=== PATIENT | female | born 2000 | race Caucasian/White ===

== ENCOUNTER 2022-12-24 09:25 | Outpatient (OUT) | payer OTHER, SELFPAY ==
[2022-12-24 09:56] LABS: Basophils Percent Auto 0.4 % (0.2-2.0); Eosinophils Absolute Auto 0.1 10^3/uL (0.0-0.7); Eosinophils Percent Auto 0.9 % (0.9-7.0); Hematocrit 36.8 % (36.0-48.0); Hemoglobin 12.6 g/dL (12.0-16.0); Immature Granulocytes Abs Auto 0.01 10^3/uL (0.00-0.03); Immature Granulocytes Pct Auto 0.1 % (0.0-0.5); Lymphocytes Absolute Auto 2.7 10^3/uL (1.2-3.8); Lymphocytes Percent Auto 33.1 % (20.5-60.0); Mean Corpuscular HGB Conc 34.2 g/dL (29.9-35.2); Mean Corpuscular Hemoglobin 30.4 pg (26.7-34.0); Mean Corpuscular Volume 88.9 fL (81.0-99.0); Mean Platelet Volume 9.6 fL (9.5-13.5); Monocytes Absolute Auto 0.6 10^3/uL (0.3-0.8); Monocytes Percent Auto 7.8 % (1.7-12.0); Neutrophils Absolute Auto 4.6 10^3/uL (1.4-6.5); Neutrophils Percent Auto 57.7 % (43.0-75.0); Platelet Count 240 10^3/uL (150-450); Red Blood Count 4.14 10^6/uL (4.20-5.40); Red Cell Distribution Width 11.8 % (11.0-15.0)
[2022-12-24 10:28] LABS: Estimated Average Glucose 91 mg/dL; Glycohemoglobin A1C 4.8 % (4.5-6.2)
[2022-12-24 11:34] LABS: Alanine Aminotransferase 19 U/L (14-59); Albumin Globulin Ratio 1.3; Albumin Level 4.3 g/dL (3.4-5.0); Alkaline Phosphatase 49 U/L (46-116); Anion Gap 11.8; Aspartate Amino Transferase 14 U/L (15-37); BUN Creatinine Ratio 10.4; Bilirubin Total 0.4 mg/dL (0.2-1.0); Calcium 8.9 mg/dL (8.5-10.1); Carbon Dioxide 26.7 mmol/L (21.0-32.0); Chloride 105 mmol/L (98-107); Chol HDL Ratio 2.3; Cholesterol 126 mg/dL (<=200); Estimated GFR (African America >60 (>=60); Estimated GFR (Non-African Ame >60 (>=60); Free T3 2.48 pg/mL (2.18-3.98); Globulin 3.4 g/dL; Glucose 92 mg/dL (74-106); HDL Cholesterol 55 mg/dL (40-60); Potassium 3.5 mmol/L (3.5-5.1); Sodium 140 mmol/L (136-145); Thyroid Stimulating Hormone 1.175 uIU/mL (0.358-3.740); Total Protein 7.7 g/dL (6.4-8.2); Triglycerides 70 mg/dL (<=150)
== END 2022-12-24 09:26 | disposition home or self-care (01) ==
LOC: LAB 09:29
PROVIDERS: PCP Family Medicine; Visit Provider Family Medicine
DX: Z00.00 Encounter for general adult medical examination without abnormal findings (principal)
CPT/HCPCS: 36415; 80053; 80061; 83036; 83540; 84436; 84443; 84481; 85025

== ENCOUNTER 2023-02-15 07:06 | Emergency (ER) | payer OTHER, SELFPAY ==
[2023-02-15 07:13] VITALS: BP 118/70; PULSE 87; RESP 20; TEMP 37.2; O2SAT 100; BMI 21.3
[2023-02-15 07:43] LABS: Bilirubin Urine SMALL (NEGATIVE); Blood Urine MODERATE (NEGATIVE); Clarity Urine CLEAR (CLEAR); Color Urine YELLOW (YELLOW); Glucose Urine UA NEGATIVE (NEGATIVE); Ketones Urine NEGATIVE (NEGATIVE); Leukocyte Esterase Urine SMALL (NEGATIVE); Nitrite Urine NEGATIVE (NEGATIVE); Protein Urine 30 mg/dL (NEG/TRACE); Specific Gravity Urine >=1.030 (1.005-1.025); pH Urine 5.5 (5.0-9.0)
[2023-02-15 07:56] LABS: Bacteria Urine MODERATE #/HPF (NONE SEEN)
[2023-02-15 07:57] LABS: Mucus Urine NONE SEEN (NONE SEEN); Squamous Epithelial Cell Urine MODERATE #/LPF (NONE/RARE)
--- NOTE | 2023-02-15 08:34 | ED.GENADUL1 ---
HPI - General Adult General Chief complaint: Urogenital-Female Stated complaint: PAIN W URINATION Time Seen by Provider: 02/15/23 08:22 Source: patient Mode of arrival: walk-in Limitations: no limitations History of Present Illness HPI narrative: Patient is a 22-year-old female who is presenting to the Emergency Room with painful urination and concern for STD. Patient says that she has bumps to the right side of her vagina patient is with one sexual partner, patient has had a STD in the past, she took antibiotics for it and it went away. Patient does not remember what antibiotic she had. Patient has painful with urination, positive frequency and urgency, positive dysuria, no diarrhea. No vaginal bleeding, no vaginal discharge. Patient is due for her menses this week. Patient has no fever, chills. No bowel pain, nausea, vomiting, no other acute complaints. . All systems are negative except as noted/marked. All systems reviewed and otherwise negative. . Nurses note and vital signs reviewed and patient is not hypoxic. General: The patient appears well and in no apparent distress. Patient is resting comfortably on cart. Patient is not toxic, lethargic, or listless Skin: Warm, dry, no pallor noted. There is no rash noted. No petechiae, purpura. Head: Normocephalic, atraumatic Eye: Normal conjunctiva, no drainage, EOMI. PERRL Ears, Nose, Mouth, and Throat: oral mucosa is moist. Cardiovascular: Regular Rate and Rhythm, no murmur, gallop, rub Respiratory: Patient is in no distress, no accessory muscle use, lungs are clear to auscultation, no wheezing, rales or rhonchi Back: non-tender, no CVA tenderness bilaterally to percussion. No CT LS midline pain GI: soft, no tenderness to palpation, no masses appreciated. No rebound, guarding, or rigidity noted. No flank pain bilateral, No distention. : Patient has 5-7 vesicles to the right of her right labia majora, one small vesicle to the left lower labia majora. There are moderate tenderness to palpation to the area. No secondary signs of abscess or infection or cellulitis. No vaginal discharge noted. No suprapubic tenderness to palpation. No internal exam required at this time. Patient has no odor, discharge, patient is only concerned about the bumps to the right side of her vagina Musculoskeletal: Patient has full range of motion of all of the extremities, no motor, sensory, or focal neurological deficits Neurological: A&O x3, normal speech Psychiatric: Cooperative Related Data Home Medications Medication Instructions Recorded Confirmed ferrous sulfate 325 mg (65 mg 325 mg PO QDAY 02/15/23 02/15/23 iron) tablet venlafaxine 75 mg tablet 75 mg PO QDAY 02/15/23 02/15/23 Previous Rx's Medication Instructions Recorded sulfamethoxazole 800 1 tab PO BID 7 days #14 tabs 02/15/23 mg-trimethoprim 160 mg tablet (Bactrim DS) valacyclovir 1 gram tablet 1,000 mg PO TID 7 days #21 tabs 02/15/23 (Valtrex) Allergies Allergy/AdvReac Type Severity Reaction Status Date / Time No Known Drug Allergies Allergy Verified 02/15/23 07:20 Exam Constitutional Vital Signs, click to edit/add: Last Vital Signs Temp 98.9 F 02/15/23 07:13 Pulse 87 02/15/23 07:13 Resp 20 02/15/23 07:13 BP 118/70 02/15/23 07:13 Pulse Ox 100 02/15/23 07:13 O2 Del Method Room Air 02/15/23 07:13 Course Vital Signs Vital signs: Vital Signs Temperature 98.9 F 02/15/23 07:13 Pulse Rate 87 02/15/23 07:13 Respiratory Rate 02/15/23 07:13 Blood Pressure 118/70 02/15/23 07:13 Pulse Oximetry 100 02/15/23 07:13 Oxygen Delivery Method Room Air 02/15/23 07:13 Temperature 98.9 F 02/15/23 07:13 Pulse Rate 87 02/15/23 07:13 Respiratory Rate 02/15/23 07:13 Blood Pressure 118/70 02/15/23 07:13 Pulse Oximetry 100 02/15/23 07:13 Oxygen Delivery Method Room Air 02/15/23 07:13 Medical Decision Making MDM Narrative Medical decision making narrative: Patient had 5-7 min education done at bedside Of genital herpes and oral herpes. Patient has a presentation of genital herpes to the right of the labia majora on the right. Patient has no abscess at this time. No redness or cellulitis or secondary signs of infection. No drainage. Patient understands no sexual intercourse until all lesions have improved, she is to inform her sexual partners. Patient was prescribed Valtrex and acyclovir 5 percent ointment. Patient will follow up and establish care with a PCP or PERFORMANCE TEST ARCHITECT. Education on transfer of general herpes was done at bedside with HSV 1, 2, and other general education done on sexual transmitted diseases. Patient had a test that came back negative as well. Patient understands the severity of the diagnosis, education discussed at bedside and on discharge paperwork. Lab Data Lab results reviewed: Yes I reviewed the patient's lab results Labs: Lab Results 02/15/23 02/15/23 Range/Units 07:15 07:24 Urine Color Yellow (YELLOW) Urine Clarity Clear (CLEAR) Urine pH 5.5 (5.0-9.0) Ur Specific Stewart >=1.030 A (1.005-1.025) Urine Protein 30 A (NEG/TRACE) mg/dL Urine Glucose (UA) Negative (NEGATIVE) mg/dL Urine Ketones Negative (NEGATIVE) mg/dL Urine Occult Blood Moderate A (NEGATIVE) Urine Nitrite Negative (NEGATIVE) Urine Bilirubin Small A (NEGATIVE) Urine Urobilinogen 1.0 (0.2-1.0) EU/dL Ur Leukocyte Esterase Small A (NEGATIVE) Urine RBC 10-20 A (0-2) #/HPF Urine WBC 10-20 A (NONE SEEN) #/HPF Ur Squamous Epith Cells Moderate A (NONE/RARE) #/LPF Urine Bacteria Moderate A (NONE SEEN) #/HPF Urine Mucus None seen (NONE SEEN) Urine HCG, Qual Negative (NEGATIVE) Urine cultures pending. Discharge Plan Discharge Chief Complaint: Urogenital-Female Clinical Impression: Urinary tract infection, Genital herpes Patient Disposition: Home, Self-Care Condition: Fair Prescriptions / Home Meds: New valacyclovir [Valtrex] 1 gram tablet 1,000 mg PO TID 7 Days Qty: 21 0RF sulfamethoxazole-trimethoprim [Bactrim DS] 800-160 mg tablet 1 tab PO BID 7 Days Qty: 14 0RF No Action ferrous sulfate 325 mg (65 mg iron) tablet 325 mg PO QDAY venlafaxine 75 mg tablet 75 mg PO QDAY Instructions: Genital Herpes Simplex (ED), Sexually Transmitted Diseases (ED), Urinary Tract Infection in Older Adults (ED) Additional Instructions: Make your sexual partners aware of the genital herpes most likely. Viral swab is pending. Urine being treated for genital herpes and urinary tract infection. Increase fluids. We are also being prescribed medication for genital herpes along with a acyclovir ointment as well to help improve her symptoms sooner. Need to establish PERFORMANCE TEST ARCHITECT for further follow-up. Stand Alone Forms: Portal Instructions Referrals: Danny Adair MD [Primary Care Provider] - 1 week Discharge Date/Time: 02/15/23 08:55
[2023-02-15 08:52] LABS: HCG Qualitative Urine* NEGATIVE (NEGATIVE)
[2023-02-15] MEDS: VALACYCLOVIR HCL 500 MG TABLET 1000 MG PO (08:54)
[2023-02-18 11:09] LABS: HSV-1 DNA Negative (Negative); HSV-2 DNA Positive (Negative)
== END 2023-02-15 08:55 | disposition home or self-care (01) ==
PROVIDERS: Emergency Provider Emergency Medicine; PCP Family Medicine
DX: A60.00 Herpesviral infection of urogenital system, unspecified (principal); N39.0 Urinary tract infection, site not specified; Z79.899 Other long term (current) drug therapy
CPT/HCPCS: 81001; 84703; 86695; 86696; 87086; 99283

== ENCOUNTER 2023-07-09 15:44 | Emergency (ER) | payer OTHER, SELFPAY ==
[2023-07-09 15:49] VITALS: BP 123/86; PULSE 88; RESP 18; TEMP 37.2; O2SAT 99; BMI 26.5
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
--- NOTE | 2023-07-09 16:08 | CT_ITS ---
The [address] [address] Patient Name: TAYLOR ANTUNEZ MRN: [id number] date: 2000 Sex: F Assigned Patient Location: ER Current Patient Location: ER Accession/Order Number: [id number] Exam Date: 07/09/2023 16:15 Report Date: 07/09/2023 16:50 At the request of: HAL ROTHMAN Procedure: CT head/brain wo con CLINICAL HISTORY: trauma. Hit head on the counter. Large laceration to the head. EXAMINATION: Unenhanced CT scan of the brain: 07/09/2023. COMPARISON: None. TECHNIQUE: 3 mm axial images from skull base through vertex without intravenous contrast were obtained. Sagittal and coronal reconstructions were also performed. FINDINGS: The visualized intraorbital contents appear normal. There is soft tissue swelling overlying the right frontal bone. There is normal differentiation of white and brian matter. There is no intra- or extra-axial hemorrhage. No acute infarct is identified. There is no mass, mass effect, or midline shift. The visualized paranasal sinuses, mastoid air cells appear normal. The calvarium appears intact. CT/CT head/brain wo con IMPRESSION: 1. No acute infarct, hemorrhage, or acute intracranial injury. 2. No skull fractures. 3. Soft tissue swelling, hematoma overlying the lateral aspect of the right frontal bone. Electronically authenticated by: PIEDAD VÁZQUEZ Date: 07/09/2023 16:50
[2023-07-09] MEDS: ACETAMINOPHEN 500 MG TABLET 1000 MG PO (16:57)
== END 2023-07-09 17:15 | disposition home or self-care (01) ==
PROVIDERS: Emergency Provider Emergency Medicine Emergency Medical Services; PCP Family Medicine
DX: S09.8XXA Other specified injuries of head, initial encounter (principal); S00.83XA Contusion of other part of head, initial encounter; S00.03XA Contusion of scalp, initial encounter; W22.09XA Striking against other stationary object, initial encounter; Z79.899 Other long term (current) drug therapy
CPT/HCPCS: 70450; 99284

== ENCOUNTER 2023-09-29 20:35 | Outpatient (REF) | payer BC, OTHER, SELFPAY ==
--- OUTSIDE RECORDS SUMMARY | 2023-09-29 20:46 | XMS_ITS | CCD ---
Author Organization [facility] Care Team Providers Care Major Case Detective Name Role Phone Lupe Adair MD Primary Care Provider [phone] LUPE ADAIR Primary Care Unavailable LUPE ADAIR Primary Care Unavailable CATIA, DR ANDRADE Admitting Unavailable CATIA, DR ANDRADE Attending Unavailable HOY, DR ANDRADE Primary Care Unavailable HOY, DR ANDRADE Consulting Unavailable ZIEBBITA, DR CARMITA Carney Consulting Unavailable CATIA, DR ANDRADE Primary Care Unavailable JUAN JOSE, DR GENTRY Keith Admitting Unavailabl e JUAN JOSE, DR GENTRY Keith Attending Unavailabl e REINECK, DR GENTRY Keith Consulting Unavailabl e HOY, DR ANDRADE Admitting Unavailable CATIA, DR ANDRADE Attending Unavailable CATIA, DR ANDRADE Primary Care Unavailable CATIA, DR ANDRADE Consulting Unavailable CATIA, DR ANDRADE Admitting Unavailable CATIA, DR ANDRADE Attending Unavailable CATIA, DR ANDRADE Primary Care Unavailable NORMAN SPARKS Consulting Unavailable CATIA, DR ANDRADE Admitting Unavailable CATIA, DR ANDRADE Attending Unavailable CATIA, DR ANDRADE Primary Care Unavailable CATIA, DR ANDRADE Consulting Unavailable Rach Posadas MD Attending Unavailab Zina Rocha DO Attending Unavailable JUANCARLOS VELASCO Attending Unavailable Allergies Allergy Classification Reported Allergen(s) Allergy Type Date of Onset Reaction(s) Facility (1 source) No Known Medication Allergies; Translations: [No Known Medication Allergies] Propensity to adverse reactions to drug (disorder) [facility] Repository Medications Current Medications Medication Drug Class(es) Dates Sig (Normalized) Sig (Original) mometasone furoate 1 mg/ml topical cream (1 source) Corticosteroid Start: 02-15-2022 mometasone (ELOCON) 0.1 % cream Apply topically 2 times daily as needed (rash finger) Apply topically daily. 15 g 0 02/15/2022 Active Problems Active Problems Problem Classification Problem Date Documented Da te Episodic/Chronic Allergic reactions (1 source) Allergic contact dermatitis, unspecified cause; Translations: [ALLERG CONTACT DERMATITS UNS CAUSE] Onset: 03-30-2022 Episodic Cardiac dysrhythmias (4 sources) Palpitations; Translations: [PALPITATIONS] Onset: 04-29-2022 Episodic Deficiency and other anemia (1 source) Anemia, unspecified; Translations: [ANEMIA UNSPECIFIED] Onset: 05-04-2022 Episodic Diabetes mellitus without complication (1 source) Other abnormal glucose; Translations: [OTHER ABNORMAL GLUCOSE] Onset: 05-04-2022 Episodic Menstrual disorders (1 source) Excessive and frequent menstruation with irregular cycle; Translations: [EXCESS AND FREQ MEN W/IRREG CYCLE] Onset: 05-04-2022 Chronic Other skin disorders (3 sources) Rash and other nonspecific skin eruption; Translations: [RASH OTH NONSPECIFIC SKIN ERUPTION] Onset: 03-29-2022 Episodic Skin and subcutaneous tissue infections (1 source) Cellulitis of finger; Translations: [Cellulitis of left finger] Episodic Past or Other Problems Problem Classification Problem Date Documented Date Episodic/Chronic Immunizations and screening for infectious disease (1 source) Encounter for screening for infections with a predominantly sexual mode of transmission; Translations: [ENC SCREEN INFECTIONS SEXL TRANSMS] Onset: 06-11-2021 Episodic Other connective tissue disease (4 sources) Pain in left hand; Translations: [PAIN IN LEFT HAND] Onset: 05-23-2021 Episodic Other screening for suspected conditions (not mental disorders or infectious disease) (4 sources) Encounter for screening for malignant neoplasm of cervix; Translations: [ENC SCREENING MALIG NEOPLASM CERV] Onset: 06-04-2021 Episodic Results Test Name Value Interpretation Reference Range Facility .UA Microscp 08-04-2022 UA Bacteria Present Abnormal Absent [facility] Comment on above: Performed By: #### L IVER #### [place] [address] UA Mucus Present Abnormal Absent [facility] Comment on above: Performed By: #### L IVER #### [place] [address] UA RBC Qual 1-4 Normal 0 - 5 [facility] Comment on above: Performed By: #### L IVER #### [address] [address] UA Squepi Cells Qual 15-29 Normal 0 - 29 [facility] Comment on above: Performed By: #### L IVER #### [address] [address] UA WBC Qual 5-9 Abnormal 0 - 5 [facility] Comment on above: Performed By: #### L IVER #### [place] [address] .eGFRon 08-04-2022 GFR/1.73 sq M.predicted MDRD (S/P/Bld) [Vol rate/Area] mL/min/{1.73_m2} Normal >=60 [facility] Comment on above: Order Comment: Order added by Discern rule Result Comment: [facility] have implemented the eGFR calculation approach that does not have a coefficient for race and that conforms to the NKF-ASN Task Force Recommendations. Stages of Chronic Kidney Disease GFR Stage 3a Mild to moderate loss of kidney function 59 to 45 Stage 3b Moderate to severe loss of kidney function 44 to 33 Stage 4 Severe loss of kidney function 29 to 15 Stage 5 Kidney failure Less than 15 GFR calculated using the CKD-Epi Creatinine Equation (2020): eGFR = 142 X min(SCr/?, 1)? X max(SCr /?, 1)-1.200 X 0.9938Age X 1.012 [if female] Abbreviations/Units: eGFR (estimated glomerular filtration rate) = mL/min/1.73 m2 SCr (standardized serum creatinine) = mg/dL ? = 0.7 (females) or 0.9 (males) ? = -0.241 (females) or -0.302 (males) min = indicates the minimum of SCr/? or 1 max = indicates the maximum of SCr/? or 1 Age = years Performed By: #### L IVER #### [address] [address] Basic Metabolic Profileon Anion gap [Moles/Vol] 10 mmol/L Normal 7-17 [facility] Comment on above: Performed By: #### C [id number] #### [address] [address] Calcium [Mass/Vol] 8.5 mg/dL Low 8.6-10.3 [facility] Comment on above: Performed By: #### C [id number] #### [address] [address] Chloride 105 IU/L Normal 98-107 [facility] Comment on above: Performed By: #### C [id number] #### [address] [address] CO2 [Moles/Vol] 26 mmol/L Normal 21-31 [facility] Comment on above: Performed By: #### C [id number] #### [address] [address] Creatinine [Mass/Vol] 0.6 mg/dL Normal 0.6-1.2 [facility] Comment on above: Performed By: #### C [id number] #### [address] [address] Glucose [Mass/Vol] 90 mg/dL Normal 70-99 [facility] Comment on above: Performed By: #### C [id number] #### [address] [address] Potassium [Moles/Vol] 3.5 mmol/L Normal 3.4-4.8 [facility] Comment on above: Performed By: #### C [id number] #### [address] [address] Sodium [Moles/Vol] 138 mmol/L Normal 136-145 [facility] Comment on above: Performed By: #### C [id number] #### [address] [address] Urea nitrogen [Mass/Vol] 14 mg/dL Normal 7-25 [facility] Comment on above: Performed By: #### C [id number] #### [address] [address] Urea nitrogen/Creatinine [Mass ratio] 23.3 mg/mg High 10.0-20.0 [facility] Comment on above: Performed By: #### C [id number] #### [place] [address] CBC w/ Diffon 08-04-2022 Erythrocyte distribution width (RBC) [Ratio] 12.5 % Normal 11.6-14.8 [facility] Comment on above: Performed By: #### C BC #### [place] [address] Hematocrit (Bld) [Volume fraction] 40.3 % Normal 36.0-46.0 [facility] Comment on above: Performed By: #### C BC #### [place] [address] Hemoglobin (Bld) [Mass/Vol] 13.6 g/dL Normal 12.0-16.0 [facility] Comment on above: Performed By: #### C BC #### [place] [address] MCH (RBC) [Entitic mass] 29.9 pg Normal 27.0-35.0 [facility] Comment on above: Performed By: #### C BC #### [place] [address] MCHC 33.8 % Normal 31.0-37.0 [facility] Comment on above: Performed By: #### C BC #### [place] [address] MCV (RBC) [Entitic vol] 88.4 fL Normal 80.0-100.0 [facility] Comment on above: Performed By: #### C BC #### [place] [address] Platelet 230 x10*3/mcL Normal 150-350 [facility] Comment on above: Performed By: #### C BC #### [place] [address] Platelet mean volume (Bld) [Entitic vol] 7.7 fL Normal 7.5-11.5 [facility] Comment on above: Performed By: #### C BC #### [address] [address] RBC 4.56 x10*6/mcL Normal 3.80-5.20 [facility] Comment on above: Performed By: #### C BC #### [address] [address] WBC 6.7 x10*3/mcL Normal 4.5-11.0 [facility] Comment on above: Performed By: #### C BC #### [place] [address] COV19 Rapidon 08-04-2022 LAB ONLY Result Called? No Normal [facility] Comment on above: Performed By: #### C [id number] #### [address] [address] Reason for Rapid Test COVID Exposure Normal [facility] Comment on above: Performed By: #### C [id number] #### [address] [address] SARS-CoV-2 (COVID-19) RNA ADELSO+probe Ql (Unsp spec) Negative Normal Negative [facility] Comment on above: Result Comment: This test is for the detection of SARS-CoV-2 RNA. Positive results are indicative of active infection with SARS-CoV-2. Positive results do not rule out bacterial infection or co-infection with other viruses. Negative results should be treated as presumptive and, if inconsistent with clinical signs and symptoms or necessary for patient management, should be tested with an alternative molecular assay.Negative results do not preclude SARS-CoV-2 infection and should not be used as the sole basis for treatment or other patient management decisions. Clinical correlation with patient history and other diagnostic information is necessary to determine patient infection status. ADDITIONAL INFORMATION: Testing was performed using the ID NOW COVID-19 test by [employer], which has received Emergency Use Authorization (EUA) by the U.S. Food and Drug Administration. The [employer] ID NOW COVID-19 test performs best when patients are tested within the first 7 days of symptom onset. Results should be interpreted with caution for asymptomatic patients or those tested outside the 7 day target. Refer to CDC guidelines for further testing algorithms. Fact sheets for this Emergency Use Authorization (EUA) assay can be found at the following links: Fact Sheet for HealthCare Providers: https://www.fda.gov/media/341113/download Fact Sheet for Patients: https://www.fda.gov/media/053626/download Performed By: #### C [id number] #### [address] [address] Diff Autoon 08-04-2022 Baso Absolute 0.0 x10*3/mcL Normal 0.0-0.2 [facility] Comment on above: Performed By: #### . Automated Diff #### [address] [address] Basophils/100 WBC (Bld) 0.2 % Normal 0.0-1.5 [facility] Comment on above: Performed By: #### . Automated Diff #### [place] [address] Eos Absolute 0.1 x10*3/mcL Normal 0.0-0.4 [facility] Comment on above: Performed By: #### . Automated Diff #### [address] [address] Eosinophils/100 WBC (Bld) 1.2 % Normal 0.0-5.4 [facility] Comment on above: Performed By: #### . Automated Diff #### [address] [address] Lymph Absolute 1.6 x10*3/mcL Normal 1.0-4.8 [facility] Comment on above: Performed By: #### . Automated Diff #### [address] [address] Lymphocytes/100 WBC (Bld) 23.7 % Low 27.2-40.8 [facility] Comment on above: Performed By: #### . Automated Diff #### [address] [address] Oliver Absolute 0.6 x10*3/mcL Normal 0.1-1.1 [facility] Comment on above: Performed By: #### . Automated Diff #### [place] [address] Monocytes/100 WBC (Bld) 9.3 % Normal 3.7-11.9 [facility] Comment on above: Performed By: #### . Automated Diff #### [place] [address] Neutro Absolute 4.4 x10*3/mcL Normal 1.8-7.7 [facility] Comment on above: Performed By: #### . Automated Diff #### [place] [address] Neutro Auto 65.6 % Normal 47.2-70.8 [facility] Comment on above: Performed By: #### . Automated Diff #### [place] [address] ED Clinical Summaryon 2022 ED Clinical Summary (Inserted Image. Debra ble to display) [place] [address] ED Clinical Summary Person Information Name: Jeannine Antunez [facility] Age: 21 Years : 2000 Sex: Female PCP: Marital Status: Single Phone: Race: White Ethnicity: Not or Language: Citizen Of [place] Visit Reason: Abdominal pain; Vomiting; Nausea; Abdominal pain Acuity: 3 Enc Type: Emergency Med Service: Emergency Medicine Arrival: 08/04/2022 18:42:47 Discharge: 08/04/2022 20:40:00 LOS: 000 01:58 Checkin: 08/04/2022 18:42:47 Checkout: 08/04/2022 20:40:00 Dispo Type: Home or Self Care Address: [address] [place] [address] Provider Notes: History of Present Illness 21-year-old female who presents to the emergency department today complaining of abdominal pain nausea and vomiting.? She woke up at 330 this morning and vomited twice.? She then vomited again at 630 this morning.? She has not had any further vomiting since then.? She has been able to keep down Sprite.? She does states she feels nauseated at this time though.? She complains of cramping abdominal pain which is diffuse.? She has had no fever or chills.? No chest pain or shortness of breath.? She has had some cough and congestion for the last 2 days.? No urinary symptoms.? Her last menstrual period was 7 days ago and was normal.? She denies any vaginal discharge.? She denies any other modifying factors or symptoms. Review of Systems CONSTITUTIONAL: [Negative for fever, weakness, malaise.] EYES: [Negative for injury, pain, redness, discharge.] ENT: Positive for congestion no sore throat. NECK: [Negative for injury, pain, swelling, and stiffness.] CARDIOVASCULAR: [Negative for chest pain, palpitations.] RESPIRATORY: No for cough no shortness of breath ABDOMEN/GI: For abdominal pain nausea and vomiting.? No diarrhea BACK: [Negative for injury or bruising.] : [Negative for injury, bleeding, discharge, frequency, hematuria, urgency.] MUSCULOSKELETAL: [Negative for arthralgias, injury and deformity.] SKIN: [Negative for injury, rash, discoloration.] NEURO: [Negative for focal weakness, numbness, tingling, and seizure.] Physical Exam CONSTITUTIONAL:? [Well appearing and in no apparent distress.] SKIN: [Warm, dry, no jaundice, hives or petechiae.] EYES: [Pupils are equally round, extraocular movements intact without nystagmus, clear conjunctiva, non-icteric sclera.] HENT: [Normocephalic, atraumatic, moist mucus membranes, oropharynx clear without exudates.] NECK: [Nontender and supple with no nuchal rigidity. No lymphadenopathy. Has full range of motion.] PULMONARY: [Clear to auscultation without wheezes, rhonchi, or rales. Has normal excursion. No accessory muscle use or stridor.] CARDIOVASCULAR: [Regular rate, rhythm, normal S1 and S2.? No appreciated murmurs.? Strong radial pulses with intact distal perfusion.] GASTROINTESTINAL: Tenderness to palpation diffusely.? No rebound rigidity or guarding.? Positive bowel sounds. GENITOURINARY: [No costovertebral angle tenderness to palpation.] LYMPHATICS: [No edema in lower extremities, no lymphadenopathy.] MUSCULOSKELETAL: [Extremities are nontender to palpation and have no gross deformity, edema, redness, or swelling.] NEUROLOGIC: [Alert and oriented x 3, GCS 15, normal mentation and speech.? Moves all extremities x 4 without motor or sensory deficit, gait is stable without ataxia.] PSYCHIATRIC: [Normal mood and affect, thought process is clear and linear.] Diagnosis: 1:Abdominal pain; 2:Vomiting Problems No Problems Documented Smoking Status: Functional Status: Sensory Deficits: History of Falls: Mobility Assistance Prior to Admission: ADLs: Current Level of Assistance for Self-Care/Mobility: Cognitive Status: Allergies No Known Medication Allergies No Known Allergies Laboratory or Other Results This Visit (last charted value for your 08/04/2022 visit) Hematology 08/04/2022 7:26 PM WBC: 6.7 x10 RBC: 4.56 x10 Neutro Auto: 65.6 % -- Normal range between ( 47.2 and 70.8 ) Lymph Auto: 23.7 % -- Normal range between ( 27.2 and 40.8 ) Oliver Auto: 9.3 % -- Normal range between ( 3.7 and 11.9 ) Eos Auto: 1.2 % -- Normal range between ( 0.0 and 5.4 ) Basophil Auto: 0.2 % -- Normal range between ( 0.0 and 1.5 ) Baso Absolute: 0.0 x10 MCV: 88.4 fL -- Normal range between ( 80.0 and 100.0 ) MCHC: 33.8 % -- Normal range between ( 31.0 and 37.0 ) Lymph Absolute: 1.6 x10 Hct: 40.3 % -- Normal range between ( 36.0 and 46.0 ) Oliver Absolute: 0.6 x10 MCH: 29.9 pg -- Normal range between ( 27.0 and 35.0 ) Neutro Absolute: 4.4 x10 Hgb: 13.6 g/dL -- Normal range between ( 12.0 and 16.0 ) Mean Platelet Volume: 7.7 fL -- Normal range between ( 7.5 and 11.5 ) Platelet: 230 x10 Eos Absolute: 0.1 x10 RDW: 12.5 % -- Normal range between ( 11.6 and 14.8 ) Urinalysis 08/04/2022 7:26 PM UA Color: (more content not included)... Normal [facility] ED Note-Physicianon 08-04-19 23 ED Note-Physician Chief Complaint Patient complain of abdominal pain, nausea, vomiting starting this morning History of Present Illness 21-year-old female who presents to the emergency department today complaining of abdominal pain nausea and vomiting. She woke up at 330 this morning and vomited twice. She then vomited again at 630 this morning. She has not had any further vomiting since then. She has been able to keep down Sprite. She does states she feels nauseated at this time though. She complains of cramping abdominal pain which is diffuse. She has had no fever or chills. No chest pain or shortness of breath. She has had some cough and congestion for the last 2 days. No urinary symptoms. Her last menstrual period was 7 days ago and was normal. She denies any vaginal discharge. She denies any other modifying factors or symptoms. Review of Systems CONSTITUTIONAL: [Negative for fever, weakness, malaise.] EYES: [Negative for injury, pain, redness, discharge.] ENT: Positive for congestion no sore throat. NECK: [Negative for injury, pain, swelling, and stiffness.] CARDIOVASCULAR: [Negative for chest pain, palpitations.] RESPIRATORY: No for cough no shortness of breath ABDOMEN/GI: For abdominal pain nausea and vomiting. No diarrhea BACK: [Negative for injury or bruising.] : [Negative for injury, bleeding, discharge, frequency, hematuria, urgency.] MUSCULOSKELETAL: [Negative for arthralgias, injury and deformity.] SKIN: [Negative for injury, rash, discoloration.] NEURO: [Negative for focal weakness, numbness, tingling, and seizure.] Physical Exam CONSTITUTIONAL: [Well appearing and in no apparent distress.] SKIN: [Warm, dry, no jaundice, hives or petechiae.] EYES: [Pupils are equally round, extraocular movements intact without nystagmus, clear conjunctiva, non-icteric sclera.] HENT: [Normocephalic, atraumatic, moist mucus membranes, oropharynx clear without exudates.] NECK: [Nontender and supple with no nuchal rigidity. No lymphadenopathy. Has full range of motion.] PULMONARY: [Clear to auscultation without wheezes, rhonchi, or rales. Has normal excursion. No accessory muscle use or stridor.] CARDIOVASCULAR: [Regular rate, rhythm, normal S1 and S2. No appreciated murmurs. Strong radial pulses with intact distal perfusion.] GASTROINTESTINAL: Tenderness to palpation diffusely. No rebound rigidity or guarding. Positive bowel sounds. GENITOURINARY: [No costovertebral angle tenderness to palpation.] LYMPHATICS: [No edema in lower extremities, no lymphadenopathy.] MUSCULOSKELETAL: [Extremities are nontender to palpation and have no gross deformity, edema, redness, or swelling.] NEUROLOGIC: [Alert and oriented x 3, GCS 15, normal mentation and speech. Moves all extremities x 4 without motor or sensory deficit, gait is stable without ataxia.] PSYCHIATRIC: [Normal mood and affect, thought process is clear and linear.] Vitals & Measurements T: 36.9 ?C (Oral) HR: 78 (Peripheral) HR: 78 (Monitored) RR: 18 BP: 122/86 SpO2: 100% HT: 155 cm WT: 56.0 kg WT: 56.0 kg (Dosing) Additional Vitals No qualifying data available. Procedure No qualifying data available. ASA Documentation Medical Decision Making Patient seen and examined by myself at the bedside. Exam findings, results, and differential diagnoses are discussed and all questions are answered. Patient is resting comfortably in the room. She has had no further vomiting while in the ED. Her abdominal pain is improved and repeat exam and all exam is benign. Her studies were reviewed with her as well as UA results. I did reaffirm that she has no urinary symptoms. She does have some bacteria and white blood cells but she also has mucus and a large amount of epithelial cells. We will send this for culture before treating as she has no symptoms. She is feeling much improved after IV fluids and Zofran. X-ray results were reviewed with her as well. She is to continue to drink fluids at home. She is given a diet for nausea and vomiting. She is also made aware of symptoms to be watching for to evaluate for appendicitis. She has no right lower quadrant abdominal pain at this time. She is to follow-up with her primary care physician in the next 1 to 2 days for recheck or return to the emergency room with any change or worsening symptoms in the interim. Assessment/Plan 1. Abdominal pain 2. Vomiting Orders: Discharge Patient Refresh vitals and sections below: Problem List/Past Medical History Ongoing Abdominal pain Vomiting Historical No qualifying data Medications Inpatient No active inpatient medications Home ferrous sulfate, 325 mg, Oral, Daily Allergies No Known Allergies No Known Medication Allergies Social History Alcohol Current, Liquor, 1-2 times per year Substance Abuse Denies All Tobacco Never (less than 100 in lifetime) Use:. Lab Results Automated Hematology LATEST RESULTS WBC 08/04/22 19:26 6.7 RBC 08/04/22 19:26 4.56 Hgb 08/04/22 19:26 (more content not included)... Normal [facility] Flu A&B Ag Rapidon 3 Influenza A Ag Negative Normal Negative [facility] Comment on above: Performed By: #### C [id number] #### [place] [address] Influenza B Ag Negative Normal Negative [facility] Comment on above: Result Comment: The [employer] Influenza A+B Card 2 detects both viable and non-viable influenza A and B. Test performance depends on the amount of virus (antigen) in the specimen and may or may not compare with cell culture results performed on the same specimen. A negative test result does not exclude the infection with influenza A and/or B. Therefore, the results obtained with the [employer] Influenza A+B Test should be used in conjunction with clinical findings to make an accurate diagnosis. Additional testing is required to differentiate any specific influenza A+B subtypes or strains, in consultation with state or local public health departments. Performed By: #### C [id number] #### [place] [id number] Hep Func Panelon 08-04-2022 Albumin [Mass/Vol] 4.4 g/dL Normal 3.7-5.3 [facility] Comment on above: Performed By: #### L IVER #### [place] [address] Alk Phos 53 IU/L Normal 34-104 [facility] Comment on above: Performed By: #### L IVER #### [place] [address] ALT [Catalytic activity/Vol] 15 U/L Normal 7-52 [facility] Comment on above: Performed By: #### L IVER #### [place] [address] AST [Catalytic activity/Vol] 16 U/L Normal 13-39 [facility] Comment on above: Performed By: #### L IVER #### [place] [address] Bili Direct 0.15 mg/dL Normal 0.03-0.18 [facility] Comment on above: Performed By: #### L IVER #### [place] [address] Bili Indirect 0.4 mg/dL Normal 0.0-1.0 [facility] Comment on above: Performed By: #### L IVER #### [place] [address] Bili Total 0.6 mg/dL Normal 0.3-1.0 [facility] Comment on above: Performed By: #### L IVER #### [place] [address] Protein [Mass/Vol] 7.5 g/dL Normal 6.0-8.3 [facility] Comment on above: Performed By: #### L IVER #### [place] [address] Lipaseon 08-04-2022 Lipase Lvl 18 IU/L Normal 11-82 [facility] Comment on above: Performed By: #### L IP #### [place] [address] UA w Culture if Ind Tri Color (U) Yellow Normal [facility] Comment on above: Performed By: #### U CIM #### [place] [address] Glucose (U) [Mass/Vol] Negative Normal Negative [facility] Comment on above: Performed By: #### U CIM #### [place] [address] Ketones Ql (U) Negative Normal Negative [facility] Comment on above: Performed By: #### U CIM #### [place] [address] UA Blood Negative Normal Negative [facility] Comment on above: Performed By: #### U CIM #### [place] [address] UA Clarity Hazy Normal [facility] Comment on above: Performed By: #### U CIM #### [place] [address] UA Leukocyte Esterase Trace Abnormal Negative [facility] Comment on above: Performed By: #### U CIM #### [place] [address] UA Nitrite Negative Normal Negative [facility] Comment on above: Performed By: #### U CIM #### [place] [address] UA pH 7.0 Normal 4.5 - 7.8 [facility] Comment on above: Performed By: #### U CIM #### [place] [address] UA Protein Negative Normal Negative [facility] Comment on above: Performed By: #### U CIM #### [place] [address] UA Source Clean Catch Normal [facility] Comment on above: Performed By: #### U CIM #### [place] [address] UA Spec Grav 1.025 Normal 1.003-1.035 [facility] Comment on above: Performed By: #### U CIM #### [place] [address] UA Urobilinogen 2.0 mg/dL Abnormal 0.2 - 1.0 [facility] Comment on above: Result Comment: conf brian with chemstrip 10 08/04/2022 19:44:02 EST Performed By: #### U CIM #### [place] [address] Urobilinogen (U) [Mass/Vol] Negative Normal Negative [facility] Comment on above: Performed By: #### U CIM #### [facility] [address] [place] [address] XR Abdomen 2 Views w/ Chest 1 Viewon 08-04-2022 XR Abdomen 2 Views w/ Chest 1 View EXAM: XR Abdomen 2 Views w/ Chest 1 View HISTORY: Abdominal pain, generalized, COMPARISON: None. TECHNIQUE: 3 views FINDINGS: The cardiac silhouette is normal in size. The lungs are symmetrically aerated and clear. There is no solid organomegaly. There are no abnormal calcifications. No foreign body is seen. There is a moderate amount colonic stool present. Air-filled loops of small bowel and colon are seen throughout the abdomen and pelvis. There are a few nonspecific colonic air-fluid levels on the upright image. Air is visible to the distal colon and rectum. There is no acute bony pathology. IMPRESSION: 1. No active lung disease. 2. Suspected mild diffuse ileus. No findings of bowel obstruction on today's exam. Final Dictated by: Susannah Benjamin MD Dictated DT/TM: 08/04/2022 8:17 pm Signed by: Susannah Benjamin MD Signed (Electronic Signature): 08/04/2022 8:21 pm (If Report Is Signed, Electronically Signed in Other Vendor System) Normal [facility] INSULINon 05-01-2022 Insulin 14.9 uIU/mL Normal 2.6-24.9 [facility] Comment on above: Performed By: #### I NSULIN #### [facility] [address] [place] [address] Dr. Yesenia Hung CBC AUTO DIFFon 04-29-2022 BASO # 0.0 103/ul Normal 0.0-0.1 [facility] Comment on above: Performed By: #### R PRQ #### [facility] [address] [place] [address] Dr. Yesenia Hung Basophils/100 WBC (Bld) 0.6 % Normal 0.2-2.0 [facility] Comment on above: Performed By: #### R PRQ #### [facility] [address] [place] [address] Dr. Yesenia Hung EO # 0.1 103/ul Normal 0.0-0.7 [facility] Comment on above: Performed By: #### R PRQ #### [facility] [address] [place] [address] Dr. Yesenia Hung Eosinophils/100 WBC (Bld) 0.7 % Critically low 0.9-7.0 [facility] Comment on above: Performed By: #### R PRQ #### [facility] [address] [place] [address] Dr. Yesenia Hung Erythrocyte distribution width (RBC) [Ratio] 12.6 % Normal 11.0-15.0 [facility] Comment on above: Performed By: #### R PRQ #### [facility] [address] [place] [address] Dr. Yesenia Hung Hematocrit (Bld) [Volume fraction] 38.9 % Normal 36.0-48.0 [facility] Comment on above: Performed By: #### R PRQ #### [facility] [address] [place] [address] Dr. Yesenia Hung Hemoglobin (Bld) [Mass/Vol] 13.2 g/dL Normal 12.0-16.0 [facility] Comment on above: Performed By: #### R PRQ #### [facility] [address] [place] [address] Dr. Yesenia Hung IG # 0.02 10e3/ul Normal 0.00-0.03 [facility] Comment on above: Performed By: #### R PRQ #### [facility] [address] [place] [address] Dr. Yesenia Hung IG % 0.3 % Normal 0.0-0.5 [facility] Comment on above: Performed By: #### R PRQ #### [facility] [address] [place] [address] Dr. Yesenia Hung LYMPH # 2.1 103/ul Normal 1.2-3.8 [facility] Comment on above: Performed By: #### R PRQ #### [facility] [address] [place] [address] Dr. Yesenia Hung Lymphocytes/100 WBC (Bld) 29.4 % Normal 20.5-60.0 [facility] Comment on above: Performed By: #### R PRQ #### [facility] [address] [place] [address] Dr. Yesenia Hung MANUAL DIFF REQ NO Normal [facility] Comment on above: Performed By: #### R PRQ #### [facility] [address] [place] [address] Dr. Yesenia Hung MCH (RBC) [Entitic mass] 29.8 pg Normal 26.7-34.0 [facility] Comment on above: Performed By: #### R PRQ #### [facility] [address] [place] [address] Dr. Yesenia Hung MCHC (RBC) [Mass/Vol] 33.9 g/dL Normal 29.9-35.2 [facility] Comment on above: Performed By: #### R PRQ #### [facility] [address] [place] [address] Dr. Yesenia Hung MCV (RBC) [Entitic vol] 87.8 fL Normal 81.0-99.0 [facility] Comment on above: Performed By: #### R PRQ #### [facility] [address] [place] [address] Dr. Yesenia Hung MONO # 0.5 103/ul Normal 0.3-0.8 [facility] Comment on above: Performed By: #### R PRQ #### [facility] [address] [place] [address] Dr. Yesenia Hung Monocytes/100 WBC (Bld) 6.6 % Normal 1.7-12.0 [facility] Comment on above: Performed By: #### R PRQ #### [facility] [address] [place] [address] Dr. Yesenia Hung NEUT # 4.5 103/ul Normal 1.4-6.5 [facility] Comment on above: Performed By: #### R PRQ #### [facility] [address] [place] [address] Dr. Yesenia Hung Neutrophils/100 WBC (Bld) 62.4 % Normal 43.0-75.0 [facility] Comment on above: Performed By: #### R PRQ #### [facility] [address] [place] [address] Dr. Yesenia Hung Platelet mean volume (Bld) [Entitic vol] 9.5 fL Normal 9.5-13.5 [facility] Comment on above: Performed By: #### R PRQ #### [facility] [address] [place] [address] Dr. Yesenia Hung PLT 294 103/ul Normal 150-450 [facility] Comment on above: Performed By: #### R PRQ #### [facility] [address] [place] [address] Dr. Yesenia Hung RBC 4.43 106/ul Normal 4.20-5.40 [facility] Comment on above: Performed By: #### R PRQ #### [facility] [address] [place] [address] Dr. Yesenia Hung WBC 7.1 103/ul Normal 4.0-11.0 [facility] Comment on above: Performed By: #### R PRQ #### [facility] [address] [place] [address] Dr. Yesenia Hung FREE THYROXINE INDEX T7on FTI 2.51 Normal 1.30-4.50 [facility] Comment on above: Performed By: #### C MP, TSH, T7, PREGQNT #### [facility] [address] [place] [address] Dr. Yesenia Hung T3U 33.0 % Normal 30.0-39.0 [facility] Comment on above: Performed By: #### C MP, TSH, T7, PREGQNT #### [facility] [address] [place] [address] Dr. Yesenia Hung T4 [Mass/Vol] 7.60 ug/dL Normal 4.80-13.90 [facility] Comment on above: Performed By: #### C MP, TSH, T7, PREGQNT #### [facility] [address] [address] [address] Yesenia Hung GLYCOHEMOGLOBIN A1Con 2021 ADA RECOMMENDATION SEE BELOW Normal [facility] Comment on above: Result Comment: ADA RECOMMENDED LIMIT 4.0 - 6.0 ADA THERAPEUTIC TARGET < 7.0 ACTION SUGGESTED > 7.0 Performed By: #### A 1C #### [facility] [address] [place] [address] Dr. Yesenia Hung Glucose [Mass/Vol] 103 mg/dL Normal [facility] Comment on above: Performed By: #### A 1C #### [facility] [address] [place] [address] Dr. Yesenia Hung HbA1c (Bld) [Mass fraction] 5.2 % Normal 4.5-6.2 [facility] Comment on above: Performed By: #### A 1C #### [facility] [address] [place] [address] Dr. Yesenia Hugn IRONon 04-29-2022 Iron [Mass/Vol] 40.0 ug/dL Critically low 50.0-170.[address] [facility] Comment on above: Performed By: #### A 1C #### [facility] [address] [place] [address] Dr. Yesenia Hung PREG QUANT HCGon 04-29-2022 HCG QUANT <1 Normal [facility] Comment on above: Performed By: #### R PRQ #### [facility] [address] [place] [address] Dr. Yesenia Hung HCG RANGE SEE BELOW Normal [facility] Comment on above: Result Comment: 5-50 0.2-1 WEEK 50-500 1-2 WEEKS 100-5,000 2-3 WEEKS 500-10,000 3-4 WEEKS 1,000-50,000 4-5 WEEKS 10,000-100,000 5-6 WEEKS 15,000-200,000 6-8 WEEKS 10,000-100,000 2-3 MONTHS Performed By: #### R PRQ #### [facility] [address] [place] [address] Dr. Yesenia Hung PROF 14(COMP METB)on 11-23-2 022 Albumin [Mass/Vol] 4.2 g/dL Normal 3.4-5.0 [facility] Comment on above: Performed By: #### R PRQ #### [facility] [address] [place] [address] Dr. Yesenia Hung Albumin/Globulin [Mass ratio] 1.0 {ratio} Normal [facility] Comment on above: Performed By: #### R PRQ #### [facility] [address] [address] [address] Yesenia Hung ALP [Catalytic activity/Vol] 67 U/L Normal 46-116 [facility] Comment on above: Performed By: #### R PRQ #### [facility] [address] [place] [address] Dr. Yesenia Hung ALT [Catalytic activity/Vol] 11 U/L Critically low 14-59 [facility] Comment on above: Performed By: #### R PRQ #### [facility] [address] [place] [address] Dr. Yesenia Hung Anion gap [Moles/Vol] 12.1 mmol/L Normal [facility] Comment on above: Performed By: #### R PRQ #### [facility] [address] [place] [address] Dr. Yesenia Hung AST [Catalytic activity/Vol] 10 U/L Critically low 15-37 [facility] Comment on above: Performed By: #### R PRQ #### [facility] [address] [place] [address] Dr. Yesenia Hung Bilirubin [Mass/Vol] 0.2 mg/dL Normal 0.2-1.0 [facility] Comment on above: Performed By: #### R PRQ #### [facility] [address] [place] [address] Dr. Yesenia Hung Calcium [Mass/Vol] 9.4 mg/dL Normal 8.5-10.1 [facility] Comment on above: Performed By: #### R PRQ #### [facility] [address] [place] [address] Dr. Yesenia Hung Chloride [Moles/Vol] 103 mmol/L Normal 98-107 [facility] Comment on above: Performed By: #### R PRQ #### [facility] [address] [address] [address] Yesenia Hung CO2 [Moles/Vol] 28.2 mmol/L Normal 21.0-32.0 [facility] Comment on above: Performed By: #### R PRQ #### [facility] [address] [address] [address] Yesenia Hung Creatinine [Mass/Vol] 0.58 mg/dL Normal 0.55-1.02 [facility] Comment on above: Performed By: #### R PRQ #### [facility] [address] [place] [address] Dr. Yesenia Hung EGFR-AF NEPALESE >60 Normal >=60 [facility] Comment on above: Performed By: #### R PRQ #### [facility] [address] [place] [address] Dr. Yesenia Hung EGFR-NON AF NEPALESE >60 Normal >=60 [facility] Comment on above: Performed By: #### R PRQ #### [facility] [address] [address] [address] Yesenia Hung Globulin (S) [Mass/Vol] 4.0 g/dL Normal [facility] Comment on above: Performed By: #### R PRQ #### [facility] [address] [address] [address] Yesenia Hung Glucose [Mass/Vol] 89 mg/dL Normal 74-106 [facility] Comment on above: Performed By: #### R PRQ #### [facility] [address] [address] [address] Yesenia Hung Potassium [Moles/Vol] 4.3 mmol/L Normal 3.5-5.1 [facility] Comment on above: Performed By: #### R PRQ #### [facility] [address] [place] [address] Dr. Yesenia Hung Protein [Mass/Vol] 8.2 g/dL Normal 6.4-8.2 [facility] Comment on above: Performed By: #### R PRQ #### [facility] [address] [address] [address] Yesenia Hung Sodium [Moles/Vol] 139 mmol/L Normal 136-145 [facility] Comment on above: Performed By: #### R PRQ #### [facility] [address] [address] [address] Yesenia Hung Urea nitrogen [Mass/Vol] 11.0 mg/dL Normal 7.0-18.0 [facility] Comment on above: Performed By: #### R PRQ #### [facility] [address] [address] [address] Yesenia Hung Urea nitrogen/Creatinine [Mass ratio] 19.0 mg/mg Normal [facility] Comment on above: Performed By: #### R PRQ #### [facility] [address] [address] [address] Yesenia Hung TSHon 04-29-2022 TSH 1.621 uIU/mL Normal 0.358-3.740 [facility] Comment on above: Performed By: #### R PRQ #### [facility] [address] [address] [address] Yesenia Hung ED Clinical Summaryon 2021 ED Clinical Summary (Inserted Image. Debra ble to display) [address] [address] ED Clinical Summary Person Information Name: Jeannine Antunez [facility] Age: 21 Years : 2000 Sex: Female PCP: Marital Status: Single Phone: Race: White Ethnicity: Not or Language: Citizen Of [place] Visit Reason: Skin rash; Rash Acuity: 4 Enc Type: Emergency Med Service: Emergency Medicine Arrival: 03/29/2022 23:48:59 Discharge: 03/30/2022 00:18:00 LOS: 000 00:30 Checkin: 03/29/2022 23:48:59 Checkout: 03/30/2022 00:18:00 Dispo Type: Home or Self Care Address: [address] [place] [address] Provider Notes: History of Present Illness Patient presents for evaluation of rash. ?She believes that she is having a reaction to?red dye as she presented to?another emergency department?in [facility] earlier today.? Patient?was prescribed prednisone 60 mg x 2 days, 40 mg x 3 days, and?20 mg x 2 days. ?She started the medication while in the department with improvement in her symptoms.? Patient still?desired?to have second opinion. Review of Systems Constitutional: [No fevers, chills, sweats] Eye: [No recent visual problems] ENMT: [No ear pain, nasal congestion, sore throat, tongue or lip swelling] Respiratory: [No shortness of breath, cough] Cardiovascular: [No Chest pain, palpitations, syncope] Gastrointestinal: [No nausea, vomiting, diarrhea] Genitourinary: [No hematuria] Skin: (+) rash No wound Physical Exam General: [Alert and oriented, well nourished, no acute distress]. Eye: [PERRL, EOMI, normal conjunctiva]. HENT: [Normocephalic, clear tympanic membranes, normal hearing, moist oral mucosa, no scleral icterus, no sinus tenderness. No lip or tongue swelling]. Neck: [Supple, non-tender, no carotid bruits, no JVD, no lymphadenopathy]. Lungs: [Clear to auscultation and percussion, non-labored respiration]. Heart: [Normal rate, regular rhythm, no murmur, gallop or edema]. Abdomen: [Soft, non-tender, non-distended, normal bowel sounds, no masses]. Musculoskeletal: [Normal range of motion and strength, no tenderness or swelling]. Skin: [Skin is warm, dry. ?Has multiple scattered?erythematous?pap ules?noted to the bilateral upper extremities including the palm of the right hand,?abdomen, back, and?bilateral lower extremities including the buttocks.??]. Neurologic: [Awake, alert, and oriented X3, CN II-XII intact]. Psychiatric: [Cooperative, appropriate mood and affect]. Diagnosis: Acute dermatitis Problems No Problems Documented Smoking Status: Functional Status: Sensory Deficits: History of Falls: Mobility Assistance Prior to Admission: ADLs: Current Level of Assistance for Self-Care/Mobility: Cognitive Status: Allergies No Allergies Documented Laboratory or Other Results This Visit (last charted value for your 03/29/2022 visit) No Laboratory or Other Results This Visit Measurements: Height: Weight: 53.7 kg Blood Pressure: /79 mmHg BMI: Procedures No Procedures Documented Immunizations No Immunizations Documented This Visit Final Med List: No Medications Documented Care Team Members: Attending Physician: Cuauhtemoc HOLGUIN, Rach Santos Consulting Physician: Referring Physician: Follow up: With: Address: When: Your doctor if rash does not improve in 2-3 days. Patient Education Information: Contact Dermatitis [facility] Poison Help line: . [facility] Hotline: [place] Tobacco Quit Line: [place], [place]) [address]: [phone] [facility] ([place], [place]) [address]: [phone] [facility] [address] [place], [place]: [phone] Normal [facility] ED Note-Physicianon 03-30-20 ED Note-Physician Chief Complaint Presents to ED with c/o scattered small reddened areas to upper and lower extremities. History of Present Illness Patient presents for evaluation of rash. She believes that she is having a reaction to red dye as she presented to another emergency department in [facility] earlier today. Patient was prescribed prednisone 60 mg x 2 days, 40 mg x 3 days, and 20 mg x 2 days. She started the medication while in the department with improvement in her symptoms. Patient still desired to have second opinion. Review of Systems Constitutional: [No fevers, chills, sweats] Eye: [No recent visual problems] ENMT: [No ear pain, nasal congestion, sore throat, tongue or lip swelling] Respiratory: [No shortness of breath, cough] Cardiovascular: [No Chest pain, palpitations, syncope] Gastrointestinal: [No nausea, vomiting, diarrhea] Genitourinary: [No hematuria] Skin: (+) rash No wound Physical Exam General: [Alert and oriented, well nourished, no acute distress]. Eye: [PERRL, EOMI, normal conjunctiva]. HENT: [Normocephalic, clear tympanic membranes, normal hearing, moist oral mucosa, no scleral icterus, no sinus tenderness. No lip or tongue swelling]. Neck: [Supple, non-tender, no carotid bruits, no JVD, no lymphadenopathy]. Lungs: [Clear to auscultation and percussion, non-labored respiration]. Heart: [Normal rate, regular rhythm, no murmur, gallop or edema]. Abdomen: [Soft, non-tender, non-distended, normal bowel sounds, no masses]. Musculoskeletal: [Normal range of motion and strength, no tenderness or swelling]. Skin: [Skin is warm, dry. Has multiple scattered erythematous papules noted to the bilateral upper extremities including the palm of the right hand, abdomen, back, and bilateral lower extremities including the buttocks. ]. Neurologic: [Awake, alert, and oriented X3, CN II-XII intact]. Psychiatric: [Cooperative, appropriate mood and affect]. Vitals & Measurements T: 36.9 ?C (Oral) HR: 78 (Peripheral) HR: 78 (Monitored) RR: 16 BP: 122/79 SpO2: 100% HT: 161.2 cm WT: 53.7 kg WT: 53.7 kg (Dosing) Additional Vitals No qualifying data available. Procedure No qualifying data available. ASA Documentation Medical Decision Making Patient presents for evaluation of rash. We discussed differential diagnoses including viral rash such as geal-nvhb-qhz-mouth disease and contact dermatitis. Patient has had to take Benadryl today but will when she gets home. She is recommended to continue the course of therapy prescribed to her in the emergency department earlier today. She is also recommended follow-up with her PCP in 2 to 3 days for reevaluation. Assessment/Plan Acute dermatitis Skin rash (Complaint of) Orders: Discharge Patient Return to Work/School Refresh vitals and sections below: Problem List/Past Medical History Ongoing No qualifying data Historical No qualifying data Medications Inpatient No active inpatient medications Home No active home medications Allergies No active allergies Social History Alcohol Never Substance Abuse Denies All Tobacco Never (less than 100 in lifetime) Use:. Diagnostic Results Electronically signed by Cuauhtemoc HOLGUIN, Rach Chavarriaine 03/30/22 00:21 EDT Normal [facility] PAP ACOG PANEL 3: 21 to 29on 06-09-2021 . . Normal [facility] Comment on above: Result Comment: Perf ormed at: WB Performed By: #### [id number] #### [facility] [address] [place] [address] Dr. Yesenia Hung Age Gdln ACOG Testing Comment Normal [facility] Comment on above: Result Comment: <21 or >65 or no age provided Performed By: #### [id number] #### [facility] [address] [place] [address] Dr. Yesenia Hung Chlamydia, Nuc. Acid Amp Positive Abnormal Negative [facility] Comment on above: Result Comment: . Performed at: =G Performed By: #### [id number] #### [facility] [address] [place] [address] Dr. Yesenia Hung DIAGNOSIS: Comment Abnormal [facility] Comment on above: Result Comment: EPIT HELIAL CELL ABNORMALITY. ATYPICAL SQUAMOUS CELLS OF UNDETERMINED SIGNIFICANCE (ASC-US). Performed at: WB Performed By: #### [id number] #### [facility] [address] [place] [address] Dr. Yesenia Hung Electronically signed by: Comment Normal [facility] Comment on above: Result Comment: Mi Ocampo MD, Pathologist Performed at: WB Performed By: #### [id number] #### [facility] [address] [place] [address] Dr. Yesenia Hung Gonococcus, Nuc. Acid Amp Negative Normal Negative [facility] Comment on above: Result Comment: Perf ormed at: =G Performed By: #### [id number] #### [facility] [address] [place] [address] Dr. Yesenia Hung Methodology: Comment Normal [facility] Comment on above: Result Comment: This liquid based ThinPrep(R) pap test was screened with the use of an image guided system. Performed at: WB Performed By: #### [id number] #### [facility] [address] [place] [address] Dr. Yesenia Hugn Note: Comment Normal [facility] Comment on above: Result Comment: The Pap smear is a screening test designed to aid in the detection of premalignant and malignant conditions of the uterine cervix. It is not a diagnostic procedure and should not be used as the sole means of detecting cervical cancer. Both false-positive and false-negative reports do occur. . Performed at: WB Performed By: #### [id number] #### [facility] [address] [place] [address] Dr. Yesenia Hung Pathologist Provided ICD10 Comment Normal [facility] Comment on above: Result Comment: [id number] Performed at: WB Performed By: #### [id number] #### [facility] [address] [place] [address] Dr. Yesenia Hung Performed by: Comment Normal [facility] Comment on above: Result Comment: Amelia Thompson, Fluoroscope Operator (ASCP) Performed at: WB Performed By: #### [id number] #### [facility] [address] [place] [address] Dr. Yesenia Hung Specimen adequacy: Comment Normal [facility] Comment on above: Result Comment: Sati sfactory for evaluation. Endocervical and/or squamous metaplastic cells (endocervical component) are present. Performed at: WB Performed By: #### [id number] #### [facility] [address] [place] [address] Dr. Yesenia Hung HEPATITIS PANEL, [facility] HBsAg Screen Negative Normal Negative [facility] Comment on above: Performed By: #### A 1C #### [facility] [address] [place] [address] Dr. Yesenia Hung Hep A Ab, IgM Negative Normal Negative [facility] Comment on above: Performed By: #### A 1C #### [facility] [address] [place] [address] Dr. Yesenia Hung Hep B Core Ab, IgM Negative Normal Negative [facility] Comment on above: Performed By: #### A 1C #### [facility] [address] [place] [address] Dr. Yesenia Hung Hep C Virus Ab <0.1 Normal 0.0-0.9 [facility] Comment on above: Result Comment: Nega tive: < 0.8 Indeterminate: 0.8 - 0.9 Positive: > 0.9 . The CDC recommends that a positive HCV antibody result be followed up with a HCV Nucleic Acid Amplification test (870844). Effective August 18, 2021 Hepatitis Panel (4) will be made non-orderable. [facility] offers order code [id number] Acute Hepatitis. Performed By: #### A 1C #### [facility] [address] [place] [address] Dr. Yesenia Hung HERPES SIMPLEX 1/2 IGGon HSV 1 IgG, Type Spec <0.91 Normal 0.00-0.90 [facility] Comment on above: Result Comment: Nega tive <0.91 Equivocal 0.91 - 1.09 Positive >1.09 Note: Negative indicates no antibodies detected to HSV-1. Equivocal may suggest early infection. If clinically appropriate, retest at later date. Positive indicates antibodies detected to HSV-1. Performed By: #### H SV IGG #### [facility] [address] [place] [address] Dr. Yesenia Hung HSV 2 IgG Type Spec <0.91 Normal 0.00-0.[address] [facility] Comment on above: Result Comment: Nega tive <0.91 Equivocal 0.91 - 1.09 Positive >1.09 Note: Negative indicates no antibodies detected to HSV-2. Equivocal may suggest early infection. If clinically appropriate, retest at later date. Positive indicates antibodies detected to HSV-2. Performed By: #### H SV IGG #### [facility] [address] [place] [address] Dr. Yesenia Hung HERPES SIMPLEX 1/2 IGMon HSV, IgM I/II Combination <0.91 Normal 0.00-0.90 [facility] Comment on above: Result Comment: Nega tive <0.91 Equivocal 0.91 - 1.09 Positive >1.09 Performed By: #### A 1C #### [facility] [address] [place] [address] Dr. Yesenia Hung HIV 1 AND 2 WITH REFLEXon HIV Screen 4th Generation wRfx Non-Reactive Normal Non Reactive [facility] Comment on above: Performed By: #### A 1C #### [facility] [address] [place] [address] Dr. Yesenia Hung RPR QUANTon 06-05-2021 Rapid Plasma Reagin, Quant Non-Reactive Normal NonRea<1:1 [facility] Comment on above: Performed By: #### R PRQ #### [facility] [address] [place] [address] Dr. Yesenia Hung HERPES SIMPLEX 1/2 IGGon HSV 1 IgG, Type Spec <0.91 Normal 0.00-0.90 [facility] Comment on above: Result Comment: Nega tive <0.91 Equivocal 0.91 - 1.09 Positive >1.09 Note: Negative indicates no antibodies detected to HSV-1. Equivocal may suggest early infection. If clinically appropriate, retest at later date. Positive indicates antibodies detected to HSV-1. Performed By: #### A 1C #### [facility] [address] [place] [address] Dr. Yesenia Hung HSV 2 IgG Type Spec <0.91 Normal 0.00-0.[address] [facility] Comment on above: Result Comment: Nega tive <0.91 Equivocal 0.91 - 1.09 Positive >1.09 Note: Negative indicates no antibodies detected to HSV-2. Equivocal may suggest early infection. If clinically appropriate, retest at later date. Positive indicates antibodies detected to HSV-2. Performed By: #### A 1C #### [facility] [address] [place] [address] Dr. Yesenia Hung HEPATITIS PANEL, ACUTEon HBsAg Screen Negative Normal Negative [facility] Comment on above: Performed By: #### H EPACUT #### [facility] [address] [place] [address] Dr. Yesenia Hung Hep A Ab, IgM Negative Normal Negative [facility] Comment on above: Performed By: #### H EPACUT #### [facility] [address] [place] [address] Dr. Yesenia Hung Hep B Core Ab, IgM Negative Normal Negative [facility] Comment on above: Performed By: #### H EPACUT #### [facility] [address] [place] [address] Dr. Yesenia Hung Hep C Virus Ab <0.1 Normal 0.0-0.9 [facility] Comment on above: Result Comment: Nega tive: < 0.8 Indeterminate: 0.8 - 0.9 Positive: > 0.9 . The CDC recommends that a positive HCV antibody result be followed up with a HCV Nucleic Acid Amplification test (543601). Effective August 18, 2021 Hepatitis Panel (4) will be made non-orderable. [facility] offers order code [id number] Acute Hepatitis. Performed By: #### H EPACUT #### [facility] [address] [place] [address] Dr. Yesenia Hung HIV 1 AND 2 WITH REFLEXon HIV Screen 4th Generation wRfx Non-Reactive Normal Non Reactive [facility] Comment on above: Performed By: #### H IV12 #### [facility] [address] [place] [address] Dr. Yesenia Hung RPR QUANTon 05-25-2021 Rapid Plasma Reagin, Quant Non-Reactive Normal NonRea<1:1 [facility] Comment on above: Performed By: #### R PRQ #### [facility] [address] [place] [address] Dr. Yesenia Hung CBC AUTO DIFFon 05-24-2021 BASO # 0.0 103/ul Normal 0.0-0.1 [facility] Comment on above: Performed By: #### R PRQ #### [facility] [address] [place] [address] Dr. Yesenia Hung Basophils/100 WBC (Bld) 0.3 % Normal 0.2-2.0 [facility] Comment on above: Performed By: #### R PRQ #### [facility] [address] [place] [address] Dr. Yesenia Hung EO # 0.1 103/ul Normal 0.0-0.7 [facility] Comment on above: Performed By: #### R PRQ #### [facility] [address] [place] [address] Dr. Yesenia Hung Eosinophils/100 WBC (Bld) 1.0 % Normal 0.9-7.0 [facility] Comment on above: Performed By: #### R PRQ #### [facility] [address] [place] [address] Dr. Yesenia Hung Erythrocyte distribution width (RBC) [Ratio] 12.3 % Normal 11.0-15.0 [facility] Comment on above: Performed By: #### R PRQ #### [facility] [address] [place] [address] Dr. Yesenia Hung Hematocrit (Bld) [Volume fraction] 38.3 % Normal 36.0-48.0 [facility] Comment on above: Performed By: #### R PRQ #### [facility] [address] [place] [address] Dr. Yesenia Hung Hemoglobin (Bld) [Mass/Vol] 12.4 g/dL Normal 12.0-16.0 [facility] Comment on above: Performed By: #### R PRQ #### [facility] [address] [place] [address] Dr. Yesenia Hung IG # 0.02 10e3/ul Normal 0.00-0.03 [facility] Comment on above: Performed By: #### R PRQ #### [facility] [address] [place] [address] Dr. Yesenia Hung IG % 0.3 % Normal 0.0-0.5 [facility] Comment on above: Performed By: #### R PRQ #### [facility] [address] [place] [address] Dr. Yesenia Hung LYMPH # 1.6 103/ul Normal 1.2-3.8 [facility] Comment on above: Performed By: #### R PRQ #### [facility] [address] [place] [address] Dr. Yesenia Hung Lymphocytes/100 WBC (Bld) 22.8 % Normal 20.5-60.0 [facility] Comment on above: Performed By: #### R PRQ #### [facility] [address] [place] [address] Dr. Yesenia Hung MANUAL DIFF REQ NO Normal [facility] Comment on above: Performed By: #### R PRQ #### [facility] [address] [place] [address] Dr. Yesenia Hung MCH (RBC) [Entitic mass] 28.5 pg Normal 26.7-34.0 [facility] Comment on above: Performed By: #### R PRQ #### [facility] [address] [place] [address] Dr. Yesenia Hung MCHC (RBC) [Mass/Vol] 32.4 g/dL Normal 29.9-35.2 [facility] Comment on above: Performed By: #### R PRQ #### [facility] [address] [place] [address] Dr. Yesenia Hung MCV (RBC) [Entitic vol] 88.0 fL Normal 81.0-99.0 [facility] Comment on above: Performed By: #### R PRQ #### [facility] [address] [place] [address] Dr. Yesenia Hung MONO # 0.5 103/ul Normal 0.3-0.8 [facility] Comment on above: Performed By: #### R PRQ #### [facility] [address] [place] [address] Dr. Yesenia Hung Monocytes/100 WBC (Bld) 7.1 % Normal 1.7-12.0 [facility] Comment on above: Performed By: #### R PRQ #### [facility] [address] [place] [address] Dr. Yesenia Hung NEUT # 4.9 103/ul Normal 1.4-6.5 [facility] Comment on above: Performed By: #### R PRQ #### [facility] [address] [place] [address] Dr. Yesenia Hung Neutrophils/100 WBC (Bld) 68.5 % Normal 43.0-75.0 [facility] Comment on above: Performed By: #### R PRQ #### [facility] [address] [place] [address] Dr. Yesenia Hung Platelet mean volume (Bld) [Entitic vol] 9.6 fL Normal 9.5-13.5 [facility] Comment on above: Performed By: #### R PRQ #### [facility] [address] [place] [address] Dr. Yesenia Hung PLT 224 103/ul Normal 150-450 [facility] Comment on above: Performed By: #### R PRQ #### [facility] [address] [place] [address] Dr. Yesenia Hung RBC 4.35 106/ul Normal 4.20-5.40 [facility] Comment on above: Performed By: #### R PRQ #### [facility] [address] [place] [address] Dr. Yesenia Hung WBC 7.1 103/ul Normal 4.0-11.0 [facility] Comment on above: Performed By: #### R PRQ #### [facility] [address] [place] [address] Dr. Yesenia Hung FREE THYROXINE INDEX T7on FTI 2.24 Normal [facility] Comment on above: Performed By: #### R PRQ #### [facility] [address] [place] [address] Dr. Yesenia Hung T3U 32.0 % Normal 23.5-40.5 [facility] Comment on above: Performed By: #### R PRQ #### [facility] [address] [place] [address] Dr. Yesenia Hung T4 [Mass/Vol] 7.00 ug/dL Normal 5.53-11.00 [facility] Comment on above: Performed By: #### R PRQ #### [facility] [address] [place] [address] Dr. Yesenia Hung GLYCOHEMOGLOBIN A1Con 2020 ADA RECOMMENDATION ADA THERAPEUTIC TARG ET 6.0 - 7.0 ACTION SUGGESTED > 7.0 Normal [facility] Comment on above: Performed By: #### A 1C #### [facility] [address] [place] [address] Dr. Yesenia Hung Glucose [Mass/Vol] 94 mg/dL Normal [facility] Comment on above: Performed By: #### A 1C #### [facility] [address] [address] [address] Yesenia Hung HbA1c (Bld) [Mass fraction] 4.9 % Normal <=6.0 [facility] Comment on above: Performed By: #### A 1C #### [facility] [address] [place] [address] Dr. Yesenia Hung IRONon 05-24-2021 Iron [Mass/Vol] 53.0 ug/dL Normal 37.0-170.0 [facility] Comment on above: Performed By: #### A 1C #### [facility] [address] [place] [address] Dr. Yesenia Hung LIPID PROFILEon 05-24-2021 CHOL-HDL RATIO NORM SEE BELOW Normal [facility] Comment on above: Result Comment: 3.3 - 4.4 LOW RISK 4.4 - 7.1 AVERAGE RISK 7.1 - 11.0 MODERATE RISK >11.0 HIGH RISK Performed By: #### R PRQ #### [facility] [address] [place] [address] Dr. Yesenia Hung Cholesterol [Mass/Vol] 139 mg/dL Normal <=200 [facility] Comment on above: Performed By: #### R PRQ #### [facility] [address] [place] [address] Dr. Yesenia Hung Cholesterol in HDL [Mass/Vol] 46 mg/dL Normal [facility] Comment on above: Performed By: #### R PRQ #### [facility] [address] [place] [address] Dr. Yesenia Hung Cholesterol in LDL [Mass/Vol] 78.2 mg/dL Normal [facility] Comment on above: Performed By: #### R PRQ #### [facility] [address] [address] [address] Yesenia Hung Cholesterol.total/C holesterol in HDL [Mass ratio] 3.0 {ratio} Normal [facility] Comment on above: Performed By: #### R PRQ #### [facility] [address] [address] [address] Yesenia Hung HDL NORMAL > or = 60 mg/dl - LO W CARDIOVASCULAR RISK <40 mg/dl - HIGH CARDIOVASCULAR RISK Normal [facility] Comment on above: Performed By: #### R PRQ #### [facility] [address] [address] [address] Yesenia Hung LDL CALC NORMAL SEE BELOW Normal [facility] Comment on above: Result Comment: <100 mg/dl OPTIMAL 100 - 129 mg/dl NEAR OR ABOVE OPTIMAL 130 - 159 mg/dl BORDERLINE HIGH 160 - 189 mg/dl HIGH >190 mg/dl VERY HIGH Performed By: #### R PRQ #### [facility] [address] [address] [address] Yesenia Hung Triglyceride [Mass/Vol] 74 mg/dL Normal <=150 [facility] Comment on above: Performed By: #### R PRQ #### [facility] [address] [place] [address] Dr. Yesenia Hung VLDL CALC 14.8 mg/dL Normal [facility] Comment on above: Performed By: #### R PRQ #### [facility] [address] [address] [address] Yesenia Hung PROF 14(COMP METB)on 021 Albumin [Mass/Vol] 3.9 g/dL Normal 3.5-5.0 [facility] Comment on above: Performed By: #### R PRQ #### [facility] [address] [place] [address] Dr. Yesenia Hung Albumin/Globulin [Mass ratio] 1.0 {ratio} Normal [facility] Comment on above: Performed By: #### R PRQ #### [facility] [address] [place] [address] Dr. Yesenia Hung ALP [Catalytic activity/Vol] 71 U/L Normal 38-126 [facility] Comment on above: Performed By: #### R PRQ #### [facility] [address] [place] [address] Dr. Yesenia Hung ALT [Catalytic activity/Vol] 15 U/L Normal 9-52 [facility] Comment on above: Performed By: #### R PRQ #### [facility] [address] [address] [address] Yesenia Hung Anion gap [Moles/Vol] 11.3 mmol/L Normal [facility] Comment on above: Performed By: #### R PRQ #### [facility] [address] [place] [address] Dr. Yesenia Hung AST [Catalytic activity/Vol] 13 U/L Critically low 14-36 [facility] Comment on above: Performed By: #### R PRQ #### [facility] [address] [place] [address] Dr. Yesenia Hung Bilirubin [Mass/Vol] 0.6 mg/dL Normal 0.2-1.3 [facility] Comment on above: Performed By: #### R PRQ #### [facility] [address] [place] [address] Dr. Yesenia Hung Calcium [Mass/Vol] 9.2 mg/dL Normal 8.4-10.2 [facility] Comment on above: Performed By: #### R PRQ #### [facility] [address] [address] [address] Yesenia Hung Chloride [Moles/Vol] 103 mmol/L Normal 98-107 [facility] Comment on above: Performed By: #### R PRQ #### [facility] [address] [address] [address] Yesenia Hung CO2 [Moles/Vol] 28.8 mmol/L Normal 22.0-30.0 [facility] Comment on above: Performed By: #### R PRQ #### [facility] [address] [place] [address] Dr. Yesenia Hung Creatinine [Mass/Vol] 0.64 mg/dL Normal 0.52-1.04 [facility] Comment on above: Performed By: #### R PRQ #### [facility] [address] [address] [address] Yseenia Hung EGFR-AF NEPALESE >60 Normal >=60 [facility] Comment on above: Performed By: #### R PRQ #### [facility] [address] [address] [address] Yesenia Hung EGFR-NON AF NEPALESE >60 Normal >=60 [facility] Comment on above: Performed By: #### R PRQ #### [facility] [address] [address] [address] Yesenia Hung Globulin (S) [Mass/Vol] 4.1 g/dL Normal [facility] Comment on above: Performed By: #### R PRQ #### [facility] [address] [place] [address] Dr. Yesenia Hung Glucose [Mass/Vol] 86 mg/dL Normal 74-106 [facility] Comment on above: Performed By: #### R PRQ #### [facility] [address] [address] [address] Yesenia Hung Potassium [Moles/Vol] 4.1 mmol/L Normal 3.4-5.0 [facility] Comment on above: Performed By: #### R PRQ #### [facility] [address] [place] [address] Dr. Yesenia Hung Protein [Mass/Vol] 8.0 g/dL Normal 6.1-8.2 [facility] Comment on above: Performed By: #### R PRQ #### [facility] [address] [place] [address] Dr. Yesenia Hung Sodium [Moles/Vol] 139 mmol/L Normal 137-145 [facility] Comment on above: Performed By: #### R PRQ #### [facility] [address] [address] [address] Yesenia Hung Urea nitrogen [Mass/Vol] 10.0 mg/dL Normal 7.0-17.0 [facility] Comment on above: Performed By: #### R PRQ #### [facility] [address] [address] [address] Yesenia Hung Urea nitrogen/Creatinine [Mass ratio] 15.6 mg/mg Normal [facility] Comment on above: Performed By: #### R PRQ #### [facility] [address] [address] [address] Yesenia Hung TSHon 05-24-2021 TSH 2.270 uIU/mL Normal 0.470-4.680 [facility] Comment on above: Performed By: #### R PRQ #### [facility] [address] [place] [address] Dr. Yesenia Hung TSH RANGE SEE BELOW Normal [facility] Comment on above: Result Comment: <0.3 4 UIU/ml HYPERTHYROID 0.34-5.60 UIU/ml EUTHYROID >5.60 UIU/ml HYPOTHYROID Performed By: #### R PRQ #### [facility] [address] [place] [address] Dr. Yesenia Hung DOG HAND[employer]ER OR TRAINER - Office Visiton 05-08 DOG [employer]ER [employer] TRAINER - Office Visit Diagnoses/Problems Assessed Encounter for surveillance of implantable subdermal contraceptive (V25.43) (Z30.46) Provider Impressions 1. Nexplanon follow-up visit Patient to follow-up in 2 years for her annual exam. Chief Complaint Patient is here for 1 week follow up from Nexplanon insertion. Patient has no concerns at this time. History of Present IllnessPresents for follow-up inspection following insertion of the Nexplanon implant in the left inner arm. She voices no complaints and is doing well. Review of Systems Review of Systems: Constitutional: No fever or chills Respiratory: No shortness of breath, or cough Cardiovascular: No chest pain or syncope Breasts: No breast pain, no masses, no nipple discharge Gastrointestinal: No nausea, vomiting, or diarrhea, no abdominal pain Genitourinary: No dysuria or frequency Gynecology: Negative except as noted in history of present illness All other: All other systems reviewed and negative for complaint Active Problems Problems Contraception management (V25.9) (Z30.9) Encounter for initial prescription of implantable subdermal contraceptive (V25.02) (Z30.017) Negative test (V72.41) (Z32.02) Past Medical History Problems History of Menstruation Onset age 14 years Surgical History Problems History of Nexplanon insertion 05/21/2020: Left upper arm Family History Mother No pertinent family history Father Family history of diabetes mellitus (V18.0) (Z83.3) Family history of hypertension (V17.49) (Z82.49) Allergies Medication No Known Drug Allergies Recorded By: Joceline Hartley; 11/14/2019 1:01:42 PM Current Meds Medication NameInstruction Nexplanon 68 MG Subcutaneous Implant Vitals Vital Signs Recorded: [id number] 01:18PM Kgestkaqmbu71.5 F Xhkxrxjo176 Avfvopyci39 Height5 ft 3 in 2-20 Stature Pubzvziifs07 % Oluidb69.6 kg 2-20 Weight Njewsgbxvc00 % BMI Cmzuylhjvm84.32 BMI Qztthideik19 % BSA Calculated1.56 Physical Exam PHYSICAL EXAMINATION: Well-developed, well nourished, in no acute distress, alert and oriented x three, is pleasant and cooperative. HEENT: Clear. Pupils equal, round and reactive to light and accommodation. Extraocular muscles are intact. Oral mucosa pink without exudate. NECK: No lymphadenopathy, no thyromegaly. LUNGS: Clear bilaterally. HEART: Regular rate and rhythm without murmurs. ABDOMEN: Normoactive bowel sounds, soft and nontender, no guarding or rebound tenderness, no CVA tenderness. EXTREMITIES: No clubbing, cyanosis or edema. Inspection of the left inner arm at the site of the Nexplanon placement reveals that the insertion site is healing well. The Nexplanon implant can be palpated just under the skin. No evidence of infection or drainage. NEUROLOGIC: Cranial nerves II-XII grossly intact. Signatures Electronically signed by : Kameron Mcfadden MD; May 29 2020 1:40PM EST (Author) Normal [facility] [employer]G [employer]ER [employer] TRAINER - Procedure Visiton 1 07-22-2019 DOG HANDLER OR TRAINER - Procedure Visit Chief Complaint PATIENT IS HERE FOR NEXPLANON INSERTION. Patient supply. [facility]:[id number], Lot# [id number], Exp:04/16/2022. LMP: 05-14-2020. NO CONCERNS AT THIS TIME. History of Present IllnessPresents for Nexplanon placement. Review of Systems Review of Systems: Constitutional: No fever or chills Respiratory: No shortness of breath, or cough Cardiovascular: No chest pain or syncope Breasts: No breast pain, no masses, no nipple discharge Gastrointestinal: No nausea, vomiting, or diarrhea, no abdominal pain Genitourinary: No dysuria or frequency Gynecology: Negative except as noted in history of present illness All other: All other systems reviewed and negative for complaint Active Problems Encounter for initial prescription of implantable subdermal contraceptive (V25.02) (Z30.017) Negative test (V72.41) (Z32.02) Past Medical History History of Menstruation Onset age 14 years Surgical History No history of surgery Family History No pertinent family history Family history of diabetes mellitus (V18.0) (Z83.3) Family history of hypertension (V17.49) (Z82.49) Allergies No Known Drug Allergies Recorded By: Joceline Hartley; 11/14/2019 1:01:42 PM Current Meds No Reported Medications Recorded For: PMH: Menstruation; LUISA = N; Record; Last Updated By: Joceline Hartley; 05/21/2020 2:11:36 PM Vitals Vital Signs Recorded: [id number] 01:40PM Mdgwcwkqxux81.7 F, Temporal Euvilxlq049, LUE, Sitting Yiqmtvdsr02, LUE, Sitting Height5 ft 3 in 2-20 Stature Zaihcoamam85 % Lzvsok60.2 kg 2-20 Weight Nvacfcijog97 % BMI Hwtxnjlnbh20.56 BMI Wypdtrnmpn05 % BSA Calculated1.57 [id number] Results/Data IO HCG, Urine [id number] 01:36PMOctaviogokul Kameron medline [id number] exp 06-06-21 Test NameResultFlagReference IO Urine hCGNegative Procedure Nexplanon Insertion and Removal Procedure: Nexplanon Insertion. Risks, benefits and alternatives were discussed with the patient. We discussed possible complications and risks, including infection, bleeding, pain, tingling, failure, migration of implant, increased risk of ectopic should occur and inability to remove implant. Written consent was obtained prior to the procedure and is detailed in the patient's record. the patient's LMP was 05-14-2020. a test was performed . the test was confirmed negative. Procedure Note: 3 ml of 1% lidocaine was injected just under the skin. The skin was prepped with betadine.using standard technique, the implant was inserted in the inner side of the patient's non-dominant (left) upper arm. insertion was confirmed by visual inspection of the tip of the needle and palpation of the patient's arm. Patient Status: the patient tolerated the procedure well. Complications: there were no complications . Patient instructed to keep the insertion site clean and dry. May remove the gauze wrap in 4 days and the Steri-strips in 5 days. Follow up in one week to inspect the insertion site. Diagnoses/Problems Negative test (V72.41) (Z32.02) Contraception management (V25.9) (Z30.9) Encounter for initial prescription of implantable subdermal contraceptive (V25.02) (Z30.017) Orders Contraception management Administered: Nexplanon 68 MG Subcutaneous Implant For: Contraception management; Dose of 68 MG; Subcutaneous; LUISA = N; Administered by: Kameron Mcfadden MD: 05/21/2020 12:00:00 AM; Last Updated By: Joceline Hartley; 05/21/2020 2:11:36 PM Negative test IO HCG, Urine Test; Status:Complete; Done: [id number] 01:36PM Performed:In Office; Due:[id number];Ordered; For:Negative test; Ordered By:Kameron Mcfadden; Provider Impressions 1. Norplant insertion Follow-up in 1 week for inspection of the insertion site Signatures Electronically signed by : Kameron Mcfadden MD; May 21 2020 2:15PM EST (Author) [facility] [employer] TRAINER - Office Visiton DOG HAND[employer]ER OR TRAINER - Office Visit Chief Complaint An interactive audio and video telecommunication system which permits real time communications between the patient (at the originating site) and provider (at the distant site) was utilized to provide this telehealth service. Verbal consent was requested and obtained from JEANNINE ANTUNEZ on this date, 11/14/2019 01:15 PM , for a telehealth visit. Desires to discuss options for contraception History of Present IllnessPresents wishing to discuss forms of contraception. She is interested in the Nexplanon. She denies any bowel or bladder problems. Denies any breast problems. Review of Systems Review of Systems: Constitutional: No fever or chills Respiratory: No shortness of breath, or cough Cardiovascular: No chest pain or syncope Breasts: No breast pain, no masses, no nipple discharge Gastrointestinal: No nausea, vomiting, or diarrhea, no abdominal pain Genitourinary: No dysuria or frequency Gynecology: Negative except as noted in history of present illness All other: All other systems reviewed and negative for complaint Past Medical History History of Menstruation Onset age 14 years Surgical History No history of surgery Family History No pertinent family history Family history of diabetes mellitus (V18.0) (Z83.3) Family history of hypertension (V17.49) (Z82.49) Allergies No Known Drug Allergies Recorded By: Joceline Hartley; 11/14/2019 1:01:42 PM Current Meds No Reported Medications Recorded For: PMH: Menstruation; LUISA = N; Record; Last Updated By: Joceline Hartley; 11/14/2019 1:01:42 PM Physical Exam General: No acute distress Eye: Intraocular movements are intact HEENT: Normocephalic Respiratory: Respirations are nonlabored Gastrointestinal: Nondistended Musculoskeletal: Normal range of motion Neurologic: Alert and oriented x3 Psychiatric: Cooperative, appropriate mood and affect. Diagnoses/Problems Encounter for initial prescription of implantable subdermal contraceptive (V25.02) (Z30.017) Provider Impressions 1. Contraceptive counseling Discussed options for contraception and she wishes to be started with the Nexplanon. Patient to be scheduled for placement of the Nexplanon in the near future. Spent 7 minutes with patient on the video telemedicine visit discussing her health concerns. Signatures Electronically signed by : Kameron Mcfadden MD; Nov 14 2019 1:15PM EST (Author) [facility] Vital Signs Date Time Vital Sign Value Performing Clinician Faci krista 02-15-2022 17:15-0400 Body temperature 97 [degF] Lupe Adair MD Work Phone: [facility] [employer] 02-15-2022 17:15-0400 Diastolic blood pressure 52 mm[Hg] [facility] Ad[facility] MD [facility] [employer] 02-15-2022 17:15-0400 Heart rate 75 /min Lupe Adair MD [facility] 02-15-2022 17:15-0400 Respiratory rate 20 /min Lupe Adair MD Work Phone: [facility] 02-15-2022 17:15-0400 SaO2% (BldA) [Mass fraction] 100 % Lupe Adair MD Work Phone: [facility] 02-15-2022 17:15-0400 Systolic blood pressure 116 mm[Hg] Lupe Adair MD Work Phone: [facility] Encounters Encounter Date Encounter Type Care Provider Facility Start: 06-16-2023 End: 06-16-2023 ambulatory JUANCARLOS VELASCO Not Available Start: 08-04-2022 End: 08-04-2022 Emergency department patient visit Zina Miranda DO Facility:[facility] Start: 04-29-2022 End: 04-30-[address] LUPE ADAIR Facility:[facility] Start: 03-30-2022 End: 03-30-2022 Emergency department patient visit Rach Posadas MD Facility:[facility] Start: 03-29-2022 End: 03-29-[address] LUPE ADAIR Facility:[facility] Start: 02-15-2022 End: 02-15-2022 Emergency department patient visit LUPEDEJAN ADARI [facility] Start: 02-15-2022 End: 02-15-2022 Subsequent hospital visit by physician Lupe Adair MD Work Phone: [facility] Comment on above: Cellulitis of left r ing finger (Primary Dx) Start: 02-05-2022 End: 02-05-[address] [facility] Start: 06-04-2021 End: 06-05-[address] LUPE ADAIR Facility:[facility] Start: 05-29-2021 Encounter for genera l adult medical examination without abnormal findings DR LUPE ADAIR [facility] Start: 05-24-2021 End: 05-25-[address] LUPE ADAIR Facility:[facility] Start: 05-24-2021 End: 05-25-2021 Encounter for general adult medical examination without abnormal findings DR LUPE ADAIR Facility:[facility] Start: 05-23-2021 End: 05-24-[address] LUPE ADAIR Facility:[facility] Plan of Treatment Date Care Activity Detail Author Start: 01-26-2024 DTaP/Tdap/Td vaccine (7 - Td or Tdap) DTaP/Tdap/Td vaccine (7 - Td or Tdap) [facility] Start: 02-05-2023 Depression Screen Depression Screen [facility] Start: 02-05-2022 Influenza vaccination Flu vaccine (# 1) [facility] Start: 2021 Screening for malign ant neoplasm of cervix Pap smear [facility] Start: 06-18-2021 COVID-19 Vaccine (3 - Booster for Pfizer series) COVID-19 Vaccine (3 - Booster for Pfizer series) [facility] Start: 2018 Hepatitis C screening Hepatitis C sc reen [facility] Start: 2016 Screening for Chlamy elijah trachomatis Chlamydia screen [facility] Start: 11-04-2015 HIV screening HIV screen [facility] Start: 11-04-2011 HPV vaccine (1 - 2-d ose series) HPV vaccine (1 - 2-dose series) [facility] Immunizations Immunization Date Immunization Notes Care Provider Fa cility 01-16-2021 COVID-19, PFIZER PUR PLE top, DILUTE for use, (age 12 y+), 30mcg/0.3mL Lupe Adair MD Work Phone: [facility] Work Phone: 12-26-2020 COVID-19, PFIZER PUR PLE top, DILUTE for use, (age 12 y+), 30mcg/0.3mL Lupe Adair MD Work Phone: [facility] Work Phone: 01-25-2014 meningococcal polysaccharide (groups A, C, Y and W-135) diphtheria toxoid conjugate vaccine (MCV4P) Lupe Adair MD Work Phone: [facility] Work Phone: 01-25-2014 tetanus toxoid, redu arnav diphtheria toxoid, and acellular pertussis vaccine, adsorbed Lupe Adair MD Work Phone: [employer] Work Phone: 01-25-2014 varicella virus vaccine Isma Adair MD Work Phone: [facility] Work Phone: 08-13-2006 diphtheria, tetanus toxoids and acellular pertussis vaccine, unspecified formulation Lupe Adair MD Work Phone: [employer] Work Phone: 08-13-2006 measles, mumps and rubella virus vaccine Lupe Adair MD Work Phone: [employer] Work Phone: 08-13-2006 poliovirus vaccine, inactivated Lupe Adair MD Work Phone: [employer] [facility] Work Phone: 05-12-2002 diphtheria, tetanus toxoids and acellular pertussis vaccine, unspecified formulation Lupe Adair MD Work Phone: [employer] Work Phone: 05-12-2002 haemophilus influenz ae type b vaccine, conjugate unspecified formulation Lupe Adair MD Work Phone: [employer] Work Phone: 05-12-2002 varicella virus vaccine Isma Adair MD Work Phone: [employer] Work Phone: 11-04-2001 measles, mumps and rubella virus vaccine Lupe Adair MD Work Phone: [employer] Work Phone: 05-18-2001 diphtheria, tetanus toxoids and acellular pertussis vaccine, unspecified formulation Lupe Adair MD Work Phone: [employer] Work Phone: 05-18-2001 haemophilus influenz ae type b conjugate and Hepatitis B vaccine Lupe Adair MD Work Phone: [employer] Work Phone: 05-18-2001 pneumococcal conjuga te vaccine, 7 valent Lupe Adair MD Work Phone: [employer] Work Phone: 05-18-2001 poliovirus vaccine, inactivated Lupe Adair MD Work Phone: [employer] Work Phone: 03-07-2001 diphtheria, tetanus toxoids and acellular pertussis vaccine, unspecified formulation Lupe Adair MD Work Phone: [employer] Work Phone: 03-07-2001 haemophilus influenz ae type b conjugate and Hepatitis B vaccine Lupe Adair MD Work Phone: [employer] Work Phone: 03-07-2001 pneumococcal conjuga te vaccine, 7 valent Lupe Adair MD Work Phone: [employer] Work Phone: 03-07-2001 poliovirus vaccine, inactivated Lupe Adair MD Work Phone: [employer] [facility] Work Phone: 01-03-2001 diphtheria, tetanus toxoids and acellular pertussis vaccine, unspecified formulation Lupe Adair MD Work Phone: [employer] Work Phone: 01-03-2001 haemophilus influenz ae type b conjugate and Hepatitis B vaccine Lupe Adair MD Work Phone: [employer] Work Phone: 01-03-2001 pneumococcal conjuga te vaccine, 7 valent Lupe Adair MD Work Phone: [employer] Work Phone: 01-03-2001 poliovirus vaccine, inactivated Lupe Adair MD Work Phone: [employer] Work Phone: Payers Date Payer Category Payer Unknown 2000 Unknown [id number] 2.16. [id number] 2000 Unknown [id number] 2.16. [id number] 2000 Unknown [id number] 2.16.84 [id number] 2000 Unknown [id number] 2.16.84 [id number] 2000 Unknown [id number] 2.16.84 [id number] 2000 Unknown [id number] 2.16.84 [id number] 2000 Unknown [id number] 2.16.84 [id number] 2000 Unknown [id number] 2.16. [id number] 2000 Unknown [id number] 2.16. [id number] 2000 Unknown [id number] 2.16.84 [id number] 1959 Unknown [id number] 1. [id number] 1959 Unknown [id number] 1. [id number] Social History Date Type Detail Facility Start: 02-05-2022 Tobacco smoking stat [facility] Never smoked tobacco [facility] Phone: Start: 02-05-2022 Tobacco use and exposure Smokeless tobacco non-user [facility] Phone: Start: 02-15-2022 Alcohol intake Lifetime non-d leon (finding) [facility] [employer] Phone: Start: 2000 Sex Assigned At Not on file B ON [employer] Phone: Clinical Note 05-23-2021 Note Date & Type Note Facility 05-23-2021 Note PROCEDURE: XR HAND L T MIN 3V HISTORY: Pain of left hand ; pain over second metacarpophalangeal joint for one week COMPARISON: None. FINDINGS: BONES:No fracture, acute abnormality, or significant arthropathy. SOFT TISSUES:No visible soft tissue swelling. EFFUSION:None visible. OTHER: Negative. IMPRESSION: 1. No acute or suspicious bone abnormality. 2. No radiopaque foreign body. Electronically authenticated by: CARMITA BRAY Date: 2021-05-23 12:44 [facility] Evaluation note Note Date & Type Note Facility Evaluation note Diagnosis Cellulitis of left ring finger- Primary documented in this encounter [facility] Phone: Hospital Discharge instructions Attachments Note Date & Type Note Facility Hospital Discharge instructions The following attachments cannot be sent through Care Everywhere.Cellulitis (Citizen Of [place])documented in this encounter [facility] Phone: Summary Purpose Family History No Family History Records FoundNo Family History Records FoundNo Family History Records FoundNo Family History Records FoundNo Family History Records Found Advance Directives No Advanced Directives Records FoundNo Advanced Directives Records FoundNo Advanced Directives Records FoundNo Advanced Directives Records FoundNo Advanced Directives Records Found Additional Source Comments INFORMATION SOURCE (unrecogn ized section and content) DATE CREATED AUTHOR 05/30/2020 [facility] DATE CREATED AUTHOR AUTHOR'S ORGANIZ ATION 02/15/2022 [facility] DATE CREATED AUTHOR AUTHOR'S ORGANIZ ATION 05/04/2022 [facility] DATE CREATED AUTHOR AUTHOR'S ORGANIZ ATION 08/27/2022 [facility] DATE CREATED AUTHOR AUTHOR'S ORGANIZ ATION 06/18/2023 [facility] EPIC Reason for Visit (unrecogniz ed section and content) Reason Comments Other Left ring finger swe lling Ordered Prescriptions (unrec ognized section and content) Prescription Sig Dispensed Refills Start Date End Da te mometasone (ELOCON) 0.1 % cream Apply topically 2 times daily as needed (rash finger) Apply topically daily. 15 g 0 02/15/2022 Care Teams (unrecognized sec tion and content) Major Case Detective Relationship Specialty Start Date End Date Lupe Adair MD [address] [place] [id number] PCP - General Family Medicine 02/05/22 FOR RECORDS PERTAINING TO PATIENTS WHO ARE OR HAVE BEEN ENROLLED IN A CHEMICAL DEPENDENCY/SUBSTANCEABUSE PROGRAM, SOME INFORMATION MAY BE OMITTED. This clinical summary was aggregated from multiple sources. Caution should be exercised in using it in the provision of clinical care. This summary normalizes information from multiple sources, and as a consequence, information in this document may materially change the coding, format and clinical context of patient data. In addition, data may be omitted in some cases. CLINICAL DECISIONS SHOULD BE BASED ON THE PRIMARY CLINICAL RECORDS. [employer] provides no warranty or guarantee of the accuracy or completeness of information in this document.
[2023-10-06 10:13] LABS: Age Gdln ACOG Testing Note (.); IGP, rfx Aptima HPV ASCU Note (.)
== END 2023-09-29 20:36 | disposition home or self-care (01) ==
LOC: LAB 20:35
PROVIDERS: PCP Family Medicine; Visit Provider Physician Assistant
DX: Z01.419 Encounter for gynecological examination (general) (routine) without abnormal findings (principal)
CPT/HCPCS: G0145

== ENCOUNTER 2023-09-30 12:23 | Outpatient (OUT) | payer BC, OTHER, SELFPAY ==
--- OUTSIDE RECORDS SUMMARY | 2023-09-30 12:46 | XMS_ITS | CCD ---
Author Organization [facility] Care Team Providers Care Assistant [employer] Manager Name Role Phone Lupe Adair MD Primary Care Provider [phone] LUPE ADAIR Primary Care Unavailable LUPE ADAIR [...] Propensity to adverse reactions to drug (disorder) [facility] Repository Medications Current Medications Medication [...] Microscp 08-04-2022 UA Bacteria Present Abnormal Absent [facility] Comment on above: Performed By: #### L IVER #### [place] [address] UA Mucus Present Abnormal Absent [facility] Comment on above: Performed By: #### L IVER #### [place] [address] UA RBC Qual 1-4 Normal 0 - 5 [facility] Comment on above: Performed By: #### L IVER #### [address] [address] UA Squepi Cells Qual 15-29 Normal 0 - 29 [facility] Comment on above: Performed By: #### L IVER #### [address] [address] UA WBC Qual 5-9 Abnormal 0 - 5 [facility] Comment on above: Performed By: #### L IVER #### [place] [address] .eGFRon 08-04-2022 GFR/1.73 sq M.predicted MDRD (S/P/Bld) [Vol rate/Area] mL/min/{1.73_m2} Normal >=60 [facility] Comment on above: Order Comment: Order added by Discern rule Result Comment: [facility] Laboratories have implemented the eGFR calculation approach [...] years Performed By: #### L IVER #### [address] [address] Basic Metabolic Profileon Anion gap [Moles/Vol] 10 mmol/L Normal 7-17 [facility] Comment on above: Performed By: #### C [id number] #### [address] [address] Calcium [Mass/Vol] 8.5 mg/dL Low 8.6-10.3 [facility] Comment on above: Performed By: #### C [id number] #### [address] [address] Chloride 105 IU/L Normal 98-107 [facility] Comment on above: Performed By: #### C [id number] #### [address] [address] CO2 [Moles/Vol] 26 mmol/L Normal 21-31 [facility] Comment on above: Performed By: #### C D:[id number] #### [address] [address] Creatinine [Mass/Vol] 0.6 mg/dL Normal 0.6-1.2 [facility] Comment on above: Performed By: #### C [id number] #### [address] [address] Glucose [Mass/Vol] 90 mg/dL Normal 70-99 [facility] Comment on above: Performed By: #### C D:[id number] #### [address] [address] Potassium [Moles/Vol] 3.5 mmol/L Normal 3.4-4.8 [facility] Comment on above: Performed By: #### C D:[id number] #### [address] [address] Sodium [Moles/Vol] 138 mmol/L Normal 136-145 [facility] Comment on above: Performed By: #### C [id number] #### [address] [address] Urea nitrogen [Mass/Vol] 14 mg/dL Normal 7-25 [facility] Comment on above: Performed By: #### C D:[id number] #### [address] [address] Urea nitrogen/Creatinine [Mass ratio] 23.3 mg/mg High 10.0-20.0 [facility] Comment on above: Performed By: #### C D:[id number] #### [place] [address] CBC w/ Diffon 08-04-2022 Erythrocyte distribution width (RBC) [Ratio] 12.5 % Normal 11.6-14.8 [facility] Comment on above: Performed By: #### C BC #### [place] [address] Hematocrit (Bld) [Volume fraction] 40.3 % Normal 36.0-46.0 [facility] Comment on above: Performed By: #### C BC #### [place] [address] Hemoglobin (Bld) [Mass/Vol] 13.6 g/dL Normal 12.0-16.0 [facility] Comment on above: Performed By: #### C BC #### [place] [address] MCH (RBC) [Entitic mass] 29.9 pg Normal 27.0-35.0 [facility] Comment on above: Performed By: #### C BC #### [place] [address] MCHC 33.8 % Normal 31.0-37.0 [facility] Comment on above: Performed By: #### C BC #### [place] [address] MCV (RBC) [Entitic vol] 88.4 fL Normal 80.0-100.0 [facility] Comment on above: Performed By: #### C BC #### [place] [address] Platelet 230 x10*3/mcL Normal 150-350 [facility] Comment on above: Performed By: #### C BC #### [place] [address] Platelet mean volume (Bld) [Entitic vol] 7.7 fL Normal 7.5-11.5 [facility] Comment on above: Performed By: #### C BC #### [address] [address] RBC 4.56 x10*6/mcL Normal 3.80-5.20 [facility] Comment on above: Performed By: #### C BC #### [address] [address] WBC 6.7 x10*3/mcL Normal 4.5-11.0 [facility] Comment on above: Performed By: #### C BC #### [place] [address] COV19 Rapidon 08-04-2022 LAB ONLY Result Called? No Normal [facility] Comment on above: Performed By: #### C [id number] #### [address] [address] Reason for Rapid Test COVID Exposure Normal [facility] Comment on above: Performed By: #### C [id number] #### [address] [address] SARS-CoV-2 (COVID-19) RNA ADELSO+probe Ql (Unsp spec) Negative Normal Negative [facility] Comment on above: Result Comment: [...] using the ID NOW COVID-19 test by [employer], which has received Emergency Use Authorization (EUA) [...] following links: Fact Sheet for HealthCare Providers: https://www.fda.gov/media/417165/download Fact Sheet for Patients: https://www.fda.gov/media/070761/download Performed By: #### C D:[id number] #### [address] [address] Diff Autoon 08-04-2022 Baso Absolute 0.0 x10*3/mcL Normal 0.0-0.2 [facility] Comment on above: Performed By: #### . Automated Diff #### [address] [address] Basophils/100 WBC (Bld) 0.2 % Normal 0.0-1.5 [facility] Comment on above: Performed By: #### . Automated Diff #### [place] [address] Eos Absolute 0.1 x10*3/mcL Normal 0.0-0.4 [facility] Comment on above: Performed By: #### . Automated Diff #### [address] [address] Eosinophils/100 WBC (Bld) 1.2 % Normal 0.0-5.4 [facility] Comment on above: Performed By: #### . Automated Diff #### [address] [address] Lymph Absolute 1.6 x10*3/mcL Normal 1.0-4.8 [facility] Comment on above: Performed By: #### . Automated Diff #### [address] [address] Lymphocytes/100 WBC (Bld) 23.7 % Low 27.2-40.8 [facility] Comment on above: Performed By: #### . Automated Diff #### [address] [address] [place] Absolute 0.6 x10*3/mcL Normal 0.1-1.1 [facility] Comment on above: Performed By: #### . Automated Diff #### [place] [address] Monocytes/100 WBC (Bld) 9.3 % Normal 3.7-11.9 [facility] Comment on above: Performed By: #### . Automated Diff #### [place] [address] Neutro Absolute 4.4 x10*3/mcL Normal 1.8-7.7 [facility] Comment on above: Performed By: #### . Automated Diff #### [place] [address] Neutro Auto 65.6 % Normal 47.2-70.8 [facility] Comment on above: Performed By: #### . Automated Diff #### [place] [address] ED Clinical Summaryon 2022 ED Clinical Summary (Inserted Image. Debra ble to display) [place] [address] ED Clinical Summary Person Information Name: Jeannine Antunez [facility]a/[facility] Age: 21 Years : 2000 Sex: Female PCP: Marital Status: Single Phone: Race: White Ethnicity: Not or Language: Macedonian Visit Reason: Abdominal pain; Vomiting; Nausea; Abdominal pain Acuity: 3 Enc Type: Emergency Med Service: Emergency Medicine Arrival: 08/04/2022 18:42:47 Discharge: 08/04/2022 20:40:00 LOS: 000 01:58 Checkin: 08/04/2022 18:42:47 Checkout: 08/04/2022 20:40:00 Dispo Type: Home or Self Care Address: [address] [place] [address] Provider Notes: History of Present Illness 21-year-old [...] range between ( 27.2 and 40.8 ) [place] Auto: 9.3 % -- Normal range between [...] range between ( 36.0 and 46.0 ) [place] Absolute: 0.6 x10 MCH: 29.9 pg -- [...] 08/04/22 19:26 (more content not included)... Normal [facility] Flu A&B Ag Rapidon 3 Influenza A Ag Negative Normal Negative [facility] Comment on above: Performed By: #### C [id number] #### [place] [address] Influenza B Ag Negative Normal Negative [facility] Comment on above: Result Comment: The [employer] Influenza A+B Card 2 detects both viable [...] public health departments. Performed By: #### C D:[id number] #### [place] [id number] Hep Func Panelon 08-04-2022 Albumin [Mass/Vol] 4.4 g/dL Normal 3.7-5.3 [facility] Comment on above: Performed By: #### L IVER #### [place] [address] Alk Phos 53 IU/L Normal 34-104 [facility] Comment on above: Performed By: #### L IVER #### [place] [address] ALT [Catalytic activity/Vol] 15 U/L Normal 7-52 [facility] Comment on above: Performed By: #### L IVER #### [place] [address] AST [Catalytic activity/Vol] 16 U/L Normal 13-39 [facility] Comment on above: Performed By: #### L IVER #### [place] [address] Bili Direct 0.15 mg/dL Normal 0.03-0.18 [facility] Comment on above: Performed By: #### L IVER #### [place] [address] Bili Indirect 0.4 mg/dL Normal 0.0-1.0 [facility] Comment on above: Performed By: #### L IVER #### [place] [address] Bili Total 0.6 mg/dL Normal 0.3-1.0 [facility] Comment on above: Performed By: #### L IVER #### [place] [address] Protein [Mass/Vol] 7.5 g/dL Normal 6.0-8.3 [facility] Comment on above: Performed By: #### L IVER #### [place] [address] Lipaseon 08-04-2022 Lipase Lvl 18 IU/L Normal 11-82 [facility] Comment on above: Performed By: #### L IP #### [place] [address] UA w Culture if Ind Tri Color (U) Yellow Normal [facility] Comment on above: Performed By: #### U CIM #### [place] [address] Glucose (U) [Mass/Vol] Negative Normal Negative [facility] Comment on above: Performed By: #### U CIM #### [place] [address] Ketones Ql (U) Negative Normal Negative [facility] Comment on above: Performed By: #### U CIM #### [place] [address] UA Blood Negative Normal Negative [facility] Comment on above: Performed By: #### U CIM #### [place] [address] UA Clarity Hazy Normal [facility] Comment on above: Performed By: #### U CIM #### [place] [address] UA Leukocyte Esterase Trace Abnormal Negative [facility] Comment on above: Performed By: #### U CIM #### [place] [address] UA Nitrite Negative Normal Negative [facility] Comment on above: Performed By: #### U CIM #### [place] [address] UA pH 7.0 Normal 4.5 - 7.8 [facility] Comment on above: Performed By: #### U CIM #### [place] [address] UA Protein Negative Normal Negative [facility] Comment on above: Performed By: #### U CIM #### [place] [address] UA Source Clean Catch Normal [facility] Comment on above: Performed By: #### U CIM #### [place] [address] UA Spec Grav 1.025 Normal 1.003-1.035 [facility] Comment on above: Performed By: #### U CIM #### [place] [address] UA Urobilinogen 2.0 mg/dL Abnormal 0.2 - 1.0 [facility] Comment on above: Result Comment: conf brian with chemstrip 10 08/04/2022 19:44:02 EST Performed By: #### U CIM #### [place] [address] Urobilinogen (U) [Mass/Vol] Negative Normal Negative [facility] Comment on above: Performed By: #### U CIM #### [facility] [address] [place] [address] XR Abdomen 2 Views w/ Chest 1 [...] Electronically Signed in Other Vendor System) Normal [facility] INSULINon 05-01-2022 Insulin 14.9 uIU/mL Normal 2.6-24.9 [facility] Comment on above: Performed By: #### I NSULIN #### [facility] [address] [place] [address] Dr. Yesenia Hung CBC AUTO DIFFon 04-29-2022 BASO # 0.0 103/ul Normal 0.0-0.1 [facility] Comment on above: Performed By: #### R PRQ #### [facility] [address] [place] [address] Dr. Yesenia Hung Basophils/100 WBC (Bld) 0.6 % Normal 0.2-2.0 [facility] Comment on above: Performed By: #### R PRQ #### [facility] [address] [place] [address] Dr. Yesenia Hung EO # 0.1 103/ul Normal 0.0-0.7 [facility] Comment on above: Performed By: #### R PRQ #### [facility] [address] [place] [address] Dr. Yesenia Hung Eosinophils/100 WBC (Bld) 0.7 % Critically low 0.9-7.0 [facility] Comment on above: Performed By: #### R PRQ #### [facility] [address] [place] [address] Dr. Yesenia Hung Erythrocyte distribution width (RBC) [Ratio] 12.6 % Normal 11.0-15.0 [facility] Comment on above: Performed By: #### R PRQ #### [facility] [address] [place] [address] Dr. Yesenia Hung Hematocrit (Bld) [Volume fraction] 38.9 % Normal 36.0-48.0 [facility] Comment on above: Performed By: #### R PRQ #### [facility] [address] [place] [address] Dr. Yesenia Hung Hemoglobin (Bld) [Mass/Vol] 13.2 g/dL Normal 12.0-16.0 [facility] Comment on above: Performed By: #### R PRQ #### [facility] [address] [place] [address] Dr. Yesenia Hung IG # 0.02 10e3/ul Normal 0.00-0.03 [facility] Comment on above: Performed By: #### R PRQ #### [facility] [address] [place] [address] Dr. Yesenia uHng IG % 0.3 % Normal 0.0-0.5 [facility] Comment on above: Performed By: #### R PRQ #### [facility] [address] [place] [address] Dr. Yesenia Hung LYMPH # 2.1 103/ul Normal 1.2-3.8 [facility] Comment on above: Performed By: #### R PRQ #### [facility] [address] [place] [address] Dr. Yesenia Hung Lymphocytes/100 WBC (Bld) 29.4 % Normal 20.5-60.0 [facility] Comment on above: Performed By: #### R PRQ #### [facility] [address] [place] [address] Dr. Yesenia Hung MANUAL DIFF REQ NO Normal [facility] Comment on above: Performed By: #### R PRQ #### [facility] [address] [place] [address] Dr. Yesenia Hung MCH (RBC) [Entitic mass] 29.8 pg Normal 26.7-34.0 [facility] Comment on above: Performed By: #### R PRQ #### [facility] [address] [place] [address] Dr. Yesenia Hung MCHC (RBC) [Mass/Vol] 33.9 g/dL Normal 29.9-35.2 [facility] Comment on above: Performed By: #### R PRQ #### [facility] [address] [place] [address] Dr. Yesenia Hung MCV (RBC) [Entitic vol] 87.8 fL Normal 81.0-99.0 [facility] Comment on above: Performed By: #### R PRQ #### [facility] [address] [place] [address] Dr. Yesenia Hung MONO # 0.5 103/ul Normal 0.3-0.8 [facility] Comment on above: Performed By: #### R PRQ #### [facility] [address] [place] [address] Dr. Yesenia Hung Monocytes/100 WBC (Bld) 6.6 % Normal 1.7-12.0 [facility] Comment on above: Performed By: #### R PRQ #### [facility] [address] [place] [address] Dr. Yesenia Hung NEUT # 4.5 103/ul Normal 1.4-6.5 [facility] Comment on above: Performed By: #### R PRQ #### [facility] [address] [place] [address] Dr. Yesenia Hung Neutrophils/100 WBC (Bld) 62.4 % Normal 43.0-75.0 [facility] Comment on above: Performed By: #### R PRQ #### [facility] [address] [place] [address] Dr. Yesenia Hung Platelet mean volume (Bld) [Entitic vol] 9.5 fL Normal 9.5-13.5 [facility] Comment on above: Performed By: #### R PRQ #### [facility] [address] [place] [address] Dr. Yesenia Hung PLT 294 103/ul Normal 150-450 [facility] Comment on above: Performed By: #### R PRQ #### [facility] [address] [place] [address] Dr. Yesenia Hung RBC 4.43 106/ul Normal 4.20-5.40 [facility] Comment on above: Performed By: #### R PRQ #### [facility] [address] [place] [address] Dr. Yesenia Hung WBC 7.1 103/ul Normal 4.0-11.0 [facility] Comment on above: Performed By: #### R PRQ #### [facility] [address] [place] [address] Dr. Yesenia Hung FREE THYROXINE INDEX T7on FTI 2.51 Normal 1.30-4.50 [facility] Comment on above: Performed By: #### C MP, TSH, T7, PREGQNT #### [facility] [address] [place] [address] Dr. Yesenia Hung T3U 33.0 % Normal 30.0-39.0 [facility] Comment on above: Performed By: #### C MP, TSH, T7, PREGQNT #### [facility] [address] [place] [address] Dr. Yesenia Hung T4 [Mass/Vol] 7.60 ug/dL Normal 4.80-13.90 [facility] Comment on above: Performed By: #### C MP, TSH, T7, PREGQNT #### [facility] [address] [place] [address] [address] Yesenia Hung GLYCOHEMOGLOBIN A1Con 2021 ADA RECOMMENDATION SEE BELOW Normal [facility] Comment on above: Result Comment: ADA RECOMMENDED LIMIT 4.0 - 6.0 ADA THERAPEUTIC TARGET < 7.0 ACTION SUGGESTED > 7.0 Performed By: #### A 1C #### [facility] [address] [place] [address] Dr. Yesenia Hung Glucose [Mass/Vol] 103 mg/dL Normal [facility] Comment on above: Performed By: #### A 1C #### [facility] [address] [place] [address] Dr. Yesenia Hung HbA1c (Bld) [Mass fraction] 5.2 % Normal 4.5-6.2 [facility] Comment on above: Performed By: #### A 1C #### [facility] [address] [place] [address] Dr. Yesenia Hung IRONon 04-29-2022 Iron [Mass/Vol] 40.0 ug/dL Critically low 50.0-170.0 [facility] Comment on above: Performed By: #### A 1C #### [facility] [address] [place] [address] Dr. Yesenia Hung PREG QUANT HCGon 04-29-2022 HCG QUANT <1 Normal [facility] Comment on above: Performed By: #### R PRQ #### [facility] [address] [place] [address] Dr. Yesenia Hung HCG RANGE SEE BELOW Normal [facility] Comment on above: Result Comment: 5-50 0.2-1 WEEK 50-500 1-2 WEEKS 100-5,000 2-3 WEEKS 500-10,000 3-4 WEEKS 1,000-50,000 4-5 WEEKS 10,000-100,000 5-6 WEEKS 15,000-200,000 6-8 WEEKS 10,000-100,000 2-3 MONTHS Performed By: #### R PRQ #### [facility] [address] [place] [address] Dr. Yesenia Hung PROF 14(COMP METB)on 11-23-2 022 Albumin [Mass/Vol] 4.2 g/dL Normal 3.4-5.0 [facility] Comment on above: Performed By: #### R PRQ #### [facility] [address] [place] [address] Dr. Yesenia Hung Albumin/Globulin [Mass ratio] 1.0 {ratio} Normal [facility] Comment on above: Performed By: #### R PRQ #### [facility] [address] [place] [address] [address] Yesenia Hung ALP [Catalytic activity/Vol] 67 U/L Normal 46-116 [facility] Comment on above: Performed By: #### R PRQ #### [facility] [address] [place] [address] Dr. Yesenia Hung ALT [Catalytic activity/Vol] 11 U/L Critically low 14-59 [facility] Comment on above: Performed By: #### R PRQ #### [facility] [address] [place] [address] Dr. Yesenia Hung Anion gap [Moles/Vol] 12.1 mmol/L Normal [facility] Comment on above: Performed By: #### R PRQ #### [facility] [address] [place] [address] Dr. Yesenia Hung AST [Catalytic activity/Vol] 10 U/L Critically low 15-37 [facility] Comment on above: Performed By: #### R PRQ #### [facility] [address] [place] [address] Dr. Yesenia Hung Bilirubin [Mass/Vol] 0.2 mg/dL Normal 0.2-1.0 [facility] Comment on above: Performed By: #### R PRQ #### [facility] [address] [place] [address] Dr. Yesenia Hung Calcium [Mass/Vol] 9.4 mg/dL Normal 8.5-10.1 [facility] Comment on above: Performed By: #### R PRQ #### [facility] [address] [place] [address] Dr. Yesenia Hung Chloride [Moles/Vol] 103 mmol/L Normal 98-107 [facility] Comment on above: Performed By: #### R PRQ #### [facility] [address] [place] [address] [address] Yesenia Hung CO2 [Moles/Vol] 28.2 mmol/L Normal 21.0-32.0 [facility] Comment on above: Performed By: #### R PRQ #### [facility] [address] [place] [address] [address] Yesenia Hung Creatinine [Mass/Vol] 0.58 mg/dL Normal 0.55-1.02 [facility] Comment on above: Performed By: #### R PRQ #### [facility] [address] [place] [address] Dr. Yesenia Hung EGFR-AF EMIRATI >60 Normal >=60 [facility] Comment on above: Performed By: #### R PRQ #### [facility] [address] [place] [address] Dr. Yesenia Hung EGFR-NON AF EMIRATI >60 Normal >=60 [facility] Comment on above: Performed By: #### R PRQ #### [facility] [address] [place] [address] [address] Yesenia Hung Globulin (S) [Mass/Vol] 4.0 g/dL Normal [facility] Comment on above: Performed By: #### R PRQ #### [facility] [address] [place] [address] [address] Yesenia Hung Glucose [Mass/Vol] 89 mg/dL Normal 74-106 [facility] Comment on above: Performed By: #### R PRQ #### [facility] [address] [place] [address] [address] Yesenia Hung Potassium [Moles/Vol] 4.3 mmol/L Normal 3.5-5.1 [facility] Comment on above: Performed By: #### R PRQ #### [facility] [address] [place] [address] Dr. Yesenia Hung Protein [Mass/Vol] 8.2 g/dL Normal 6.4-8.2 [facility] Comment on above: Performed By: #### R PRQ #### [facility] [address] [place] [address] [address] Yesenia Hung Sodium [Moles/Vol] 139 mmol/L Normal 136-145 [facility] Comment on above: Performed By: #### R PRQ #### [facility] [address] [place] [address] [address] Yesenia Hung Urea nitrogen [Mass/Vol] 11.0 mg/dL Normal 7.0-18.0 [facility] Comment on above: Performed By: #### R PRQ #### [facility] [address] [place] [address] [address] Yesenia Hung Urea nitrogen/Creatinine [Mass ratio] 19.0 mg/mg Normal [facility] Comment on above: Performed By: #### R PRQ #### [facility] [address] [place] [address] [address] Yesenia Hung TSHon 04-29-2022 TSH 1.621 uIU/mL Normal 0.358-3.740 [facility] Comment on above: Performed By: #### R PRQ #### [facility] [address] [place] [address] [address] Yesenia Hung ED Clinical Summaryon 2021 ED Clinical Summary (Inserted Image. Debra ble to display) [address] [address] ED Clinical Summary Person Information Name: Jeannine Antunez [facility] Age: 21 Years : 2000 Sex: Female PCP: Marital Status: Single Phone: Race: White Ethnicity: Not or Language: Macedonian Visit Reason: Skin rash; Rash Acuity: 4 Enc Type: Emergency Med Service: Emergency Medicine Arrival: 03/29/2022 23:48:59 Discharge: 03/30/2022 00:18:00 LOS: 000 00:30 Checkin: 03/29/2022 23:48:59 Checkout: 03/30/2022 00:18:00 Dispo Type: Home or Self Care Address: [address] [place] [address] Provider Notes: History of Present Illness Patient presents for evaluation of rash. ?She believes that she is having a reaction to?red dye as she presented to?another emergency department?in [facility] earlier today.? Patient?was prescribed prednisone 60 [...] 2-3 days. Patient Education Information: Contact Dermatitis [facility] Poison Help line: . [facility] Hotline: [place] Tobacco Quit Line: [place], [place]) [address]: [phone] [facility] ([place], [place]) [address]: [phone] [facility] [address] [place] [place], [place]: [phone] Normal [facility] ED Note-Physicianon 03-30-20 ED Note-Physician Chief Complaint Presents to ED with c/o scattered small reddened areas to upper and lower extremities. History of Present Illness Patient presents for evaluation of rash. She believes that she is having a reaction to red dye as she presented to another emergency department in [facility] earlier today. Patient was prescribed prednisone [...] differential diagnoses including viral rash such as psux-zrws-zut-mouth disease and contact dermatitis. Patient has had [...] HOLGUIN, Rach Chavarriaine 03/30/22 00:21 EDT Normal [facility] PAP ACOG PANEL 3: 21 to 29on 06-09-2021 . . Normal [facility] Comment on above: Result Comment: Perf ormed at: WB Performed By: #### [id number] #### [facility] [address] [place] [address] Dr. Yesenia Hung Age Gdln ACOG Testing Comment Normal [facility] Comment on above: Result Comment: <21 or >65 or no age provided Performed By: #### [id number] #### [facility] [address] [place] [address] Dr. Yesenia Hung Chlamydia, Nuc. Acid Amp Positive Abnormal Negative [facility] Comment on above: Result Comment: . Performed at: =G Performed By: #### [id number] #### [facility] [address] [place] [address] Dr. Yesenia Hung DIAGNOSIS: Comment Abnormal [facility] Comment on above: Result Comment: EPIT HELIAL CELL ABNORMALITY. ATYPICAL SQUAMOUS CELLS OF UNDETERMINED SIGNIFICANCE (ASC-US). Performed at: WB Performed By: #### [id number] #### [facility] [address] [place] [address] Dr. Yesenia Hung Electronically signed by: Comment Normal [facility] Comment on above: Result Comment: Mi Ocampo MD, Pathologist Performed at: WB Performed By: #### [id number] #### [facility] [address] [place] [address] Dr. Yesenia Hung Gonococcus, Nuc. Acid Amp Negative Normal Negative [facility] Comment on above: Result Comment: Perf ormed at: =G Performed By: #### [id number] #### [facility] [address] [place] [address] Dr. Yesenia Hung Methodology: Comment Normal [facility] Comment on above: Result Comment: This liquid based ThinPrep(R) pap test was screened with the use of an image guided system. Performed at: WB Performed By: #### [id number] #### [facility] [address] [place] [address] Dr. Yesenia Hung Note: Comment Normal [facility] Comment on above: Result Comment: The Pap smear is a screening test designed to aid in the detection of premalignant and malignant conditions of the uterine cervix. It is not a diagnostic procedure and should not be used as the sole means of detecting cervical cancer. Both false-positive and false-negative reports do occur. . Performed at: WB Performed By: #### [id number] #### [facility] [address] [place] [address] Dr. Yesenia Hung Pathologist Provided ICD10 Comment Normal [facility] Comment on above: Result Comment: [id number] Performed at: WB Performed By: #### [id number] #### [facility] [address] [place] [address] Dr. Yesenia Hung Performed by: Comment Normal [facility] Comment on above: Result Comment: Amelia Thompson, Senior Investment Manager (ASCP) Performed at: WB Performed By: #### [id number] #### [facility] [address] [place] [address] Dr. Yesenia Hung Specimen adequacy: Comment Normal [facility] Comment on above: Result Comment: Sati sfactory for evaluation. Endocervical and/or squamous metaplastic cells (endocervical component) are present. Performed at: WB Performed By: #### [id number] #### [facility] [address] [place] [address] Dr. Yesenia Hung HEPATITIS PANEL, [facility] HBsAg Screen Negative Normal Negative [facility] Comment on above: Performed By: #### A 1C #### [facility] [address] [place] [address] Dr. Yesenia Hung Hep A Ab, IgM Negative Normal Negative [facility] Comment on above: Performed By: #### A 1C #### [facility] [address] [place] [address] Dr. Yesenia Hung Hep B Core Ab, IgM Negative Normal Negative [facility] Comment on above: Performed By: #### A 1C #### [facility] [address] [place] [address] Dr. Yesenia Hung Hep C Virus Ab <0.1 Normal 0.0-0.9 [facility] Comment on above: Result Comment: Nega tive: < 0.8 Indeterminate: 0.8 - 0.9 Positive: > 0.9 . The CDC recommends that a positive HCV antibody result be followed up with a HCV Nucleic Acid Amplification test (542685). Effective August 18, 2021 Hepatitis Panel (4) will be made non-orderable. [facility] offers order code [id number] Acute Hepatitis. Performed By: #### A 1C #### [facility] [address] [place] [address] Dr. Yesenia Hung HERPES SIMPLEX 1/2 IGGon HSV 1 IgG, Type Spec <0.91 Normal 0.00-0.90 [facility] Comment on above: Result Comment: Nega tive <0.91 Equivocal 0.91 - 1.09 Positive >1.09 Note: Negative indicates no antibodies detected to HSV-1. Equivocal may suggest early infection. If clinically appropriate, retest at later date. Positive indicates antibodies detected to HSV-1. Performed By: #### H SV IGG #### [facility] [address] [place] [address] Dr. Yeseina Hung HSV 2 IgG Type Spec <0.91 Normal 0.00-0.90 [facility] Comment on above: Result Comment: Nega tive <0.91 Equivocal 0.91 - 1.09 Positive >1.09 Note: Negative indicates no antibodies detected to HSV-2. Equivocal may suggest early infection. If clinically appropriate, retest at later date. Positive indicates antibodies detected to HSV-2. Performed By: #### H SV IGG #### [facility] [address] [place] [address] Dr. Yesenia Hung HERPES SIMPLEX 1/2 IGMon HSV, IgM I/II Combination <0.91 Normal 0.00-0.90 [facility] Comment on above: Result Comment: Nega tive <0.91 Equivocal 0.91 - 1.09 Positive >1.09 Performed By: #### A 1C #### [facility] [address] [place] [address] Dr. Yesenia Hung HIV 1 AND 2 WITH REFLEXon HIV Screen 4th Generation wRfx Non-Reactive Normal Non Reactive [facility] Comment on above: Performed By: #### A 1C #### [facility] [address] [place] [address] Dr. Yesenia Hung RPR QUANTon 06-05-2021 Rapid Plasma Reagin, Quant Non-Reactive Normal NonRea<1:1 [facility] Comment on above: Performed By: #### R PRQ #### [facility] [address] [place] [address] Dr. Yesenia Hung HERPES SIMPLEX 1/2 IGGon HSV 1 IgG, Type Spec <0.91 Normal 0.00-0.90 [facility] Comment on above: Result Comment: Nega tive <0.91 Equivocal 0.91 - 1.09 Positive >1.09 Note: Negative indicates no antibodies detected to HSV-1. Equivocal may suggest early infection. If clinically appropriate, retest at later date. Positive indicates antibodies detected to HSV-1. Performed By: #### A 1C #### [facility] [address] [place] [address] Dr. Yesenia Hung HSV 2 IgG Type Spec <0.91 Normal 0.00-0.90 [facility] Comment on above: Result Comment: Nega tive <0.91 Equivocal 0.91 - 1.09 Positive >1.09 Note: Negative indicates no antibodies detected to HSV-2. Equivocal may suggest early infection. If clinically appropriate, retest at later date. Positive indicates antibodies detected to HSV-2. Performed By: #### A 1C #### [facility] [address] [place] [address] Dr. Yesenia Hung HEPATITIS PANEL, ACUTEon HBsAg Screen Negative Normal Negative [facility] Comment on above: Performed By: #### H EPACUT #### [facility] [address] [place] [address] Dr. Yesenia Hung Hep A Ab, IgM Negative Normal Negative [facility] Comment on above: Performed By: #### H EPACUT #### [facility] [address] [place] [address] Dr. Yesenia Hung Hep B Core Ab, IgM Negative Normal Negative [facility] Comment on above: Performed By: #### H EPACUT #### [facility] [address] [place] [address] Dr. Yesenia Hung Hep C Virus Ab <0.1 Normal 0.0-0.9 [facility] Comment on above: Result Comment: Nega tive: < 0.8 Indeterminate: 0.8 - 0.9 Positive: > 0.9 . The CDC recommends that a positive HCV antibody result be followed up with a HCV Nucleic Acid Amplification test (197833). Effective August 18, 2021 Hepatitis Panel (4) will be made non-orderable. [facility] offers order code [id number] Acute Hepatitis. Performed By: #### H EPACUT #### [facility] [address] [place] [address] Dr. Yesenia Hung HIV 1 AND 2 WITH REFLEXon HIV Screen 4th Generation wRfx Non-Reactive Normal Non Reactive [facility] Comment on above: Performed By: #### H IV12 #### [facility] [address] [place] [address] Dr. Yesenia Hung RPR QUANTon 05-25-2021 Rapid Plasma Reagin, Quant Non-Reactive Normal NonRea<1:1 [facility] Comment on above: Performed By: #### R PRQ #### [facility] [address] [place] [address] Dr. Yesenia Hung CBC AUTO DIFFon 05-24-2021 BASO # 0.0 103/ul Normal 0.0-0.1 [facility] Comment on above: Performed By: #### R PRQ #### [facility] [address] [place] [address] Dr. Yesenia Hung Basophils/100 WBC (Bld) 0.3 % Normal 0.2-2.0 [facility] Comment on above: Performed By: #### R PRQ #### [facility] [address] [place] [address] Dr. Yesenia Hung EO # 0.1 103/ul Normal 0.0-0.7 [facility] Comment on above: Performed By: #### R PRQ #### [facility] [address] [place] [address] Dr. Yesenia Hung Eosinophils/100 WBC (Bld) 1.0 % Normal 0.9-7.0 [facility] Comment on above: Performed By: #### R PRQ #### [facility] [address] [place] [address] Dr. Yesenia Hung Erythrocyte distribution width (RBC) [Ratio] 12.3 % Normal 11.0-15.0 [facility] Comment on above: Performed By: #### R PRQ #### [facility] [address] [place] [address] Dr. Yesenia Hung Hematocrit (Bld) [Volume fraction] 38.3 % Normal 36.0-48.0 [facility] Comment on above: Performed By: #### R PRQ #### [facility] [address] [place] [address] Dr. Yesenia Hung Hemoglobin (Bld) [Mass/Vol] 12.4 g/dL Normal 12.0-16.0 [facility] Comment on above: Performed By: #### R PRQ #### [facility] [address] [place] [address] Dr. Yesenia Hung IG # 0.02 10e3/ul Normal 0.00-0.03 [facility] Comment on above: Performed By: #### R PRQ #### [facility] [address] [place] [address] Dr. Yesenia Hung IG % 0.3 % Normal 0.0-0.5 [facility] Comment on above: Performed By: #### R PRQ #### [facility] [address] [place] [address] Dr. Yesenia Hung LYMPH # 1.6 103/ul Normal 1.2-3.8 [facility] Comment on above: Performed By: #### R PRQ #### [facility] [address] [place] [address] Dr. Yesenia Hung Lymphocytes/100 WBC (Bld) 22.8 % Normal 20.5-60.0 [facility] Comment on above: Performed By: #### R PRQ #### [facility] [address] [place] [address] Dr. Yesenia Hung MANUAL DIFF REQ NO Normal [facility] Comment on above: Performed By: #### R PRQ #### [facility] [address] [place] [address] Dr. Yesenia Hung MCH (RBC) [Entitic mass] 28.5 pg Normal 26.7-34.0 [facility] Comment on above: Performed By: #### R PRQ #### [facility] [address] [place] [address] Dr. Yesenia Hung MCHC (RBC) [Mass/Vol] 32.4 g/dL Normal 29.9-35.2 [facility] Comment on above: Performed By: #### R PRQ #### [facility] [address] [place] [address] Dr. Yesenia Hung MCV (RBC) [Entitic vol] 88.0 fL Normal 81.0-99.0 [facility] Comment on above: Performed By: #### R PRQ #### [facility] [address] [place] [address] Dr. Yesenia Hung MONO # 0.5 103/ul Normal 0.3-0.8 [facility] Comment on above: Performed By: #### R PRQ #### [facility] [address] [place] [address] Dr. Yesenia Hung Monocytes/100 WBC (Bld) 7.1 % Normal 1.7-12.0 [facility] Comment on above: Performed By: #### R PRQ #### [facility] [address] [place] [address] Dr. Yesenia Hung NEUT # 4.9 103/ul Normal 1.4-6.5 [facility] Comment on above: Performed By: #### R PRQ #### [facility] [address] [place] [address] Dr. Yesenia Hung Neutrophils/100 WBC (Bld) 68.5 % Normal 43.0-75.0 [facility] Comment on above: Performed By: #### R PRQ #### [facility] [address] [place] [address] Dr. Yesenia Hung Platelet mean volume (Bld) [Entitic vol] 9.6 fL Normal 9.5-13.5 [facility] Comment on above: Performed By: #### R PRQ #### [facility] [address] [place] [address] Dr. Yesenia Hung PLT 224 103/ul Normal 150-450 [facility] Comment on above: Performed By: #### R PRQ #### [facility] [address] [place] [address] Dr. Yesenia Hung RBC 4.35 106/ul Normal 4.20-5.40 [facility] Comment on above: Performed By: #### R PRQ #### [facility] [address] [place] [address] Dr. Yesenia Hung WBC 7.1 103/ul Normal 4.0-11.0 [facility] Comment on above: Performed By: #### R PRQ #### [facility] [address] [place] [address] Dr. Yesenia Hung FREE THYROXINE INDEX T7on FTI 2.24 Normal [facility] Comment on above: Performed By: #### R PRQ #### [facility] [address] [place] [address] Dr. Yesenia Hung T3U 32.0 % Normal 23.5-40.5 [facility] Comment on above: Performed By: #### R PRQ #### [facility] [address] [place] [address] Dr. Yesenia Hung T4 [Mass/Vol] 7.00 ug/dL Normal 5.53-11.00 [facility] Comment on above: Performed By: #### R PRQ #### [facility] [address] [place] [address] Dr. Yesenia Hung GLYCOHEMOGLOBIN A1Con 2020 ADA RECOMMENDATION ADA THERAPEUTIC TARG ET 6.0 - 7.0 ACTION SUGGESTED > 7.0 Normal [facility] Comment on above: Performed By: #### A 1C #### [facility] [address] [place] [address] Dr. Yesenia Hung Glucose [Mass/Vol] 94 mg/dL Normal [facility] Comment on above: Performed By: #### A 1C #### [facility] [address] [address] [address] Yesenia Hung HbA1c (Bld) [Mass fraction] 4.9 % Normal <=6.0 [facility] Comment on above: Performed By: #### A 1C #### [facility] [address] [place] [address] Dr. Yesenia Hung IRONon 05-24-2021 Iron [Mass/Vol] 53.0 ug/dL Normal 37.0-170.0 [facility] Comment on above: Performed By: #### A 1C #### [facility] [address] [place] [address] Dr. Yesenia Hung LIPID PROFILEon 05-24-2021 CHOL-HDL RATIO NORM SEE BELOW Normal [facility] Comment on above: Result Comment: 3.3 - 4.4 LOW RISK 4.4 - 7.1 AVERAGE RISK 7.1 - 11.0 MODERATE RISK >11.0 HIGH RISK Performed By: #### R PRQ #### [facility] [address] [place] [address] Dr. Yesenia Hung Cholesterol [Mass/Vol] 139 mg/dL Normal <=200 [facility] Comment on above: Performed By: #### R PRQ #### [facility] [address] [place] [address] Dr. Yesenia Hung Cholesterol in HDL [Mass/Vol] 46 mg/dL Normal [facility] Comment on above: Performed By: #### R PRQ #### [facility] [address] [place] [address] Dr. Yesenia Hung Cholesterol in LDL [Mass/Vol] 78.2 mg/dL Normal [facility] Comment on above: Performed By: #### R PRQ #### [facility] [address] [address] [address] Yesenia Hung Cholesterol.total/C holesterol in HDL [Mass ratio] 3.0 {ratio} Normal [facility] Comment on above: Performed By: #### R PRQ #### [facility] [address] [address] [address] Yesenia Hung HDL NORMAL > or = 60 mg/dl - LO W CARDIOVASCULAR RISK <40 mg/dl - HIGH CARDIOVASCULAR RISK Normal [facility] Comment on above: Performed By: #### R PRQ #### [facility] [address] [address] [address] Yesenia Hung LDL CALC NORMAL SEE BELOW Normal [facility] Comment on above: Result Comment: <100 mg/dl OPTIMAL 100 - 129 mg/dl NEAR OR ABOVE OPTIMAL 130 - 159 mg/dl BORDERLINE HIGH 160 - 189 mg/dl HIGH >190 mg/dl VERY HIGH Performed By: #### R PRQ #### [facility] [address] [address] [address] Yesenia Hung Triglyceride [Mass/Vol] 74 mg/dL Normal <=150 [facility] Comment on above: Performed By: #### R PRQ #### [facility] [address] [place] [address] Dr. Yesenia Hung VLDL CALC 14.8 mg/dL Normal [facility] Comment on above: Performed By: #### R PRQ #### [facility] [address] [address] [address] Yesenia Hung PROF 14(COMP METB)on 021 Albumin [Mass/Vol] 3.9 g/dL Normal 3.5-5.0 [facility] Comment on above: Performed By: #### R PRQ #### [facility] [address] [place] [address] Dr. Yesenia Hung Albumin/Globulin [Mass ratio] 1.0 {ratio} Normal [facility] Comment on above: Performed By: #### R PRQ #### [facility] [address] [place] [address] Dr. Yesenia Hung ALP [Catalytic activity/Vol] 71 U/L Normal 38-126 [facility] Comment on above: Performed By: #### R PRQ #### [facility] [address] [place] [address] Dr. Yesenia Hung ALT [Catalytic activity/Vol] 15 U/L Normal 9-52 [facility] Comment on above: Performed By: #### R PRQ #### [facility] [address] [address] [address] Yesenia Hung Anion gap [Moles/Vol] 11.3 mmol/L Normal [facility] Comment on above: Performed By: #### R PRQ #### [facility] [address] [place] [address] Dr. Yesenia Hung AST [Catalytic activity/Vol] 13 U/L Critically low 14-36 [facility] Comment on above: Performed By: #### R PRQ #### [facility] [address] [place] [address] Dr. Yesenia Hung Bilirubin [Mass/Vol] 0.6 mg/dL Normal 0.2-1.3 [facility] Comment on above: Performed By: #### R PRQ #### [facility] [address] [place] [address] Dr. Yesenia Hung Calcium [Mass/Vol] 9.2 mg/dL Normal 8.4-10.2 [facility] Comment on above: Performed By: #### R PRQ #### [facility] [address] [address] [address] Yesenia Hung Chloride [Moles/Vol] 103 mmol/L Normal 98-107 [facility] Comment on above: Performed By: #### R PRQ #### [facility] [address] [address] [address] Yesenia Hung CO2 [Moles/Vol] 28.8 mmol/L Normal 22.0-30.0 [facility] Comment on above: Performed By: #### R PRQ #### [facility] [address] [place] [address] Dr. Yesenia Hung Creatinine [Mass/Vol] 0.64 mg/dL Normal 0.52-1.04 [facility] Comment on above: Performed By: #### R PRQ #### [facility] [address] [address] [address] Yesenia Hung EGFR-AF EMIRATI >60 Normal >=60 [facility] Comment on above: Performed By: #### R PRQ #### [facility] [address] [address] [address] Yesenia Hung EGFR-NON AF EMIRATI >60 Normal >=60 [facility] Comment on above: Performed By: #### R PRQ #### [facility] [address] [address] [address] Yesenia Hung Globulin (S) [Mass/Vol] 4.1 g/dL Normal [facility] Comment on above: Performed By: #### R PRQ #### [facility] [address] [place] [address] Dr. Yesenia Hung Glucose [Mass/Vol] 86 mg/dL Normal 74-106 [facility] Comment on above: Performed By: #### R PRQ #### [facility] [address] [address] [address] Yesenia Hung Potassium [Moles/Vol] 4.1 mmol/L Normal 3.4-5.0 [facility] Comment on above: Performed By: #### R PRQ #### [facility] [address] [place] [address] Dr. Yesenia Hung Protein [Mass/Vol] 8.0 g/dL Normal 6.1-8.2 [facility] Comment on above: Performed By: #### R PRQ #### [facility] [address] [place] [address] Dr. Yesenia Hung Sodium [Moles/Vol] 139 mmol/L Normal 137-145 [facility] Comment on above: Performed By: #### R PRQ #### [facility] [address] [address] [address] Yesenia Hung Urea nitrogen [Mass/Vol] 10.0 mg/dL Normal 7.0-17.0 [facility] Comment on above: Performed By: #### R PRQ #### [facility] [address] [address] [address] Yesenia Hung Urea nitrogen/Creatinine [Mass ratio] 15.6 mg/mg Normal [facility] Comment on above: Performed By: #### R PRQ #### [facility] [address] [address] [address] Yesenia Hung TSHon 05-24-2021 TSH 2.270 uIU/mL Normal 0.470-4.680 [facility] Comment on above: Performed By: #### R PRQ #### [facility] [address] [place] [address] Dr. Yesenia Hung TSH RANGE SEE BELOW Normal [facility] Comment on above: Result Comment: <0.3 4 UIU/ml HYPERTHYROID 0.34-5.60 UIU/ml EUTHYROID >5.60 UIU/ml HYPOTHYROID Performed By: #### R PRQ #### [facility] [address] [place] [address] Dr. Yesenia Hung LUMBER STICKER - Office Visiton 05-08 LUMBER STICKER - Office Visit Diagnoses/Problems Assessed Encounter for [...] MG Subcutaneous Implant Vitals Vital Signs Recorded: [id number] 01:18PM [id number] F Unysgbed540 Yaunehnev07 Height5 ft 3 in 2-20 Stature Pmajjhylyv33 % Hnvhgv12.6 kg 2-20 Weight Vvijdrqfvb94 % BMI Ljxozlogfb52.32 BMI Qkqzyrggyl33 % BSA Calculated1.56 Physical Exam PHYSICAL EXAMINATION: [...] May 29 2020 1:40PM EST (Author) Normal mention LUMBER STICKER - Procedure Visiton 1 07-22-2019 LUMBER STICKER - Procedure Visit Chief Complaint PATIENT IS HERE FOR NEXPLANON INSERTION. Patient supply. [facility]:[id number], Lot# [id number], Exp:04/16/2022. LMP: 05-14-2020. NO CONCERNS AT THIS [...] 05/21/2020 2:11:36 PM Vitals Vital Signs Recorded: 78Pwh7111 01:40PM Fciubmbpvkf12.7 F, Temporal Ulymdjlg328, LUE, Sitting Fhrvrgath32, LUE, Sitting Height5 ft 3 in 2-20 Stature Unqxbnfjjq47 % Uvnbku38.2 kg 2-20 Weight Eaekhzwduf44 % BMI Hzfzrmpyds58.56 BMI Qihtjypnmf67 % BSA Calculated1.57 [id number] Results/Data IO HCG, Urine [id number] 01:36PMOctaviogokul Kameron medline [id number] exp 06-06-21 Test NameResultFlagReference IO Urine hCGNegative [...] test IO HCG, Urine Test; Status:Complete; Done: 57Tgf3882 01:36PM Performed:In Office; Due:10Jxn4920;Ordered; For:Negative test; Ordered By:Kameron Mcfadden; Provider Impressions 1. Norplant insertion Follow-up in 1 week for inspection of the insertion site Signatures Electronically signed by : Kameron Mcfadden MD; May 21 2020 2:15PM EST (Author) Normal mention LUMBER STICKER - Office Visiton LUMBER STICKER - Office Visit Chief Complaint An interactive [...] 97 [degF] Lupe Adair MD Work Phone: [facility] 02-15-2022 17:15-0400 Diastolic blood pressure 52 mm[Hg] [email or web address] 02-15-2022 17:15-0400 Heart rate 75 /min Lu[facility] Adair MD [email or web address] 02-15-2022 17:15-0400 Respiratory rate 20 /min Lupe Adair MD Work Phone: [facility] 02-15-2022 17:15-0400 SaO2% (BldA) [Mass fraction] 100 % Lupe Adair MD Work Phone: [facility] 02-15-2022 17:15-0400 Systolic blood pressure 116 mm[Hg] Lupe Adair MD Work Phone: [facility] Encounters Encounter Date Encounter Type Care Provider Facility Start: 06-16-2023 End: 06-16-2023 ambulatory JUANCARLOS VELASCO Not Available Start: 08-04-2022 End: 08-04-2022 Emergency department patient visit Zina Miranda DO Facility:[facility] Start: 04-29-2022 End: 04-30-[address] LUPE ADAIR Facility:[facility] Start: 03-30-2022 End: 03-30-2022 Emergency department patient visit Rach Posadas MD Facility:[facility] Start: 03-29-2022 End: 03-29-[address] LUPE ADAIR Facility:[facility] Start: 02-15-2022 End: 02-15-2022 Emergency department patient visit LUPEDEJAN ADAIR [facility] Start: 02-15-2022 End: 02-15-2022 Subsequent hospital visit by physician Lupe Adair MD Work Phone: [facility] Comment on above: Cellulitis of left r ing finger (Primary Dx) Start: 02-05-2022 End: 02-05-2022 ambulatory LUPE ADAIR [facility] Start: 06-04-2021 End: 06-05-[address] LUPE ADAIR Facility:[facility] Start: 05-29-2021 Encounter for genera l adult medical examination without abnormal findings DR LUPE ADAIR [facility] Start: 05-24-2021 End: 05-25-[address] LUPE ADAIR Facility:[facility] Start: 05-24-2021 End: 05-25-2021 Encounter for general adult medical examination without abnormal findings DR LUPE ADAIR Facility:[facility] Start: 05-23-2021 End: 05-24-[address] LUPE ADAIR Facility:[facility] Plan of Treatment Date Care Activity Detail Author Start: 01-26-2024 DTaP/Tdap/Td vaccine (7 - Td or Tdap) DTaP/Tdap/Td vaccine (7 - Td or Tdap) [facility] Start: 02-05-2023 Depression Screen Depression Screen [facility] Start: 02-05-2022 Influenza vaccination Flu vaccine (# 1) [facility] Start: 2021 Screening for malign ant neoplasm of cervix Pap smear [facility] Start: 06-18-2021 COVID-19 Vaccine (3 - Booster for Pfizer series) COVID-19 Vaccine (3 - Booster for Pfizer series) [facility] Start: 2018 Hepatitis C screening Hepatitis C sc reen [facility] Start: 2016 Screening for Chlamy elijah trachomatis Chlamydia screen [facility] Start: 11-04-2015 HIV screening HIV screen [facility] Start: 11-04-2011 HPV vaccine (1 - 2-d ose series) HPV vaccine (1 - 2-dose series) [facility] Immunizations Immunization Date Immunization Notes Care Provider Fa cility 01-16-2021 COVID-19, PFIZER PUR PLE top, DILUTE for use, (age 12 y+), 30mcg/0.3mL Lupe Adair MD Work Phone: [facility] Work Phone: 12-26-2020 COVID-19, PFIZER PUR PLE top, DILUTE for use, (age 12 y+), 30mcg/0.3mL Lupe Adair MD Work Phone: [facility] Work Phone: 01-25-2014 meningococcal polysaccharide (groups A, C, Y and W-135) diphtheria toxoid conjugate vaccine (MCV4P) Lupe Adair MD Work Phone: [facility] Work Phone: 01-25-2014 tetanus toxoid, redu arnav diphtheria toxoid, and acellular pertussis vaccine, adsorbed Lupe Adair MD Work Phone: [facility] Work Phone: 01-25-2014 varicella virus vaccine Isma Adair MD Work Phone: [facility] Work Phone: 08-13-2006 diphtheria, tetanus toxoids and acellular pertussis vaccine, unspecified formulation Lupe Adair MD Work Phone: [facility] Work Phone: 08-13-2006 measles, mumps and rubella virus vaccine Lupe Adair MD Work Phone: [facility] Work Phone: 08-13-2006 poliovirus vaccine, inactivated Lupe Adair MD Work Phone: [facility] Work Phone: 05-12-2002 diphtheria, tetanus toxoids and acellular pertussis vaccine, unspecified formulation Lupe Adair MD Work Phone: [facility] Work Phone: 05-12-2002 haemophilus influenz ae type b vaccine, conjugate unspecified formulation Lupe Adair MD Work Phone: [facility] Work Phone: 05-12-2002 varicella virus vaccine Isma Adair MD Work Phone: [facility] Work Phone: 11-04-2001 measles, mumps and rubella virus vaccine Lupe Adair MD Work Phone: [facility] Work Phone: 05-18-2001 diphtheria, tetanus toxoids and acellular pertussis vaccine, unspecified formulation Lupe Adair MD Work Phone: [facility] Work Phone: 05-18-2001 haemophilus influenz ae type b conjugate and Hepatitis B vaccine Lupe Adair MD Work Phone: [facility] Work Phone: 05-18-2001 pneumococcal conjuga te vaccine, 7 valent Lupe Adair MD Work Phone: [facility] Work Phone: 05-18-2001 poliovirus vaccine, inactivated Lupe Adair MD Work Phone: [facility] Work Phone: 03-07-2001 diphtheria, tetanus toxoids and acellular pertussis vaccine, unspecified formulation Lupe Adair MD Work Phone: [facility] Work Phone: 03-07-2001 haemophilus influenz ae type b conjugate and Hepatitis B vaccine Lupe Adair MD Work Phone: [facility] Work Phone: 03-07-2001 pneumococcal conjuga te vaccine, 7 valent Lupe Adair MD Work Phone: [facility] Work Phone: 03-07-2001 poliovirus vaccine, inactivated Lupe Adair MD Work Phone: [facility] Work Phone: 01-03-2001 diphtheria, tetanus toxoids and acellular pertussis vaccine, unspecified formulation Lupe Adair MD Work Phone: [facility] Work Phone: 01-03-2001 haemophilus influenz ae type b conjugate and Hepatitis B vaccine Lupe Adair MD Work Phone: [facility] Work Phone: 01-03-2001 pneumococcal conjuga te vaccine, 7 valent Lupe Adair MD Work Phone: [facility] Work Phone: 01-03-2001 poliovirus vaccine, inactivated Lupe Adair MD Work Phone: [facility] Work Phone: Payers Date Payer Category Payer Unknown 2000 Unknown [id number] 2.16. [id number] 2000 Unknown [id number] 2.16. [id number] 2000 Unknown [id number] 2.16.84 [id number] 2000 Unknown [id number] 2.16.84 [id number] 2000 Unknown [id number] 2.16.84 [id number] 2000 Unknown [id number] 2.16.84 [id number] 2000 Unknown [id number] 2.16.84 [id number] 2000 Unknown [id number] 2.16. [id number] 2000 Unknown [id number] 2.16. [id number] 2000 Unknown [id number] 2.16.84 [id number] 1959 Unknown [id number] 1. [id number] 1959 Unknown [id number] 1. [id number] Social History Date Type Detail Facility Start: 02-05-2022 Tobacco smoking stat [facility] Never smoked tobacco [facility] Phone: Start: 02-05-2022 Tobacco use and exposure Smokeless tobacco non-user [facility] Phone: Start: 02-15-2022 Alcohol intake Lifetime non-d leon (finding) [facility] Phone: Start: 2000 Sex Assigned At Not on file B ON [facility] Phone: Clinical Note 05-23-2021 Note Date & [...] by: CARMITA BRAY Date: 2021-05-23 12:44 [facility] Evaluation note Note Date & Type Note Facility Evaluation note Diagnosis Cellulitis of left ring finger- Primary documented in this encounter [facility] Phone: Hospital Discharge instructions Attachments Note Date & Type Note Facility Hospital Discharge instructions The following attachments cannot be sent through Care Everywhere.Cellulitis (Macedonian)documented in this encounter [facility] Phone: Summary Purpose Family History No Family History Records FoundNo Family History Records FoundNo Family History Records FoundNo Family History Records FoundNo Family History Records Found Advance Directives No Advanced Directives Records FoundNo Advanced Directives Records FoundNo Advanced Directives Records FoundNo Advanced Directives Records FoundNo Advanced Directives Records Found Additional Source Comments INFORMATION SOURCE (unrecogn ized section and content) DATE CREATED AUTHOR 05/30/2020 mention DATE CREATED AUTHOR AUTHOR'S ORGANIZ ATION 02/15/2022 [facility] DATE CREATED AUTHOR AUTHOR'S ORGANIZ ATION 05/04/2022 [facility] DATE CREATED AUTHOR AUTHOR'S ORGANIZ ATION 08/27/2022 [facility] DATE CREATED AUTHOR AUTHOR'S ORGANIZ ATION 06/18/2023 [facility] EPIC Reason for Visit (unrecogniz ed section and content) Reason Comments Other Left ring finger swe lling Ordered Prescriptions (unrec ognized section and content) Prescription Sig Dispensed Refills Start Date End Da te mometasone (ELOCON) 0.1 % cream Apply topically 2 times daily as needed (rash finger) Apply topically daily. 15 g 0 02/15/2022 Care Teams (unrecognized sec tion and content) Assistant [employer] Manager Relationship Specialty Start Date End Date Lupe Adair MD [address] [place] [id number] PCP - General Family Medicine 02/05/22 FOR [...] BE BASED ON THE PRIMARY CLINICAL RECORDS. [employer] provides no warranty or guarantee of the accuracy or completeness of information in this document.
[2023-09-30 13:57] LABS: HCG Quantitative 41524 mIU/mL
== END 2023-09-30 12:24 | disposition home or self-care (01) ==
LOC: LAB 12:25
PROVIDERS: PCP Family Medicine; Visit Provider Physician Assistant
DX: N92.6 Irregular menstruation, unspecified (principal)
CPT/HCPCS: 36415; 84702

== ENCOUNTER 2023-10-21 12:15 | Outpatient (OUT) | payer BC, OTHER, SELFPAY ==
--- NOTE | 2023-10-21 12:18 | US_ITS ---
[place] [id number] Patient Name: TAYLOR ANTUNEZ MRN: [id number] date: 2000 Sex: F Assigned Patient Location: [facility] Current Patient Location: [facility] Accession/Order Number: [id number] Exam Date: 10/21/2023 12:18 Report Date: 10/21/2023 13:38 At the request of: JUANCARLOS VELASCO Procedure: US OB transvaginal EXAMINATION: US OB transvaginal HISTORY: MISSED MENSES COMPARISON: No relevant comparison available. FINDINGS: GESTATIONAL SAC: Present and normal appearing. YOLK SAC: Present and normal appearing. POLE: Present and normal appearing. CARDIAC: Present. UTERUS: Normal size and appearance. OVARIES: Right: Normal. Left: Normal. CERVIX: 4.5 cm in length and closed. CUL-DE-SAC: Normal. OTHER: None. AGE BY LMP: 9 weeks 1 day PING BY LMP: 05/24/2024 AGE BY US CRL: 9 weeks 6 days PING BY US CRL: 05/19/2024 US/US OB transvaginal IMPRESSION: 1. Single live intrauterine . Electronically authenticated by: CARMITA BRAY Date: 10/21/2023 13:38
== END 2023-10-21 12:16 | disposition home or self-care (01) ==
LOC: NOMS 12:15
PROVIDERS: PCP Family Medicine; Visit Provider Obstetrics & Gynecology
DX: Z34.91 Encounter for supervision of normal pregnancy, unspecified, first trimester (principal); Z3A.09 9 weeks gestation of pregnancy; N92.6 Irregular menstruation, unspecified
CPT/HCPCS: 76817

== ENCOUNTER 2023-10-29 15:24 | Outpatient (OUT) | payer BC, OTHER, SELFPAY ==
[2023-10-29 16:21] LABS: Basophils Percent Auto 0.3 % (0.2-2.0); Eosinophils Absolute Auto 0.1 10^3/uL (0.0-0.7); Eosinophils Percent Auto 0.4 % (0.9-7.0); Hematocrit 38.3 % (36.0-48.0); Hemoglobin 13.1 g/dL (12.0-16.0); Immature Granulocytes Abs Auto 0.03 10^3/uL (0.00-0.03); Immature Granulocytes Pct Auto 0.3 % (0.0-0.5); Lymphocytes Absolute Auto 2.1 10^3/uL (1.2-3.8); Lymphocytes Percent Auto 17.6 % (20.5-60.0); Mean Corpuscular HGB Conc 34.2 g/dL (29.9-35.2); Mean Corpuscular Hemoglobin 30.7 pg (26.7-34.0); Mean Corpuscular Volume 89.7 fL (81.0-99.0); Monocytes Absolute Auto 0.7 10^3/uL (0.3-0.8); Monocytes Percent Auto 5.6 % (1.7-12.0); Neutrophils Absolute Auto 8.9 10^3/uL (1.4-6.5); Neutrophils Percent Auto 75.8 % (43.0-75.0); Platelet Count 258 10^3/uL (150-450); Red Blood Count 4.27 10^6/uL (4.20-5.40); Red Cell Distribution Width 11.9 % (11.0-15.0); White Blood Count 11.7 10^3/uL (4.0-11.0)
[2023-10-29 16:53] LABS: Estimated Average Glucose 94 mg/dL; Glycohemoglobin A1C 4.9 % (4.5-6.2)
[2023-10-31 09:07] LABS: Rubella Antibodies, IgG 6.61 index (Immune >0.99)
[2023-10-31 11:07] LABS: HBsAg Screen Negative (Negative); HCV Ab Non Reactive (Non Reactive); HIV Ab/p24 Ag Screen Non Reactive (Non Reactive); Rapid Plasma Reagin, Quant Non Reactive titer (NonRea<1:1)
== END 2023-10-29 15:25 | disposition home or self-care (01) ==
PROVIDERS: PCP Family Medicine; Visit Provider Obstetrics & Gynecology
DX: N92.6 Irregular menstruation, unspecified (principal)
CPT/HCPCS: 36415; 83036; 85025; 86592; 86762; 86803; 86850; 86900; 86901; 87086; 87150; 87186; 87340; 87389

== ENCOUNTER 2023-12-21 11:13 | Outpatient (OUT) | payer OTHER, MEDICAID, SELFPAY ==
[2023-12-23 01:07] LABS: AFP Value 68.4 ng/mL (.); Gest. Age on Collection Date 17.9 weeks (.); Gestat. Age Based On Ultrasound (.); Insulin Dep Diabetes No (.); Maternal Age At EDD 23.5 yr (.); OSBR Risk 1 IN 4273 (.); Results Report (.)
== END 2023-12-21 11:14 | disposition home or self-care (01) ==
LOC: LAB 11:15
PROVIDERS: PCP Family Medicine; Visit Provider Obstetrics & Gynecology
DX: Z34.92 Encounter for supervision of normal pregnancy, unspecified, second trimester (principal); Z36.1 Encounter for antenatal screening for raised alphafetoprotein level
CPT/HCPCS: 36415; 82105

== ENCOUNTER 2024-01-06 08:42 | Outpatient (OUT) | payer BC, OTHER, SELFPAY ==
--- NOTE | 2024-01-06 08:44 | US_ITS ---
[address] [address] Patient Name: TAYLOR ANTUNEZ MRN: [id number] date: 2000 Sex: F Assigned Patient Location: [facility] Current Patient Location: [facility] Accession/Order Number: [id number] Exam Date: 01/06/2024 08:45 Report Date: 01/06/2024 10:42 At the request of: JUANCARLOS VELASCO Procedure: US OB anatomy EXAMINATION: US OB anatomy, US OB cervical length HISTORY: ANATOMY COMPARISON: No relevant comparison available. TECHNIQUE: Transabdominal sonographic examination was performed for obstetrical and evaluation. FINDINGS: Number: 1 Heart Rate: 149 bpm H.B. /min Amniotic Fluid Volume: Subjectively normal Placental Location: ANTERIOR with lower margin 2.9 cm from os. Cervix Length: 3.64 cm ; closed. ANATOMY: Normal Structures -cerebellum, choroid plexus, cisterna magna, lateral cerebral ventricles, orbits, midline falx, hard palate, four-chamber heart, RVOT, LVOT, stomach, kidneys, bladder, umbilical cord insertion into abdomen, three-vessel cord, cervical spine, thoracic spine, lumbar spine, sacral spine, right upper extremity, left upper extremity, right lower extremity, left lower extremity. SUBOPTIMALLY SEEN: None ABNORMALITIES: None BIOMETRY: BPD: 4.65 cm; 20 weeks 0 days; 46 % HC: 17.40 cm; 20 weeks 0 days; 32.20 % AC: 15.76 cm; 20 weeks 6 days; 69.40 % FL: 3.37 cm; 20 weeks 4 days; 57.70 % EFW:357.89 g; 73.80 % FL/AC: 21.38 FL/BPD: 72.47 HC/AC: 1.10 GESTATIONAL AGE: Age by EDC: 20 weeks 1 day Age by current US: 20 weeks 3 days PING by current US: 2024-05-22 PING by EDC: 2024-05-24 US/US OB anatomy IMPRESSION: 1. Single live intrauterine with growth detailed above. Electronically authenticated by: CARMITA BRAY Date: 01/06/2024 10:42
--- NOTE | 2024-01-06 08:44 | US_ITS ---
[address] [address] Patient Name: TAYLOR ANTUNEZ MRN: [id number] date: 2000 Sex: F Assigned Patient Location: [facility] Current Patient Location: [facility] Accession/Order Number: [id number] Exam Date: 01/06/2024 08:45 Report Date: 01/06/2024 10:42 At the request of: JUANCARLOS VELACSO Procedure: US OB cervical length EXAMINATION: US OB anatomy, US OB cervical length HISTORY: ANATOMY COMPARISON: No relevant comparison available. TECHNIQUE: Transabdominal sonographic examination was performed for obstetrical and evaluation. FINDINGS: Number: 1 Heart Rate: 149 bpm H.B. /min Amniotic Fluid Volume: Subjectively normal Placental Location: ANTERIOR with lower margin 2.9 cm from os. Cervix Length: 3.64 cm ; closed. ANATOMY: Normal Structures -cerebellum, choroid plexus, cisterna magna, lateral cerebral ventricles, orbits, midline falx, hard palate, four-chamber heart, RVOT, LVOT, stomach, kidneys, bladder, umbilical cord insertion into abdomen, three-vessel cord, cervical spine, thoracic spine, lumbar spine, sacral spine, right upper extremity, left upper extremity, right lower extremity, left lower extremity. SUBOPTIMALLY SEEN: None ABNORMALITIES: None BIOMETRY: BPD: 4.65 cm; 20 weeks 0 days; 46 % HC: 17.40 cm; 20 weeks 0 days; 32.20 % AC: 15.76 cm; 20 weeks 6 days; 69.40 % FL: 3.37 cm; 20 weeks 4 days; 57.70 % EFW:357.89 g; 73.80 % FL/AC: 21.38 FL/BPD: 72.47 HC/AC: 1.10 GESTATIONAL AGE: Age by EDC: 20 weeks 1 day Age by current US: 20 weeks 3 days PING by current US: 2024-05-22 PING by EDC: 2024-05-24 US/US OB cervical length IMPRESSION: 1. Single live intrauterine with growth detailed above. Electronically authenticated by: CARMITA BRAY Date: 01/06/2024 10:42
--- OUTSIDE RECORDS SUMMARY | 2024-01-06 08:49 | XMS_ITS | CCD ---
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 [address] Provider Notes: History of Present Illness Patient presents for evaluation of rash. ?She believes that she is having a reaction to?red dye as she presented to?another emergency department?in [facility] earlier today.? Patient?was prescribed prednisone 60 mg [...] days. Patient Education Information: Contact Dermatitis [facility] Poison Help line: . [facility] Hotline: [place] Tobacco Quit Line: [place], [place]) [address]: [phone] [place]) [address]: [phone] [facility] [address] [facility]. [place], [place]: [phone] [facility] ED Note-Physicianon 03-30-20 ED Note-Physician Chief Complaint Presents to ED with c/o scattered small reddened areas to upper and lower extremities. History of Present Illness Patient presents for evaluation of rash. She believes that she is having a reaction to red dye as she presented to another emergency department in [facility] earlier today. Patient was prescribed prednisone 60 [...] differential diagnoses including viral rash such as ebcu-hwyd-sbi-mouth disease and contact dermatitis. Patient has had [...] lifetime) Use:. Diagnostic Results Electronically signed by Rach Posadas MD 03/30/22 00:21 EDT Normal [facility] PAP ACOG PANEL 3: 21 to 29on 06-09-2021 . . Normal [facility] Comment on above: Result Comment: Perf ormed at: WB Performed By: #### [id number] #### [facility] [address] [place] [address] Dr. Yesenia Hung Age Gdln ACOG Testing Comment Normal [facility] Comment on above: Result Comment: <21 or >65 or no age provided Performed By: #### [id number] #### [facility] [address] [address] [address] Yesenia Hung Chlamydia, Nuc. Acid Amp Positive Abnormal Negative [facility] Comment on above: Result Comment: . Performed at: =G Performed By: #### [id number] #### [facility] [address] [address] [address] Yesenia Hung DIAGNOSIS: Comment Abnormal [facility] Comment on above: Result Comment: EPIT HELIAL CELL ABNORMALITY. ATYPICAL SQUAMOUS CELLS OF UNDETERMINED SIGNIFICANCE (ASC-US). Performed at: WB Performed By: #### [id number] #### [facility] [address] [place] [address] Dr. Yesenia Hung Electronically signed by: Comment Normal [facility] Comment on above: Result Comment: Mi Ocampo MD, Pathologist Performed at: WB Performed By: #### [id number] #### [facility] [address] [place] [address] Dr. Yesenia Hung Gonococcus, Nuc. Acid Amp Negative Normal Negative [facility] Comment on above: Result Comment: Perf ormed at: =G Performed By: #### [id number] #### [facility] [address] [place] [address] Dr. Yesenia Hung Methodology: Comment Normal [facility] Comment on above: Result Comment: This liquid based ThinPrep(R) pap test was screened with the use of an image guided system. Performed at: WB Performed By: #### [id number] #### [facility] [address] [place] [address] Dr. Yesenia Hung Note: Comment Normal [facility] Comment on above: Result Comment: The Pap smear is a screening test designed to aid in the detection of premalignant and malignant conditions of the uterine cervix. It is not a diagnostic procedure and should not be used as the sole means of detecting cervical cancer. Both false-positive and false-negative reports do occur. . Performed at: WB Performed By: #### [id number] #### [facility] [address] [place] [address] Dr. Yesenia Hung Pathologist Provided ICD10 Comment Normal [facility] Comment on above: Result Comment: [id number] Performed at: WB Performed By: #### [id number] #### [facility] [address] [place] [address] Dr. Yesenia Hung Performed by: Comment Normal [facility] Comment on above: Result Comment: Amelia Thompson Airframe Design Engineer (ASCP) Performed at: WB Performed By: #### [id number] #### [facility] [address] [place] [address] Dr. Yesenia Hung Specimen adequacy: Comment Normal [facility] Comment on above: Result Comment: Sati sfactory for evaluation. Endocervical and/or squamous metaplastic cells (endocervical component) are present. Performed at: WB Performed By: #### [id number] #### [facility] [address] [place] [address] Dr. Yesenia Hung HEPATITIS PANEL, ACUTEon HBsAg Screen Negative Normal Negative [facility] Comment on above: Performed By: #### A 1C #### [facility] [address] [place] [address] Dr. Yesenia Hung Hep A Ab, IgM Negative Normal Negative [facility] Comment on above: Performed By: #### A 1C #### [facility] [address] [place] [address] Dr. Yesenia Hung Hep B Core Ab, IgM Negative Normal Negative [facility] Comment on above: Performed By: #### A 1C #### [facility] [address] [place] [address] Dr. Yesenia Hung Hep C Virus Ab <0.1 Normal 0.0-0.9 [facility] Comment on above: Result Comment: Nega tive: < 0.8 Indeterminate: 0.8 - 0.9 Positive: > 0.9 . The CDC recommends that a positive HCV antibody result be followed up with a HCV Nucleic Acid Amplification test (721135). Effective August 18, 2021 Hepatitis Panel (4) will be made non-orderable. [facility] offers order code [id number] Acute Hepatitis. Performed By: #### A 1C #### [facility] [address] [place] [address] Dr. Yesenia Hung HERPES SIMPLEX 1/2 IGGon HSV 1 IgG, Type Spec <0.91 Normal 0.00-0.90 [facility] Comment on above: Result Comment: Nega tive <0.91 Equivocal 0.91 - 1.09 Positive >1.09 Note: Negative indicates no antibodies detected to HSV-1. Equivocal may suggest early infection. If clinically appropriate, retest at later date. Positive indicates antibodies detected to HSV-1. Performed By: #### H SV IGG #### [facility] [address] [place] [address] Dr. Yesenia Hung HSV 2 IgG Type Spec <0.91 Normal 0.00-0.90 [facility] Comment on above: Result Comment: Nega tive <0.91 Equivocal 0.91 - 1.09 Positive >1.09 Note: Negative indicates no antibodies detected to HSV-2. Equivocal may suggest early infection. If clinically appropriate, retest at later date. Positive indicates antibodies detected to HSV-2. Performed By: #### H SV IGG #### [facility] [address] [place] [address] Dr. Yesenia Hung HERPES SIMPLEX 1/2 IGMon HSV, IgM I/II Combination <0.91 Normal 0.00-0.90 [facility] Comment on above: Result Comment: Nega tive <0.91 Equivocal 0.91 - 1.09 Positive >1.09 Performed By: #### A 1C #### [facility] [address] [place] [address] Dr. Yesenia Hung HIV 1 AND 2 WITH REFLEXon HIV Screen 4th Generation wRfx Non-Reactive Normal Non Reactive [facility] Comment on above: Performed By: #### A 1C #### [facility] [address] [place] [address] Dr. Yesenia Hung RPR QUANTon 06-05-2021 Rapid Plasma Reagin, Quant Non-Reactive Normal NonRea<1:1 [facility] Comment on above: Performed By: #### R PRQ #### [facility] [address] [place] [address] Dr. Yesenia Hung HERPES SIMPLEX 1/2 IGGon HSV 1 IgG, Type Spec <0.91 Normal 0.00-0.90 [facility] Comment on above: Result Comment: Nega tive <0.91 Equivocal 0.91 - 1.09 Positive >1.09 Note: Negative indicates no antibodies detected to HSV-1. Equivocal may suggest early infection. If clinically appropriate, retest at later date. Positive indicates antibodies detected to HSV-1. Performed By: #### A 1C #### [facility] [address] [place] [address] Dr. Yesenia Hung HSV 2 IgG Type Spec <0.91 Normal 0.00-0.90 [facility] Comment on above: Result Comment: Nega tive <0.91 Equivocal 0.91 - 1.09 Positive >1.09 Note: Negative indicates no antibodies detected to HSV-2. Equivocal may suggest early infection. If clinically appropriate, retest at later date. Positive indicates antibodies detected to HSV-2. Performed By: #### A 1C #### [facility] [address] [address] [address] Yesenia Hung HEPATITIS PANEL, ACUTEon HBsAg Screen Negative Normal Negative [facility] Comment on above: Performed By: #### H EPACUT #### [facility] [address] [address] [address] Yesenia Hung Hep A Ab, IgM Negative Normal Negative [facility] Comment on above: Performed By: #### H EPACUT #### [facility] [address] [place] [address] Dr. Yesenia Hung Hep B Core Ab, IgM Negative Normal Negative [facility] Comment on above: Performed By: #### H EPACUT #### [facility] [address] [address] [address] Yesenia Hung Hep C Virus Ab <0.1 Normal 0.0-0.9 [facility] Comment on above: Result Comment: Nega tive: < 0.8 Indeterminate: 0.8 - 0.9 Positive: > 0.9 . The CDC recommends that a positive HCV antibody result be followed up with a HCV Nucleic Acid Amplification test (153487). Effective August 18, 2021 Hepatitis Panel (4) will be made non-orderable. [facility] offers order code [id number] Acute Hepatitis. Performed By: #### H EPACUT #### [facility] [address] [place] [address] Dr. Yesenia Hung HIV 1 AND 2 WITH REFLEXon HIV Screen 4th Generation wRfx Non-Reactive Normal Non Reactive [facility] Comment on above: Performed By: #### H IV12 #### [facility] [address] [place] [address] Dr. Yesenia Hung RPR QUANTon 05-25-2021 Rapid Plasma Reagin, Quant Non-Reactive Normal NonRea<1:1 [facility] Comment on above: Performed By: #### R PRQ #### [facility] [address] [place] [address] Dr. Yesenia Hung CBC AUTO DIFFon 05-24-2021 BASO # 0.0 103/ul Normal 0.0-0.1 [facility] Comment on above: Performed By: #### R PRQ #### [facility] [address] [place] [address] Dr. Yesenia Hung Basophils/100 WBC (Bld) 0.3 % Normal 0.2-2.0 [facility] Comment on above: Performed By: #### R PRQ #### [facility] [address] [place] [address] Dr. Yesenia Hung EO # 0.1 103/ul Normal 0.0-0.7 [facility] Comment on above: Performed By: #### R PRQ #### [facility] [address] [place] [address] Dr. Yesenia Hung Eosinophils/100 WBC (Bld) 1.0 % Normal 0.9-7.0 [facility] Comment on above: Performed By: #### R PRQ #### [facility] [address] [place] [address] Dr. Yesenia Hung Erythrocyte distribution width (RBC) [Ratio] 12.3 % Normal 11.0-15.0 [facility] Comment on above: Performed By: #### R PRQ #### [facility] [address] [place] [address] Dr. Yesenia Hung Hematocrit (Bld) [Volume fraction] 38.3 % Normal 36.0-48.0 [facility] Comment on above: Performed By: #### R PRQ #### [facility] [address] [place] [address] Dr. Yesenia Hung Hemoglobin (Bld) [Mass/Vol] 12.4 g/dL Normal 12.0-16.0 [facility] Comment on above: Performed By: #### R PRQ #### [facility] [address] [address] [address] Yesenia Hung IG # 0.02 10e3/ul Normal 0.00-0.03 [facility] Comment on above: Performed By: #### R PRQ #### [facility] [address] [address] [address] Yesenia Hung IG % 0.3 % Normal 0.0-0.5 [facility] Comment on above: Performed By: #### R PRQ #### [facility] [address] [place] [address] Dr. Yesenia Hung LYMPH # 1.6 103/ul Normal 1.2-3.8 [facility] Comment on above: Performed By: #### R PRQ #### [facility] [address] [place] [address] Dr. Yesenia Hung Lymphocytes/100 WBC (Bld) 22.8 % Normal 20.5-60.0 [facility] Comment on above: Performed By: #### R PRQ #### [facility] [address] [place] [address] Dr. Yesenia Hung MANUAL DIFF REQ NO Normal [facility] Comment on above: Performed By: #### R PRQ #### [facility] [address] [place] [address] Dr. Yesenia Hung MCH (RBC) [Entitic mass] 28.5 pg Normal 26.7-34.0 [facility] Comment on above: Performed By: #### R PRQ #### [facility] [address] [address] [address] Yesenia Hung MCHC (RBC) [Mass/Vol] 32.4 g/dL Normal 29.9-35.2 [facility] Comment on above: Performed By: #### R PRQ #### [facility] [address] [place] [address] Dr. Yesenia Hung MCV (RBC) [Entitic vol] 88.0 fL Normal 81.0-99.0 [facility] Comment on above: Performed By: #### R PRQ #### [facility] [address] [place] [address] Dr. Yesenia Hung MONO # 0.5 103/ul Normal 0.3-0.8 [facility] Comment on above: Performed By: #### R PRQ #### [facility] [address] [place] [address] Dr. Yesenia uHng Monocytes/100 WBC (Bld) 7.1 % Normal 1.7-12.0 [facility] Comment on above: Performed By: #### R PRQ #### [facility] [address] [place] [address] Dr. Yesenia Hung NEUT # 4.9 103/ul Normal 1.4-6.5 [facility] Comment on above: Performed By: #### R PRQ #### [facility] [address] [place] [address] Dr. Yesenia Hung Neutrophils/100 WBC (Bld) 68.5 % Normal 43.0-75.0 [facility] Comment on above: Performed By: #### R PRQ #### [facility] [address] [place] [address] Dr. Yesenia Hung Platelet mean volume (Bld) [Entitic vol] 9.6 fL Normal 9.5-13.5 [facility] Comment on above: Performed By: #### R PRQ #### [facility] [address] [place] [address] Dr. Yesenia Hung PLT 224 103/ul Normal 150-450 [facility] Comment on above: Performed By: #### R PRQ #### [facility] [address] [place] [address] Dr. Yesenia Hung RBC 4.35 106/ul Normal 4.20-5.40 [facility] Comment on above: Performed By: #### R PRQ #### [facility] [address] [place] [address] Dr. Yesenia Hung WBC 7.1 103/ul Normal 4.0-11.0 [facility] Comment on above: Performed By: #### R PRQ #### [facility] [address] [place] [address] Dr. Yesenia Hung FREE THYROXINE INDEX T7on FTI 2.24 Normal [facility] Comment on above: Performed By: #### R PRQ #### [facility] [address] [address] [address] Yesenia Hnug T3U 32.0 % Normal 23.5-40.5 [facility] Comment on above: Performed By: #### R PRQ #### [facility] [address] [address] [address] Yesenia Hung T4 [Mass/Vol] 7.00 ug/dL Normal 5.53-11.00 [facility] Comment on above: Performed By: #### R PRQ #### [facility] [address] [address] [address] Yesenia Hung GLYCOHEMOGLOBIN A1Con 2020 ADA RECOMMENDATION ADA THERAPEUTIC TARG ET 6.0 - 7.0 ACTION SUGGESTED > 7.0 Normal [facility] Comment on above: Performed By: #### A 1C #### [facility] [address] [address] [address] Yesenia Hung Glucose [Mass/Vol] 94 mg/dL Normal [facility] Comment on above: Performed By: #### A 1C #### [facility] [facility] [address] [address] [address] Yesenia Hung HbA1c (Bld) [Mass fraction] 4.9 % Normal <=6.0 [facility] Comment on above: Performed By: #### A 1C #### [facility] [address] [address] [address] Yesenia Hung IRONon 05-24-2021 Iron [Mass/Vol] 53.0 ug/dL Normal 37.0-170.0 [facility] Comment on above: Performed By: #### A 1C #### [facility] [address] [address] [address] Yesenia Hung LIPID PROFILEon 05-24-2021 CHOL-HDL RATIO NORM SEE BELOW Normal [facility] Comment on above: Result Comment: 3.3 - 4.4 LOW RISK 4.4 - 7.1 AVERAGE RISK 7.1 - 11.0 MODERATE RISK >11.0 HIGH RISK Performed By: #### R PRQ #### [facility] [address] [address] [address] Yesenia Hung Cholesterol [Mass/Vol] 139 mg/dL Normal <=200 [facility] Comment on above: Performed By: #### R PRQ #### [facility] [address] [address] [address] Yesenia Hung Cholesterol in HDL [Mass/Vol] 46 mg/dL Normal [facility] Comment on above: Performed By: #### R PRQ #### [facility] [address] [address] [address] Yesenia Hung Cholesterol in LDL [Mass/Vol] 78.2 mg/dL Normal [facility] Comment on above: Performed By: #### R PRQ #### [facility] [address] [place] [address] Dr. eYsenia Hung Cholesterol.total/C holesterol in HDL [Mass ratio] 3.0 {ratio} Normal [facility] Comment on above: Performed By: #### R PRQ #### [facility] [address] [address] [address] Yesenia Hung HDL NORMAL > or = 60 mg/dl - LO W CARDIOVASCULAR RISK <40 mg/dl - HIGH CARDIOVASCULAR RISK Normal [facility] Comment on above: Performed By: #### R PRQ #### [facility] [address] [address] [address] Yesenia Hung LDL CALC NORMAL SEE BELOW Normal [facility] Comment on above: Result Comment: <100 mg/dl OPTIMAL 100 - 129 mg/dl NEAR OR ABOVE OPTIMAL 130 - 159 mg/dl BORDERLINE HIGH 160 - 189 mg/dl HIGH >190 mg/dl VERY HIGH Performed By: #### R PRQ #### [facility] [address] [address] [address] Yesenia Hung Triglyceride [Mass/Vol] 74 mg/dL Normal <=150 [facility] Comment on above: Performed By: #### R PRQ #### [facility] [address] [address] [address] Yesenia Hung VLDL CALC 14.8 mg/dL Normal [facility] Comment on above: Performed By: #### R PRQ #### [facility] [address] [place] [address] Dr. Yesenia Hung PROF 14(COMP METB)on 021 Albumin [Mass/Vol] 3.9 g/dL Normal 3.5-5.0 [facility] Comment on above: Performed By: #### R PRQ #### [facility] [address] [place] [address] Dr. Yesenia Hung Albumin/Globulin [Mass ratio] 1.0 {ratio} Normal [facility] Comment on above: Performed By: #### R PRQ #### [facility] [address] [place] [address] Dr. Yesenia Hung ALP [Catalytic activity/Vol] 71 U/L Normal 38-126 [facility] Comment on above: Performed By: #### R PRQ #### [facility] [address] [place] [address] Dr. Yesenia Hung ALT [Catalytic activity/Vol] 15 U/L Normal 9-52 [facility] Comment on above: Performed By: #### R PRQ #### [facility] [address] [place] [address] Dr. Yesenia Hung Anion gap [Moles/Vol] 11.3 mmol/L Normal [facility] Comment on above: Performed By: #### R PRQ #### [facility] [address] [place] [address] Dr. Yesenia Hung AST [Catalytic activity/Vol] 13 U/L Critically low 14-36 [facility] Comment on above: Performed By: #### R PRQ #### [facility] [address] [place] [address] Dr. Yesenia Hung Bilirubin [Mass/Vol] 0.6 mg/dL Normal 0.2-1.3 [facility] Comment on above: Performed By: #### R PRQ #### [facility] [address] [place] [address] Dr. Yesenia Hung Calcium [Mass/Vol] 9.2 mg/dL Normal 8.4-10.[address] [facility] Comment on above: Performed By: #### R PRQ #### [facility] [address] [place] [address] Dr. Yesenia Hung Chloride [Moles/Vol] 103 mmol/L Normal 98-107 [facility] Comment on above: Performed By: #### R PRQ #### [facility] [address] [place] [address] Dr. Yesenia Hung CO2 [Moles/Vol] 28.8 mmol/L Normal 22.0-30.0 [facility] Comment on above: Performed By: #### R PRQ #### [facility] [address] [place] [address] Dr. Yesenia Hung Creatinine [Mass/Vol] 0.64 mg/dL Normal 0.52-1.04 [facility] Comment on above: Performed By: #### R PRQ #### [facility] [address] [place] [address] Dr. Yesenia Hung EGFR-AF [place]LANDER >60 Normal >=60 [facility] Comment on above: Performed By: #### R PRQ #### [facility] [address] [place] [address] Dr. Yesenia Hung EGFR-NON AF [place] >60 Normal >=60 [facility] Comment on above: Performed By: #### R PRQ #### [facility] [address] [place] [address] Dr. Yesenia Hung Globulin (S) [Mass/Vol] 4.1 g/dL Normal [facility] Comment on above: Performed By: #### R PRQ #### [facility] [address] [place] [address] Dr. Yesenia Hung Glucose [Mass/Vol] 86 mg/dL Normal 74-[address] [facility] Comment on above: Performed By: #### R PRQ #### [facility] [address] [place] [address] Dr. Yesenia Hung Potassium [Moles/Vol] 4.1 mmol/L Normal 3.4-5.0 [facility] Comment on above: Performed By: #### R PRQ #### [facility] [address] [address] [address] Yesenia Hung Protein [Mass/Vol] 8.0 g/dL Normal 6.1-8.2 [facility] Comment on above: Performed By: #### R PRQ #### [facility] [address] [address] [address] Yesenia Hung Sodium [Moles/Vol] 139 mmol/L Normal 137-145 [facility] Comment on above: Performed By: #### R PRQ #### [facility] [address] [address] [address] Yesenia Hung Urea nitrogen [Mass/Vol] 10.0 mg/dL Normal 7.0-17.0 [facility] Comment on above: Performed By: #### R PRQ #### [facility] [address] [place] [address] Dr. Yesenia Hung Urea nitrogen/Creatinine [Mass ratio] 15.6 mg/mg Normal [facility] Comment on above: Performed By: #### R PRQ #### [facility] [address] [address] [address] Yesenia Hung TSHon 05-24-2021 TSH 2.270 uIU/mL Normal 0.470-4.680 [facility] Comment on above: Performed By: #### R PRQ #### [facility] [address] [place] [address] Dr. Yesenia Hung TSH RANGE SEE BELOW Normal [facility] Comment on above: Result Comment: <0.3 4 UIU/ml HYPERTHYROID 0.34-5.60 UIU/ml EUTHYROID >5.60 UIU/ml HYPOTHYROID Performed By: #### R PRQ #### [facility] [address] [place] [address] Dr. Yesenia Hung EXTRUSION BENDER - Office Visiton 05-08 EXTRUSION BENDER - Office Visit Diagnoses/Problems Assessed Encounter for [...] MG Subcutaneous Implant Vitals Vital Signs Recorded: [id number] 01:18PM Xschjrenwqt92.5 F Nsissbzv030 Qoaqcweck60 Height5 ft 3 in 2-20 Stature Yhvfdowlam88 % Zdfhcc05.6 kg 2-20 Weight Cdjszhyich48 % BMI Koduqnfour50.32 BMI Dknczycbls32 % BSA Calculated1.56 Physical Exam PHYSICAL EXAMINATION: [...] May 29 2020 1:40PM EST (Author) Normal [facility] EXTRUSION BENDER - Procedure Visiton 1 07-22-2019 EXTRUSION BENDER - Procedure Visit Chief Complaint PATIENT IS HERE FOR NEXPLANON INSERTION. Patient supply. [facility]:[id number], Lot# [id number], Exp:04/16/2022. LMP: 05-14-2020. NO CONCERNS AT THIS [...] 05/21/2020 2:11:36 PM Vitals Vital Signs Recorded: [id number] 01:40PM Sfejcrrhqfs81.7 F, Temporal Linpwzzn489, LUE, Sitting Jzkfgqivz05, LUE, Sitting Height5 ft 3 in 2-20 Stature Hscxixebir07 % Auagow57.2 kg 2-20 Weight Lyiqrsanzi86 % BMI Lcjhqtruin92.56 BMI Rvysjmqdql38 % BSA Calculated1.57 [id number] Results/Data IO HCG, Urine [id number] 01:36PMBogdan Kameron [facility] [id number] exp 06-06-21 Test NameResultFlagReference IO Urine hCGNegative [...] test IO HCG, Urine Test; Status:Complete; Done: [id number] 01:36PM Performed:In Office; Due:19Aug2020;Ordered; For:Negative test; Ordered By:Kameron Mcfadden; Provider Impressions 1. Norplant insertion Follow-up in 1 week for inspection of the insertion site Signatures Electronically signed by : Kameron Mcfadden MD; May 21 2020 2:15PM EST (Author) Normal [facility] EXTRUSION BENDER - Office Visiton 06 EXTRUSION BENDER - Office Visit Chief Complaint An interactive [...] Nov 14 2019 1:15PM EST (Author) Normal [facility] Vital Signs Date Time Vital Sign Value Performing Clinician Zack velasco 02-15-2022 17:15-0400 Body temperature 97 [degF] [facility] 02-15-2022 17:15-0400 Diastolic blood pressure 52 mm[Hg] [facility] Ad[facility] MD [facility] 02-15-2022 17:15-0400 Heart rate 75 /min Lupe Adair MD Work Phone: [facility] [employer] 02-15-2022 17:15-0400 Respiratory rate 20 /min Lupe Adair MD Work Phone: [facility] [employer] 02-15-2022 17:15-0400 SaO2% (BldA) [Mass fraction] 100 % [facility] 02-15-2022 17:15-0400 Systolic blood pressure 116 mm[Hg] Lupe Adair MD Work Phone: [facility] Encounters Encounter Date Encounter Type Care Provider Facility Start: 01-03-2024 End: 01-03-2024 Emergency department patient visit LUPE Grant Hansa [facility] Start: 01-03-2024 End: 01-03-2024 ambulatory REBECCA L PAVEL [facility] Start: 01-03-2024 End: 01-03-2024 Emergency department patient visit LUPE Grant Hansa [facility] Start: 12-21-2023 End: 12-21-2023 ambulatory JUANCARLOS ROD Not Available Start: 11-23-2023 End: 11-23-2023 ambulatory JUANCARLOS ROD Not Available Start: 10-21-2023 End: 10-21-2023 ambulatory JUANCARLOS ROD Not Available Start: 09-29-2023 End: 09-29-2023 ambulatory HAL ROTHMAN Not Available Start: 06-16-2023 End: 06-16-2023 ambulatory JUANCARLOS VELASCO Not Available Start: 08-04-2022 End: 08-04-2022 Emergency department patient visit Zinahansa Miranda Facility:[facility] Start: 04-29-2022 End: 04-30-[address] LUPE ADAIR Facility:[facility] Start: 03-30-2022 End: 03-30-2022 Emergency department patient visit Rach Posadas MD Facility:[facility] Start: 03-29-2022 End: 03-29-[address] LUPE ADAIR Facility:[facility] Start: 02-15-2022 End: 02-15-2022 Emergency department patient visit LUPE ADAIR [facility] Start: 02-15-2022 End: 02-15-2022 Subsequent hospital visit by physician Lupe Adair MD Work Phone: [facility] Comment on above: Cellulitis of left r ing finger (Primary Dx) Start: 02-05-2022 End: 02-05-2022 ambulatory LUPE ADAIR [facility] Start: 06-04-2021 End: 06-05-[address] LUPE ADAIR Facility:[facility] Start: 05-29-2021 Encounter for genera l adult medical examination without abnormal findings DR LUPE ADAIR [facility] Start: 05-24-2021 End: 05-25-[address] LUPE ADAIR Facility:[facility] Start: 05-24-2021 End: 05-25-2021 Encounter for general adult medical examination without abnormal findings DR LPUE ADAIR Facility:[facility] Start: 05-23-2021 End: 05-24-[address] LUPE ADAIR Facility:[facility] Plan of Treatment Date Care Activity Detail Author Start: 01-26-2024 DTaP/Tdap/Td vaccine (7 - Td or Tdap) DTaP/Tdap/Td vaccine (7 - Td or Tdap) [facility] Start: 02-05-2023 Depression Screen Depression Screen [facility] Start: 02-05-2022 Influenza vaccination Flu vaccine (# 1) [facility] Start: 2021 Screening for malign ant neoplasm of cervix Pap smear [facility] Start: 06-18-2021 COVID-19 Vaccine (3 - Booster for Pfizer series) COVID-19 Vaccine (3 - Booster for Pfizer series) [facility] Start: 2018 Hepatitis C screening Hepatitis C sc reen [facility] Start: 2016 Screening for Chlamy elijah trachomatis Chlamydia screen [facility] Start: 11-04-2015 HIV screening HIV screen [facility] Start: 11-04-2011 HPV vaccine (1 - 2-d ose series) HPV vaccine (1 - 2-dose series) [facility] Immunizations Immunization Date Immunization Notes Care Provider Fa cility 01-16-2021 COVID-19, PFIZER PUR PLE top, DILUTE for use, (age 12 y+), 30mcg/0.3mL Lupe Adair MD Work Phone: [facility] Work Phone: 12-26-2020 COVID-19, PFIZER PUR PLE top, DILUTE for use, (age 12 y+), 30mcg/0.3mL Lupe Adair MD Work Phone: [facility] Work Phone: 01-25-2014 meningococcal polysaccharide (groups A, C, Y and W-135) diphtheria toxoid conjugate vaccine (MCV4P) Lupe Adair MD Work Phone: [facility] Work Phone: 01-25-2014 tetanus toxoid, redu arnav diphtheria toxoid, and acellular pertussis vaccine, adsorbed Lupe Adair MD Work Phone: [facility] Work Phone: 01-25-2014 varicella virus vaccine Isma Adair MD Work Phone: [facility] Work Phone: 08-13-2006 diphtheria, tetanus toxoids and acellular pertussis vaccine, unspecified formulation Lupe Adair MD Work Phone: [facility] Work Phone: 08-13-2006 measles, mumps and rubella virus vaccine Lupe Adair MD Work Phone: [employer] Work Phone: 08-13-2006 poliovirus vaccine, inactivated Lupe Adair MD Work Phone: [facility] [employer] Work Phone: 05-12-2002 diphtheria, tetanus toxoids and acellular pertussis vaccine, unspecified formulation Lupe Adair MD Work Phone: [facility] [employer] Work Phone: 05-12-2002 haemophilus influenz ae type b vaccine, conjugate unspecified formulation Lupe Adair MD Work Phone: [facility] [employer] Work Phone: 05-12-2002 varicella virus vaccine Isma Adair MD Work Phone: [facility] [employer] Work Phone: 11-04-2001 measles, mumps and rubella virus vaccine Lupe Adair MD Work Phone: [facility] [employer] Work Phone: 05-18-2001 diphtheria, tetanus toxoids and acellular pertussis vaccine, unspecified formulation Lupe Adair MD Work Phone: [facility] [employer] Work Phone: 05-18-2001 haemophilus influenz ae type b conjugate and Hepatitis B vaccine Lupe Adair MD Work Phone: [facility] [employer] Work Phone: 05-18-2001 pneumococcal conjuga te vaccine, 7 valent Lupe Adair MD Work Phone: [facility] [employer] Work Phone: 05-18-2001 poliovirus vaccine, inactivated Lupe Adair MD Work Phone: [facility] [employer] Work Phone: 03-07-2001 diphtheria, tetanus toxoids and acellular pertussis vaccine, unspecified formulation Lupe Adair MD Work Phone: [employer] Work Phone: 03-07-2001 haemophilus influenz ae type b conjugate and Hepatitis B vaccine Lupe Adair MD Work Phone: [employer] Work Phone: 03-07-2001 pneumococcal conjuga te vaccine, 7 valent Lupe Adair MD Work Phone: [employer] Work Phone: 03-07-2001 poliovirus vaccine, inactivated Lupe Adair MD Work Phone: [employer] Work Phone: 01-03-2001 diphtheria, tetanus toxoids and acellular pertussis vaccine, unspecified formulation Lupe Adair MD Work Phone: [employer] Work Phone: 01-03-2001 haemophilus influenz ae type b conjugate and Hepatitis B vaccine Lupe Adair MD Work Phone: [employer] Work Phone: 01-03-2001 pneumococcal conjuga te vaccine, 7 valent Lupe Adair MD Work Phone: [facility] [employer] Work Phone: 01-03-2001 poliovirus vaccine, inactivated Lupe Adair MD Work Phone: [employer] Work Phone: Payers Date Payer Category Payer Unknown [id number] 2023 Unknown [id number] 2023 Unknown [id number] 2022 Unknown 2000 Unknown [id number] 2.16. [id number] 2000 Unknown [id number] 2.16. 840.1.494111.3.579.2.93 2000 Unknown [id number] 2.16.84 0.1.368832.3.579.2.593 2000 Unknown [id number] 2.16.84 0.1.518468.3.579.2.593 2000 Unknown [id number] 2.16.84 0.1.432751.3.579.2.593 2000 Unknown [id number] 2.16.84 0.1.092750.3.579.2.593 2000 Unknown [id number] 2.16.84 0.1.280216.3.579.2.593 2000 Unknown [id number] 2.16. 840.1.674767.3.579.2.196 2000 Unknown [id number] 2.16. 840.1.496078.3.579.2.196 2000 Unknown [id number] 2.16.84 0.1.212677.3.579.2.1259 2000 Unknown [id number] 2.16.84 0.1.970492.3.579.2.1259 2000 Unknown [id number] 2.16.84 0.1.059851.3.579.2.1259 2000 Unknown [id number] 2.16.84 0.1.535501.3.579.2.1259 2000 Unknown [id number] 2.16.84 0.1.819882.3.579.2.1259 2000 Unknown [id number] 2.16.8 40.1.134628.3.579.2.1286 2000 Unknown [id number] 2.16.8 40.1.109358.3.579.2.128 2000 Unknown [id number] 2.16.8 40.1.031350.3.579.2.128 2000 Unknown [id number] 2.16.8 40.1.637593.3.579.2.1286 1959 Unknown [id number] 1. 2.840.5047[id number] 1959 Unknown [id number] 1. [id number] Social History Date Type Detail Facility Start: 02-05-2022 Tobacco smoking stat [facility] Never smoked tobacco [facility] [employer] Phone: Start: 02-05-2022 Tobacco use and exposure Smokeless tobacco non-user [employer] Phone: Start: 02-15-2022 Alcohol intake Lifetime non-d leon (finding) [employer] Phone: Start: 2000 Sex Assigned At Not on file B ON [employer] Phone: Clinical Note 05-23-2021 Note Date & [...] by: CARMITA BRAY Date: 2021-05-23 12:44 [facility] Evaluation note Note Date & Type Note Facility Evaluation note Diagnosis Cellulitis of left ring finger- Primary documented in this encounter [facility] Phone: Hospital Discharge instructions Attachments Note Date & Type Note Facility Hospital Discharge instructions The following attachments cannot be sent through Care Everywhere.Cellulitis (Bulgarian)documented in this encounter [employer] Phone: Summary Purpose Family History No Family [...] section and content) DATE CREATED AUTHOR 05/30/2020 [facility] DATE CREATED AUTHOR AUTHOR'S ORGANIZ ATION 02/15/2022 [facility] DATE CREATED AUTHOR AUTHOR'S ORGANIZ ATION 05/04/2022 [facility] DATE CREATED AUTHOR AUTHOR'S ORGANIZ ATION 08/27/2022 [facility] DATE CREATED AUTHOR AUTHOR'S ORGANIZ ATION 12/25/2023 [facility] EPIC DATE CREATED AUTHOR AUTHOR'S ORGANIZ ATION 01/03/2024 [facility] Reason for Visit (unrecogniz ed section and content) Reason Comments Other Left ring finger swe lling Ordered Prescriptions (unrec ognized section and content) Prescription Sig Dispensed Refills Start Date End Da te mometasone (ELOCON) 0.1 % cream Apply topically 2 times daily as needed (rash finger) Apply topically daily. 15 g 0 02/15/2022 Care Teams (unrecognized sec tion and content) Production Worker Relationship Specialty Start Date End Date Lupe Adair MD [address] [place] [address] PCP - General Family Medicine 02/05/22 FOR [...] BE BASED ON THE PRIMARY CLINICAL RECORDS. [employer] provides no warranty or guarantee of the accuracy or completeness of information in this document.
== END 2024-01-06 08:43 | disposition home or self-care (01) ==
LOC: NOMS 08:42
PROVIDERS: PCP Family Medicine; Visit Provider Obstetrics & Gynecology
DX: Z36.89 Encounter for other specified antenatal screening (principal); Z3A.20 20 weeks gestation of pregnancy
CPT/HCPCS: 76805; 76817

== ENCOUNTER 2024-02-02 10:59 | Outpatient (OUT) | payer BC, SELFPAY ==
[2024-02-02 12:19] LABS: Basophils Percent Auto 0.1 % (0.2-2.0); Eosinophils Absolute Auto 0.1 10^3/uL (0.0-0.7); Eosinophils Percent Auto 0.6 % (0.9-7.0); Hemoglobin 11.3 g/dL (12.0-16.0); Immature Granulocytes Abs Auto 0.05 10^3/uL (0.00-0.03); Immature Granulocytes Pct Auto 0.6 % (0.0-0.5); Lymphocytes Absolute Auto 1.6 10^3/uL (1.2-3.8); Lymphocytes Percent Auto 18.9 % (20.5-60.0); Mean Corpuscular HGB Conc 35.3 g/dL (29.9-35.2); Mean Corpuscular Hemoglobin 33.8 pg (26.7-34.0); Mean Corpuscular Volume 95.8 fL (81.0-99.0); Mean Platelet Volume 10.4 fL (9.5-13.5); Monocytes Absolute Auto 0.5 10^3/uL (0.3-0.8); Monocytes Percent Auto 5.8 % (1.7-12.0); Neutrophils Absolute Auto 6.2 10^3/uL (1.4-6.5); Platelet Count 177 10^3/uL (150-450); Red Blood Count 3.34 10^6/uL (4.20-5.40); Red Cell Distribution Width 12.9 % (11.0-15.0); White Blood Count 8.3 10^3/uL (4.0-11.0)
[2024-02-02 13:06] LABS: Glucose 1 Hour 91 mg/dL (<130)
== END 2024-02-02 11:00 | disposition home or self-care (01) ==
LOC: LAB 11:01
PROVIDERS: PCP Family Medicine; Visit Provider Physician Assistant
DX: Z13.1 Encounter for screening for diabetes mellitus (principal)
CPT/HCPCS: 36415; 82950; 85025

== ENCOUNTER 2024-03-07 14:13 | Outpatient (OUT) | payer MEDICAID, SELFPAY ==
--- NOTE | 2024-03-07 14:15 | US_ITS ---
[address] [address] Patient Name: TAYLOR ANTUNEZ MRN: [id number] date: 2000 Sex: F Assigned Patient Location: [facility] Current Patient Location: [facility] Accession/Order Number: [id number] Exam Date: 03/07/2024 14:15 Report Date: 03/07/2024 14:58 At the request of: JUANCARLOS VELASCO Procedure: US OB growth EXAMINATION: US OB growth HISTORY: SMALL FOR GESTATIONAL AGE COMPARISON: 01/06/2024 FINDINGS: Heart Rate: 159 bpm Amniotic Fluid Volume: 13.0 cm. Largest fluid pocket 5.6 cm Number: 1 Position: CEPHALIC BIOMETRY: BPD: 7.16 cm; 28 weeks 5 days; 33.80 % HC: 26.53 cm; 28 weeks 6 days; 18.80 % AC: 24.84 cm; 29 weeks 0 days; 49.70 % FL: 5.38 cm; 28 weeks 4 days; 25.20 % EFW: 1292.40 g; 36 %, 2 lbs. 14 oz. FL/AC: 21.66 FL/BPD: 75.14 HC/AC: 1.07 GESTATIONAL AGE: Age by EDC: 28 weeks 6 days PING by EDC: 2024-05-24 Age by US: 28 weeks 6 days PING by US: 2024-05-24 US/US OB growth IMPRESSION: Normal interval growth Electronically authenticated by: JAQUELINE BAUTISTA Date: 03/07/2024 14:58
--- OUTSIDE RECORDS SUMMARY | 2024-03-07 14:23 | XMS_ITS | CCD ---
Author Organization [facility] Care Team Providers Care Corporate Giving Manager Name Role Phone Lupe Adair MD Primary Care Provider [phone] LUPE ADAIR Primary Care Unavailable LUPE ADAIR [...] Unavailabl e HOY, DR ANDRADE Admitting Unavailable HOY, DR ANDRADE Attending Unavailable CATIA, DR ANDRADE Primary Care Unavailable HOCale, DR ANDRADE Consulting Unavailable CATIA, DR ANDRADE Admitting Unavailable HOY, DR ANDRADE Attending Unavailable HOY, DR ANDRADE Primary Care Unavailable NORMAN SPARKS Consulting Unavailable CATIA, DR ANDRADE Admitting Unavailable CATIA, DR ANDRADE Attending Unavailable CATIA, DR ANDRADE Primary Care Unavailable CATIA, DR ANDRADE Consulting Unavailable Rach Posadas MD Attending Unavailab Zina Rocha DO Attending Unavailable LUPE ADAIR Primary Care Unavailable REBECCA ZHAO Admitting Unavailable REBECCA ZHAO Attending Unavailable LUPE ADAIR Primary Care Unavailable LUPE ADAIR Primary Care Unavailable LUPE ADAIR Primary Care Unavailable HUE HOYT Attending Unavailable JUANCARLOS VELASCO Attending Unavailable HAL ROTHMAN Attending Unavailable JUANCARLOS VELASCO Attending Unavailable JUANCARLOS VELASCO Attending Unavailable HAL ROTHMAN Attending Unavailable JUANCARLOS VELASCO Attending Unavailable Allergies Allergy Classification Reported Allergen(s) Allergy Type Date of Onset Reaction(s) Facility (1 source) No Known Medication Allergies; Translations: [No Known Medication Allergies] Propensity to adverse reactions to drug (disorder) [facility] Repository Medications Current Medications Medication Drug [...] Value Interpretation Reference Range Facility .UA Microscp [facility] 08-04-2022 UA Bacteria Present Abnormal Absent [facility] Comment on above: Performed By: #### L IVER #### [place] [address] UA Mucus Present Abnormal Absent [facility] Comment on above: Performed By: #### L IVER #### [place] [address] UA RBC Qual 1-4 Normal 0 - 5 [facility] Comment on above: Performed By: #### L IVER #### [place] [address] UA Squepi Cells Qual 15-29 Normal 0 - 29 [facility] Comment on above: Performed By: #### L IVER #### [place] [address] UA WBC Qual 5-9 Abnormal 0 - 5 [facility] Comment on above: Performed By: #### L IVER #### [place] [address] .eGFRon 08-04-2022 GFR/1.73 sq M.predicted MDRD (S/P/Bld) [Vol rate/Area] mL/min/{1.73_m2} Normal >=60 [facility] Comment on above: Order Comment: Order added by Discern rule Result Comment: [facility] Laboratories have implemented the eGFR calculation [...] years Performed By: #### L MUNIRA #### [address] [address] Basic Metabolic Profileon Anion gap [Moles/Vol] 10 mmol/L Normal 7-17 [facility] Comment on above: Performed By: #### C [id number] #### [address] [address] Calcium [Mass/Vol] 8.5 mg/dL Low 8.6-10.3 [facility] Comment on above: Performed By: #### C [id number] #### [address] [address] Chloride 105 IU/L Normal 98-107 [facility] Comment on above: Performed By: #### C [id number] #### [address] [address] CO2 [Moles/Vol] 26 mmol/L Normal 21-31 [facility] Comment on above: Performed By: #### C [id number] #### [address] [address] Creatinine [Mass/Vol] 0.6 mg/dL Normal 0.6-1.2 [facility] Comment on above: Performed By: #### C [id number] #### [address] [address] Glucose [Mass/Vol] 90 mg/dL Normal 70-99 [facility] Comment on above: Performed By: #### C [id number] #### [address] [address] Potassium [Moles/Vol] 3.5 mmol/L Normal 3.4-4.8 [facility] Comment on above: Performed By: #### C [id number] #### [address] [address] Sodium [Moles/Vol] 138 mmol/L Normal 136-145 [facility] Comment on above: Performed By: #### C [id number] #### [address] [address] Urea nitrogen [Mass/Vol] 14 mg/dL Normal 7-25 [facility] Comment on above: Performed By: #### C [id number] #### [address] [address] Urea nitrogen/Creatinine [Mass ratio] 23.3 mg/mg High 10.0-20.0 [facility] Comment on above: Performed By: #### C [id number] #### [address] [address] CBC w/ Diffon 08-04-2022 Erythrocyte distribution width (RBC) [Ratio] 12.5 % Normal 11.6-14.8 [facility] Comment on above: Performed By: #### C BC #### [address] [address] Hematocrit (Bld) [Volume fraction] 40.3 % Normal 36.0-46.0 [facility] Comment on above: Performed By: #### C BC #### [address] [address] Hemoglobin (Bld) [Mass/Vol] 13.6 g/dL Normal 12.0-16.0 [facility] Comment on above: Performed By: #### C BC #### [address] [address] MCH (RBC) [Entitic mass] 29.9 pg Normal 27.0-35.0 [facility] Comment on above: Performed By: #### C BC #### [place] [address] MCHC 33.8 % Normal 31.0-37.0 [facility] Comment on above: Performed By: #### C BC #### [place] [address] MCV (RBC) [Entitic vol] 88.4 fL Normal 80.0-100.0 [facility] Comment on above: Performed By: #### C BC #### [place] [address] Platelet 230 x10*3/mcL Normal 150-350 [facility] Comment on above: Performed By: #### C BC #### [place] [address] Platelet mean volume (Bld) [Entitic vol] 7.7 fL Normal 7.5-11.5 [facility] Comment on above: Performed By: #### C BC #### [place] [address] RBC 4.56 x10*6/mcL Normal 3.80-5.20 [facility] Comment on above: Performed By: #### C BC #### [place] [address] WBC 6.7 x10*3/mcL Normal 4.5-11.0 [facility] Comment on above: Performed By: #### C BC #### [place] [address] COV19 Rapidon 08-04-2022 LAB ONLY Result Called? No Normal [facility] Comment on above: Performed By: #### C [id number] #### [place] [address] Reason for Rapid Test COVID Exposure Normal [facility] Comment on above: Performed By: #### C [id number] #### [place] [address] SARS-CoV-2 (COVID-19) RNA ADELSO+probe Ql (Unsp spec) Negative Normal Negative [facility] Comment on above: Result Comment: This [...] using the ID NOW COVID-19 test by [employer], which has received Emergency Use Authorization (EUA) [...] following links: Fact Sheet for HealthCare Providers: https://www.fda.gov/media/149823/download Fact Sheet for Patients: https://www.fda.gov/media/597911/download Performed By: #### C D:[id number] #### [address] [address] Diff Autoon 08-04-2022 Baso Absolute 0.0 x10*3/mcL Normal 0.0-0.2 [facility] Comment on above: Performed By: #### . Automated Diff #### [address] [address] Basophils/100 WBC (Bld) 0.2 % Normal 0.0-1.5 [facility] Comment on above: Performed By: #### . Automated Diff #### [address] [address] Eos Absolute 0.1 x10*3/mcL Normal 0.0-0.4 [facility] Comment on above: Performed By: #### . Automated Diff #### [address] [address] Eosinophils/100 WBC (Bld) 1.2 % Normal 0.0-5.4 [facility] Comment on above: Performed By: #### . Automated Diff #### [place] [address] Lymph Absolute 1.6 x10*3/mcL Normal 1.0-4.8 [facility] Comment on above: Performed By: #### . Automated Diff #### [place] [address] Lymphocytes/100 WBC (Bld) 23.7 % Low 27.2-40.8 [facility] Comment on above: Performed By: #### . Automated Diff #### [place] [address] Cavalier Absolute 0.6 x10*3/mcL Normal 0.1-1.1 [facility] Comment on above: Performed By: #### . Automated Diff #### [place] [address] Monocytes/100 WBC (Bld) 9.3 % Normal 3.7-11.9 [facility] Comment on above: Performed By: #### . Automated Diff #### [place] [address] Neutro Absolute 4.4 x10*3/mcL Normal 1.8-7.7 [facility] Comment on above: Performed By: #### . Automated Diff #### [place] [address] Neutro Auto 65.6 % Normal 47.2-70.8 [facility] Comment on above: Performed By: #### . Automated Diff #### [place] [address] ED Clinical Summaryon 2022 ED Clinical Summary (Inserted Image. Debra ble to display) [place] [address] ED Clinical Summary Person Information Name: Nikolas Antunezlinda Tavares/[facility] Age: 21 Years : 2000 Sex: Female PCP: Marital Status: Single Phone: Race: White Ethnicity: Not or Language: Qatari Visit Reason: Abdominal pain; Vomiting; Nausea; Abdominal pain Acuity: 3 Enc Type: Emergency Med Service: Emergency Medicine Arrival: 08/04/2022 18:42:47 Discharge: 08/04/2022 20:40:00 LOS: 000 01:58 Checkin: 08/04/2022 18:42:47 Checkout: 08/04/2022 20:40:00 Dispo Type: Home or Self Care Address: [address] [place], [place] [address] Provider Notes: History of Present Illness 21-year-old [...] range between ( 27.2 and 40.8 ) Cavalier Auto: 9.3 % -- Normal range between [...] range between ( 36.0 and 46.0 ) Cavalier Absolute: 0.6 x10 MCH: 29.9 pg -- [...] UA Color: (more content not included)... Normal [facility] ED Note-Physicianon 08-04-19 ED Note-Physician Chief Complaint [...] 08/04/22 19:26 (more content not included)... Normal [facility] Flu A&B Ag Rapidon 3 Influenza A Ag Negative Normal Negative [facility] Comment on above: Performed By: #### C [id number] #### [place] [address] Influenza B Ag Negative Normal Negative [facility] Comment on above: Result Comment: The [employer] Influenza A+B Card 2 detects both viable and non-viable influenza A and B. Test performance depends on the amount of virus (antigen) in the specimen and may or may not compare with cell culture results performed on the same specimen. A negative test result does not exclude the infection with influenza A and/or B. Therefore, the results obtained with the [employer] Influenza A+B Test should be used in conjunction with clinical findings to make an accurate diagnosis. Additional testing is required to differentiate any specific influenza A+B subtypes or strains, in consultation with state or local public health departments. Performed By: #### C [id number] #### [address] [address] Hep Func Panelon 08-04-2022 Albumin [Mass/Vol] 4.4 g/dL Normal 3.7-5.3 [facility] Comment on above: Performed By: #### L IVER #### [place] [address] Alk Phos 53 IU/L Normal 34-104 [facility] Comment on above: Performed By: #### L IVER #### [place] [address] ALT [Catalytic activity/Vol] 15 U/L Normal 7-52 [facility] Comment on above: Performed By: #### L IVER #### [place] [address] AST [Catalytic activity/Vol] 16 U/L Normal 13-39 [facility] Comment on above: Performed By: #### L IVER #### [place] [address] Bili Direct 0.15 mg/dL Normal 0.03-0.18 [facility] Comment on above: Performed By: #### L IVER #### [place] [address] Bili Indirect 0.4 mg/dL Normal 0.0-1.0 [facility] Comment on above: Performed By: #### L IVER #### [place] [address] Bili Total 0.6 mg/dL Normal 0.3-1.0 [facility] Comment on above: Performed By: #### L IVER #### [place] [address] Protein [Mass/Vol] 7.5 g/dL Normal 6.0-8.3 [facility] Comment on above: Performed By: #### L IVER #### [place] [address] Lipaseon 08-04-2022 Lipase Lvl 18 IU/L Normal [facility] Comment on above: Performed By: #### L IP #### [place] [address] UA w Culture if Ind Tri Color (U) Yellow Normal [facility] Comment on above: Performed By: #### U CIM #### [place] [address] Glucose (U) [Mass/Vol] Negative Normal Negative [facility] Comment on above: Performed By: #### U CIM #### [place] [address] Ketones Ql (U) Negative Normal Negative [facility] Comment on above: Performed By: #### U CIM #### [place] [address] UA Blood Negative Normal Negative [facility] Comment on above: Performed By: #### U CIM #### [place] [address] UA Clarity Hazy Normal [facility] Comment on above: Performed By: #### U CIM #### [place] [address] UA Leukocyte Esterase Trace Abnormal Negative [facility] Comment on above: Performed By: #### U CIM #### [place] [address] UA Nitrite Negative Normal Negative [facility] Comment on above: Performed By: #### U CIM #### [place] [address] UA pH 7.0 Normal 4.5 - 7.8 [facility] Comment on above: Performed By: #### U CIM #### [place] [address] UA Protein Negative Normal Negative [facility] Comment on above: Performed By: #### U CIM #### [address] [address] UA Source Clean Catch Normal [facility] Comment on above: Performed By: #### U CIM #### [address] [address] UA Spec Grav 1.025 Normal 1.003-1.035 [facility] Comment on above: Performed By: #### U CIM #### [place] [id number] UA Urobilinogen 2.0 mg/dL Abnormal 0.2 - 1.0 [facility] Comment on above: Result Comment: conf irmed with chemstrip 10 08/04/2022 19:44:02 EST Performed By: #### U CIM #### [place] [address] Urobilinogen (U) [Mass/Vol] Negative Normal Negative [facility] Comment on above: Performed By: #### U CIM #### [address] [address] XR Abdomen 2 Views w/ Chest 1 [...] Electronically Signed in Other Vendor System) Normal [facility] INSULINon 05-01-2022 Insulin 14.9 uIU/mL Normal 2.6-24.9 [facility] Comment on above: Performed By: #### I NSULIN #### [facility] [address] [place] [address] Dr. Yesenia Hung CBC AUTO DIFFon 04-29-2022 BASO # 0.0 103/ul Normal 0.0-0.1 [facility] Comment on above: Performed By: #### R PRQ #### [facility] [address] [place] [address] Dr. Yesenia Hung Basophils/100 WBC (Bld) 0.6 % Normal 0.2-2.0 [facility] Comment on above: Performed By: #### R PRQ #### [facility] [address] [place] [address] Dr. Yesenia Hung EO # 0.1 103/ul Normal 0.0-0.7 [facility] Comment on above: Performed By: #### R PRQ #### [facility] [address] [place] [address] Dr. Yesenia Hung Eosinophils/100 WBC (Bld) 0.7 % Critically low 0.9-7.0 [facility] Comment on above: Performed By: #### R PRQ #### [facility] [address] [place] [address] Dr. Yesenia Hung Erythrocyte distribution width (RBC) [Ratio] 12.6 % Normal 11.0-15.0 [facility] Comment on above: Performed By: #### R PRQ #### [facility] [address] [place] [address] Dr. Yesenia Hung Hematocrit (Bld) [Volume fraction] 38.9 % Normal 36.0-48.0 [facility] Comment on above: Performed By: #### R PRQ #### [facility] [address] [place] [address] Dr. Yesenia Hung Hemoglobin (Bld) [Mass/Vol] 13.2 g/dL Normal 12.0-16.0 [facility] Comment on above: Performed By: #### R PRQ #### [facility] [address] [place] [address] Dr. Yesenia Hung IG # 0.02 10e3/ul Normal 0.00-0.03 [facility] Comment on above: Performed By: #### R PRQ #### [facility] [address] [place] [address] Dr. Yesenia Hung IG % 0.3 % Normal 0.0-0.5 [facility] Comment on above: Performed By: #### R PRQ #### [facility] [address] [place] [address] Dr. Yesenia Hung LYMPH # 2.1 103/ul Normal 1.2-3.8 [facility] Comment on above: Performed By: #### R PRQ #### [facility] [address] [place] [address] Dr. Yesenia Hung Lymphocytes/100 WBC (Bld) 29.4 % Normal 20.5-60.0 [facility] Comment on above: Performed By: #### R PRQ #### [facility] [address] [place] [address] Dr. Yesenia Hung MANUAL DIFF REQ NO Normal [facility] Comment on above: Performed By: #### R PRQ #### [facility] [address] [place] [address] Dr. Yesenia Hung MCH (RBC) [Entitic mass] 29.8 pg Normal 26.7-34.0 [facility] Comment on above: Performed By: #### R PRQ #### [facility] [address] [place] [address] Dr. Yesenia Hung MCHC (RBC) [Mass/Vol] 33.9 g/dL Normal 29.9-35.2 [facility] Comment on above: Performed By: #### R PRQ #### [facility] [address] [place] [address] Dr. Yesenia Hung MCV (RBC) [Entitic vol] 87.8 fL Normal 81.0-99.0 [facility] Comment on above: Performed By: #### R PRQ #### [facility] [address] [place] [address] Dr. Yesenia Hung MONO # 0.5 103/ul Normal 0.3-0.8 [facility] Comment on above: Performed By: #### R PRQ #### [facility] [address] [place] [address] Dr. Yesenia Hung Monocytes/100 WBC (Bld) 6.6 % Normal 1.7-12.0 [facility] Comment on above: Performed By: #### R PRQ #### [facility] [address] [place] [address] Dr. Yesenia Hung NEUT # 4.5 103/ul Normal 1.4-6.5 [facility] Comment on above: Performed By: #### R PRQ #### [facility] [address] [place] [address] Dr. Yesenia Hung Neutrophils/100 WBC (Bld) 62.4 % Normal 43.0-75.0 [facility] Comment on above: Performed By: #### R PRQ #### [facility] [address] [place] [address] Dr. Yesenia Hung Platelet mean volume (Bld) [Entitic vol] 9.5 fL Normal 9.5-13.5 [facility] Comment on above: Performed By: #### R PRQ #### [facility] [address] [place] [address] Dr. Yesenia Hung PLT 294 103/ul Normal 150-450 [facility] Comment on above: Performed By: #### R PRQ #### [facility] [address] [place] [address] Dr. Yesenia Hung RBC 4.43 106/ul Normal 4.20-5.40 [facility] Comment on above: Performed By: #### R PRQ #### [facility] [address] [place] [address] Dr. Yesenia Hung WBC 7.1 103/ul Normal 4.0-11.0 [facility] Comment on above: Performed By: #### R PRQ #### [facility] [address] [place] [address] Dr. Yesenia Hung FREE THYROXINE INDEX T7on FTI 2.51 Normal 1.30-4.50 [facility] Comment on above: Performed By: #### C MP, TSH, T7, PREGQNT #### [facility] [address] [place] [address] [address] Yesenia Hung T3U 33.0 % Normal 30.0-39.0 [facility] Comment on above: Performed By: #### C MP, TSH, T7, PREGQNT #### [facility] [address] [place] [address] Dr. Yesenia Hung T4 [Mass/Vol] 7.60 ug/dL Normal 4.80-13.[address] [facility] Comment on above: Performed By: #### C MP, TSH, T7, PREGQNT #### [facility] [address] [place] [address] Dr. Yesenia Hung GLYCOHEMOGLOBIN A1Con 2021 ADA RECOMMENDATION SEE BELOW Normal [facility] Comment on above: Result Comment: ADA RECOMMENDED LIMIT 4.0 - 6.0 ADA THERAPEUTIC TARGET < 7.0 ACTION SUGGESTED > 7.0 Performed By: #### A 1C #### [facility] [address] [place] [address] Dr. Yesenia Hung Glucose [Mass/Vol] 103 mg/dL Normal [facility] Comment on above: Performed By: #### A 1C #### [facility] [address] [place] [address] Dr. Yesenia Hung HbA1c (Bld) [Mass fraction] 5.2 % Normal 4.5-6.2 [facility] Comment on above: Performed By: #### A 1C #### [facility] [address] [place] [address] Dr. Yesenia Hung IRONon 04-29-2022 Iron [Mass/Vol] 40.0 ug/dL Critically low 50.0-170.0 [facility] Comment on above: Performed By: #### A 1C #### [facility] [address] [place] [address] Dr. Yesenia Hung PREG QUANT HCGon 04-29-2022 HCG QUANT <1 Normal [facility] Comment on above: Performed By: #### R PRQ #### [facility] [address] [place] [address] Dr. Yesenia Hung HCG RANGE SEE BELOW Normal [facility] Comment on above: Result Comment: 5-50 0.2-1 WEEK 50-500 1-2 WEEKS 100-5,000 2-3 WEEKS 500-10,000 3-4 WEEKS 1,000-50,000 4-5 WEEKS 10,000-100,000 5-6 WEEKS 15,000-200,000 6-8 WEEKS 10,000-100,000 2-3 MONTHS Performed By: #### R PRQ #### [facility] [address] [place] [address] Dr. Yesenia Hung PROF 14(COMP METB)on 022 Albumin [Mass/Vol] 4.2 g/dL Normal 3.4-5.0 [facility] Comment on above: Performed By: #### R PRQ #### [facility] [address] [place] [address] Dr. Yesenia Hung Albumin/Globulin [Mass ratio] 1.0 {ratio} Normal [facility] Comment on above: Performed By: #### R PRQ #### [facility] [address] [place] [address] Dr. Yesenia Hung ALP [Catalytic activity/Vol] 67 U/L Normal 46-116 [facility] Comment on above: Performed By: #### R PRQ #### [facility] [address] [place] [address] Dr. Yesenia Hung ALT [Catalytic activity/Vol] 11 U/L Critically low 14-59 [facility] Comment on above: Performed By: #### R PRQ #### [facility] [address] [place] [address] Dr. Yesenia Hung Anion gap [Moles/Vol] 12.1 mmol/L Normal [facility] Comment on above: Performed By: #### R PRQ #### [facility] [address] [place] [address] [address] Yesenia Hung AST [Catalytic activity/Vol] 10 U/L Critically low 15-37 [facility] Comment on above: Performed By: #### R PRQ #### [facility] [address] [place] [address] Dr. Yesenia Hung Bilirubin [Mass/Vol] 0.2 mg/dL Normal 0.2-1.0 [facility] Comment on above: Performed By: #### R PRQ #### [facility] [address] [place] [address] Dr. Yesenia Hung Calcium [Mass/Vol] 9.4 mg/dL Normal 8.5-10.1 [facility] Comment on above: Performed By: #### R PRQ #### [facility] [address] [place] [address] Dr. Yesenia Hung Chloride [Moles/Vol] 103 mmol/L Normal 98-107 [facility] Comment on above: Performed By: #### R PRQ #### [facility] [address] [place] [address] Dr. Yesenia Hung CO2 [Moles/Vol] 28.2 mmol/L Normal 21.0-32.0 [facility] Comment on above: Performed By: #### R PRQ #### [facility] [address] [place] [address] Dr. Yesenia Hung Creatinine [Mass/Vol] 0.58 mg/dL Normal 0.55-1.02 [facility] Comment on above: Performed By: #### R PRQ #### [facility] [address] [place] [address] Dr. Yesenia Hung EGFR-AF WALLISIAN >60 Normal >=60 [facility] Comment on above: Performed By: #### R PRQ #### [facility] [address] [place] [address] Dr. Yesenia Hung EGFR-NON AF WALLISIAN >60 Normal >=60 [facility] Comment on above: Performed By: #### R PRQ #### [facility] [address] [place] [address] Dr. Yesenia Hung Globulin (S) [Mass/Vol] 4.0 g/dL Normal [facility] Comment on above: Performed By: #### R PRQ #### [facility] [address] [address] [address] Yesenia Hung Glucose [Mass/Vol] 89 mg/dL Normal 74-106 [facility] Comment on above: Performed By: #### R PRQ #### [facility] [address] [address] [address] Yesenia Hung Potassium [Moles/Vol] 4.3 mmol/L Normal 3.5-5.1 [facility] Comment on above: Performed By: #### R PRQ #### [facility] [address] [place] [address] Dr. Yesenia Hung Protein [Mass/Vol] 8.2 g/dL Normal 6.4-8.2 [facility] Comment on above: Performed By: #### R PRQ #### [facility] [address] [place] [address] Dr. Yesenia Hung Sodium [Moles/Vol] 139 mmol/L Normal 136-145 [facility] Comment on above: Performed By: #### R PRQ #### [facility] [address] [place] [address] Dr. Yesenia Hung Urea nitrogen [Mass/Vol] 11.0 mg/dL Normal 7.0-18.0 [facility] Comment on above: Performed By: #### R PRQ #### [facility] [address] [place] [address] Dr. Yesenia Hung Urea nitrogen/Creatinine [Mass ratio] 19.0 mg/mg Normal [facility] Comment on above: Performed By: #### R PRQ #### [facility] [address] [place] [address] Dr. Yesenia Hung TSHon 04-29-2022 TSH 1.621 uIU/mL Normal 0.358-3.[address] [facility] Comment on above: Performed By: #### R PRQ #### [facility] [address] [place] [address] Dr. Yesenia Hung ED Clinical Summaryon 2021 ED Clinical Summary (Inserted Image. Debra ble to display) [address] [address] ED Clinical Summary Person Information Name: Jeannine Antunez/NewValentina Age: 21 Years : 2000 Sex: Female PCP: Marital Status: Single Phone: Race: White Ethnicity: Not or Language: Qatari Visit Reason: Skin rash; Rash Acuity: 4 Enc Type: Emergency Med Service: Emergency Medicine Arrival: 03/29/2022 23:48:59 Discharge: 03/30/2022 00:18:00 LOS: 000 00:30 Checkin: 03/29/2022 23:48:59 Checkout: 03/30/2022 00:18:00 Dispo Type: Home or Self Care Address: [address] [place] [address] Provider Notes: History of Present Illness Patient presents for evaluation of rash. ?She believes that she is having a reaction to?red dye as she presented to?another emergency department?in [facility] earlier today.? Patient?was prescribed prednisone 60 [...] Medications Documented Care Team Members: Attending Physician: Rach Posadas MD Consulting Physician: Referring Physician: Follow up: With: Address: When: Your doctor if rash does not improve in 2-3 days. Patient Education Information: Contact Dermatitis [facility] Poison Help line: . [facility] Hotline: [place] Tobacco Quit Line: [place], [place]) [address]: [phone] [place], [place]) [address]: [phone] [facility] [address]. [place], [place]: [phone] Normal [facility] ED Note-Physicianon 03-30-20 ED Note-Physician Chief Complaint Presents to ED with c/o scattered small reddened areas to upper and lower extremities. History of Present Illness Patient presents for evaluation of rash. She believes that she is having a reaction to red dye as she presented to another emergency department in [facility] earlier today. Patient was prescribed prednisone [...] differential diagnoses including viral rash such as ovla-pbvs-bts-mouth disease and contact dermatitis. Patient has had [...] Rach Posadas MD 03/30/22 00:21 EDT Normal [facility] PAP ACOG PANEL 3: 21 to 29on 06-09-2021 . . Normal [facility] Comment on above: Result Comment: Perf ormed at: WB Performed By: #### [id number] #### [facility] [address] [place] [address] Dr. Yesenia Hung Age Gdln ACOG Testing Comment Normal [facility] Comment on above: Result Comment: <21 or >65 or no age provided Performed By: #### [id number] #### [facility] [address] [place] [address] Dr. Yesenia Hung Chlamydia, Nuc. Acid Amp Positive Abnormal Negative [facility] Comment on above: Result Comment: . Performed at: =G Performed By: #### [id number] #### [facility] [address] [place] [address] Dr. Yesenia Hung DIAGNOSIS: Comment Abnormal [facility] Comment on above: Result Comment: EPIT HELIAL CELL ABNORMALITY. ATYPICAL SQUAMOUS CELLS OF UNDETERMINED SIGNIFICANCE (ASC-US). Performed at: WB Performed By: #### [id number] #### [facility] [address] [place] [address] Dr. Yesenia Hung Electronically signed by: Comment Normal [facility] Comment on above: Result Comment: Mi Ocampo MD, Pathologist Performed at: WB Performed By: #### [id number] #### [facility] [address] [place] [address] Dr. Yesenia Hung Gonococcus, Nuc. Acid Amp Negative Normal Negative [facility] Comment on above: Result Comment: Perf ormed at: =G Performed By: #### [id number] #### [facility] [address] [place] [address] Dr. Yesenia Hung Methodology: Comment Normal [facility] Comment on above: Result Comment: This liquid based ThinPrep(R) pap test was screened with the use of an image guided system. Performed at: WB Performed By: #### [id number] #### [facility] [address] [place] [address] Dr. Yesenia Hung Note: Comment Normal [facility] Comment on above: Result Comment: The Pap smear is a screening test designed to aid in the detection of premalignant and malignant conditions of the uterine cervix. It is not a diagnostic procedure and should not be used as the sole means of detecting cervical cancer. Both false-positive and false-negative reports do occur. . Performed at: WB Performed By: #### [id number] #### [facility] [address] [place] [address] Dr. Yesenia Hung Pathologist Provided ICD10 Comment Normal [facility] Comment on above: Result Comment: [id number] Performed at: WB Performed By: #### [id number] #### [facility] [address] [place] [address] Dr. Yesenia Hung Performed by: Comment Normal [facility] Comment on above: Result Comment: Amelia Thompson Assembly Supervisor (ASCP) Performed at: WB Performed By: #### [id number] #### [facility] [address] [place] [address] Dr. Yesenia Hung Specimen adequacy: Comment Normal [facility] Comment on above: Result Comment: Sati sfactory for evaluation. Endocervical and/or squamous metaplastic cells (endocervical component) are present. Performed at: WB Performed By: #### [id number] #### [facility] [address] [place] [address] Dr. Yesenia Hung HEPATITIS PANEL, ACUTEon HBsAg Screen Negative Normal Negative [facility] Comment on above: Performed By: #### A 1C #### [facility] [address] [place] [address] Dr. Yesenia Hung Hep A Ab, IgM Negative Normal Negative [facility] Comment on above: Performed By: #### A 1C #### [facility] [address] [place] [address] Dr. Yesenia Hung Hep B Core Ab, IgM Negative Normal Negative [facility] Comment on above: Performed By: #### A 1C #### [facility] [address] [place] [address] Dr. Yesenia Hung Hep C Virus Ab <0.1 Normal 0.0-0.9 [facility] Comment on above: Result Comment: Nega tive: < 0.8 Indeterminate: 0.8 - 0.9 Positive: > 0.9 . The CDC recommends that a positive HCV antibody result be followed up with a HCV Nucleic Acid Amplification test (330689). Effective August 18, 2021 Hepatitis Panel (4) will be made non-orderable. [facility] offers order code [id number] Acute Hepatitis. Performed By: #### A 1C #### [facility] [address] [place] [address] Dr. Yesenia Hung HERPES SIMPLEX 1/2 IGGon HSV 1 IgG, Type Spec <0.91 Normal 0.00-0.90 [facility] Comment on above: Result Comment: Nega tive <0.91 Equivocal 0.91 - 1.09 Positive >1.09 Note: Negative indicates no antibodies detected to HSV-1. Equivocal may suggest early infection. If clinically appropriate, retest at later date. Positive indicates antibodies detected to HSV-1. Performed By: #### H SV IGG #### [facility] [address] [place] [address] Dr. Yesenia Hung HSV 2 IgG Type Spec <0.91 Normal 0.00-0.90 [facility] Comment on above: Result Comment: Nega tive <0.91 Equivocal 0.91 - 1.09 Positive >1.09 Note: Negative indicates no antibodies detected to HSV-2. Equivocal may suggest early infection. If clinically appropriate, retest at later date. Positive indicates antibodies detected to HSV-2. Performed By: #### H SV IGG #### [facility] [address] [place] [address] Dr. Yesenia Hung HERPES SIMPLEX 1/2 IGMon HSV, IgM I/II Combination <0.91 Normal 0.00-0.90 [facility] Comment on above: Result Comment: Nega tive <0.91 Equivocal 0.91 - 1.09 Positive >1.09 Performed By: #### A 1C #### [facility] [address] [place] [address] Dr. Yesenia Hung HIV 1 AND 2 WITH REFLEXon HIV Screen 4th Generation wRfx Non-Reactive Normal Non Reactive [facility] Comment on above: Performed By: #### A 1C #### [facility] [address] [place] [address] Dr. Yesenia Hung RPR QUANTon 06-05-2021 Rapid Plasma Reagin, Quant Non-Reactive Normal NonRea<1:1 [facility] Comment on above: Performed By: #### R PRQ #### [facility] [address] [place] [address] Dr. Yesenia Hung HERPES SIMPLEX 1/2 IGGon HSV 1 IgG, Type Spec <0.91 Normal 0.00-0.90 [facility] Comment on above: Result Comment: Nega tive <0.91 Equivocal 0.91 - 1.09 Positive >1.09 Note: Negative indicates no antibodies detected to HSV-1. Equivocal may suggest early infection. If clinically appropriate, retest at later date. Positive indicates antibodies detected to HSV-1. Performed By: #### A 1C #### [facility] [address] [place] [address] Dr. Yesenia Hung HSV 2 IgG Type Spec <0.91 Normal 0.00-0.90 [facility] Comment on above: Result Comment: Nega tive <0.91 Equivocal 0.91 - 1.09 Positive >1.09 Note: Negative indicates no antibodies detected to HSV-2. Equivocal may suggest early infection. If clinically appropriate, retest at later date. Positive indicates antibodies detected to HSV-2. Performed By: #### A 1C #### [facility] [address] [address] [address] Yesenia Hung HEPATITIS PANEL, ACUTEon HBsAg Screen Negative Normal Negative [facility] Comment on above: Performed By: #### H EPACUT #### [facility] [address] [place] [address] Dr. Yesenia Hung Hep A Ab, IgM Negative Normal Negative [facility] Comment on above: Performed By: #### H EPACUT #### [facility] [address] [address] [address] Yesenia Hung Hep B Core Ab, IgM Negative Normal Negative [facility] Comment on above: Performed By: #### H EPACUT #### [facility] [address] [address] [address] Yesenia Hung Hep C Virus Ab <0.1 Normal 0.0-0.9 [facility] Comment on above: Result Comment: Nega tive: < 0.8 Indeterminate: 0.8 - 0.9 Positive: > 0.9 . The CDC recommends that a positive HCV antibody result be followed up with a HCV Nucleic Acid Amplification test (193367). Effective August 18, 2021 Hepatitis Panel (4) will be made non-orderable. [facility] offers order code [id number] Acute Hepatitis. Performed By: #### H EPACUT #### [facility] [address] [place] [address] Dr. Yesenia Hung HIV 1 AND 2 WITH REFLEXon HIV Screen 4th Generation wRfx Non-Reactive Normal Non Reactive [facility] Comment on above: Performed By: #### H IV12 #### [facility] [address] [address] [address] Yesenia Hung RPR QUANTon 05-25-2021 Rapid Plasma Reagin, Quant Non-Reactive Normal NonRea<1:1 [facility] Comment on above: Performed By: #### R PRQ #### [facility] [address] [place] [address] Dr. Yesenia Hung CBC AUTO DIFFon 05-24-2021 BASO # 0.0 103/ul Normal 0.0-0.1 [facility] Comment on above: Performed By: #### R PRQ #### [facility] [address] [address] [address] Yesenia Hung Basophils/100 WBC (Bld) 0.3 % Normal 0.2-2.0 [facility] Comment on above: Performed By: #### R PRQ #### [facility] [address] [place] [address] Dr. Yesenia Hung EO # 0.1 103/ul Normal 0.0-0.7 [facility] Comment on above: Performed By: #### R PRQ #### [facility] [address] [address] [address] Yesenia Hung Eosinophils/100 WBC (Bld) 1.0 % Normal 0.9-7.0 [facility] Comment on above: Performed By: #### R PRQ #### [facility] [address] [place] [address] Dr. Yesenia Hung Erythrocyte distribution width (RBC) [Ratio] 12.3 % Normal 11.0-15.0 [facility] Comment on above: Performed By: #### R PRQ #### [facility] [address] [place] [address] Dr. Yesenia Hung Hematocrit (Bld) [Volume fraction] 38.3 % Normal 36.0-48.0 [facility] Comment on above: Performed By: #### R PRQ #### [facility] [address] [place] [address] Dr. Yesenia Hung Hemoglobin (Bld) [Mass/Vol] 12.4 g/dL Normal 12.0-16.0 [facility] Comment on above: Performed By: #### R PRQ #### [facility] [address] [place] [address] Dr. Yesenia Hung IG # 0.02 10e3/ul Normal 0.00-0.03 [facility] Comment on above: Performed By: #### R PRQ #### [facility] [address] [place] [address] Dr. Yesenia Hung IG % 0.3 % Normal 0.0-0.5 [facility] Comment on above: Performed By: #### R PRQ #### [facility] [address] [place] [address] Dr. Yesenia Hung LYMPH # 1.6 103/ul Normal 1.2-3.8 [facility] Comment on above: Performed By: #### R PRQ #### [facility] [address] [place] [address] Dr. Yesenia Hung Lymphocytes/100 WBC (Bld) 22.8 % Normal 20.5-60.0 [facility] Comment on above: Performed By: #### R PRQ #### [facility] [address] [place] [address] Dr. Yesenia Hung MANUAL DIFF REQ NO Normal [facility] Comment on above: Performed By: #### R PRQ #### [facility] [address] [place] [address] Dr. Yesenia Hung MCH (RBC) [Entitic mass] 28.5 pg Normal 26.7-34.0 [facility] Comment on above: Performed By: #### R PRQ #### [facility] [address] [place] [address] Dr. Yesenia Hung MCHC (RBC) [Mass/Vol] 32.4 g/dL Normal 29.9-35.2 [facility] Comment on above: Performed By: #### R PRQ #### [facility] [address] [place] [address] Dr. Yesenia Hung MCV (RBC) [Entitic vol] 88.0 fL Normal 81.0-99.0 [facility] Comment on above: Performed By: #### R PRQ #### [facility] [address] [place] [address] Dr. Yesenia Hung MONO # 0.5 103/ul Normal 0.3-0.8 [facility] Comment on above: Performed By: #### R PRQ #### [facility] [address] [place] [address] Dr. Yesenia Hung Monocytes/100 WBC (Bld) 7.1 % Normal 1.7-12.0 [facility] Comment on above: Performed By: #### R PRQ #### [facility] [address] [place] [address] Dr. Yesenia Hung NEUT # 4.9 103/ul Normal 1.4-6.5 [facility] Comment on above: Performed By: #### R PRQ #### [facility] [address] [place] [address] Dr. Yesenia Hung Neutrophils/100 WBC (Bld) 68.5 % Normal 43.0-75.0 [facility] Comment on above: Performed By: #### R PRQ #### [facility] [address] [place] [address] Dr. Yesenia Hung Platelet mean volume (Bld) [Entitic vol] 9.6 fL Normal 9.5-13.5 [facility] Comment on above: Performed By: #### R PRQ #### [facility] [address] [place] [address] Dr. Yesenia Hung PLT 224 103/ul Normal 150-450 [facility] Comment on above: Performed By: #### R PRQ #### [facility] [address] [place] [address] Dr. Yesenia Hung RBC 4.35 106/ul Normal 4.20-5.40 [facility] Comment on above: Performed By: #### R PRQ #### [facility] [address] [place] [address] Dr. Yesenia Hung WBC 7.1 103/ul Normal 4.0-11.0 [facility] Comment on above: Performed By: #### R PRQ #### [facility] [address] [address] [address] Yesenia Hung FREE THYROXINE INDEX T7on FTI 2.24 Normal [facility] Comment on above: Performed By: #### R PRQ #### [facility] [address] [address] [address] Yesenia Hung T3U 32.0 % Normal 23.5-40.5 [facility] Comment on above: Performed By: #### R PRQ #### [facility] [address] [address] [address] Yesenia Hung T4 [Mass/Vol] 7.00 ug/dL Normal 5.53-11.[address] [facility] Comment on above: Performed By: #### R PRQ #### [facility] [address] [address] [address] Yesenia Hung GLYCOHEMOGLOBIN A1Con 2020 ADA RECOMMENDATION ADA THERAPEUTIC TARG ET 6.0 - 7.0 ACTION SUGGESTED > 7.0 Normal [facility] Comment on above: Performed By: #### A 1C #### [facility] [address] [address] [address] Yesenia Hung Glucose [Mass/Vol] 94 mg/dL Normal [facility] Comment on above: Performed By: #### A 1C #### [facility] [address] [address] [address] Yesenia Hung HbA1c (Bld) [Mass fraction] 4.9 % Normal <=6.0 [facility] Comment on above: Performed By: #### A 1C #### [facility] [address] [address] [address] Yesenia Hung IRONon 05-24-2021 Iron [Mass/Vol] 53.0 ug/dL Normal 37.0-170.0 [facility] Comment on above: Performed By: #### A 1C #### [facility] [address] [address] [address] Yesenia Hung LIPID PROFILEon 05-24-2021 CHOL-HDL RATIO NORM SEE BELOW Normal [facility] Comment on above: Result Comment: 3.3 - 4.4 LOW RISK 4.4 - 7.1 AVERAGE RISK 7.1 - 11.0 MODERATE RISK >11.0 HIGH RISK Performed By: #### R PRQ #### [facility] [address] [place] [address] Dr. Yesenia Hung Cholesterol [Mass/Vol] 139 mg/dL Normal <=200 [facility] Comment on above: Performed By: #### R PRQ #### [facility] [address] [address] [address] Yesenia Hung Cholesterol in HDL [Mass/Vol] 46 mg/dL Normal [facility] Comment on above: Performed By: #### R PRQ #### [facility] [address] [place] [address] Dr. Yesenia Hung Cholesterol in LDL [Mass/Vol] 78.2 mg/dL Normal [facility] Comment on above: Performed By: #### R PRQ #### [facility] [address] [place] [address] Dr. Yesenia Hung Cholesterol.total/C holesterol in HDL [Mass ratio] 3.0 {ratio} Normal [facility] Comment on above: Performed By: #### R PRQ #### [facility] [address] [place] [address] Dr. Yesenia Hung HDL NORMAL > or = 60 mg/dl - LO W CARDIOVASCULAR RISK <40 mg/dl - HIGH CARDIOVASCULAR RISK Normal [facility] Comment on above: Performed By: #### R PRQ #### [facility] [address] [place] [address] Dr. Yesenia Hung LDL CALC NORMAL SEE BELOW Normal [facility] Comment on above: Result Comment: <100 mg/dl OPTIMAL 100 - 129 mg/dl NEAR OR ABOVE OPTIMAL 130 - 159 mg/dl BORDERLINE HIGH 160 - 189 mg/dl HIGH >190 mg/dl VERY HIGH Performed By: #### R PRQ #### [facility] [address] [place] [address] Dr. Yesenia Hung Triglyceride [Mass/Vol] 74 mg/dL Normal <=150 [facility] Comment on above: Performed By: #### R PRQ #### [facility] [address] [address] [address] Yesenia Hung VLDL CALC 14.8 mg/dL Normal [facility] Comment on above: Performed By: #### R PRQ #### [facility] [address] [address] [address] Yesenia Hung PROF 14(COMP METB)on 05-24- 021 Albumin [Mass/Vol] 3.9 g/dL Normal 3.5-5.0 [facility] Comment on above: Performed By: #### R PRQ #### [facility] [address] [address] [address] Yesenia Hung Albumin/Globulin [Mass ratio] 1.0 {ratio} Normal [facility] Comment on above: Performed By: #### R PRQ #### [facility] [address] [place] [address] Dr. Yesenia Hung ALP [Catalytic activity/Vol] 71 U/L Normal 38-126 [facility] Comment on above: Performed By: #### R PRQ #### [facility] [address] [place] [address] Dr. Yesenia Hung ALT [Catalytic activity/Vol] 15 U/L Normal 9-52 [facility] Comment on above: Performed By: #### R PRQ #### [facility] [address] [place] [address] Dr. Yesenia Hung Anion gap [Moles/Vol] 11.3 mmol/L Normal [facility] Comment on above: Performed By: #### R PRQ #### [facility] [address] [place] [address] Dr. Yesenia Hung AST [Catalytic activity/Vol] 13 U/L Critically low 14-36 [facility] Comment on above: Performed By: #### R PRQ #### [facility] [address] [place] [address] Dr. Yesenia Hung Bilirubin [Mass/Vol] 0.6 mg/dL Normal 0.2-1.3 [facility] Comment on above: Performed By: #### R PRQ #### [facility] [address] [place] [address] Dr. Yesenia Hung Calcium [Mass/Vol] 9.2 mg/dL Normal 8.4-10.[address] [facility] Comment on above: Performed By: #### R PRQ #### [facility] [address] [place] [address] Dr. Yesenia Hung Chloride [Moles/Vol] 103 mmol/L Normal 98-107 [facility] Comment on above: Performed By: #### R PRQ #### [facility] [address] [address] [address] Yesenia Hung CO2 [Moles/Vol] 28.8 mmol/L Normal 22.0-30.0 [facility] Comment on above: Performed By: #### R PRQ #### [facility] [address] [place] [address] Dr. Yesenia Hung Creatinine [Mass/Vol] 0.64 mg/dL Normal 0.52-1.04 [facility] Comment on above: Performed By: #### R PRQ #### [facility] [address] [place] [address] Dr. Yesenia Hung EGFR-AF WALLISIAN >60 Normal >=60 [facility] Comment on above: Performed By: #### R PRQ #### [facility] [address] [place] [address] Dr. Yesenia Hung EGFR-NON AF WALLISIAN >60 Normal >=60 [facility] Comment on above: Performed By: #### R PRQ #### [facility] [address] [address] [address] Yesenia Hung Globulin (S) [Mass/Vol] 4.1 g/dL Normal [facility] Comment on above: Performed By: #### R PRQ #### [facility] [address] [address] [address] Yesenia Hung Glucose [Mass/Vol] 86 mg/dL Normal 74-[address] [facility] Comment on above: Performed By: #### R PRQ #### [facility] [address] [address] [address] Yesenia Hung Potassium [Moles/Vol] 4.1 mmol/L Normal 3.4-5.0 [facility] Comment on above: Performed By: #### R PRQ #### [facility] [address] [place] [address] Dr. Yesenia Hung Protein [Mass/Vol] 8.0 g/dL Normal 6.1-8.2 [facility] Comment on above: Performed By: #### R PRQ #### [facility] [address] [place] [address] Dr. Yesenia Hung Sodium [Moles/Vol] 139 mmol/L Normal 137-145 [facility] Comment on above: Performed By: #### R PRQ #### [facility] [address] [place] [address] Dr. Yesenia Hung Urea nitrogen [Mass/Vol] 10.0 mg/dL Normal 7.0-17.0 [facility] Comment on above: Performed By: #### R PRQ #### [facility] [address] [place] [address] Dr. Yesenia Hung Urea nitrogen/Creatinine [Mass ratio] 15.6 mg/mg Normal [facility] Comment on above: Performed By: #### R PRQ #### [facility] [address] [place] [address] Dr. Yesenia Hung TSHon 05-24-2021 TSH 2.270 uIU/mL Normal 0.470-4.680 [facility] Comment on above: Performed By: #### R PRQ #### [facility] [address] [place] [address] Dr. Yesenia Hung TSH RANGE SEE BELOW Normal [facility] Comment on above: Result Comment: <0.3 4 UIU/ml HYPERTHYROID 0.34-5.60 UIU/ml EUTHYROID >5.60 UIU/ml HYPOTHYROID Performed By: #### R PRQ #### [facility] [address] [place] [address] Dr. Yesenia Hung NAILER MACHINE - Office Visiton 05-08 NAILER MACHINE - Office Visit Diagnoses/Problems Assessed Encounter for [...] MG Subcutaneous Implant Vitals Vital Signs Recorded: [id number] 01:18PM Dbqshaehmyf25.5 F Dzfiqwmn412 Bmbvqhrgz55 Height5 ft 3 in 2-20 Stature Ykfygvbmus44 % Njmdqx66.6 kg 2-20 Weight Jhrnjspsjg97 % BMI Vdvqzroali23.32 BMI Guzigirsne50 % BSA Calculated1.56 Physical Exam PHYSICAL EXAMINATION: [...] 29 2020 1:40PM EST (Author) Normal [employer] NAILER MACHINE - Procedure Visiton 1 07-22-2019 NAILER MACHINE - Procedure Visit Chief Complaint PATIENT IS HERE FOR NEXPLANON INSERTION. Patient supply. NDC:9758-1931-94, Lot# [id number], Exp:04/16/2022. LMP: 05-14-2020. NO CONCERNS AT THIS [...] 05/21/2020 2:11:36 PM Vitals Vital Signs Recorded: 66Zeu5743 01:40PM Oswhxzdcglb35.7 F, Temporal Swveysqy972, LUE, Sitting Gperrgqlr79, LUE, Sitting Height5 ft 3 in 2-20 Stature Usmjrtoewe76 % Mlymcu06.2 kg 2-20 Weight Qqwysdikad85 % BMI Flarvtbvzu36.56 BMI Qquoygecub16 % BSA Calculated1.57 [id number] Results/Data IO HCG, Urine [id number] 01:36PMKameron Mcfadden medline [id number] exp 06-06-21 Test NameResultFlagReference IO Urine hCGNegative [...] test IO HCG, Urine Test; Status:Complete; Done: [id number] 01:36PM Performed:In Office; Due:19Aug2020;Ordered; For:Negative test; Ordered By:Kameron Mcfadden; Provider Impressions 1. Norplant insertion Follow-up in 1 week for inspection of the insertion site Signatures Electronically signed by : Kameron Mfcadden MD; May 21 2020 2:15PM EST (Author) [facility] - Office Visiton NAILER MACHINE - Office Visit Chief Complaint An interactive [...] 97 [degF] Lupe Adair MD [facility] [employer] 02-15-2022 17:15-0400 Diastolic blood pressure 52 mm[Hg] Lupe Adair MD Work Phone: [facility] [employer] 02-15-2022 17:15-0400 Heart rate 75 /min Lupe Adair MD [facility] [employer] 02-15-2022 17:15-0400 Respiratory rate 20 /min Lupe Adair MD Work Phone: [facility] [employer] 02-15-2022 17:15-0400 SaO2% (BldA) [Mass fraction] 100 % Lupe Adair MD Work Phone: [facility] [employer] 02-15-2022 17:15-0400 Systolic blood pressure 116 mm[Hg] Lupe Adair MD Work Phone: [facility] [employer] Encounters Encounter Date Encounter Type Care Provider Facility Start: 02-21-2024 End: 02-21-2024 ambulatory JUANCARLOS VELASCO Not Available Start: 01-19-2024 End: 01-19-2024 ambulatory HAL ROTHMAN Not Available Start: 01-03-2024 End: 01-03-2024 Emergency department patient visit LUPE ADAIR [facility] Start: 01-03-2024 End: 01-03-2024 ambulatory REBECCA ZHAO [facility] Start: 01-03-2024 End: 01-03-2024 Emergency department patient visit LUPE Grant Cale [facility] Start: 12-21-2023 End: 12-21-2023 ambulatory JUANCARLOS VELASCO Not Available Start: 11-23-2023 End: 11-23-2023 ambulatory JUANCARLOS WALLACEZIO Not Available Start: 10-21-2023 End: 10-21-2023 ambulatory JUANCARLOS ROD Not Available Start: 09-29-2023 End: 09-29-2023 ambulatory HAL ROTHMAN Not Available Start: 06-16-2023 End: 06-16-2023 ambulatory JUANCARLOS WALLACEZIO Not Available Start: 08-04-2022 End: 08-04-2022 Emergency department patient visit Zina Tessa Miranda DO Facility:[facility] Start: 04-29-2022 End: 04-30-[address] LUPE ADAIR Facility:[facility] Start: 03-30-2022 End: 03-30-2022 Emergency department patient visit Rach Posadas MD Facility:[facility] Start: 03-29-2022 End: 03-29-[address] LUPE ADAIR Facility:[facility] Start: 02-15-2022 End: 02-15-2022 Emergency department patient visit LUPE M Cale [facility] Start: 02-15-2022 End: 02-15-2022 Subsequent hospital visit by physician Lupe Adair MD Work Phone: [facility] Comment on above: Cellulitis of left r ing finger (Primary Dx) Start: 02-05-2022 End: 02-05-2022 ambulatory LUPE M Cale [facility] Start: 06-04-2021 End: 06-05-[address] LUPE ADAIR Facility:[facility] Start: 05-29-2021 Encounter for genera l adult medical examination without abnormal findings DR LUPE ADAIR [facility] Start: 05-24-2021 End: 05-25-[address] LUPE ADAIR Facility:[facility] Start: 05-24-2021 End: 05-25-2021 Encounter for general adult medical examination without abnormal findings DR LUPE ADAIR Facility:[facility] Start: 05-23-2021 End: 05-24-[address] LUPE ADAIR Facility:[facility] Plan of Treatment Date Care Activity Detail Author Start: 01-26-2024 DTaP/Tdap/Td vaccine (7 - Td or Tdap) DTaP/Tdap/Td vaccine (7 - Td or Tdap) [facility] Start: 02-05-2023 Depression Screen Depression Screen [facility] Start: 02-05-2022 Influenza vaccination Flu vaccine (# 1) [facility] Start: 2021 Screening for malign ant neoplasm of cervix Pap smear [facility] Start: 06-18-2021 COVID-19 Vaccine (3 - Booster for Pfizer series) COVID-19 Vaccine (3 - Booster for Pfizer series) [facility] Start: 2018 Hepatitis C screening Hepatitis C sc reen [facility] Start: 2016 Screening for Chlamy elijah trachomatis Chlamydia screen [facility] Start: 11-04-2015 HIV screening HIV screen [facility] Start: 11-04-2011 HPV vaccine (1 - 2-d ose series) HPV vaccine (1 - 2-dose series) [facility] Immunizations Immunization Date Immunization Notes Care Provider Fa cility 01-16-2021 COVID-19, PFIZER PUR PLE top, DILUTE for use, (age 12 y+), 30mcg/0.3mL Lupe Adair MD Work Phone: [facility] Work Phone: 12-26-2020 COVID-19, PFIZER PUR PLE top, DILUTE for use, (age 12 y+), 30mcg/0.3mL Lupe Adair MD Work Phone: [facility] Work Phone: 01-25-2014 meningococcal polysaccharide (groups A, C, Y and W-135) diphtheria toxoid conjugate vaccine (MCV4P) Lupe Adair MD Work Phone: [facility] Work Phone: 01-25-2014 tetanus toxoid, redu arnav diphtheria toxoid, and acellular pertussis vaccine, adsorbed Lupe Adair MD Work Phone: [facility] Work Phone: 01-25-2014 varicella virus vaccine Isma Adair MD Work Phone: [facility] Work Phone: 08-13-2006 diphtheria, tetanus toxoids and acellular pertussis vaccine, unspecified formulation Lupe Adair MD Work Phone: [facility] [employer] Work Phone: 08-13-2006 measles, mumps and rubella virus vaccine Lupe Adair MD Work Phone: [facility] [employer] Work Phone: 08-13-2006 poliovirus vaccine, inactivated Lupe Adair MD Work Phone: [facility] [employer] Work Phone: 05-12-2002 diphtheria, tetanus toxoids and acellular pertussis vaccine, unspecified formulation Lupe Adair MD Work Phone: [facility] [employer] Work Phone: 05-12-2002 haemophilus influenz ae type b vaccine, conjugate unspecified formulation Lupe Adair MD Work Phone: [facility] [employer] Work Phone: 05-12-2002 varicella virus vaccine Isma Adair MD Work Phone: [facility] [employer] Work Phone: 11-04-2001 measles, mumps and rubella virus vaccine Lupe Adari MD Work Phone: [facility] [employer] Work Phone: 05-18-2001 diphtheria, tetanus toxoids and acellular pertussis vaccine, unspecified formulation Lupe Adair MD Work Phone: [facility] [employer] Work Phone: 05-18-2001 haemophilus influenz ae type b conjugate and Hepatitis B vaccine Lupe Adair MD Work Phone: [facility] [employer] Work Phone: 05-18-2001 pneumococcal conjuga te vaccine, 7 valent Lupe Adair MD Work Phone: [facility] [employer] Work Phone: 05-18-2001 poliovirus vaccine, inactivated Lupe Adair MD Work Phone: [employer] Work Phone: 03-07-2001 diphtheria, tetanus toxoids and acellular pertussis vaccine, unspecified formulation Lupe Adair MD Work Phone: [employer] Work Phone: 03-07-2001 haemophilus influenz ae type b conjugate and Hepatitis B vaccine Lupe Adair MD Work Phone: [employer] Work Phone: 03-07-2001 pneumococcal conjuga te vaccine, 7 valent Lupe Adair MD Work Phone: [facility] [employer] Work Phone: 03-07-2001 poliovirus vaccine, inactivated Lupe Adair MD Work Phone: [employer] Work Phone: 01-03-2001 diphtheria, tetanus toxoids and acellular pertussis vaccine, unspecified formulation Lupe Adair MD Work Phone: [employer] Work Phone: 01-03-2001 haemophilus influenz ae type b conjugate and Hepatitis B vaccine Lupe Adair MD Work Phone: [facility] [employer] Work Phone: 01-03-2001 pneumococcal conjuga te vaccine, 7 valent Lupe Adair MD Work Phone: [employer] Work Phone: 01-03-2001 poliovirus vaccine, inactivated Lpue Adair MD Work Phone: [employer] Work Phone: Payers Date Payer Category Payer Unknown [id number] 2023 Unknown [id number] 2023 Unknown [id number] 2022 Unknown 2000 Unknown [id number] 2.16. [id number] 2000 Unknown [id number] 2.16. 840.1.005028.3.579.2.93 2000 Unknown [id number] 2.16.84 0.1.530655.3.579.2.593 2000 Unknown [id number] 2.16.84 0.1.326629.3.579.2.593 2000 Unknown [id number] 2.16.84 0.1.544565.3.579.2.593 2000 Unknown [id number] 2.16.84 0.1.846214.3.579.2.593 2000 Unknown [id number] 2.16.84 0.1.623757.3.579.2.593 2000 Unknown [id number] 2.16. 840.1.267633.3.579.2.196 2000 Unknown [id number] 2.16. 840.1.614420.3.579.2.196 2000 Unknown [id number] 2.16.8 40.1.196687.3.579.2.1286 2000 Unknown [id number] 2.16.8 40.1.387732.3.579.2.1286 2000 Unknown [id number] 2.16.8 40.1.535589.3.579.2.1286 2000 Unknown [id number] 2.16.8 40.1.759975.3.579.2.1286 2000 Unknown [id number] 2.16.84 0.1.032235.3.579.2.1259 2000 Unknown [id number] 2.16.84 0.1.525318.3.579.2.1259 2000 Unknown [id number] 2.16.84 0.1.863027.3.579.2.1259 2000 Unknown [id number] 2.16.84 0.1.136478.3.579.2.9 2000 Unknown [id number] 2.16.84 0.1.238228.3.579.2.9 2000 Unknown [id number] 2.16.84 0.1.777380.3.579.2.9 2000 Unknown [id number] 2.16.84 0.1.218680.3.579.2.1259 1959 Unknown [id number] 1. 2.840.633554.1.13.239.2.7.3.590899.315 1959 Unknown [id number] 1. 2.840.577433.1.13.239.2.7.3.584287.315 Social History Date Type Detail Facility Start: 02-05-2022 Tobacco smoking stat [facility] Never smoked tobacco [facility] [employer] Phone: Start: 02-05-2022 Tobacco use and exposure Smokeless tobacco non-user [employer] Phone: Start: 02-15-2022 Alcohol intake Lifetime non-d leon (finding) [employer] Phone: Start: 2000 Sex Assigned At Not on file [facility] [employer] Phone: Clinical Note 05-23-2021 Note Date & [...] by: CARMITA BRAY Date: 2021-05-23 12:44 [facility] Evaluation note Note Date & Type Note Facility Evaluation note Diagnosis Cellulitis of left ring finger- Primary documented in this encounter [facility] [employer] Phone: Hospital Discharge instructions Attachments Note Date & Type Note Facility Hospital Discharge instructions The following attachments cannot be sent through Care Everywhere.Cellulitis ([place])documented in this encounter [facility] [employer] Phone: Summary Purpose Family History No Family [...] section and content) DATE CREATED AUTHOR 05/30/2020 [email or web address] DATE CREATED AUTHOR AUTHOR'S ORGANIZ ATION 02/15/2022 [facility] DATE CREATED AUTHOR AUTHOR'S ORGANIZ ATION 05/04/2022 [facility] DATE CREATED AUTHOR AUTHOR'S ORGANIZ ATION 08/27/2022 [facility] DATE CREATED AUTHOR AUTHOR'S ORGANIZ ATION 01/03/2024 [facility] DATE CREATED AUTHOR AUTHOR'S ORGANIZ ATION 02/22/2024 [facility] EPIC Reason for Visit (unrecogniz ed section and content) Reason Comments Other Left ring finger swe lling Ordered Prescriptions (unrec ognized section and content) Prescription Sig Dispensed Refills Start Date End Da te mometasone (ELOCON) 0.1 % cream Apply topically 2 times daily as needed (rash finger) Apply topically daily. 15 g 0 02/15/2022 Care Teams (unrecognized sec tion and content) Corporate Giving Manager Relationship Specialty Start Date End Date Lupe Adair MD [address] [place] [address] PCP - General Family Medicine [...] BE BASED ON THE PRIMARY CLINICAL RECORDS. [facility] [employer] [facility]. provides no warranty or guarantee of the accuracy or completeness of information in this document.
== END 2024-03-07 14:14 | disposition home or self-care (01) ==
LOC: NOMS 14:13
PROVIDERS: PCP Family Medicine; Visit Provider Obstetrics & Gynecology
DX: O26.843 Uterine size-date discrepancy, third trimester (principal); Z3A.28 28 weeks gestation of pregnancy
CPT/HCPCS: 76816

== ENCOUNTER 2024-04-25 23:11 | Inpatient (IN) | payer OTHER, SELFPAY ==
[2024-04-25 23:16] VITALS: BP 160/118; PULSE 69; TEMP 36.7; O2SAT 100; BMI 26.4
--- OUTSIDE RECORDS SUMMARY | 2024-04-25 23:20 | XMS_ITS | CCD ---
Author Organization [facility] Care Team Providers Care Cribber Name Role Phone Lupe Adair MD Primary Care Provider [phone] LUPE ADAIR Primary Care Unavailable LUPE ADAIR Primary Care Unavailable CATIA, DR ANDRADE Admitting Unavailable CATIA, DR ANDRADE Attending Unavailable HOY, DR ANDRADE Primary Care Unavailable HOY, DR ANDRADE Consulting Unavailable ZIEBER, DR CARMITA Carney Consulting Unavailable CATIA, DR ANDRADE Primary Care Unavailable JUAN JOSE, DR GENTRY Keith Admitting Unavailabl e JUAN JOSE, DR GENTRY Keith Attending Unavailabl e REINECK, DR GENTRY Keith Consulting Unavailabl e SULEMANY, DR ANDRADE Admitting Unavailable SULEMANY, DR ANDRADE Attending Unavailable CATIA, DR ANDRADE Primary Care Unavailable CATIA, DR ANDRADE Consulting Unavailable CATIA, DR ANDRADE Admitting Unavailable SULEMANY, DR ANDRADE Attending Unavailable SULEMANY, DR ANDRADE Primary Care Unavailable NORMAN SPARKS Consulting Unavailable CATIA, DR ANDRADE Admitting Unavailable CATIA, DR ANDRADE Attending Unavailable CATIA, DR ANDRADE Primary Care Unavailable CATIA, DR ANDRADE Consulting Unavailable Rach Posadas MD Attending Unavailab Zina Rocha DO Attending Unavailable ULPE ADAIR Primary Care Unavailable REBECCA ZHAO Admitting Unavailable REBECCA ZHAO Attending Unavailable LUPE ADAIR Primary Care Unavailable LUPE ADAIR Primary Care Unavailable LUPE ADAIR Primary Care Unavailable HUE HOYT Attending Unavailable Lupe Adair MD Primary Care Provider [phone] JUANCARLOS HODGE Attending Unavailable CHRISTINA ROTHMAN Attending Unavailable JUANCARLOS HODGE Attending Unavailable JUANCARLOS HODGE Attending Unavailable CHRISTINA ROTHMAN Attending Unavailable JUANCARLOS HODGE Attending Unavailable JUANCARLOS HODGE Attending Unavailable CHRISTINA ROTHMAN Attending Unavailable CHRISTINA ROTHMAN Attending Unavailable JUANCARLOS HODGE Attending Unavailable Allergies Allergy Classification Reported Allergen(s) Allergy Type Date of Onset Reaction(s) Facility (1 source) No Known Medication Allergies; Translations: [No Known Medication Allergies] Propensity to adverse reactions to drug (disorder) [facility] Repository Medications Current Medications Medication Drug Class(es) Dates Sig (Normalized) Sig (Original) mometasone furoate 1 mg/ml topical cream (1 source) Corticosteroid Start: 02-15-2022 mometasone (ELOCON) 0.1 % cream Apply topically 2 times daily as needed (rash finger) Apply topically daily. 15 g 0 02/15/2022 Active Vit-Fe Fumarate-FA (WesTab Plus) 27-1 MG tablet (9 sources) Start: 11-19-2023 take 1 tablet by mouth once daily Vit-Fe Fumarate-FA (WesTab Plus) 27-1 MG tablet Indications: First trimester take 1 tablet by mouth once daily 30 tablet 11/19/2023 Active valACYclovir 1000 mg oral tablet (18 sources) Herpesvirus Nucleoside Analog DNA Polymerase Inhibitor, Herpes Simplex Virus Nucleoside Analog DNA Polymerase Inhibitor, Herpes Zoster Virus Nucleoside Analog DNA Polymerase Inhibitor Start: 08-19-2023 valACYclovir (Valtrex) 1 g tablet 08/19/2023 Active Start: 06-24-2023 valACYclovir ( Valtrex) 500 MG tablet 06/24/2023 Active Problems Active Problems Problem Classification Problem [...] MEN W/IRREG CYCLE] Onset: 05-04-2022 Chronic Other complications of (9 sources) size does not accord with dates; Translations: [Uterine size-date discrepancy, unspecified trimester] Onset: 02-21-2024 02-21-2024 Episodic Other and delivery including normal (6 sources) Third trimester ; Translations: [Encounter for supervision of normal , unspecified, third trimester] 03-07-2024 Episodic Other skin disorders (3 sources) Rash and other nonspecific skin eruption; Translations: [RASH OTH NONSPECIFIC SKIN ERUPTION] Onset: 03-29-2022 Episodic Residual codes; unclassified (2 sources) Gestation period, 28 weeks; Translations: [28 weeks gestation of ] 03-07-2024 Episodic Residual codes; unclassified (2 sources) Gestation period, 30 weeks; Translations: [30 weeks gestation of ] 03-21-2024 Episodic Residual codes; unclassified (2 sources) Gestation period, 32 weeks; Translations: [32 weeks gestation of ] 04-05-2024 Episodic Skin and subcutaneous tissue infections (1 [...] Test Name Value Interpretation Reference Range Facility Urinalysis macro (dipstick) panel (U)on 04-05-2024 Bilirubin, UA Negative Negative - 4(70) +++ mg/dL [facility] Blood, UA Positive Negative - 50 Sung/mcL [facility] Comment on above: trace Clarity, UA Clear [facility] Color, UA Yellow [facility] Glucose, UA Negative Negative - 1999(110) ++++ mg/dL [facility] Interpretation and review of laboratory results Abnormal [facility] Ketones, UA Negative Negative - 160(16) ++++ mg/dL [facility] Leukocytes, UA Negative Negative - 500+++ Jhon/mcL [facility] Nitrite, UA Negative Negative - Positive [facility] pH, UA 6 5 - 9 [facility] Protein, UA Many Negative - 1999(20) ++++ mg/dL [facility] Spec Grav, UA 1.03 1 - 1.03 [facility] Urobilinogen, UA 0.2 0.2 - 12 mg/dL [facility] Urinalysis macro (dipstick) panel (U)on 03-21-2024 Bilirubin, UA Negative Negative - 4(70) +++ mg/dL [facility] Blood, UA Negative Negative - 50 Sung/mcL [facility] Clarity, UA Clear [facility] Color, UA Yellow [facility] Glucose, UA Negative Negative - 1999(110) ++++ mg/dL [facility] Interpretation and review of laboratory results Abnormal [facility] Ketones, UA Negative Negative - 160(16) ++++ mg/dL [facility] Leukocytes, UA Trace Negative - 500+++ Jhon/mcL [facility] Nitrite, UA Negative Negative - Positive [facility] pH, UA 6 5 - 9 [facility] Protein, UA Negative Negative - 1999(20) ++++ mg/dL [facility] Spec Grav, UA 1.025 1 - 1.03 [facility] Urobilinogen, UA 1.0 0.2 - 12 mg/dL [facility] Urinalysis macro (dipstick) panel (U)on 03-07-2024 Bilirubin, UA Negative Negative - 4(70) +++ mg/dL [facility] Blood, UA Negative Negative - 50 Sung/mcL [facility] Clarity, UA Clear [facility] Color, UA Yellow [facility] Glucose, UA Negative Negative - 1999(110) ++++ mg/dL [facility] Interpretation and review of laboratory results Abnormal [facility] Ketones, UA Negative Negative - 160(16) ++++ mg/dL [facility] Leukocytes, UA Positive Negative - 500+++ Jhon/mcL [facility] Comment on above: small Nitrite, UA Negative Negative - Positive [facility] pH, UA 7.0 5 - 9 [facility] Protein, UA Negative Negative - 2000(20) ++++ mg/dL [facility] Spec Grav, UA 1.015 1 - 1.03 [facility] Urobilinogen, UA 1.0 0.2 - 12 mg/dL [facility] .UA Microscp 08-04-2022 UA Bacteria Present Abnormal Absent [facility] Comment on above: Performed By: #### L IVER #### [place] [address] UA Mucus Present Abnormal Absent [facility] Comment on above: Performed By: #### L IVER #### [place] [address] UA RBC Qual 1-4 Normal 0 - 5 [facility] Comment on above: Performed By: #### L IVER #### [place] [address] UA Squepi Cells Qual 15-29 Normal 0 - 29 [facility] Comment on above: Performed By: #### L IVER #### [place] [address] UA WBC Qual 5-9 Abnormal 0 - 5 [facility] Comment on above: Performed By: #### L IVER #### [place] [address] .eGFRon 08-04-2022 GFR/1.73 sq M.predicted MDRD (S/P/Bld) [Vol rate/Area] mL/min/{1.73_m2} Normal >=60 [facility] Comment on above: Order Comment: Order added by Discern rule Result Comment: [facility] have implemented the eGFR calculation [...] years Performed By: #### L MUNIRA #### [address] [address] Basic Metabolic Profileon Anion gap [Moles/Vol] 10 mmol/L Normal 7-17 [facility] Comment on above: Performed By: #### C [id number] #### [address] [address] Calcium [Mass/Vol] 8.5 mg/dL Low 8.6-10.3 [facility] Comment on above: Performed By: #### C [id number] #### [address] [address] Chloride 105 IU/L Normal 98-107 [facility] Comment on above: Performed By: #### C [id number] #### [address] [address] CO2 [Moles/Vol] 26 mmol/L Normal 21-31 [facility] Comment on above: Performed By: #### C [id number] #### [address] [address] Creatinine [Mass/Vol] 0.6 mg/dL Normal 0.6-1.2 [facility] Comment on above: Performed By: #### C [id number] #### [address] [address] Glucose [Mass/Vol] 90 mg/dL Normal 70-99 [facility] Comment on above: Performed By: #### C [id number] #### [place] [address] Potassium [Moles/Vol] 3.5 mmol/L Normal 3.4-4.8 [facility] Comment on above: Performed By: #### C [id number] #### [place] [address] Sodium [Moles/Vol] 138 mmol/L Normal 136-145 [facility] Comment on above: Performed By: #### C [id number] #### [place] [address] Urea nitrogen [Mass/Vol] 14 mg/dL Normal 7-25 [facility] Comment on above: Performed By: #### C [id number] #### [place] [address] Urea nitrogen/Creatinine [Mass ratio] 23.3 mg/mg High 10.0-20.0 [facility] Comment on above: Performed By: #### C [id number] #### [place] [address] CBC w/ Diffon 08-04-2022 Erythrocyte distribution width (RBC) [Ratio] 12.5 % Normal 11.6-14.8 [facility] Comment on above: Performed By: #### C BC #### [place] [address] Hematocrit (Bld) [Volume fraction] 40.3 % Normal 36.0-46.0 [facility] Comment on above: Performed By: #### C BC #### [place] [address] Hemoglobin (Bld) [Mass/Vol] 13.6 g/dL Normal 12.0-16.0 [facility] Comment on above: Performed By: #### C BC #### [place] [address] MCH (RBC) [Entitic mass] 29.9 pg Normal 27.0-35.0 [facility] Comment on above: Performed By: #### C BC #### [place] [address] MCHC 33.8 % Normal 31.0-37.0 [facility] Comment on above: Performed By: #### C BC #### [place] [address] MCV (RBC) [Entitic vol] 88.4 fL Normal 80.0-100.0 [facility] Comment on above: Performed By: #### C BC #### [place] [address] Platelet 230 x10*3/mcL Normal 150-350 [facility] Comment on above: Performed By: #### C BC #### [place] [address] Platelet mean volume (Bld) [Entitic vol] 7.7 fL Normal 7.5-11.5 [facility] Comment on above: Performed By: #### C BC #### [place] [address] RBC 4.56 x10*6/mcL Normal 3.80-5.20 [facility] Comment on above: Performed By: #### C BC #### [place] [address] WBC 6.7 x10*3/mcL Normal 4.5-11.0 [facility] Comment on above: Performed By: #### C BC #### [place] [address] COV19 Rapidon 08-04-2022 LAB ONLY Result Called? No Normal [facility] Comment on above: Performed By: #### C [id number] #### [place] [address] Reason for Rapid Test COVID Exposure Normal [facility] Comment on above: Performed By: #### C [id number] #### [place] [address] SARS-CoV-2 (COVID-19) RNA ADELSO+probe Ql (Unsp spec) Negative Normal Negative [facility] Comment on above: Result Comment: This test [...] using the ID NOW COVID-19 test by [employer], which has received Emergency Use Authorization (EUA) [...] following links: Fact Sheet for HealthCare Providers: https://www.fda.gov/media/282673/download Fact Sheet for Patients: https://www.fda.gov/media/139120/download Performed By: #### C D:[id number] #### [address] [address] Diff Autoon 08-04-2022 Baso Absolute 0.0 x10*3/mcL Normal 0.0-0.2 [facility] Comment on above: Performed By: #### . Automated Diff #### [address] [address] Basophils/100 WBC (Bld) 0.2 % Normal 0.0-1.5 [facility] Comment on above: Performed By: #### . Automated Diff #### [address] [address] Eos Absolute 0.1 x10*3/mcL Normal 0.0-0.4 [facility] Comment on above: Performed By: #### . Automated Diff #### [place] [address] Eosinophils/100 WBC (Bld) 1.2 % Normal 0.0-5.4 [facility] Comment on above: Performed By: #### . Automated Diff #### [place] [address] Lymph Absolute 1.6 x10*3/mcL Normal 1.0-4.8 [facility] Comment on above: Performed By: #### . Automated Diff #### [place] [address] Lymphocytes/100 WBC (Bld) 23.7 % Low 27.2-40.8 [facility] Comment on above: Performed By: #### . Automated Diff #### [place] [address] [place] Absolute 0.6 x10*3/mcL Normal 0.1-1.1 [facility] Comment on above: Performed By: #### . Automated Diff #### [place] [address] Monocytes/100 WBC (Bld) 9.3 % Normal 3.7-11.9 [facility] Comment on above: Performed By: #### . Automated Diff #### [place] [address] Neutro Absolute 4.4 x10*3/mcL Normal 1.8-7.7 [facility] Comment on above: Performed By: #### . Automated Diff #### [place] [address] Neutro Auto 65.6 % Normal 47.2-70.8 [facility] Comment on above: Performed By: #### . Automated Diff #### [place] [address] ED Clinical Summaryon 2022 ED Clinical Summary (Inserted Image. Debra ble to display) [place] [id number] ED Clinical Summary Person Information Name: Jeannine Antunez Anusha/[facility] Age: 21 Years : 2000 Sex: Female PCP: Marital Status: Single Phone: Race: White Ethnicity: Not or Language: Ukrainian Visit Reason: Abdominal pain; Vomiting; Nausea; Abdominal pain Acuity: 3 Enc Type: Emergency Med Service: Emergency Medicine Arrival: 08/04/2022 18:42:47 Discharge: 08/04/2022 20:40:00 LOS: 000 01:58 Checkin: 08/04/2022 18:42:47 Checkout: 08/04/2022 20:40:00 Dispo Type: Home or Self Care Address: [address] [place] [address] Provider Notes: History of Present Illness 21-year-old [...] range between ( 27.2 and 40.8 ) [place] Auto: 9.3 % -- Normal range between [...] range between ( 36.0 and 46.0 ) [place] Absolute: 0.6 x10 MCH: 29.9 pg -- [...] UA Color: (more content not included)... Normal [facility] ED Note-Physicianon 08-04-19 ED Note-Physician Chief Complaint [...] 08/04/22 19:26 (more content not included)... Normal [facility] Flu A&B Ag Rapidon 3 Influenza A Ag Negative Normal Negative [facility] Comment on above: Performed By: #### C [id number] #### [place] [address] Influenza B Ag Negative Normal Negative [facility] Comment on above: Result Comment: The CommuniCliquew Influenza A+B Card 2 detects both viable [...] public health departments. Performed By: #### C [id number] #### [place] [address] Hep Func Panelon 08-04-2022 Albumin [Mass/Vol] 4.4 g/dL Normal 3.7-5.3 [facility] Comment on above: Performed By: #### L IVER #### [place] [address] Alk Phos 53 IU/L Normal 34-104 [facility] Comment on above: Performed By: #### L IVER #### [place] [address] ALT [Catalytic activity/Vol] 15 U/L Normal 7-52 [facility] Comment on above: Performed By: #### L IVER #### [place] [address] AST [Catalytic activity/Vol] 16 U/L Normal 13-39 [facility] Comment on above: Performed By: #### L IVER #### [place] [address] Bili Direct 0.15 mg/dL Normal 0.03-0.18 [facility] Comment on above: Performed By: #### L IVER #### [place] [address] Bili Indirect 0.4 mg/dL Normal 0.0-1.0 [facility] Comment on above: Performed By: #### L IVER #### [place] [address] Bili Total 0.6 mg/dL Normal 0.3-1.0 [facility] Comment on above: Performed By: #### L IVER #### [place] [address] Protein [Mass/Vol] 7.5 g/dL Normal 6.0-8.3 [facility] Comment on above: Performed By: #### L REHANER #### [place] [address] Lipaseon 08-04-2022 Lipase Lvl 18 IU/L Normal [facility] Comment on above: Performed By: #### L IP #### [place] [address] UA w Culture if Ind Tri Color (U) Yellow Normal [facility] Comment on above: Performed By: #### U CIM #### [place] [address] Glucose (U) [Mass/Vol] Negative Normal Negative [facility] Comment on above: Performed By: #### U CIM #### [place] [address] Ketones Ql (U) Negative Normal Negative [facility] Comment on above: Performed By: #### U CIM #### [place] [address] UA Blood Negative Normal Negative [facility] Comment on above: Performed By: #### U CIM #### [place] [address] UA Clarity Hazy Normal [facility] Comment on above: Performed By: #### U CIM #### [place] [address] UA Leukocyte Esterase Trace Abnormal Negative [facility] Comment on above: Performed By: #### U CIM #### [place] [address] UA Nitrite Negative Normal Negative [facility] Comment on above: Performed By: #### U CIM #### [place] [address] UA pH 7.0 Normal 4.5 - 7.8 [facility] Comment on above: Performed By: #### U CIM #### [place] [id number] UA Protein Negative Normal Negative [facility] Comment on above: Performed By: #### U CIM #### [place] [address] UA Source Clean Catch Normal [facility] Comment on above: Performed By: #### U CIM #### [place] [address] UA Spec Grav 1.025 Normal 1.003-1.035 [facility] Comment on above: Performed By: #### U CIM #### [place] [address] UA Urobilinogen 2.0 mg/dL Abnormal 0.2 - 1.0 [facility] Comment on above: Result Comment: conf irmed with chemstrip 10 08/04/2022 19:44:02 EST Performed By: #### U CIM #### [place] [address] Urobilinogen (U) [Mass/Vol] Negative Normal Negative [facility] Comment on above: Performed By: #### U CIM #### [place] [address] XR Abdomen 2 Views w/ Chest 1 [...] DT/TM: 08/04/2022 8:17 pm Signed by: Susannah Benjamni MD Signed (Electronic Signature): 08/04/2022 8:21 pm (If Report Is Signed, Electronically Signed in Other Vendor System) Normal [facility] INSULINon 05-01-2022 Insulin 14.9 uIU/mL Normal 2.6-24.9 [facility] Comment on above: Performed By: #### I NSULIN #### [facility] [address] [place] [address] Dr. Yesenia Hung CBC AUTO DIFFon 04-29-2022 BASO # 0.0 103/ul Normal 0.0-0.1 [facility] Comment on above: Performed By: #### R PRQ #### [facility] [address] [place] [address] Dr. Yesenia Hung Basophils/100 WBC (Bld) 0.6 % Normal 0.2-2.0 [facility] Comment on above: Performed By: #### R PRQ #### [facility] [address] [place] [address] Dr. Yesenia Hung EO # 0.1 103/ul Normal 0.0-0.7 [facility] Comment on above: Performed By: #### R PRQ #### [facility] [address] [place] [address] Dr. Yesenia Hung Eosinophils/100 WBC (Bld) 0.7 % Critically low 0.9-7.0 [facility] Comment on above: Performed By: #### R PRQ #### [facility] [address] [place] [address] Dr. Yesenia Hung Erythrocyte distribution width (RBC) [Ratio] 12.6 % Normal 11.0-15.0 [facility] Comment on above: Performed By: #### R PRQ #### [facility] [address] [place] [address] Dr. Yesenia Hung Hematocrit (Bld) [Volume fraction] 38.9 % Normal 36.0-48.0 [facility] Comment on above: Performed By: #### R PRQ #### [facility] [address] [place] [address] Dr. Yesenia Hung Hemoglobin (Bld) [Mass/Vol] 13.2 g/dL Normal 12.0-16.0 [facility] Comment on above: Performed By: #### R PRQ #### [facility] [address] [place] [address] Dr. Yesenia Hung IG # 0.02 10e3/ul Normal 0.00-0.03 [facility] Comment on above: Performed By: #### R PRQ #### [facility] [address] [place] [address] Dr. Yesenia Hung IG % 0.3 % Normal 0.0-0.5 [facility] Comment on above: Performed By: #### R PRQ #### [facility] [address] [place] [address] Dr. Yesenia Hung LYMPH # 2.1 103/ul Normal 1.2-3.8 [facility] Comment on above: Performed By: #### R PRQ #### [facility] [address] [place] [address] Dr. Yesenia Hung Lymphocytes/100 WBC (Bld) 29.4 % Normal 20.5-60.0 [facility] Comment on above: Performed By: #### R PRQ #### [facility] [address] [place] [address] Dr. Yesenia Hung MANUAL DIFF REQ NO Normal [facility] Comment on above: Performed By: #### R PRQ #### [facility] [address] [place] [address] Dr. Yesenia Hung MCH (RBC) [Entitic mass] 29.8 pg Normal 26.7-34.0 [facility] Comment on above: Performed By: #### R PRQ #### [facility] [address] [place] [address] Dr. Yesenia Hung MCHC (RBC) [Mass/Vol] 33.9 g/dL Normal 29.9-35.2 [facility] Comment on above: Performed By: #### R PRQ #### [facility] [address] [place] [address] Dr. Yesenia Hung MCV (RBC) [Entitic vol] 87.8 fL Normal 81.0-99.0 [facility] Comment on above: Performed By: #### R PRQ #### [facility] [address] [place] [address] Dr. Yesenia Hung MONO # 0.5 103/ul Normal 0.3-0.8 [facility] Comment on above: Performed By: #### R PRQ #### [facility] [address] [place] [address] Dr. Yesenia Hung Monocytes/100 WBC (Bld) 6.6 % Normal 1.7-12.0 [facility] Comment on above: Performed By: #### R PRQ #### [facility] [address] [place] [address] Dr. Yesenia Hung NEUT # 4.5 103/ul Normal 1.4-6.5 [facility] Comment on above: Performed By: #### R PRQ #### [facility] [address] [place] [address] Dr. Yesenia Hung Neutrophils/100 WBC (Bld) 62.4 % Normal 43.0-75.0 [facility] Comment on above: Performed By: #### R PRQ #### [facility] [address] [place] [address] Dr. Yesenia Hung Platelet mean volume (Bld) [Entitic vol] 9.5 fL Normal 9.5-13.5 [facility] Comment on above: Performed By: #### R PRQ #### [facility] [address] [place] [address] Dr. Yesenia Hung PLT 294 103/ul Normal 150-450 [facility] Comment on above: Performed By: #### R PRQ #### [facility] [address] [place] [address] Dr. Yesenia Hung RBC 4.43 106/ul Normal 4.20-5.40 [facility] Comment on above: Performed By: #### R PRQ #### [facility] [address] [place] [address] Dr. Yesenia Hung WBC 7.1 103/ul Normal 4.0-11.0 [facility] Comment on above: Performed By: #### R PRQ #### [facility] [address] [place] [address] [address] Yesenia Hung FREE THYROXINE INDEX T7on FTI 2.51 Normal 1.30-4.50 [facility] Comment on above: Performed By: #### C MP, TSH, T7, PREGQNT #### [facility] [address] [place] [address] [address] Yesenia Hung T3U 33.0 % Normal 30.0-39.0 [facility] Comment on above: Performed By: #### C MP, TSH, T7, PREGQNT #### [facility] [address] [place] [address] Dr. Yesenia Hung T4 [Mass/Vol] 7.60 ug/dL Normal 4.80-13.90 [facility] Comment on above: Performed By: #### C MP, TSH, T7, PREGQNT #### [facility] [address] [place] [address] Dr. Yesenia Hung GLYCOHEMOGLOBIN A1Con 2021 ADA RECOMMENDATION SEE BELOW Normal [facility] Comment on above: Result Comment: ADA RECOMMENDED LIMIT 4.0 - 6.0 ADA THERAPEUTIC TARGET < 7.0 ACTION SUGGESTED > 7.0 Performed By: #### A 1C #### [facility] [address] [place] [address] Dr. Yesenia Hung Glucose [Mass/Vol] 103 mg/dL Normal [facility] Comment on above: Performed By: #### A 1C #### [facility] [address] [place] [address] Dr. Yesenia Hung HbA1c (Bld) [Mass fraction] 5.2 % Normal 4.5-6.2 [facility] Comment on above: Performed By: #### A 1C #### [facility] [address] [place] [address] Dr. Yesenia Hung IRONon 04-29-2022 Iron [Mass/Vol] 40.0 ug/dL Critically low 50.0-170.0 [facility] Comment on above: Performed By: #### A 1C #### [facility] [address] [place] [address] Dr. Yesenia Hung PREG QUANT HCGon 04-29-2022 HCG QUANT <1 Normal [facility] Comment on above: Performed By: #### R PRQ #### [facility] [address] [place] [address] Dr. Yesenia Hung HCG RANGE SEE BELOW Normal [facility] Comment on above: Result Comment: 5-50 0.2-1 WEEK 50-500 1-2 WEEKS 100-5,000 2-3 WEEKS 500-10,000 3-4 WEEKS 1,000-50,000 4-5 WEEKS 10,000-100,000 5-6 WEEKS 15,000-200,000 6-8 WEEKS 10,000-100,000 2-3 MONTHS Performed By: #### R PRQ #### [facility] [address] [place] [address] Dr. Yesenia Hung PROF 14(COMP METB)on 022 Albumin [Mass/Vol] 4.2 g/dL Normal 3.4-5.0 [facility] Comment on above: Performed By: #### R PRQ #### [facility] [address] [place] [address] Dr. Yesenia Hung Albumin/Globulin [Mass ratio] 1.0 {ratio} Normal [facility] Comment on above: Performed By: #### R PRQ #### [facility] [address] [place] [address] Dr. Yesenia Hung ALP [Catalytic activity/Vol] 67 U/L Normal 46-116 [facility] Comment on above: Performed By: #### R PRQ #### [facility] [address] [place] [address] Dr. Yesenia Hung ALT [Catalytic activity/Vol] 11 U/L Critically low 14-59 [facility] Comment on above: Performed By: #### R PRQ #### [facility] [address] [place] [address] Dr. Yesenia Hung Anion gap [Moles/Vol] 12.1 mmol/L Normal [facility] Comment on above: Performed By: #### R PRQ #### [facility] [address] [address] [address] Yesenia Hung AST [Catalytic activity/Vol] 10 U/L Critically low 15-37 [facility] Comment on above: Performed By: #### R PRQ #### [facility] [address] [address] [address] Yesenia Hung Bilirubin [Mass/Vol] 0.2 mg/dL Normal 0.2-1.0 [facility] Comment on above: Performed By: #### R PRQ #### [facility] [address] [address] [address] Yesenia Hung Calcium [Mass/Vol] 9.4 mg/dL Normal 8.5-10.1 [facility] Comment on above: Performed By: #### R PRQ #### [facility] [address] [address] [address] Yesenia Hung Chloride [Moles/Vol] 103 mmol/L Normal 98-107 [facility] Comment on above: Performed By: #### R PRQ #### [facility] [address] [address] [address] Yesenia Hung CO2 [Moles/Vol] 28.2 mmol/L Normal 21.0-32.0 [facility] Comment on above: Performed By: #### R PRQ #### [facility] [address] [address] [address] Yesenia Hung Creatinine [Mass/Vol] 0.58 mg/dL Normal 0.55-1.02 [facility] Comment on above: Performed By: #### R PRQ #### [facility] [address] [address] [address] Yesenia Hung EGFR-AF [place] ISLANDER >60 Normal >=60 [facility] Comment on above: Performed By: #### R PRQ #### [facility] [address] [address] [address] Yesenia Hung EGFR-NON AF [place] ISLANDER >60 Normal >=60 [facility] Comment on above: Performed By: #### R PRQ #### [facility] [address] [address] [address] Yesenia Hung Globulin (S) [Mass/Vol] 4.0 g/dL Normal [facility] Comment on above: Performed By: #### R PRQ #### [facility] [address] [address] [address] Yesenia Hung Glucose [Mass/Vol] 89 mg/dL Normal 74-106 [facility] Comment on above: Performed By: #### R PRQ #### [facility] [address] [address] [address] Yesenia Hung Potassium [Moles/Vol] 4.3 mmol/L Normal 3.5-5.1 [facility] Comment on above: Performed By: #### R PRQ #### [facility] [address] [place] [address] Dr. Yesenia Hung Protein [Mass/Vol] 8.2 g/dL Normal 6.4-8.2 [facility] Comment on above: Performed By: #### R PRQ #### [facility] [address] [place] [address] Dr. Yesenia Hung Sodium [Moles/Vol] 139 mmol/L Normal 136-145 [facility] Comment on above: Performed By: #### R PRQ #### [facility] [address] [place] [address] Dr. Yesenia Hung Urea nitrogen [Mass/Vol] 11.0 mg/dL Normal 7.0-18.0 [facility] Comment on above: Performed By: #### R PRQ #### [facility] [address] [place] [address] Dr. Yesenia Hung Urea nitrogen/Creatinine [Mass ratio] 19.0 mg/mg Normal [facility] Comment on above: Performed By: #### R PRQ #### [facility] [address] [place] [address] Dr. Yesenia Hung TSHon 04-29-2022 TSH 1.621 uIU/mL Normal 0.358-3.740 [facility] Comment on above: Performed By: #### R PRQ #### [facility] [address] [address] [address] Yesenia Hung ED Clinical Summaryon 2021 ED Clinical Summary (Inserted Image. Debra ble to display) [address] [address] ED Clinical Summary Person Information Name: Jeannine Antunez/New_Loy Age: 21 Years : 2000 Sex: Female PCP: Marital Status: Single Phone: Race: White Ethnicity: Not or Language: Ukrainian Visit Reason: Skin rash; Rash Acuity: 4 Enc Type: Emergency Med Service: Emergency Medicine Arrival: 03/29/2022 23:48:59 Discharge: 03/30/2022 00:18:00 LOS: 000 00:30 Checkin: 03/29/2022 23:48:59 Checkout: 03/30/2022 00:18:00 Dispo Type: Home or Self Care Address: [address] [place] [address] Provider Notes: History of Present Illness Patient presents for evaluation of rash. ?She believes that she is having a reaction to?red dye as she presented to?another emergency department?in [facility] earlier today.? Patient?was prescribed prednisone [...] 2-3 days. Patient Education Information: Contact Dermatitis AAPCC Poison Help line: . [facility] Hotline: [place] Tobacco Quit Line: [place], [place]) [address]: [phone] [place], [place]) [address]: [phone] [facility] [address] [facility]. [place], [place]: [phone] Normal [facility] ED Note-Physicianon 03-30-20 ED Note-Physician Chief Complaint Presents to ED with c/o scattered small reddened areas to upper and lower extremities. History of Present Illness Patient presents for evaluation of rash. She believes that she is having a reaction to red dye as she presented to another emergency department in [facility] earlier today. Patient was prescribed [...] differential diagnoses including viral rash such as pyyl-ipfn-vhw-mouth disease and contact dermatitis. Patient has had [...] Rach Posadas MD 03/30/22 00:21 EDT Normal [facility] PAP ACOG PANEL 3: 21 to 29on 06-09-2021 . . Normal [facility] Comment on above: Result Comment: Perf ormed at: WB Performed By: #### [id number] #### [facility] [address] [place] [address] Dr. Yesenia Hung Age Gdln ACOG Testing Comment Normal [facility] Comment on above: Result Comment: <21 or >65 or no age provided Performed By: #### [id number] #### [facility] [address] [place] [address] Dr. Yesenia Hung Chlamydia, Nuc. Acid Amp Positive Abnormal Negative [facility] Comment on above: Result Comment: . Performed at: =G Performed By: #### [id number] #### [facility] [address] [place] [address] Dr. Yesenia Hung DIAGNOSIS: Comment Abnormal [facility] Comment on above: Result Comment: EPIT HELIAL CELL ABNORMALITY. ATYPICAL SQUAMOUS CELLS OF UNDETERMINED SIGNIFICANCE (ASC-US). Performed at: WB Performed By: #### [id number] #### [facility] [address] [place] [address] Dr. Yesenia Hung Electronically signed by: Comment Normal [facility] Comment on above: Result Comment: Mi Ocampo MD, Pathologist Performed at: WB Performed By: #### 4 [id number] #### [facility] [address] [place] [address] Dr. Yesenia Hung Gonococcus, Nuc. Acid Amp Negative Normal Negative [facility] Comment on above: Result Comment: Perf ormed at: =G Performed By: #### [id number] #### [facility] [address] [place] [address] Dr. Yesenia Hung Methodology: Comment Normal [facility] Comment on above: Result Comment: This liquid based ThinPrep(R) pap test was screened with the use of an image guided system. Performed at: WB Performed By: #### [id number] #### [facility] [address] [place] [address] Dr. Yesenia Hung Note: Comment Normal [facility] Comment on above: Result Comment: The Pap smear is a screening test designed to aid in the detection of premalignant and malignant conditions of the uterine cervix. It is not a diagnostic procedure and should not be used as the sole means of detecting cervical cancer. Both false-positive and false-negative reports do occur. . Performed at: WB Performed By: #### [id number] #### [facility] [address] [place] [address] Dr. Yesenia Hung Pathologist Provided ICD10 Comment Normal [facility] Comment on above: Result Comment: [id number] Performed at: WB Performed By: #### 4 [id number] #### [facility] [address] [place] [address] Dr. Yesenia Hung Performed by: Comment Normal [facility] Comment on above: Result Comment: Amelia Thompson House Mover Supervisor (ASCP) Performed at: WB Performed By: #### [id number] #### [facility] [address] [place] [address] Dr. Yesenia Hung Specimen adequacy: Comment Normal [facility] Comment on above: Result Comment: Sati sfactory for evaluation. Endocervical and/or squamous metaplastic cells (endocervical component) are present. Performed at: WB Performed By: #### [id number] #### [facility] [address] [address] [address] Yesenia Hung HEPATITIS PANEL, ACUTEon HBsAg Screen Negative Normal Negative [facility] Comment on above: Performed By: #### A 1C #### [facility] [address] [address] [address] Yesenia Hung Hep A Ab, IgM Negative Normal Negative [facility] Comment on above: Performed By: #### A 1C #### [facility] [address] [place] [address] Dr. Yesenia Hung Hep B Core Ab, IgM Negative Normal Negative [facility] Comment on above: Performed By: #### A 1C #### [facility] [address] [place] [address] Dr. Yesenia Hung Hep C Virus Ab <0.1 Normal 0.0-0.9 [facility] Comment on above: Result Comment: Nega tive: < 0.8 Indeterminate: 0.8 - 0.9 Positive: > 0.9 . The CDC recommends that a positive HCV antibody result be followed up with a HCV Nucleic Acid Amplification test (829282). Effective August 18, 2021 Hepatitis Panel (4) will be made non-orderable. [facility] offers order code [id number] Acute Hepatitis. Performed By: #### A 1C #### [facility] [address] [place] [address] Dr. Yesenia Hung HERPES SIMPLEX 1/2 IGGon HSV 1 IgG, Type Spec <0.91 Normal 0.00-0.90 [facility] Comment on above: Result Comment: Nega tive <0.91 Equivocal 0.91 - 1.09 Positive >1.09 Note: Negative indicates no antibodies detected to HSV-1. Equivocal may suggest early infection. If clinically appropriate, retest at later date. Positive indicates antibodies detected to HSV-1. Performed By: #### H SV IGG #### [facility] [address] [place] [address] Dr. Yesenia Hung HSV 2 IgG Type Spec <0.91 Normal 0.00-0.90 [facility] Comment on above: Result Comment: Nega tive <0.91 Equivocal 0.91 - 1.09 Positive >1.09 Note: Negative indicates no antibodies detected to HSV-2. Equivocal may suggest early infection. If clinically appropriate, retest at later date. Positive indicates antibodies detected to HSV-2. Performed By: #### H SV IGG #### [facility] [address] [place] [address] Dr. Yesenia Hung HERPES SIMPLEX 1/2 IGMon HSV, IgM I/II Combination <0.91 Normal 0.00-0.90 [facility] Comment on above: Result Comment: Nega tive <0.91 Equivocal 0.91 - 1.09 Positive >1.09 Performed By: #### A 1C #### [facility] [address] [place] [address] Dr. Yesenia Hung HIV 1 AND 2 WITH REFLEXon HIV Screen 4th Generation wRfx Non-Reactive Normal Non Reactive [facility] Comment on above: Performed By: #### A 1C #### [facility] [address] [place] [address] Dr. Yesenia Hung RPR QUANTon 06-05-2021 Rapid Plasma Reagin, Quant Non-Reactive Normal NonRea<1:1 [facility] Comment on above: Performed By: #### R PRQ #### [facility] [address] [place] [address] Dr. Yesenia Hung HERPES SIMPLEX 1/2 IGGon HSV 1 IgG, Type Spec <0.91 Normal 0.00-0.90 [facility] Comment on above: Result Comment: Nega tive <0.91 Equivocal 0.91 - 1.09 Positive >1.09 Note: Negative indicates no antibodies detected to HSV-1. Equivocal may suggest early infection. If clinically appropriate, retest at later date. Positive indicates antibodies detected to HSV-1. Performed By: #### A 1C #### [facility] [address] [address] [address] Yesenia Hung HSV 2 IgG Type Spec <0.91 Normal 0.00-0.90 [facility] Comment on above: Result Comment: Nega tive <0.91 Equivocal 0.91 - 1.09 Positive >1.09 Note: Negative indicates no antibodies detected to HSV-2. Equivocal may suggest early infection. If clinically appropriate, retest at later date. Positive indicates antibodies detected to HSV-2. Performed By: #### A 1C #### [facility] [address] [address] [address] Yesenia Hung HEPATITIS PANEL, ACUTEon HBsAg Screen Negative Normal Negative [facility] Comment on above: Performed By: #### H EPACUT #### [facility] [address] [place] [address] Dr. Yesenia Hung Hep A Ab, IgM Negative Normal Negative [facility] Comment on above: Performed By: #### H EPACUT #### [facility] [address] [address] [address] Yesenia Hung Hep B Core Ab, IgM Negative Normal Negative [facility] Comment on above: Performed By: #### H EPACUT #### [facility] [address] [place] [address] Dr. Yesenia Hung Hep C Virus Ab <0.1 Normal 0.0-0.9 [facility] Comment on above: Result Comment: Nega tive: < 0.8 Indeterminate: 0.8 - 0.9 Positive: > 0.9 . The CDC recommends that a positive HCV antibody result be followed up with a HCV Nucleic Acid Amplification test (170272). Effective August 18, 2021 Hepatitis Panel (4) will be made non-orderable. [facility] offers order code [id number] Acute Hepatitis. Performed By: #### H EPACUT #### [facility] [address] [address] [address] Yesenia Hung HIV 1 AND 2 WITH REFLEXon HIV Screen 4th Generation wRfx Non-Reactive Normal Non Reactive [facility] Comment on above: Performed By: #### H IV12 #### [facility] [address] [place] [address] Dr. Yesenia Hung RPR QUANTon 05-25-2021 Rapid Plasma Reagin, Quant Non-Reactive Normal NonRea<1:1 [facility] Comment on above: Performed By: #### R PRQ #### [facility] [address] [place] [address] Dr. Yesenia Hung CBC AUTO DIFFon 05-24-2021 BASO # 0.0 103/ul Normal 0.0-0.1 [facility] Comment on above: Performed By: #### R PRQ #### [facility] [address] [place] [address] Dr. Yesenia Hung Basophils/100 WBC (Bld) 0.3 % Normal 0.2-2.0 [facility] Comment on above: Performed By: #### R PRQ #### [facility] [address] [place] [address] Dr. Yesenia Hung EO # 0.1 103/ul Normal 0.0-0.7 [facility] Comment on above: Performed By: #### R PRQ #### [facility] [address] [place] [address] Dr. Yesenia Hung Eosinophils/100 WBC (Bld) 1.0 % Normal 0.9-7.0 [facility] Comment on above: Performed By: #### R PRQ #### [facility] [address] [place] [address] Dr. Yesenia Hung Erythrocyte distribution width (RBC) [Ratio] 12.3 % Normal 11.0-15.0 [facility] Comment on above: Performed By: #### R PRQ #### [facility] [address] [place] [address] Dr. Yesenia Hung Hematocrit (Bld) [Volume fraction] 38.3 % Normal 36.0-48.0 [facility] Comment on above: Performed By: #### R PRQ #### [facility] [address] [place] [address] Dr. Yesenia Hung Hemoglobin (Bld) [Mass/Vol] 12.4 g/dL Normal 12.0-16.0 [facility] Comment on above: Performed By: #### R PRQ #### [facility] [address] [place] [address] Dr. Yesenia Hung IG # 0.02 10e3/ul Normal 0.00-0.03 [facility] Comment on above: Performed By: #### R PRQ #### [facility] [address] [place] [address] Dr. Yesenia Hung IG % 0.3 % Normal 0.0-0.5 [facility] Comment on above: Performed By: #### R PRQ #### [facility] [address] [place] [address] Dr. Yesenia Hung LYMPH # 1.6 103/ul Normal 1.2-3.8 [facility] Comment on above: Performed By: #### R PRQ #### [facility] [address] [place] [address] Dr. Yesenia Hung Lymphocytes/100 WBC (Bld) 22.8 % Normal 20.5-60.0 [facility] Comment on above: Performed By: #### R PRQ #### [facility] [address] [place] [address] Dr. Yesenia Hung MANUAL DIFF REQ NO Normal [facility] Comment on above: Performed By: #### R PRQ #### [facility] [address] [place] [address] Dr. Yesenia Hung MCH (RBC) [Entitic mass] 28.5 pg Normal 26.7-34.0 [facility] Comment on above: Performed By: #### R PRQ #### [facility] [address] [place] [address] Dr. Yesenia Hung MCHC (RBC) [Mass/Vol] 32.4 g/dL Normal 29.9-35.2 [facility] Comment on above: Performed By: #### R PRQ #### [facility] [address] [place] [address] Dr. Yesenai Hung MCV (RBC) [Entitic vol] 88.0 fL Normal 81.0-99.0 [facility] Comment on above: Performed By: #### R PRQ #### [facility] [address] [place] [address] Dr. Yesenia Hung MONO # 0.5 103/ul Normal 0.3-0.8 [facility] Comment on above: Performed By: #### R PRQ #### [facility] [address] [place] [address] Dr. Yesenia Hung Monocytes/100 WBC (Bld) 7.1 % Normal 1.7-12.0 [facility] Comment on above: Performed By: #### R PRQ #### [facility] [address] [place] [address] Dr. Yesenia Hung NEUT # 4.9 103/ul Normal 1.4-6.5 [facility] Comment on above: Performed By: #### R PRQ #### [facility] [address] [place] [address] Dr. Yesenia Hung Neutrophils/100 WBC (Bld) 68.5 % Normal 43.0-75.0 [facility] Comment on above: Performed By: #### R PRQ #### [facility] [address] [place] [address] Dr. Yesenia Hung Platelet mean volume (Bld) [Entitic vol] 9.6 fL Normal 9.5-13.5 [facility] Comment on above: Performed By: #### R PRQ #### [facility] [address] [place] [address] Dr. Yesenia Hung PLT 224 103/ul Normal 150-450 [facility] Comment on above: Performed By: #### R PRQ #### [facility] [address] [place] [address] Dr. Yesenia Hung RBC 4.35 106/ul Normal 4.20-5.40 [facility] Comment on above: Performed By: #### R PRQ #### [facility] [address] [place] [address] Dr. Yesenia Hung WBC 7.1 103/ul Normal 4.0-11.0 [facility] Comment on above: Performed By: #### R PRQ #### [facility] [address] [address] [address] Yesenia Hung FREE THYROXINE INDEX T7on FTI 2.24 Normal [facility] Comment on above: Performed By: #### R PRQ #### [facility] [address] [address] [address] Yesenia Hung T3U 32.0 % Normal 23.5-40.5 [facility] Comment on above: Performed By: #### R PRQ #### [facility] [address] [address] [address] Yesenia Hung T4 [Mass/Vol] 7.00 ug/dL Normal 5.53-11.00 [facility] Comment on above: Performed By: #### R PRQ #### [facility] [address] [address] [address] Yesenia Hung GLYCOHEMOGLOBIN A1Con 2020 ADA RECOMMENDATION ADA THERAPEUTIC TARG ET 6.0 - 7.0 ACTION SUGGESTED > 7.0 Normal [facility] Comment on above: Performed By: #### A 1C #### [facility] [address] [address] [address] Yesenia Hung Glucose [Mass/Vol] 94 mg/dL Normal [facility] Comment on above: Performed By: #### A 1C #### [facility] [address] [address] [address] Yesenia Hung HbA1c (Bld) [Mass fraction] 4.9 % Normal <=6.0 [facility] Comment on above: Performed By: #### A 1C #### [facility] [address] [address] [address] Yesenia Hung IRONon 05-24-2021 Iron [Mass/Vol] 53.0 ug/dL Normal 37.0-170.0 [facility] Comment on above: Performed By: #### A 1C #### [facility] [place] [address] Dr. Yesenia Hung LIPID PROFILEon 05-24-2021 CHOL-HDL RATIO NORM SEE BELOW Normal [facility] Comment on above: Result Comment: 3.3 - 4.4 LOW RISK 4.4 - 7.1 AVERAGE RISK 7.1 - 11.0 MODERATE RISK >11.0 HIGH RISK Performed By: #### R PRQ #### [facility] [address] [address] [address] Yesenia Hung Cholesterol [Mass/Vol] 139 mg/dL Normal <=200 [facility] Comment on above: Performed By: #### R PRQ #### [facility] [address] [address] [address] Yesenia Hung Cholesterol in HDL [Mass/Vol] 46 mg/dL Normal [facility] Comment on above: Performed By: #### R PRQ #### [facility] [address] [address] [address] Yesenia Hung Cholesterol in LDL [Mass/Vol] 78.2 mg/dL Normal [facility] Comment on above: Performed By: #### R PRQ #### [facility] [address] [address] [address] Yesenia Hung Cholesterol.total/C holesterol in HDL [Mass ratio] 3.0 {ratio} Normal [facility] Comment on above: Performed By: #### R PRQ #### [facility] [address] [address] [address] Yesenia Hung HDL NORMAL > or = 60 mg/dl - LO W CARDIOVASCULAR RISK <40 mg/dl - HIGH CARDIOVASCULAR RISK Normal [facility] Comment on above: Performed By: #### R PRQ #### [facility] [address] [address] [address] Yesenia Hung LDL CALC NORMAL SEE BELOW Normal [facility] Comment on above: Result Comment: <100 mg/dl OPTIMAL 100 - 129 mg/dl NEAR OR ABOVE OPTIMAL 130 - 159 mg/dl BORDERLINE HIGH 160 - 189 mg/dl HIGH >190 mg/dl VERY HIGH Performed By: #### R PRQ #### [facility] [address] [address] [address] Yesenia Hung Triglyceride [Mass/Vol] 74 mg/dL Normal <=150 [facility] Comment on above: Performed By: #### R PRQ #### [facility] [address] [place] [address] Dr. Yesenia Hung VLDL CALC 14.8 mg/dL Normal [facility] Comment on above: Performed By: #### R PRQ #### [facility] [address] [place] [address] Dr. Yesenia Hung PROF 14(COMP METB)on 021 Albumin [Mass/Vol] 3.9 g/dL Normal 3.5-5.0 [facility] Comment on above: Performed By: #### R PRQ #### [facility] [address] [place] [address] Dr. Yesenia Hung Albumin/Globulin [Mass ratio] 1.0 {ratio} Normal [facility] Comment on above: Performed By: #### R PRQ #### [facility] [address] [place] [address] Dr. Yesenia Hung ALP [Catalytic activity/Vol] 71 U/L Normal 38-126 [facility] Comment on above: Performed By: #### R PRQ #### [facility] [address] [place] [address] Dr. Yesenia Hung ALT [Catalytic activity/Vol] 15 U/L Normal 9-52 [facility] Comment on above: Performed By: #### R PRQ #### [facility] [address] [place] [address] Dr. Yesenia Hung Anion gap [Moles/Vol] 11.3 mmol/L Normal [facility] Comment on above: Performed By: #### R PRQ #### [facility] [address] [place] [address] Dr. Yesenia Hung AST [Catalytic activity/Vol] 13 U/L Critically low 14-36 [facility] Comment on above: Performed By: #### R PRQ #### [facility] [address] [place] [address] Dr. Yesenia Hung Bilirubin [Mass/Vol] 0.6 mg/dL Normal 0.2-1.3 [facility] Comment on above: Performed By: #### R PRQ #### [facility] [address] [address] [address] Yesenia Hung Calcium [Mass/Vol] 9.2 mg/dL Normal 8.4-10.2 [facility] Comment on above: Performed By: #### R PRQ #### [facility] [address] [address] [address] Yesenia Hung Chloride [Moles/Vol] 103 mmol/L Normal 98-107 [facility] Comment on above: Performed By: #### R PRQ #### [facility] [address] [address] [address] Yesenia Hung CO2 [Moles/Vol] 28.8 mmol/L Normal 22.0-30.0 [facility] Comment on above: Performed By: #### R PRQ #### [facility] [address] [place] [address] Dr. Yesenia Hung Creatinine [Mass/Vol] 0.64 mg/dL Normal 0.52-1.04 [facility] Comment on above: Performed By: #### R PRQ #### [facility] [address] [address] [address] Yesenia Hung EGFR-AF [place]LANDER >60 Normal >=60 [facility] Comment on above: Performed By: #### R PRQ #### [facility] [address] [address] [address] Yesenia Hung EGFR-NON AF [place]ER >60 Normal >=60 [facility] Comment on above: Performed By: #### R PRQ #### [facility] [address] [address] [address] Yesenia Hung Globulin (S) [Mass/Vol] 4.1 g/dL Normal [facility] Comment on above: Performed By: #### R PRQ #### [facility] [address] [address] [address] Yesenia Hung Glucose [Mass/Vol] 86 mg/dL Normal 74-106 [facility] Comment on above: Performed By: #### R PRQ #### [facility] [address] [address] [address] Yesenia Hung Potassium [Moles/Vol] 4.1 mmol/L Normal 3.4-5.0 [facility] Comment on above: Performed By: #### R PRQ #### [facility] [address] [address] [address] Yesenia Hung Protein [Mass/Vol] 8.0 g/dL Normal 6.1-8.2 [facility] Comment on above: Performed By: #### R PRQ #### [facility] [address] [address] [address] Yesenia uHng Sodium [Moles/Vol] 139 mmol/L Normal 137-145 [facility] Comment on above: Performed By: #### R PRQ #### [facility] [address] [place] [address] Dr. Yesenia Hung Urea nitrogen [Mass/Vol] 10.0 mg/dL Normal 7.0-17.0 [facility] Comment on above: Performed By: #### R PRQ #### [facility] [address] [address] [address] Yseenia Hung Urea nitrogen/Creatinine [Mass ratio] 15.6 mg/mg Normal [facility] Comment on above: Performed By: #### R PRQ #### [facility] [address] [place] [address] Dr. Yesenia Hung TSHon 05-24-2021 TSH 2.270 uIU/mL Normal 0.470-4.680 [facility] Comment on above: Performed By: #### R PRQ #### [facility] [address] [place] [address] Dr. Yesenia Hung TSH RANGE SEE BELOW Normal [facility] Comment on above: Result Comment: <0.3 4 UIU/ml HYPERTHYROID 0.34-5.60 UIU/ml EUTHYROID >5.60 UIU/ml HYPOTHYROID Performed By: #### R PRQ #### [facility] [address] [place] [address] Dr. Yesenia Hung [employer] - Office Visiton 05-08 [employer] - Office Visit Diagnoses/Problems Assessed Encounter for [...] MG Subcutaneous Implant Vitals Vital Signs Recorded: [id number] 01:18PM Fhilatoflpb38.5 F Levamffo815 Xkjhzcrbi08 Height5 ft 3 in 2-20 Stature Zydgsfxgmv58 % Fcfudf33.6 kg 2-20 Weight Osxuvdrmjk71 % BMI Hzumvborij08.32 BMI Dsdtwfbalc09 % BSA Calculated1.56 Physical Exam PHYSICAL EXAMINATION: [...] 29 2020 1:40PM EST (Author) Normal Touch[employer] - Procedure Visiton 1 07-22-2019 [employer] - Procedure Visit Chief Complaint PATIENT IS HERE FOR NEXPLANON INSERTION. Patient supply. [facility]:[id number], Lot# [id number], Exp:04/16/2022. LMP: 05-14-2020. NO CONCERNS AT THIS [...] 05/21/2020 2:11:36 PM Vitals Vital Signs Recorded: [id number] 01:40PM Hdheyabkutz13.7 F, Temporal Ndzcirxy187, LUE, Sitting Bagzvqupe77, LUE, Sitting Height5 ft 3 in 2-20 Stature Lfxvzxlvrz47 % Vqcqep75.2 kg 2-20 Weight Fqqwfuigle54 % BMI Gfhqdwusah77.56 BMI Ohzgbgihop07 % BSA Calculated1.57 [id number] Results/Data IO HCG, Urine [id number] 01:36PMKameron Mcfadden medline [id number] exp 06-06-21 Test NameResultFlagReference IO Urine hCGNegative [...] test IO HCG, Urine Test; Status:Complete; Done: [id number] 01:36PM Performed:In Office; Due:[id number];Ordered; For:Negative test; Ordered By:Kameron Mcfadden; Provider Impressions 1. Norplant insertion Follow-up in 1 week for inspection of the insertion site Signatures Electronically signed by : Kameron Mcfadden MD; May 21 2020 2:15PM EST (Author) Normal [employer] - Office Visiton [employer] - Office Visit Chief Complaint An interactive [...] Date Time Vital Sign Value Performing Clinician Facility 04-05-2024 14:04-0400 Body mass index (BMI) [Ratio] 24.34 kg/m2 Christina Rothman PA Work Phone: [facility] 04-05-2024 14:04-0400 Body weight 64.32 kg Christina Elian PA Work Phone: [facility] 04-05-2024 14:04-0400 Diastolic blood pressure 76 mm[Hg] Christina Rothman PA Work Phone: [facility] 04-05-2024 14:04-0400 Systolic blood pressure 116 mm[Hg] Christina Elian PA Work Phone: [facility] 03-21-2024 15:00-0400 Body mass index (BMI) [Ratio] 23.39 kg/m2 Christina Elian PA Work Phone: [facility] 03-21-2024 15:00-0400 Body weight 61.8 kg Christina Elian PA Work Phone: [facility] 03-21-2024 15:00-0400 Diastolic blood pressure 78 mm[Hg] Christina Elian PA Work Phone: [facility] 03-21-2024 15:00-0400 Systolic blood pressure 116 mm[Hg] Christina Elian PA Work Phone: [facility] 03-07-2024 14:47-0400 Body mass index (BMI) [Ratio] 22.74 kg/m2 Juancarlos Naveen DO Work Phone: [facility] 03-07-2024 14:47-0400 Body weight 60.1 kg Juancarlos Naveen DO Work Phone: [facility] 03-07-2024 14:47-0400 Diastolic blood pressure 70 mm[Hg] Juancarlos Naveen DO Work Phone: [facility] 03-07-2024 14:47-0400 Systolic blood pressure 106 mm[Hg] Juancarlos Naveen DO Work Phone: [facility] 02-15-2022 17:15-0400 Body temperature 97 [degF] Lupe Adair MD Work Phone: [facility] 02-15-2022 17:15-0400 Diastolic blood pressure 52 mm[Hg] Lupe Adair MD Work Phone: [facility] 02-15-2022 17:15-0400 Heart rate 75 /min Lupe Adair MD Work Phone: [facility] 02-15-2022 17:15-0400 Respiratory rate 20 /min Lpue Adair MD Work Phone: [facility] 02-15-2022 17:15-0400 SaO2% (BldA) [Mass fraction] 100 % Lupe Adair MD Work Phone: [facility] 02-15-2022 17:15-0400 Systolic blood pressure 116 mm[Hg] Lupe Adair MD Work Phone: [facility] Encounters Encounter Date Encounter Type Care Provider Facility Start: 04-19-2024 End: 04-19-2024 ambulatory JUANCARLOS NAVEEN Not Available Start: 04-05-2024 End: 04-05-2024 Bamboo flowsheet Christina FERNANDEZ Work Phone: [facility] Start: 04-05-2024 End: 04-05-2024 Bamboo flowsheet Christina FERNANDEZ Work Phone: [facility] Start: 04-05-2024 End: 04-05-2024 ambulatory CHRISTINA ROTHMAN Not Available Start: 04-05-2024 End: 04-05-2024 flow sheet Christina FERNANDEZ Work Phone: [facility] Comment on above: Third trimester preg chito; 32 weeks gestation of Start: 03-21-2024 End: 03-21-2024 flow sheet Christina FERNANDEZ Work Phone: [facility] Comment on above: Third trimester preg chito; 30 weeks gestation of Start: 03-21-2024 End: 03-21-2024 ambulatory CHRISTINA ROTHMAN Not Available Start: 03-21-2024 End: 03-21-2024 Bamboo flowsheet Christina FERNANDEZ Work Phone: [facility] Start: 03-21-2024 End: 03-21-2024 Bamboo flowsheet Christina FERNANDEZ Work Phone: [facility] Start: 03-07-2024 End: 03-07-2024 Office outpatient visit 15 minutes Juancarlos Naveen DO Work Phone: [facility] Comment on above: Third trimester preg chito; 28 weeks gestation of Start: 03-07-2024 End: 03-07-2024 ambulatory JUANCARLOS NAVEEN Not Available Start: 03-07-2024 End: 03-07-2024 Bamboo flowsheet Juancarlos Naveen DO Work Phone: [facility] Start: 03-07-2024 End: 03-07-2024 Bamboo flowsheet Juancarlos Naveen DO Work Phone: [facility] Start: 02-21-2024 End: 02-21-2024 ambulatory JUANCARLOS NVAEEN Not Available Start: 01-19-2024 End: 01-19-2024 ambulatory CHRISTINA ROTHMAN Not Available Start: 01-03-2024 End: 01-03-2024 Emergency department patient visit LUPE Rudy [facility] Start: 01-03-2024 End: 01-03-2024 ambulatory REBECCA ZHAO [facility] Start: 01-03-2024 End: 01-03-2024 Emergency department patient visit LUPE M [facility] Start: 12-21-2023 End: 12-21-2023 ambulatory JUANCARLOS NAVEEN Not Available Start: 11-23-2023 End: 11-23-2023 ambulatory JUANCARLOS WALLACEZIO Not Available Start: 10-21-2023 End: 10-21-2023 ambulatory JUANCARLOS WALLACEZIO Not Available Start: 09-29-2023 End: 09-29-2023 ambulatory CHRISTINA ROTHMAN Not Available Start: 06-16-2023 End: 06-16-2023 ambulatory JUANCARLOS NAVEEN Not Available Start: 08-04-2022 End: 08-04-2022 Emergency department patient visit Zina Tessa Miranda DO Facility:[facility] Start: 04-29-2022 End: 04-30-[address] LUPE ADAIR Facility:[facility] Start: 03-30-2022 End: 03-30-2022 Emergency department patient visit Rach Posadas MD Facility:[facility] Start: 03-29-2022 End: 03-29-[address] LUPE ADAIR Facility:[facility] Start: 02-15-2022 End: 02-15-2022 Emergency department patient visit LUPE M [facility] Start: 02-15-2022 End: 02-15-2022 Subsequent hospital visit by physician Lupe Adair MD Work Phone: [facility] Comment on above: Cellulitis of left r ing finger (Primary Dx) Start: 02-05-2022 End: 02-05-2022 ambulatory LUPE [facility] Start: 06-04-2021 End: 06-05-[address] LUPE ADAIR Facility:[facility] Start: 05-29-2021 Encounter for genera l adult medical examination without abnormal findings DR LUPE ADAIR [facility] Start: 05-24-2021 End: 05-25-[address] LUPE ADAIR Facility:[facility] Start: 05-24-2021 End: 05-25-2021 Encounter for general adult medical examination without abnormal findings DR LUPE ADAIR Facility:[facility] Start: 05-23-2021 End: 05-24-[address] LUPE ADAIR Facility:[facility] Procedures Date Procedure Procedure Detail Performing Clinician Start: 04-05-2024 Urnls dip stick/tabl et rgnt non-auto w/o micrscp Christina FERNANDEZ Work Phone: Start: 03-21-2024 Urnls dip stick/tabl et rgnt non-auto w/o micrscp Christina FERNANDEZ Work Phone: Start: 03-07-2024 Urnls dip stick/tabl et rgnt non-auto w/o micrscp Juancarlos Hodge DO Work Phone: Plan of Treatment Date Care Activity Detail Author Start: 04-19-2024 End: 04-19-2024 Patient encounter procedure 04/19/2024 1:30 PM EST Routine [facility] [address] [place] [address] Juancarlos Hodge DO [address] [place], [place] [id number] [facility] Start: 04-05-2024 End: 04-05-2024 Patient encounter procedure 04/05/2024 1:50 PM EDT Routine [facility] [address] [facility] [place] [id number] Christina Rothman PA [address] [place] [address] [facility] Start: 03-21-2024 End: 03-21-2024 Patient encounter procedure [facility] Comment on above: Arrived Start: 03-07-2024 End: 03-07-2024 Patient encounter procedure 03/07/2024 2:40 PM EDT Routine [facility] [address] [place] [id number] Juancarlos Hodge, DO [address], [place] [id number] Arrived [facility] Comment on above: Arrived Start: 01-26-2024 DTaP/Tdap/Td vaccine (7 - Td or Tdap) DTaP/Tdap/Td vaccine (7 - Td or Tdap) [facility] Start: 02-05-2023 Depression Screen Depression Screen [facility] Start: 02-05-2022 Influenza vaccination Flu vaccine (# 1) [facility] Start: 2021 Screening for malign ant neoplasm of cervix Pap smear [facility] Start: 06-18-2021 COVID-19 Vaccine (3 - Booster for Pfizer series) COVID-19 Vaccine (3 - Booster for Pfizer series) [facility] Start: 2018 Hepatitis C screening Hepatitis C sc reen [facility] Start: 2016 Screening for Chlamy elijah trachomatis Chlamydia screen [facility] Start: 11-04-2015 HIV screening HIV screen [facility] Start: 11-04-2011 HPV vaccine (1 - 2-d ose series) HPV vaccine (1 - 2-dose series) [facility] Immunizations Immunization Date Immunization Notes Care Provider Fa [facility] 01-16-2021 COVID-19, PFIZER PUR PLE top, DILUTE for use, (age 12 y+), 30mcg/0.3mL Lupe Adair MD Work Phone: [facility] Work Phone: 12-26-2020 COVID-19, PFIZER PUR PLE top, DILUTE for use, (age 12 y+), 30mcg/0.3mL Lupe Adair MD Work Phone: [facility] Work Phone: 01-25-2014 meningococcal polysaccharide (groups A, C, Y and W-135) diphtheria toxoid conjugate vaccine (MCV4P) Lupe Adair MD Work Phone: [facility] Work Phone: 01-25-2014 tetanus toxoid, redu arnav diphtheria toxoid, and acellular pertussis vaccine, adsorbed Lupe Adair MD Work Phone: [facility] Work Phone: 01-25-2014 varicella virus vaccine Isma Adair MD Work Phone: [facility] Work Phone: 08-13-2006 diphtheria, tetanus toxoids and acellular pertussis vaccine, unspecified formulation Lupe Adair MD Work Phone: [facility] Work Phone: 08-13-2006 measles, mumps and rubella virus vaccine Lupe Adair MD Work Phone: [facility] Work Phone: 08-13-2006 poliovirus vaccine, inactivated Lupe Adair MD Work Phone: [facility] Work Phone: 05-12-2002 diphtheria, tetanus toxoids and acellular pertussis vaccine, unspecified formulation Lupe Adair MD Work Phone: [facility] Work Phone: 05-12-2002 haemophilus influenz ae type b vaccine, conjugate unspecified formulation Lupe Adair MD Work Phone: [facility] Work Phone: 05-12-2002 varicella virus vaccine Isma Adair MD Work Phone: [facility] Work Phone: 11-04-2001 measles, mumps and rubella virus vaccine Lupe Adair MD Work Phone: [facility] Work Phone: 05-18-2001 diphtheria, tetanus toxoids and acellular pertussis vaccine, unspecified formulation Lupe Adair MD Work Phone: [facility] Work Phone: 05-18-2001 haemophilus influenz ae type b conjugate and Hepatitis B vaccine Lupe Adair MD Work Phone: [facility] Work Phone: 05-18-2001 pneumococcal conjuga te vaccine, 7 valent Lupe Adair MD Work Phone: [facility] Work Phone: 05-18-2001 poliovirus vaccine, inactivated Lupe Adair MD Work Phone: [facility] Work Phone: 03-07-2001 diphtheria, tetanus toxoids and acellular pertussis vaccine, unspecified formulation Lupe Adair MD Work Phone: [facility] Work Phone: 03-07-2001 haemophilus influenz ae type b conjugate and Hepatitis B vaccine Lupe Adair MD Work Phone: [facility] Work Phone: 03-07-2001 pneumococcal conjuga te vaccine, 7 valent Lupe Adair MD Work Phone: [facility] Work Phone: 03-07-2001 poliovirus vaccine, inactivated Lupe Adair MD Work Phone: [facility] Work Phone: 01-03-2001 diphtheria, tetanus toxoids and acellular pertussis vaccine, unspecified formulation Lupe Adair MD Work Phone: [facility] Work Phone: 01-03-2001 haemophilus influenz ae type b conjugate and Hepatitis B vaccine Lupe Adair MD Work Phone: [facility] Work Phone: 01-03-2001 pneumococcal conjuga te vaccine, 7 valent Lupe Adair MD Work Phone: [facility] Work Phone: 01-03-2001 poliovirus vaccine, inactivated Lupe Adair MD Work Phone: [facility] Work Phone: Payers Date Payer Category Payer Private Health Insurance [employer] [id number] 2024 Unknown [id number] 2024 Medicaid [employer] [place] [id number] 2024 Unknown [id number] 2023 Unknown [id number] 2023 Unknown [id number] 2022 Unknown 2000 Unknown [id number] 2.840.1.350982.3.579.2. 93 2000 Unknown [id number] 2.840.1.465907.3.579.2. 93 2000 Unknown [id number] 2.16840.1.830197.3.579.2. 593 2000 Unknown [id number] 2.16840.1.343118.3.579.2. 593 2000 Unknown [id number] 2.16840.1.315393.3.579.2. 593 2000 Unknown [id number] 2.16840.1.816035.3.579.2. 593 2000 Unknown [id number] 2.16840.1.159030.3.579.2. 593 2000 Unknown [id number] 2.16.840.1.034546.3.579.2. 196 2000 Unknown [id number] 2.16.840.1.913984.3.579.2. 196 2000 Unknown [id number] 2.16.840.1.538828.3.579.2. 128 2000 Unknown [id number] 2.16.840.1.000646.3.579.2. 1285 2000 Unknown [id number] 2.16.840.1.511938.3.579.2. 1285 2000 Unknown [id number] 2.16.840.1.544292.3.579.2. 1285 2000 Unknown [id number] 2.16.840.1.324791.3.579.2. 1258 2000 Unknown [id number] 2.16.840.1.350328.3.579.2. 1258 2000 Unknown [id number] 2.16.840.1.212258.3.579.2. 1258 2000 Unknown [id number] 2.16.840.1.917947.3.579.2. 1258 2000 Unknown [id number] 2.16840.1.819598.3.579.2. 1258 2000 Unknown [id number] 2.16.840.1.267255.3.579.2. 1258 2000 Unknown [id number] 2.16.840.1.185267.3.579.2. 1258 2000 Unknown [id number] 2.16.840.1.994386.3.579.2. 1258 2000 Unknown [id number] 2.16.840.1.615546.3.579.2. 1258 2000 Unknown [id number] 2.16.840.1.627092.3.579.2. 1259 2000 Unknown [id number] 2.16.840.1.812931.3.579.2. 1259 1959 Unknown [id number] 1.2.840.973175.1.13.239.2. 7.3.199373.315 1959 Unknown [id number] 1.2.840.203727.1.13.239.2. 7.3.743848.315 Social History Date Type Detail Facility Start: 02-05-2022 End: 03-07-2024 Tobacco smoking status [facility] Never smoked tobacco [facility] Phone: Start: 02-05-2022 End: 03-07-2024 Tobacco use and exposure Smokeless tobacco non-user [facility] Phone: Start: 02-15-2022 End: 04-05-2024 Alcohol intake Lifetime non-drinker (finding) [facility] Phone: Start: 2000 Sex Assigned At Not on file B [facility] [employer] Phone: Tobacco smoking status [facility] Tobacco smoking consumption unknown [facility] Start: 09-01-2023 [facility] Start: 03-07-2024 Gender identity Not on file [facility] Start: 03-07-2024 History of Social function [facility] History of Present illness Narrative 04-05-2024 REBECCA Sanders - 04/05/2024 1:50 PM EDT Note Date & Type Note Facility 04-05-2024 History of Presen t illness Narrative Reason for Appointment: Patient ID: Jeannine Antunez is a 23 y.o. female who presents for Routine Visit Patient presents today for Return OB appointment. MEDICATIONS Current Outpatient Medications Medication Instructions Vit-Fe Fumarate-FA (WesTab Plus) 27-1 MG tablet 1 tablet, Oral, Daily valACYclovir (Valtrex) 1 g tablet valACYclovir (Valtrex) 500 MG tablet ALLERGIES No Known Allergies PROBLEMS Active Ambulatory Problems Diagnosis Date Noted size inconsistent with dates 02/21/2024 Resolved Ambulatory Problems Diagnosis Date Noted No Resolved Ambulatory Problems No Additional Past Medical History HISTORY PAST MEDICAL HISTORY SOCIAL HISTORY History reviewed. No pertinent past medical history. Social History Tobacco Use Smoking status: Never Smokeless tobacco: Never Substance Use Topics Alcohol use: Never Drug use: Never FAMILY HISTORY Family History Problem Relation Name Age of Onset Thyroid disease Other SURGICAL HISTORY Past Surgical History: Procedure Laterality Date OTHER SURGICAL HISTORY lip lesion REVIEW OF SYSTEMS Review of Systems: Review of Systems Constitutional: Negative. HENT: Negative. Eyes: Negative. Respiratory: Negative. Cardiovascular: Negative. Gastrointestinal: Negative. Genitourinary: Negative. Musculoskeletal: Negative. Skin: Negative. Neurological: Negative. All other systems reviewed and are negative. Hematological: Negative. Endocrine: Negative. Allergic/Immunologic: Negative. OBJECTIVE Objective: Physical Exam Constitutional: Appearance: Normal appearance. She is normal weight. HENT: Head: Normocephalic. Cardiovascular: Rate and Rhythm: Normal rate. Pulses: Normal pulses. Pulmonary: Effort: Pulmonary effort is normal. Breath sounds: Normal breath sounds. Abdominal: Palpations: Abdomen is soft. Musculoskeletal: General: Normal range of motion. Neurological: General: No focal deficit present. Mental Status: She is alert and oriented to person, place, and time. Psychiatric: Mood and Affect: Mood normal. Behavior: Behavior normal. Thought Content: Thought content normal. Judgment: Judgment normal. Vitals and nursing note reviewed. Vitals: Estimated body mass index is 24.34 kg/m as calculated from the following: Height as of 24: 5' 4 . Weight as of this encounter: 141 lb 12.8 oz. BP: 116/76 Patient's last menstrual period was 08/18/2023. ASSESSMENT & PLAN ICD-10-CM 1. Third trimester Z34.93 Urine dip 2. 32 weeks gestation of Z3A.32 Urine dip Ua postitive for blood and protein, pt will be placed on keflex and ua sent for culture. Pt also states she is having increased varicosities in lower extremities. Pt encouraged to get compression stockings and elevated lower extremities when possible Documented by REBECCA Sanders on behalf of: REBECCA Sanders documented in this encounter [facility] History of Present illness Narrative 03-21-2024 REBECCA Sanders - 03/21/2024 2:30 PM EDT Note Date & Type Note Facility 03-21-2024 History of Presen t illness Narrative Reason for Appointment: Patient ID: Jeannine Antunez is a 23 y.o. female who presents for Routine Visit Patient presents today for Return OB appointment. MEDICATIONS Current Outpatient Medications Medication Instructions Vit-Fe Fumarate-FA (WesTab Plus) 27-1 MG tablet 1 tablet, Oral, Daily valACYclovir (Valtrex) 1 g tablet valACYclovir (Valtrex) 500 MG tablet ALLERGIES No Known Allergies PROBLEMS Active Ambulatory Problems Diagnosis Date Noted size inconsistent with dates 02/21/2024 Resolved Ambulatory Problems Diagnosis Date Noted No Resolved Ambulatory Problems No Additional Past Medical History HISTORY PAST MEDICAL HISTORY SOCIAL HISTORY History reviewed. No pertinent past medical history. Social History Tobacco Use Smoking status: Never Smokeless tobacco: Never Substance Use Topics Alcohol use: Never Drug use: Never FAMILY HISTORY Family History Problem Relation Name Age of Onset Thyroid disease Other SURGICAL HISTORY Past Surgical History: Procedure Laterality Date OTHER SURGICAL HISTORY lip lesion REVIEW OF SYSTEMS Review of Systems: Review of Systems Constitutional: Negative. HENT: Negative. Eyes: Negative. Respiratory: Negative. Cardiovascular: Negative. Gastrointestinal: Negative. Genitourinary: Negative. Musculoskeletal: Negative. Skin: Negative. Neurological: Negative. All other systems reviewed and are negative. Hematological: Negative. Endocrine: Negative. Allergic/Immunologic: Negative. OBJECTIVE Objective: Physical Exam Constitutional: Appearance: Normal appearance. She is normal weight. HENT: Head: Normocephalic. Cardiovascular: Rate and Rhythm: Normal rate. Pulses: Normal pulses. Pulmonary: Effort: Pulmonary effort is normal. Breath sounds: Normal breath sounds. Abdominal: Palpations: Abdomen is soft. Musculoskeletal: General: Normal range of motion. Neurological: General: No focal deficit present. Mental Status: She is alert and oriented to person, place, and time. Psychiatric: Mood and Affect: Mood normal. Behavior: Behavior normal. Thought Content: Thought content normal. Judgment: Judgment normal. Vitals and nursing note reviewed. Vitals: Estimated body mass index is 23.39 kg/m as calculated from the following: Height as of 12/21/23: 5' 4 . Weight as of this encounter: 136 lb 4 oz. BP: 116/78 Patient's last menstrual period was 08/18/2023. ASSESSMENT & PLAN ICD-10-CM 1. Third trimester Z34.93 2. 30 weeks gestation of Z3A.30 POCT urinalysis dipstick manually resulted Return OB: Patient presents today for a routine obstetrics appointment. Patient is currently 31w0d . Patient states she is doing well but has complaints of being tired due to current . Patient has verbalizes frequent movement. labor precautions was discussed/given and patient was instructed to perform kick counts three times a day. Orders Placed This Encounter Procedures POCT urinalysis dipstick manually resulted Follow Up: Patient is to return to office in 2 week for routine OB appointment. Documented by REBECCA Sanders on behalf of: REBECCA Sanders documented in this encounter [facility] History of Present illness Narrative 03-07-2024 Rach Byers LPN - 03/07/2024 2:40 PM EDT Note Date & Type Note Facility 03-07-2024 History of Presen t illness Narrative Reason for Appointment: Patient ID: Jeannine Antunez is a 23 y.o. female who presents for Routine Visit Patient presents today for Return OB appointment. MEDICATIONS Current Outpatient Medications Medication Instructions Vit-Fe Fumarate-FA (WesTab Plus) 27-1 MG tablet 1 tablet, Oral, Daily valACYclovir (Valtrex) 1 g tablet valACYclovir (Valtrex) 500 MG tablet ALLERGIES No Known Allergies PROBLEMS Active Ambulatory Problems Diagnosis Date Noted size inconsistent with dates 02/21/2024 Resolved Ambulatory Problems Diagnosis Date Noted No Resolved Ambulatory Problems No Additional Past Medical History HISTORY PAST MEDICAL HISTORY SOCIAL HISTORY History reviewed. No pertinent past medical history. Social History Tobacco Use Smoking status: Never Smokeless tobacco: Never Substance Use Topics Alcohol use: Never Drug use: Never FAMILY HISTORY Family History Problem Relation Name Age of Onset Thyroid disease Other SURGICAL HISTORY Past Surgical History: Procedure Laterality Date OTHER SURGICAL HISTORY lip lesion REVIEW OF SYSTEMS Review of Systems: Review of Systems Constitutional: Negative. HENT: Negative. Eyes: Negative. Respiratory: Negative. Cardiovascular: Negative. Gastrointestinal: Negative. Genitourinary: Negative. Musculoskeletal: Negative. Skin: Negative. Neurological: Negative. All other systems reviewed and are negative. Hematological: Negative. Endocrine: Negative. Allergic/Immunologic: Negative. OBJECTIVE Objective: Physical Exam Constitutional: Appearance: Normal appearance. She is well-developed. Cardiovascular: Rate and Rhythm: Normal rate and regular rhythm. Pulmonary: Effort: Pulmonary effort is normal. Breath sounds: Normal breath sounds. Abdominal: General: Bowel sounds are normal. There is no distension. Palpations: Abdomen is soft. Tenderness: There is no abdominal tenderness. There is no guarding or rebound. Musculoskeletal: General: No swelling. Normal range of motion. Right lower leg: No edema. Left lower leg: No edema. Neurological: Mental Status: She is alert and oriented to person, place, and time. Skin: General: Skin is warm and dry. Psychiatric: Mood and Affect: Mood normal. Behavior: Behavior normal. Vitals and nursing note reviewed. Exam conducted with a pediatric oncologist present. Vitals: Estimated body mass index is 22.74 kg/m as calculated from the following: Height as of 12/21/23: 5' 4 . Weight as of this encounter: 132 lb 8 oz. BP: 106/70 Patient's last menstrual period was 08/18/2023. ASSESSMENT & PLAN ICD-10-CM 1. Third trimester Z34.93 POCT urinalysis dipstick manually resulted 2. 28 weeks gestation of Z3A.28 POCT urinalysis dipstick manually resulted Return OB: Patient presents today for a routine obstetrics appointment. Patient is currently 28w6d . Patient states she is doing well but has complaints of being tired due to current . Patient has verbalizes frequent movement. labor precautions was discussed/given and patient was instructed to perform kick counts three times a day. Orders Placed This Encounter Procedures POCT urinalysis dipstick manually resulted Follow Up: Patient is to return to office in 2 week for routine OB appointment. Documented by Rach Byers LPN on behalf of: Juancarlos Hodge DO documented in this encounter [facility] Clinical Note 05-23-2021 Note Date & Type [...] by: CARMITA BRAY Date: 2021-05-23 12:44 [facility] Evaluation note Note Date & Type Note Facility Evaluation note Diagnosis Cellulitis of left ring finger- Primary documented in this encounter [facility] Phone: Evaluation note Note Date & Type Note Facility Evaluation note Diagnosis Third trimester state, incidental 28 weeks gestation of documented in this encounter [facility] Evaluation note Note Date & Type Note Facility Evaluation note Diagnosis Third trimester state, incidental 30 weeks gestation of documented in this encounter [facility] Evaluation note Note Date & Type Note Facility Evaluation note Diagnosis Third trimester state, incidental 32 weeks gestation of documented in this encounter [facility] Hospital Discharge instructions Attachments Note Date & Type Note Facility Hospital Discharge instructions The following attachments cannot be sent through Care Everywhere.Cellulitis (Ukrainian)documented in this encounter [facility] Phone: Summary Purpose Family History No Family [...] section and content) DATE CREATED AUTHOR 05/30/2020 [employer] DATE CREATED AUTHOR AUTHOR'S ORGANIZ ATION 02/15/2022 [facility] DATE CREATED AUTHOR AUTHOR'S ORGANIZ ATION 05/04/2022 [facility] DATE CREATED AUTHOR AUTHOR'S ORGANIZ ATION 08/27/2022 [facility] DATE CREATED AUTHOR AUTHOR'S ORGANIZ ATION 01/03/2024 [facility] DATE CREATED AUTHOR AUTHOR'S ORGANIZ ATION 04/21/2024 [facility] EPIC Reason for Visit (unrecogniz ed section and content) Reason Comments Other Left ring finger swe lling Reason Comments Routine Visit Ordered Prescriptions (unrec ognized section and content) Prescription Sig Dispensed Refills Start Date End Da te mometasone (ELOCON) 0.1 % cream Apply topically 2 times daily as needed (rash finger) Apply topically daily. 15 g 0 02/15/2022 Care Teams (unrecognized sec tion and content) [facility]ber Relationship Specialty Start Date End Date Lupe Adair MD [address] [place] [address] PCP - General Family Medicine 02/05/22 [facility] Relationship Specialty Start Date End Date Lupe Adair MD [address] [place] [address] PCP - General Family Medicine 06/16/23 [facility] Relationship Specialty Start Date End Date Lupe Adair MD [address] [place] [address] PCP - General Family Medicine 06/16/23 [facility] Relationship Specialty Start Date End Date Lupe Adair MD [address] [place] [address] PCP - General Family Medicine 06/16/23 [facility]rib[facility] Relationship Specialty Start Date End Date Lupe Adair MD [address] [place] [address] PCP - General Family Medicine 06/16/23 [facility]ribber Relationship Specialty Start Date End Date Lupe Adair MD [address] [place] [address] PCP - General Family Medicine 06/16/23 FOR RECORDS PERTAINING TO PATIENTS WHO ARE [...] BE BASED ON THE PRIMARY CLINICAL RECORDS. [facility] [place], [facility]. provides no warranty or guarantee of the accuracy or completeness of information in this document.
--- OUTSIDE RECORDS SUMMARY | 2024-04-25 23:36 | XMS_ITS | CCD ---
Author Organization [facility] Care Team Providers Care Furnace Firer Name Role Phone Lupe Adair MD Primary Care Provider [phone] LUPE ADAIR Primary Care Unavailable LUPE ADAIR [...] Admitting Unavailable SULEMANY, DR ANDRADE Attending Unavailable SULEAMNY, DR ANDRADE Primary Care Unavailable NORMAN SPARKS [...] Unavailable Lupe Adair MD Primary Care Provider [phone] JUANCARLOS HODGE Attending Unavailable CHRISTINA ROTHMAN Attending [...] Propensity to adverse reactions to drug (disorder) [facility] Repository Medications Current Medications Medication Drug Class(es) [...] UA Negative Negative - 4(70) +++ mg/dL [facility] Blood, UA Positive Negative - 50 Sung/mcL [facility] Comment on above: trace Clarity, UA Clear [facility] Color, UA Yellow [facility] Glucose, UA Negative Negative - 1999(110) ++++ mg/dL [facility] Interpretation and review of laboratory results Abnormal [facility] Ketones, UA Negative Negative - 160(16) ++++ mg/dL [facility] Leukocytes, UA Negative Negative - 500+++ Jhon/mcL [facility] Nitrite, UA Negative Negative - Positive [facility] pH, UA 6 5 - 9 [facility] Protein, UA Many Negative - 1999(20) ++++ mg/dL [facility] Spec Grav, UA 1.03 1 - 1.03 [facility] Urobilinogen, UA 0.2 0.2 - 12 mg/dL [facility] Urinalysis macro (dipstick) panel (U)on 03-21-2024 Bilirubin, UA Negative Negative - 4(70) +++ mg/dL [facility] Blood, UA Negative Negative - 50 Sung/mcL [facility] Clarity, UA Clear [facility] Color, UA Yellow [facility] Glucose, UA Negative Negative - 1999(110) ++++ mg/dL [facility] Interpretation and review of laboratory results Abnormal [facility] Ketones, UA Negative Negative - 160(16) ++++ mg/dL [facility] Leukocytes, UA Trace Negative - 500+++ Jhon/mcL [facility] Nitrite, UA Negative Negative - Positive [facility] pH, UA 6 5 - 9 [facility] Protein, UA Negative Negative - 1999(20) ++++ mg/dL [facility] Spec Grav, UA 1.025 1 - 1.03 [facility] Urobilinogen, UA 1.0 0.2 - 12 mg/dL [facility] Urinalysis macro (dipstick) panel (U)on 03-07-2024 Bilirubin, UA Negative Negative - 4(70) +++ mg/dL [facility] Blood, UA Negative Negative - 50 Sung/mcL [facility] Clarity, UA Clear [facility] Color, UA Yellow [facility] Glucose, UA Negative Negative - 1999(110) ++++ mg/dL [facility] Interpretation and review of laboratory results Abnormal [facility] Ketones, UA Negative Negative - 160(16) ++++ mg/dL [facility] Leukocytes, UA Positive Negative - 500+++ Jhon/mcL [facility] Comment on above: small Nitrite, UA Negative Negative - Positive [facility] pH, UA 7.0 5 - 9 [facility] Protein, UA Negative Negative - 2000(20) ++++ mg/dL [facility] Spec Grav, UA 1.015 1 - 1.03 [facility] Urobilinogen, UA 1.0 0.2 - 12 mg/dL [facility] .UA Microscp 08-04-2022 UA Bacteria Present Abnormal Absent [facility] Comment on above: Performed By: #### L IVER #### [place] [address] UA Mucus Present Abnormal Absent [facility] Comment on above: Performed By: #### L IVER #### [place] [address] UA RBC Qual 1-4 Normal 0 - 5 [facility] Comment on above: Performed By: #### L IVER #### [place] [address] UA Squepi Cells Qual 15-29 Normal 0 - 29 [facility] Comment on above: Performed By: #### L IVER #### [place] [address] UA WBC Qual 5-9 Abnormal 0 - 5 [facility] Comment on above: Performed By: #### L IVER #### [place] [address] .eGFRon 08-04-2022 GFR/1.73 sq M.predicted MDRD (S/P/Bld) [Vol rate/Area] mL/min/{1.73_m2} Normal >=60 [facility] Comment on above: Order Comment: Order added by Discern rule Result Comment: [facility] Laboratories have implemented the eGFR [...] years Performed By: #### L MUNIRA #### [address] [address] Basic Metabolic Profileon Anion gap [Moles/Vol] 10 mmol/L Normal 7-17 [facility] Comment on above: Performed By: #### C [id number] #### [address] [address] Calcium [Mass/Vol] 8.5 mg/dL Low 8.6-10.3 [facility] Comment on above: Performed By: #### C [id number] #### [address] [address] Chloride 105 IU/L Normal 98-107 [facility] Comment on above: Performed By: #### C [id number] #### [address] [address] CO2 [Moles/Vol] 26 mmol/L Normal 21-31 [facility] Comment on above: Performed By: #### C [id number] #### [address] [address] Creatinine [Mass/Vol] 0.6 mg/dL Normal 0.6-1.2 [facility] Comment on above: Performed By: #### C [id number] #### [address] [address] Glucose [Mass/Vol] 90 mg/dL Normal 70-99 [facility] Comment on above: Performed By: #### C [id number] #### [place] [address] Potassium [Moles/Vol] 3.5 mmol/L Normal 3.4-4.8 [facility] Comment on above: Performed By: #### C [id number] #### [place] [address] Sodium [Moles/Vol] 138 mmol/L Normal 136-145 [facility] Comment on above: Performed By: #### C [id number] #### [place] [address] Urea nitrogen [Mass/Vol] 14 mg/dL Normal 7-25 [facility] Comment on above: Performed By: #### C [id number] #### [place] [address] Urea nitrogen/Creatinine [Mass ratio] 23.3 mg/mg High 10.0-20.0 [facility] Comment on above: Performed By: #### C [id number] #### [place] [address] CBC w/ Diffon 08-04-2022 Erythrocyte distribution width (RBC) [Ratio] 12.5 % Normal 11.6-14.8 [facility] Comment on above: Performed By: #### C BC #### [place] [address] Hematocrit (Bld) [Volume fraction] 40.3 % Normal 36.0-46.0 [facility] Comment on above: Performed By: #### C BC #### [place] [address] Hemoglobin (Bld) [Mass/Vol] 13.6 g/dL Normal 12.0-16.0 [facility] Comment on above: Performed By: #### C BC #### [place] [address] MCH (RBC) [Entitic mass] 29.9 pg Normal 27.0-35.0 [facility] Comment on above: Performed By: #### C BC #### [place] [address] MCHC 33.8 % Normal 31.0-37.0 [facility] Comment on above: Performed By: #### C BC #### [place] [address] MCV (RBC) [Entitic vol] 88.4 fL Normal 80.0-100.0 [facility] Comment on above: Performed By: #### C BC #### [place] [address] Platelet 230 x10*3/mcL Normal 150-350 [facility] Comment on above: Performed By: #### C BC #### [place] [address] Platelet mean volume (Bld) [Entitic vol] 7.7 fL Normal 7.5-11.5 [facility] Comment on above: Performed By: #### C BC #### [place] [address] RBC 4.56 x10*6/mcL Normal 3.80-5.20 [facility] Comment on above: Performed By: #### C BC #### [place] [address] WBC 6.7 x10*3/mcL Normal 4.5-11.0 [facility] Comment on above: Performed By: #### C BC #### [place] [address] COV19 Rapidon 08-04-2022 LAB ONLY Result Called? No Normal [facility] Comment on above: Performed By: #### C [id number] #### [place] [address] Reason for Rapid Test COVID Exposure Normal [facility] Comment on above: Performed By: #### C [id number] #### [place] [address] SARS-CoV-2 (COVID-19) RNA ADELSO+probe Ql (Unsp spec) Negative Normal Negative [facility] Comment on above: Result Comment: This test [...] using the ID NOW COVID-19 test by [employer], which has received Emergency Use Authorization (EUA) [...] following links: Fact Sheet for HealthCare Providers: https://www.fda.gov/media/715323/download Fact Sheet for Patients: https://www.fda.gov/media/584601/download Performed By: #### C [id number] #### [address] [address] Diff Autoon 08-04-2022 Baso Absolute 0.0 x10*3/mcL Normal 0.0-0.2 [facility] Comment on above: Performed By: #### . Automated Diff #### [address] [address] Basophils/100 WBC (Bld) 0.2 % Normal 0.0-1.5 [facility] Comment on above: Performed By: #### . Automated Diff #### [address] [address] Eos Absolute 0.1 x10*3/mcL Normal 0.0-0.4 [facility] Comment on above: Performed By: #### . Automated Diff #### [place] [address] Eosinophils/100 WBC (Bld) 1.2 % Normal 0.0-5.4 [facility] Comment on above: Performed By: #### . Automated Diff #### [place] [address] Lymph Absolute 1.6 x10*3/mcL Normal 1.0-4.8 [facility] Comment on above: Performed By: #### . Automated Diff #### [place] [address] Lymphocytes/100 WBC (Bld) 23.7 % Low 27.2-40.8 [facility] Comment on above: Performed By: #### . Automated Diff #### [place] [address] Martin Absolute 0.6 x10*3/mcL Normal 0.1-1.1 [facility] Comment on above: Performed By: #### . Automated Diff #### [place] [address] Monocytes/100 WBC (Bld) 9.3 % Normal 3.7-11.9 [facility] Comment on above: Performed By: #### . Automated Diff #### [place] [address] Neutro Absolute 4.4 x10*3/mcL Normal 1.8-7.7 [facility] Comment on above: Performed By: #### . Automated Diff #### [place] [address] Neutro Auto 65.6 % Normal 47.2-70.8 [facility] Comment on above: Performed By: #### . Automated Diff #### [place] [address] ED Clinical Summaryon 2022 ED Clinical Summary (Inserted Image. Debra ble to display) [place] [address] ED Clinical Summary Person Information Name: Jeannine Antunez Anusha/[facility] Age: 21 Years : 2000 Sex: Female PCP: Marital Status: Single Phone: Race: White Ethnicity: Not or Language: Tunisian Visit Reason: Abdominal pain; Vomiting; Nausea; Abdominal pain Acuity: 3 Enc Type: Emergency Med Service: Emergency Medicine Arrival: 08/04/2022 18:42:47 Discharge: 08/04/2022 20:40:00 LOS: 000 01:58 Checkin: 08/04/2022 18:42:47 Checkout: 08/04/2022 20:40:00 Dispo Type: Home or Self Care Address: [address] [place] [address] Provider Notes: History of Present Illness 21-year-old [...] range between ( 27.2 and 40.8 ) Martin Auto: 9.3 % -- Normal range between [...] range between ( 36.0 and 46.0 ) Martin Absolute: 0.6 x10 MCH: 29.9 pg -- [...] UA Color: (more content not included)... Normal [facility] ED Note-Physicianon 08-04-19 ED Note-Physician Chief Complaint [...] 08/04/22 19:26 (more content not included)... Normal [facility] Flu A&B Ag Rapidon 3 Influenza A Ag Negative Normal Negative [facility] Comment on above: Performed By: #### C [id number] #### [place] [address] Influenza B Ag Negative Normal Negative [facility] Comment on above: Result Comment: [employer] Influenza A+B Card 2 detects both viable [...] public health departments. Performed By: #### C [id number] #### [place] [address] Hep Func Panelon 08-04-2022 Albumin [Mass/Vol] 4.4 g/dL Normal 3.7-5.3 [facility] Comment on above: Performed By: #### L IVER #### [place] [address] Alk Phos 53 IU/L Normal 34-104 [facility] Comment on above: Performed By: #### L IVER #### [place] [address] ALT [Catalytic activity/Vol] 15 U/L Normal 7-52 [facility] Comment on above: Performed By: #### L IVER #### [place] [address] AST [Catalytic activity/Vol] 16 U/L Normal 13-39 [facility] Comment on above: Performed By: #### L IVER #### [place] [address] Bili Direct 0.15 mg/dL Normal 0.03-0.18 [facility] Comment on above: Performed By: #### L IVER #### [place] [address] Bili Indirect 0.4 mg/dL Normal 0.0-1.0 [facility] Comment on above: Performed By: #### L IVER #### [place] [address] Bili Total 0.6 mg/dL Normal 0.3-1.0 [facility] Comment on above: Performed By: #### L IVER #### [place] [address] Protein [Mass/Vol] 7.5 g/dL Normal 6.0-8.3 [facility] Comment on above: Performed By: #### L REHANER #### [place] [address] Lipaseon 08-04-2022 Lipase Lvl 18 IU/L Normal [facility] Comment on above: Performed By: #### L IP #### [place] [address] UA w Culture if Ind Tri Color (U) Yellow Normal [facility] Comment on above: Performed By: #### U CIM #### [place] [address] Glucose (U) [Mass/Vol] Negative Normal Negative [facility] Comment on above: Performed By: #### U CIM #### [place] [address] Ketones Ql (U) Negative Normal Negative [facility] Comment on above: Performed By: #### U CIM #### [place] [address] UA Blood Negative Normal Negative [facility] Comment on above: Performed By: #### U CIM #### [place] [address] UA Clarity Hazy Normal [facility] Comment on above: Performed By: #### U CIM #### [place] [address] UA Leukocyte Esterase Trace Abnormal Negative [facility] Comment on above: Performed By: #### U CIM #### [place] [address] UA Nitrite Negative Normal Negative [facility] Comment on above: Performed By: #### U CIM #### [place] [address] UA pH 7.0 Normal 4.5 - 7.8 [facility] Comment on above: Performed By: #### U CIM #### [place] [id number] UA Protein Negative Normal Negative [facility] Comment on above: Performed By: #### U CIM #### [place] [address] UA Source Clean Catch Normal [facility] Comment on above: Performed By: #### U CIM #### [place] [address] UA Spec Grav 1.025 Normal 1.003-1.035 [facility] Comment on above: Performed By: #### U CIM #### [place] [address] UA Urobilinogen 2.0 mg/dL Abnormal 0.2 - 1.0 [facility] Comment on above: Result Comment: conf irmed with chemstrip 10 08/04/2022 19:44:02 EST Performed By: #### U CIM #### [place] [address] Urobilinogen (U) [Mass/Vol] Negative Normal Negative [facility] Comment on above: Performed By: #### U CIM #### [place] [address] XR Abdomen 2 Views w/ Chest 1 [...] Electronically Signed in Other Vendor System) Normal [facility] INSULINon 05-01-2022 Insulin 14.9 uIU/mL Normal 2.6-24.9 [facility] Comment on above: Performed By: #### I NSULIN #### [facility] [address] [place] [address] Dr. Yesenia Hung CBC AUTO DIFFon 04-29-2022 BASO # 0.0 103/ul Normal 0.0-0.1 [facility] Comment on above: Performed By: #### R PRQ #### [facility] [address] [place] [address] Dr. Yesenia Hung Basophils/100 WBC (Bld) 0.6 % Normal 0.2-2.0 [facility] Comment on above: Performed By: #### R PRQ #### [facility] [address] [place] [address] Dr. Yesenia Hung EO # 0.1 103/ul Normal 0.0-0.7 [facility] Comment on above: Performed By: #### R PRQ #### [facility] [address] [place] [address] Dr. Yesenia Hung Eosinophils/100 WBC (Bld) 0.7 % Critically low 0.9-7.0 [facility] Comment on above: Performed By: #### R PRQ #### [facility] [address] [place] [address] Dr. Yesenia Hung Erythrocyte distribution width (RBC) [Ratio] 12.6 % Normal 11.0-15.0 [facility] Comment on above: Performed By: #### R PRQ #### [facility] [address] [place] [address] Dr. Yesenia Hung Hematocrit (Bld) [Volume fraction] 38.9 % Normal 36.0-48.0 [facility] Comment on above: Performed By: #### R PRQ #### [facility] [address] [place] [address] Dr. Yesenia Hung Hemoglobin (Bld) [Mass/Vol] 13.2 g/dL Normal 12.0-16.0 [facility] Comment on above: Performed By: #### R PRQ #### [facility] [address] [place] [address] Dr. Yesenia Hung IG # 0.02 10e3/ul Normal 0.00-0.03 [facility] Comment on above: Performed By: #### R PRQ #### [facility] [address] [place] [address] Dr. Yesenia Hung IG % 0.3 % Normal 0.0-0.5 [facility] Comment on above: Performed By: #### R PRQ #### [facility] [address] [place] [address] Dr. Yesenia Hung LYMPH # 2.1 103/ul Normal 1.2-3.8 [facility] Comment on above: Performed By: #### R PRQ #### [facility] [address] [place] [address] Dr. Yesenia Hung Lymphocytes/100 WBC (Bld) 29.4 % Normal 20.5-60.0 [facility] Comment on above: Performed By: #### R PRQ #### [facility] [address] [place] [address] Dr. Yesenia Hung MANUAL DIFF REQ NO Normal [facility] Comment on above: Performed By: #### R PRQ #### [facility] [address] [place] [address] Dr. Yesenia Hung MCH (RBC) [Entitic mass] 29.8 pg Normal 26.7-34.0 [facility] Comment on above: Performed By: #### R PRQ #### [facility] [address] [place] [address] Dr. Yesenia Hung MCHC (RBC) [Mass/Vol] 33.9 g/dL Normal 29.9-35.2 [facility] Comment on above: Performed By: #### R PRQ #### [facility] [address] [place] [address] Dr. Yesenia Hung MCV (RBC) [Entitic vol] 87.8 fL Normal 81.0-99.[address] [facility] Comment on above: Performed By: #### R PRQ #### [facility] [address] [place] [address] Dr. Yesenia Hung MONO # 0.5 103/ul Normal 0.3-0.8 [facility] Comment on above: Performed By: #### R PRQ #### [facility] [address] [place] [address] Dr. Yesenia Hung Monocytes/100 WBC (Bld) 6.6 % Normal 1.7-12.0 [facility] Comment on above: Performed By: #### R PRQ #### [facility] [address] [place] [address] Dr. Yesenia Hung NEUT # 4.5 103/ul Normal 1.4-6.5 [facility] Comment on above: Performed By: #### R PRQ #### [facility] [address] [place] [address] Dr. Yesenia Hung Neutrophils/100 WBC (Bld) 62.4 % Normal 43.0-75.0 [facility] Comment on above: Performed By: #### R PRQ #### [facility] [address] [place] [address] Dr. Yesenia Hung Platelet mean volume (Bld) [Entitic vol] 9.5 fL Normal 9.5-13.5 [facility] Comment on above: Performed By: #### R PRQ #### [facility] [address] [place] [address] Dr. Yesenia Hung PLT 294 103/ul Normal 150-[address] [facility] Comment on above: Performed By: #### R PRQ #### [facility] [address] [place] [address] Dr. Yesenia Hung RBC 4.43 106/ul Normal 4.20-5.[address] [facility] Comment on above: Performed By: #### R PRQ #### [facility] [address] [place] [address] Dr. Yesenia Hung WBC 7.1 103/ul Normal 4.0-11.0 [facility] Comment on above: Performed By: #### R PRQ #### [facility] [address] [place] [address] [address] eYsenia Hung FREE THYROXINE INDEX T7on FTI 2.51 Normal 1.30-4.50 [facility] Comment on above: Performed By: #### C MP, TSH, T7, PREGQNT #### [facility] [address] [place] [address] [address] Yesenia Hung T3U 33.0 % Normal 30.0-39.0 [facility] Comment on above: Performed By: #### C MP, TSH, T7, PREGQNT #### [facility] [address] [place] [address] Dr. Yesenia Hung T4 [Mass/Vol] 7.60 ug/dL Normal 4.80-13.90 [facility] Comment on above: Performed By: #### C MP, TSH, T7, PREGQNT #### [facility] [address] [place] [address] Dr. Yesenia Hung GLYCOHEMOGLOBIN A1Con 2021 ADA RECOMMENDATION SEE BELOW Normal [facility] Comment on above: Result Comment: ADA RECOMMENDED LIMIT 4.0 - 6.0 ADA THERAPEUTIC TARGET < 7.0 ACTION SUGGESTED > 7.0 Performed By: #### A 1C #### [facility] [address] [place] [address] Dr. Yesenia Hung Glucose [Mass/Vol] 103 mg/dL Normal [facility] Comment on above: Performed By: #### A 1C #### [facility] [address] [place] [address] Dr. Yesenia Hung HbA1c (Bld) [Mass fraction] 5.2 % Normal 4.5-6.2 [facility] Comment on above: Performed By: #### A 1C #### [facility] [address] [place] [address] Dr. Yesenia Hung IRONon 04-29-2022 Iron [Mass/Vol] 40.0 ug/dL Critically low 50.0-170.0 [facility] Comment on above: Performed By: #### A 1C #### [facility] [address] [place] [address] Dr. Yesenia Hung PREG QUANT HCGon 04-29-2022 HCG QUANT <1 Normal [facility] Comment on above: Performed By: #### R PRQ #### [facility] [address] [place] [address] Dr. Yesenia Hung HCG RANGE SEE BELOW Normal [facility] Comment on above: Result Comment: 5-50 0.2-1 WEEK 50-500 1-2 WEEKS 100-5,000 2-3 WEEKS 500-10,000 3-4 WEEKS 1,000-50,000 4-5 WEEKS 10,000-100,000 5-6 WEEKS 15,000-200,000 6-8 WEEKS 10,000-100,000 2-3 MONTHS Performed By: #### R PRQ #### [facility] [address] [place] [address] Dr. Yesenia Hung PROF 14(COMP METB)on 022 Albumin [Mass/Vol] 4.2 g/dL Normal 3.4-5.0 [facility] Comment on above: Performed By: #### R PRQ #### [facility] [address] [place] [address] Dr. Yesenia Hung Albumin/Globulin [Mass ratio] 1.0 {ratio} Normal [facility] Comment on above: Performed By: #### R PRQ #### [facility] [address] [place] [address] Dr. Yesenia Hung ALP [Catalytic activity/Vol] 67 U/L Normal 46-116 [facility] Comment on above: Performed By: #### R PRQ #### [facility] [address] [place] [address] Dr. Yesenia Hung ALT [Catalytic activity/Vol] 11 U/L Critically low 14-59 [facility] Comment on above: Performed By: #### R PRQ #### [facility] [address] [place] [address] Dr. Yesenia Hung Anion gap [Moles/Vol] 12.1 mmol/L Normal [facility] Comment on above: Performed By: #### R PRQ #### [facility] [address] [place] [address] [address] Yesenia Hung AST [Catalytic activity/Vol] 10 U/L Critically low 15-37 [facility] Comment on above: Performed By: #### R PRQ #### [facility] [address] [place] [address] [address] Yesenia Hung Bilirubin [Mass/Vol] 0.2 mg/dL Normal 0.2-1.0 [facility] Comment on above: Performed By: #### R PRQ #### [facility] [address] [place] [address] [address] Yesenia Hung Calcium [Mass/Vol] 9.4 mg/dL Normal 8.5-10.1 [facility] Comment on above: Performed By: #### R PRQ #### [facility] [address] [place] [address] [address] Yesenia Hung Chloride [Moles/Vol] 103 mmol/L Normal 98-107 [facility] Comment on above: Performed By: #### R PRQ #### [facility] [address] [address] Dr. Yesenia Hung CO2 [Moles/Vol] 28.2 mmol/L Normal 21.0-32.0 [facility] Comment on above: Performed By: #### R PRQ #### [facility] [address] [address] [address] Yesenia Hung Creatinine [Mass/Vol] 0.58 mg/dL Normal 0.55-1.02 [facility] Comment on above: Performed By: #### R PRQ #### [facility] [address] [address] [address] Yesenia Hung EGFR-AF SYRIAN >60 Normal >=60 [facility] Comment on above: Performed By: #### R PRQ #### [facility] [address] [address] [address] Yesenia Hung EGFR-NON AF SYRIAN >60 Normal >=60 [facility] Comment on above: Performed By: #### R PRQ #### [facility] [address] [address] [address] Yesenia Hung Globulin (S) [Mass/Vol] 4.0 g/dL Normal [facility] Comment on above: Performed By: #### R PRQ #### [facility] [address] [address] [address] Yesenia Hung Glucose [Mass/Vol] 89 mg/dL Normal 74-106 [facility] Comment on above: Performed By: #### R PRQ #### [facility] [address] [address] [address] Yesenia Hung Potassium [Moles/Vol] 4.3 mmol/L Normal 3.5-5.1 [facility] Comment on above: Performed By: #### R PRQ #### [facility] [address] [place] [address] Dr. Yesenia Hung Protein [Mass/Vol] 8.2 g/dL Normal 6.4-8.2 [facility] Comment on above: Performed By: #### R PRQ #### [facility] [address] [place] [address] Dr. Yesenia Hung Sodium [Moles/Vol] 139 mmol/L Normal 136-145 [facility] Comment on above: Performed By: #### R PRQ #### [facility] [address] [place] [address] Dr. Yesenia Hung Urea nitrogen [Mass/Vol] 11.0 mg/dL Normal 7.0-18.0 [facility] Comment on above: Performed By: #### R PRQ #### [facility] [address] [place] [address] Dr. Yesenia Hung Urea nitrogen/Creatinine [Mass ratio] 19.0 mg/mg Normal [facility] Comment on above: Performed By: #### R PRQ #### [facility] [address] [place] [address] Dr. Yesenia Hung TSHon 04-29-2022 TSH 1.621 uIU/mL Normal 0.358-3.740 [facility] Comment on above: Performed By: #### R PRQ #### [facility] [address] [address] [address] Yesenia Hung ED Clinical Summaryon 2021 ED Clinical Summary (Inserted Image. Debra ble to display) [address] [address] ED Clinical Summary Person Information Name: Jeannine Antunez/New_Loy Age: 21 Years : 2000 Sex: Female PCP: Marital Status: Single Phone: Race: White Ethnicity: Not or Language: Tunisian Visit Reason: Skin rash; Rash Acuity: 4 Enc Type: Emergency Med Service: Emergency Medicine Arrival: 03/29/2022 23:48:59 Discharge: 03/30/2022 00:18:00 LOS: 000 00:30 Checkin: 03/29/2022 23:48:59 Checkout: 03/30/2022 00:18:00 Dispo Type: Home or Self Care Address: [address] [place] [address] Provider Notes: History of Present Illness Patient presents for evaluation of rash. ?She believes that she is having a reaction to?red dye as she presented to?another emergency department?in [facility] earlier today.? Patient?was prescribed prednisone 60 mg [...] Contact Dermatitis AAPCC Poison Help line: . [facility] Hotline: [place] Tobacco Quit Line: [place], [place]) [address]: [phone] [place], [place]) [address]: [phone] [facility] [address] [facility] [place], [place]: [phone] Normal [facility] ED Note-Physicianon 03-30-20 ED Note-Physician Chief Complaint Presents to ED with c/o scattered small reddened areas to upper and lower extremities. History of Present Illness Patient presents for evaluation of rash. She believes that she is having a reaction to red dye as she presented to another emergency department in [facility] earlier today. Patient was prescribed prednisone 60 [...] differential diagnoses including viral rash such as kgel-lsbc-eoy-mouth disease and contact dermatitis. Patient has had [...] Rach Posadas MD 03/30/22 00:21 EDT Normal [facility] PAP ACOG PANEL 3: 21 to 29on 06-09-2021 . . Normal [facility] Comment on above: Result Comment: Perf ormed at: WB Performed By: #### [id number] #### [facility] [address] [place] [address] Dr. Yesenia Hung Age Gdln ACOG Testing Comment Normal [facility] Comment on above: Result Comment: <21 or >65 or no age provided Performed By: #### [id number] #### [facility] [address] [place] [address] Dr. Yesenia Hung Chlamydia, Nuc. Acid Amp Positive Abnormal Negative [facility] Comment on above: Result Comment: . Performed at: =G Performed By: #### [id number] #### [facility] [address] [place] [address] Dr. Yesenia Hung DIAGNOSIS: Comment Abnormal [facility] Comment on above: Result Comment: EPIT HELIAL CELL ABNORMALITY. ATYPICAL SQUAMOUS CELLS OF UNDETERMINED SIGNIFICANCE (ASC-US). Performed at: WB Performed By: #### [id number] #### [facility] [address] [place] [address] Dr. Yesenia Hung Electronically signed by: Comment Normal [facility] Comment on above: Result Comment: Mi Ocampo MD, Pathologist Performed at: WB Performed By: #### [id number] #### [facility] [address] [place] [address] Dr. Yesenia Hung Gonococcus, Nuc. Acid Amp Negative Normal Negative [facility] Comment on above: Result Comment: Perf ormed at: =G Performed By: #### [id number] #### [facility] [address] [place] [address] Dr. Yesenia Hung Methodology: Comment Normal [facility] Comment on above: Result Comment: This liquid based ThinPrep(R) pap test was screened with the use of an image guided system. Performed at: WB Performed By: #### [id number] #### [facility] [address] [place] [address] Dr. Yesenia Hung Note: Comment Normal [facility] Comment on above: Result Comment: The Pap smear is a screening test designed to aid in the detection of premalignant and malignant conditions of the uterine cervix. It is not a diagnostic procedure and should not be used as the sole means of detecting cervical cancer. Both false-positive and false-negative reports do occur. . Performed at: WB Performed By: #### [id number] #### [facility] [address] [place] [address] Dr. Yesenia Hung Pathologist Provided ICD10 Comment Normal [facility] Comment on above: Result Comment: [id number] Performed at: WB Performed By: #### [id number] #### [facility] [address] [place] [address] Dr. Yesenia Hung Performed by: Comment Normal [facility] Comment on above: Result Comment: Amelia Thompson Failure Analysis Technician (ASCP) Performed at: WB Performed By: #### [id number] #### [facility] [address] [place] [address] Dr. Yesenia Hung Specimen adequacy: Comment Normal [facility] Comment on above: Result Comment: Sati sfactory for evaluation. Endocervical and/or squamous metaplastic cells (endocervical component) are present. Performed at: WB Performed By: #### [id number] #### [facility] [address] [address] [address] Yesenia Hung HEPATITIS PANEL, ACUTEon HBsAg Screen Negative Normal Negative [facility] Comment on above: Performed By: #### A 1C #### [facility] [address] [address] [address] Yesenia Hung Hep A Ab, IgM Negative Normal Negative [facility] Comment on above: Performed By: #### A 1C #### [facility] [address] [place] [address] Dr. Yesenia Hung Hep B Core Ab, IgM Negative Normal Negative [facility] Comment on above: Performed By: #### A 1C #### [facility] [address] [place] [address] Dr. Yesenia Hung Hep C Virus Ab <0.1 Normal 0.0-0.9 [facility] Comment on above: Result Comment: Nega tive: < 0.8 Indeterminate: 0.8 - 0.9 Positive: > 0.9 . The CDC recommends that a positive HCV antibody result be followed up with a HCV Nucleic Acid Amplification test (577148). Effective August 18, 2021 Hepatitis Panel (4) will be made non-orderable. [facility] offers order code [id number] Acute Hepatitis. Performed By: #### A 1C #### [facility] [address] [place] [address] Dr. Yesenia Hnug HERPES SIMPLEX 1/2 IGGon HSV 1 IgG, Type Spec <0.91 Normal 0.00-0.90 [facility] Comment on above: Result Comment: Nega tive <0.91 Equivocal 0.91 - 1.09 Positive >1.09 Note: Negative indicates no antibodies detected to HSV-1. Equivocal may suggest early infection. If clinically appropriate, retest at later date. Positive indicates antibodies detected to HSV-1. Performed By: #### H SV IGG #### [facility] [address] [place] [address] Dr. Yesenia Hung HSV 2 IgG Type Spec <0.91 Normal 0.00-0.90 [facility] Comment on above: Result Comment: Nega tive <0.91 Equivocal 0.91 - 1.09 Positive >1.09 Note: Negative indicates no antibodies detected to HSV-2. Equivocal may suggest early infection. If clinically appropriate, retest at later date. Positive indicates antibodies detected to HSV-2. Performed By: #### H SV IGG #### [facility] [address] [place] [address] Dr. Yesenia Hung HERPES SIMPLEX 1/2 IGMon HSV, IgM I/II Combination <0.91 Normal 0.00-0.90 [facility] Comment on above: Result Comment: Nega tive <0.91 Equivocal 0.91 - 1.09 Positive >1.09 Performed By: #### A 1C #### [facility] [address] [place] [address] Dr. Yesenia Hung HIV 1 AND 2 WITH REFLEXon HIV Screen 4th Generation wRfx Non-Reactive Normal Non Reactive [facility] Comment on above: Performed By: #### A 1C #### [facility] [address] [place] [address] Dr. Yesenia Hung RPR QUANTon 06-05-2021 Rapid Plasma Reagin, Quant Non-Reactive Normal NonRea<1:1 [facility] Comment on above: Performed By: #### R PRQ #### [facility] [address] [place] [address] Dr. Yesenia Hung HERPES SIMPLEX 1/2 IGGon HSV 1 IgG, Type Spec <0.91 Normal 0.00-0.90 [facility] Comment on above: Result Comment: Nega tive <0.91 Equivocal 0.91 - 1.09 Positive >1.09 Note: Negative indicates no antibodies detected to HSV-1. Equivocal may suggest early infection. If clinically appropriate, retest at later date. Positive indicates antibodies detected to HSV-1. Performed By: #### A 1C #### [facility] [address] [address] [address] Yesenia Hung HSV 2 IgG Type Spec <0.91 Normal 0.00-0.90 [facility] Comment on above: Result Comment: Nega tive <0.91 Equivocal 0.91 - 1.09 Positive >1.09 Note: Negative indicates no antibodies detected to HSV-2. Equivocal may suggest early infection. If clinically appropriate, retest at later date. Positive indicates antibodies detected to HSV-2. Performed By: #### A 1C #### [facility] [address] [address] [address] Yesenia Hung HEPATITIS PANEL, ACUTEon HBsAg Screen Negative Normal Negative [facility] Comment on above: Performed By: #### H EPACUT #### [facility] [address] [place] [address] Dr. Yesenia Hung Hep A Ab, IgM Negative Normal Negative [facility] Comment on above: Performed By: #### H EPACUT #### [facility] [address] [address] [address] Yesenia Hung Hep B Core Ab, IgM Negative Normal Negative [facility] Comment on above: Performed By: #### H EPACUT #### [facility] [address] [place] [address] Dr. Yesenia Hung Hep C Virus Ab <0.1 Normal 0.0-0.9 [facility] Comment on above: Result Comment: Nega tive: < 0.8 Indeterminate: 0.8 - 0.9 Positive: > 0.9 . The CDC recommends that a positive HCV antibody result be followed up with a HCV Nucleic Acid Amplification test (747254). Effective August 18, 2021 Hepatitis Panel (4) will be made non-orderable. [facility] offers order code [id number] Acute Hepatitis. Performed By: #### H EPACUT #### [facility] [address] [address] [address] Yesenia Hung HIV 1 AND 2 WITH REFLEXon HIV Screen 4th Generation wRfx Non-Reactive Normal Non Reactive [facility] Comment on above: Performed By: #### H IV12 #### [facility] [address] [place] [address] Dr. Yesenia Hung RPR QUANTon 05-25-2021 Rapid Plasma Reagin, Quant Non-Reactive Normal NonRea<1:1 [facility] Comment on above: Performed By: #### R PRQ #### [facility] [address] [place] [address] Dr. Yesenia Hung CBC AUTO DIFFon 05-24-2021 BASO # 0.0 103/ul Normal 0.0-0.1 [facility] Comment on above: Performed By: #### R PRQ #### [facility] [address] [place] [address] Dr. Yesenia Hung Basophils/100 WBC (Bld) 0.3 % Normal 0.2-2.0 [facility] Comment on above: Performed By: #### R PRQ #### [facility] [address] [place] [address] Dr. Yesenia Hung EO # 0.1 103/ul Normal 0.0-0.7 [facility] Comment on above: Performed By: #### R PRQ #### [facility] [address] [place] [address] Dr. Yesenia Hung Eosinophils/100 WBC (Bld) 1.0 % Normal 0.9-7.0 [facility] Comment on above: Performed By: #### R PRQ #### [facility] [address] [place] [address] Dr. Yesenia Hung Erythrocyte distribution width (RBC) [Ratio] 12.3 % Normal 11.0-15.0 [facility] Comment on above: Performed By: #### R PRQ #### [facility] [address] [place] [address] Dr. Yesenia Hung Hematocrit (Bld) [Volume fraction] 38.3 % Normal 36.0-48.0 [facility] Comment on above: Performed By: #### R PRQ #### [facility] [address] [place] [address] Dr. Yesenia Hung Hemoglobin (Bld) [Mass/Vol] 12.4 g/dL Normal 12.0-16.0 [facility] Comment on above: Performed By: #### R PRQ #### [facility] [address] [place] [address] Dr. Yesenia Hung IG # 0.02 10e3/ul Normal 0.00-0.03 [facility] Comment on above: Performed By: #### R PRQ #### [facility] [address] [place] [address] Dr. Yesenia Hung IG % 0.3 % Normal 0.0-0.5 [facility] Comment on above: Performed By: #### R PRQ #### [facility] [address] [place] [address] Dr. Yesenia Hung LYMPH # 1.6 103/ul Normal 1.2-3.8 [facility] Comment on above: Performed By: #### R PRQ #### [facility] [address] [place] [address] Dr. Yesenia Hung Lymphocytes/100 WBC (Bld) 22.8 % Normal 20.5-60.0 [facility] Comment on above: Performed By: #### R PRQ #### [facility] [address] [place] [address] Dr. Yesenia Hung MANUAL DIFF REQ NO Normal [facility] Comment on above: Performed By: #### R PRQ #### [facility] [address] [place] [address] Dr. Yesenia Hung MCH (RBC) [Entitic mass] 28.5 pg Normal 26.7-34.0 [facility] Comment on above: Performed By: #### R PRQ #### [facility] [address] [place] [address] Dr. Yesenia Hung MCHC (RBC) [Mass/Vol] 32.4 g/dL Normal 29.9-35.2 [facility] Comment on above: Performed By: #### R PRQ #### [facility] [address] [place] [address] Dr. Yesenia Hung MCV (RBC) [Entitic vol] 88.0 fL Normal 81.0-99.[address] [facility] Comment on above: Performed By: #### R PRQ #### [facility] [address] [place] [address] Dr. Yesenia Hung MONO # 0.5 103/ul Normal 0.3-0.8 [facility] Comment on above: Performed By: #### R PRQ #### [facility] [address] [place] [address] Dr. Yesenia Hung Monocytes/100 WBC (Bld) 7.1 % Normal 1.7-12.0 [facility] Comment on above: Performed By: #### R PRQ #### [facility] [address] [place] [address] Dr. Yesenia Hung NEUT # 4.9 103/ul Normal 1.4-6.5 [facility] Comment on above: Performed By: #### R PRQ #### [facility] [address] [place] [address] Dr. Yesenia Hung Neutrophils/100 WBC (Bld) 68.5 % Normal 43.0-75.0 [facility] Comment on above: Performed By: #### R PRQ #### [facility] [address] [place] [address] Dr. Yesenia Hung Platelet mean volume (Bld) [Entitic vol] 9.6 fL Normal 9.5-13.[address] [facility] Comment on above: Performed By: #### R PRQ #### [facility] [address] [place] [address] Dr. Yesenia Hung PLT 224 103/ul Normal 150-[address] [facility] Comment on above: Performed By: #### R PRQ #### [facility] [address] [place] [address] Dr. Yesenia Hung RBC 4.35 106/ul Normal 4.20-5.[address] [facility] Comment on above: Performed By: #### R PRQ #### [facility] [address] [place] [address] Dr. Yesenia Hung WBC 7.1 103/ul Normal 4.0-11.0 [facility] Comment on above: Performed By: #### R PRQ #### [facility] [address] [address] [address] Yesenia Hung FREE THYROXINE INDEX T7on FTI 2.24 Normal [facility] Comment on above: Performed By: #### R PRQ #### [facility] [address] [address] [address] Yesenia Hung T3U 32.0 % Normal 23.5-40.5 [facility] Comment on above: Performed By: #### R PRQ #### [facility] [address] [address] [address] Yesenia Hung T4 [Mass/Vol] 7.00 ug/dL Normal 5.53-11.00 [facility] Comment on above: Performed By: #### R PRQ #### [facility] [address] [address] [address] Yesenia Hung GLYCOHEMOGLOBIN A1Con 2020 ADA RECOMMENDATION ADA THERAPEUTIC TARG ET 6.0 - 7.0 ACTION SUGGESTED > 7.0 Normal [facility] Comment on above: Performed By: #### A 1C #### [facility] [address] [address] [address] Yesenia Hung Glucose [Mass/Vol] 94 mg/dL Normal [facility] Comment on above: Performed By: #### A 1C #### [facility] [address] [address] [address] Yesenia Hung HbA1c (Bld) [Mass fraction] 4.9 % Normal <=6.0 [facility] Comment on above: Performed By: #### A 1C #### [facility] [address] [address] [address] Yesenia Hung IRONon 05-24-2021 Iron [Mass/Vol] 53.0 ug/dL Normal 37.0-170.0 [facility] Comment on above: Performed By: #### A 1C #### [facility] [address] [place] [address] Dr. Yesenia Hung LIPID PROFILEon 05-24-2021 CHOL-HDL RATIO NORM SEE BELOW Normal [facility] Comment on above: Result Comment: 3.3 - 4.4 LOW RISK 4.4 - 7.1 AVERAGE RISK 7.1 - 11.0 MODERATE RISK >11.0 HIGH RISK Performed By: #### R PRQ #### [facility] [address] [address] [address] Yesenia Hung Cholesterol [Mass/Vol] 139 mg/dL Normal <=200 [facility] Comment on above: Performed By: #### R PRQ #### [facility] [address] [address] [address] Yesenia Hung Cholesterol in HDL [Mass/Vol] 46 mg/dL Normal [facility] Comment on above: Performed By: #### R PRQ #### [facility] [address] [address] [address] Yesenia Hung Cholesterol in LDL [Mass/Vol] 78.2 mg/dL Normal [facility] Comment on above: Performed By: #### R PRQ #### [facility] [address] [address] [address] Yesenia Hung Cholesterol.total/C holesterol in HDL [Mass ratio] 3.0 {ratio} Normal [facility] Comment on above: Performed By: #### R PRQ #### [facility] [address] [address] [address] Yesenia Hung HDL NORMAL > or = 60 mg/dl - LO W CARDIOVASCULAR RISK <40 mg/dl - HIGH CARDIOVASCULAR RISK Normal [facility] Comment on above: Performed By: #### R PRQ #### [facility] [address] [address] [address] Yesenia Hung LDL CALC NORMAL SEE BELOW Normal [facility] Comment on above: Result Comment: <100 mg/dl OPTIMAL 100 - 129 mg/dl NEAR OR ABOVE OPTIMAL 130 - 159 mg/dl BORDERLINE HIGH 160 - 189 mg/dl HIGH >190 mg/dl VERY HIGH Performed By: #### R PRQ #### [facility] [address] [address] [address] Yesenia Hung Triglyceride [Mass/Vol] 74 mg/dL Normal <=150 [facility] Comment on above: Performed By: #### R PRQ #### [facility] [address] [place] [address] Dr. Yesenia Hung VLDL CALC 14.8 mg/dL Normal [facility] Comment on above: Performed By: #### R PRQ #### [facility] [address] [place] [address] Dr. Yesenia Hung PROF 14(COMP METB)on 021 Albumin [Mass/Vol] 3.9 g/dL Normal 3.5-5.0 [facility] Comment on above: Performed By: #### R PRQ #### [facility] [address] [place] [address] Dr. Yesenia Hung Albumin/Globulin [Mass ratio] 1.0 {ratio} Normal [facility] Comment on above: Performed By: #### R PRQ #### [facility] [address] [place] [address] Dr. Yesenia Hung ALP [Catalytic activity/Vol] 71 U/L Normal 38-126 [facility] Comment on above: Performed By: #### R PRQ #### [facility] [address] [place] [address] Dr. Yesenia Hung ALT [Catalytic activity/Vol] 15 U/L Normal 9-52 [facility] Comment on above: Performed By: #### R PRQ #### [facility] [address] [place] [address] Dr. Yesenia Hung Anion gap [Moles/Vol] 11.3 mmol/L Normal [facility] Comment on above: Performed By: #### R PRQ #### [facility] [address] [place] [address] Dr. Yesenia Hung AST [Catalytic activity/Vol] 13 U/L Critically low 14-36 [facility] Comment on above: Performed By: #### R PRQ #### [facility] [address] [place] [address] Dr. Yesenia Hung Bilirubin [Mass/Vol] 0.6 mg/dL Normal 0.2-1.3 [facility] Comment on above: Performed By: #### R PRQ #### [facility] [address] [address] [address] Yesenia Hung Calcium [Mass/Vol] 9.2 mg/dL Normal 8.4-10.2 [facility] Comment on above: Performed By: #### R PRQ #### [facility] [address] [address] [address] Yesenia Hung Chloride [Moles/Vol] 103 mmol/L Normal 98-[address] [facility] Comment on above: Performed By: #### R PRQ #### [facility] [address] [address] [address] Yesenia Hung CO2 [Moles/Vol] 28.8 mmol/L Normal 22.0-30.0 The [facility] Comment on above: Performed By: #### R PRQ #### [facility] [address] [place] [address] Dr. Yesenia Hung Creatinine [Mass/Vol] 0.64 mg/dL Normal 0.52-1.04 [facility] Comment on above: Performed By: #### R PRQ #### [facility] [address] [address] [address] Yesenia Hung EGFR-AF SYRIAN >60 Normal >=60 [facility] Comment on above: Performed By: #### R PRQ #### [facility] [address] [address] [address] Yesenia Hung EGFR-NON AF SYRIAN >60 Normal >=[address] [facility] Comment on above: Performed By: #### R PRQ #### [facility] [address] [address] [address] Yesenia Hung Globulin (S) [Mass/Vol] 4.1 g/dL Normal The [facility] Comment on above: Performed By: #### R PRQ #### [facility] [address] [address] [address] Yeseina Hung Glucose [Mass/Vol] 86 mg/dL Normal 74-106 [facility] Comment on above: Performed By: #### R PRQ #### [facility] [address] [address] [address] Yesenia Hung Potassium [Moles/Vol] 4.1 mmol/L Normal 3.4-5.0 [facility] Comment on above: Performed By: #### R PRQ #### [facility] [address] [address] [address] Yesenia Hung Protein [Mass/Vol] 8.0 g/dL Normal 6.1-8.2 [facility] Comment on above: Performed By: #### R PRQ #### [facility] [address] [address] [address] Yesenia Hung Sodium [Moles/Vol] 139 mmol/L Normal 137-145 [facility] Comment on above: Performed By: #### R PRQ #### [facility] [address] [place] [address] Dr. Yesenia Hung Urea nitrogen [Mass/Vol] 10.0 mg/dL Normal 7.0-17.0 [facility] Comment on above: Performed By: #### R PRQ #### [facility] [address] [address] [address] Yesenia Hung Urea nitrogen/Creatinine [Mass ratio] 15.6 mg/mg Normal [facility] Comment on above: Performed By: #### R PRQ #### [facility] [address] [place] [address] Dr. Yesenia Hung TSHon 05-24-2021 TSH 2.270 uIU/mL Normal 0.470-4.680 [facility] Comment on above: Performed By: #### R PRQ #### [facility] [address] [place] [address] Dr. Yesenia Hung TSH RANGE SEE BELOW Normal [facility] Comment on above: Result Comment: <0.3 4 UIU/ml HYPERTHYROID 0.34-5.60 UIU/ml EUTHYROID >5.60 UIU/ml HYPOTHYROID Performed By: #### R PRQ #### [facility] [address] [place] [address] Dr. Yesenia Hung MARINATOR - Office Visiton 05-08 MARINATOR - Office Visit Diagnoses/Problems Assessed Encounter for [...] MG Subcutaneous Implant Vitals Vital Signs Recorded: [id number] 01:18PM Bcrpuoyxfhe73.5 F Vnsbyoei347 Zpdxzgecg06 Height5 ft 3 in 2-20 Stature Hianxtjgqw65 % Gjgbvi22.6 kg 2-20 Weight Bptvejfzlj24 % BMI Hfopwfsdmo15.32 BMI Ruutxlcfrq26 % BSA Calculated1.56 Physical Exam PHYSICAL EXAMINATION: [...] 29 2020 1:40PM EST (Author) Normal [employer] MARINATOR - Procedure Visiton 1 07-22-2019 MARINATOR - Procedure Visit Chief Complaint PATIENT IS HERE FOR NEXPLANON INSERTION. Patient supply. [facility]:6215-9625-55, Lot# [id number], Exp:04/16/2022. LMP: 05-14-2020. NO CONCERNS AT THIS [...] 05/21/2020 2:11:36 PM Vitals Vital Signs Recorded: 84Nvs7025 01:40PM Povmdlbmafb51.7 F, Temporal Fmayrrwc298, LUE, Sitting Pdgvqkzfi36, LUE, Sitting Height5 ft 3 in 2-20 Stature Zxmnzaeinq50 % Libizl83.2 kg 2-20 Weight Sbjkctgzmu73 % BMI Epjmhgqyyj01.56 BMI Zbtzmdfehv40 % BSA Calculated1.57 [id number] Results/Data IO HCG, Urine [id number] 01:36PMKameron Mcfadden medline [id number] exp 06-06-21 Test NameResultFlagReference IO Urine hCGNegative [...] test IO HCG, Urine Test; Status:Complete; Done: 29Sjg8397 01:36PM Performed:In Office; Due:[id number];Ordered; For:Negative test; Ordered By:Kameron Mcfadden; Provider Impressions 1. Norplant insertion Follow-up in 1 week for inspection of the insertion site Signatures Electronically signed by : Kameron Mcfadden MD; May 21 2020 2:15PM EST (Author) Normal [employer] MARINATOR - Office Visiton MARINATOR - Office Visit Chief Complaint An interactive [...] 24.34 kg/m2 Christina Rothman PA Work Phone: [facility] 04-05-2024 14:04-0400 Body weight 64.32 kg Christina Elian PA Work Phone: [facility] 04-05-2024 14:04-0400 Diastolic blood pressure 76 mm[Hg] Christina Rothman PA Work Phone: [facility] 04-05-2024 14:04-0400 Systolic blood pressure 116 mm[Hg] Christina Elian PA Work Phone: [facility] 03-21-2024 15:00-0400 Body mass index (BMI) [Ratio] 23.39 kg/m2 Christina Elian PA Work Phone: [facility] 03-21-2024 15:00-0400 Body weight 61.8 kg Christina Elian PA Work Phone: [facility] 03-21-2024 15:00-0400 Diastolic blood pressure 78 mm[Hg] Christina Elian PA Work Phone: [facility] 03-21-2024 15:00-0400 Systolic blood pressure 116 mm[Hg] Christina Elian PA Work Phone: [facility] 03-07-2024 14:47-0400 Body mass index (BMI) [Ratio] 22.74 kg/m2 Juancarlos Naveen DO Work Phone: [facility] 03-07-2024 14:47-0400 Body weight 60.1 kg Juancarlos Naveen DO Work Phone: [facility] 03-07-2024 14:47-0400 Diastolic blood pressure 70 mm[Hg] Juancarlos Naveen DO Work Phone: [facility] 03-07-2024 14:47-0400 Systolic blood pressure 106 mm[Hg] Juancarlos Naveen DO Work Phone: [facility] 02-15-2022 17:15-0400 Body temperature 97 [degF] Lupe Adair MD Work Phone: [facility] 02-15-2022 17:15-0400 Diastolic blood pressure 52 mm[Hg] Lupe Adair MD Work Phone: [facility] 02-15-2022 17:15-0400 Heart rate 75 /min Lupe Adair MD Work Phone: [facility] 02-15-2022 17:15-0400 Respiratory rate 20 /min Lupe Adair MD Work Phone: [facility] 02-15-2022 17:15-0400 SaO2% (BldA) [Mass fraction] 100 % Lupe Adair MD Work Phone: [facility] 02-15-2022 17:15-0400 Systolic blood pressure 116 mm[Hg] Lupe Adair MD Work Phone: [facility] Encounters Encounter Date Encounter Type Care Provider Facility Start: 04-19-2024 End: 04-19-2024 ambulatory JUANCARLOS NAVEEN Not Available Start: 04-05-2024 End: 04-05-2024 Bamboo flowsheet Christina FERNANDEZ Work Phone: [facility] Start: 04-05-2024 End: 04-05-2024 Bamboo flowsheet Christina FERNANDEZ Work Phone: [facility] Start: 04-05-2024 End: 04-05-2024 ambulatory CHRISTINA ROTHMAN Not Available Start: 04-05-2024 End: 04-05-2024 flow sheet Christina FERNANDEZ Work Phone: [facility] Comment on above: Third [...] OB Start: 02-21-2024 End: 02-21-2024 ambulatory JUANCARLOS NAVEEN Not Available Start: 01-19-2024 End: 01-19-2024 ambulatory CHRISTINA ROTHMAN Not Available Start: 01-03-2024 End: 01-03-2024 Emergency department patient visit LUPE Rudy [facility] Start: 01-03-2024 End: 01-03-2024 ambulatory REBECCA ZHAO [facility] Start: 01-03-2024 End: 01-03-2024 Emergency department patient visit LUPE M [facility] Start: 12-21-2023 End: 12-21-2023 ambulatory JUANCARLOS NAVEEN Not Available Start: 11-23-2023 End: 11-23-2023 ambulatory JUANCARLOS WALLACEZIO Not Available Start: 10-21-2023 End: 10-21-2023 ambulatory JUNACARLOS WALLACEZIO Not Available Start: 09-29-2023 End: 09-29-2023 ambulatory CHRISTINA ROTHMAN Not Available Start: 06-16-2023 End: 06-16-2023 ambulatory JUANCARLOS NAVEEN Not Available Start: 08-04-2022 End: 08-04-2022 Emergency department patient visit Zina Tessa Miranda DO Facility:[facility] Start: 04-29-2022 End: 04-30-[address] LUPE ADAIR Facility:[facility] Start: 03-30-2022 End: 03-30-2022 Emergency department patient visit Rach Posadas MD Facility:[facility] Start: 03-29-2022 End: 03-29-[address] LUPE ADAIR Facility:[facility] Start: 02-15-2022 End: 02-15-2022 Emergency department patient visit LUPE M Cale [facility] Start: 02-15-2022 End: 02-15-2022 Subsequent hospital visit by physician Lupe Adair MD Work Phone: [facility] Comment on above: Cellulitis of left r ing finger (Primary Dx) Start: 02-05-2022 End: 02-05-2022 ambulatory LUPE [facility] Start: 06-04-2021 End: 06-05-[address] LUPE ADAIR Facility:[facility] Start: 05-29-2021 Encounter for genera l adult medical examination without abnormal findings DR LUPE ADAIR [facility] Start: 05-24-2021 End: 05-25-[address] [...] Routine [facility] [address] [place] [address] Juancarlos Hodge DO [address], [place] [id number] [facility] Start: 04-05-2024 End: 04-05-2024 Patient encounter procedure 04/05/2024 1:50 PM EDT [facility]ine [facility] [address] [facility] [place] [id number] Christina Rothman PA [address] [place] [address] [facility] Start: 03-21-2024 End: 03-21-2024 Patient encounter procedure [facility] Comment on above: Arrived Start: 03-07-2024 End: 03-07-2024 Patient encounter procedure 03/07/2024 2:40 PM EDT Routine [facility] [address] [place] [id number] Juancarlos Hodge, DO [address], [place] [id number] Arrived [facility] Comment on above: Arrived Start: 01-26-2024 DTaP/Tdap/Td vaccine (7 - Td or Tdap) DTaP/Tdap/Td vaccine (7 - Td or Tdap) [facility] Start: 02-05-2023 Depression Screen Depression Screen [facility] Start: 02-05-2022 Influenza vaccination Flu vaccine (# 1) [facility] Start: 2021 Screening for malign ant neoplasm of cervix Pap smear [facility] Start: 06-18-2021 COVID-19 Vaccine (3 - Booster for Pfizer series) COVID-19 Vaccine (3 - Booster for Pfizer series) [facility] Start: 2018 Hepatitis C screening Hepatitis C sc reen [facility] Start: 2016 Screening for Chlamy elijah trachomatis Chlamydia screen [facility] Start: 11-04-2015 HIV screening HIV screen [facility] Start: 11-04-2011 HPV vaccine (1 - 2-d ose series) HPV vaccine (1 - 2-dose series) [facility] Immunizations Immunization Date Immunization Notes Care Provider Fa [facility] 01-16-2021 COVID-19, PFIZER PUR PLE top, DILUTE for use, (age 12 y+), 30mcg/0.3mL Lupe Adair MD Work Phone: [facility] Work Phone: 12-26-2020 COVID-19, PFIZER PUR PLE top, DILUTE for use, (age 12 y+), 30mcg/0.3mL Lupe Adair MD Work Phone: [facility] Work Phone: 01-25-2014 meningococcal polysaccharide (groups A, C, Y and W-135) diphtheria toxoid conjugate vaccine (MCV4P) Lupe Adair MD Work Phone: [facility] Work Phone: 01-25-2014 tetanus toxoid, redu arnav diphtheria toxoid, and acellular pertussis vaccine, adsorbed Lupe Adair MD Work Phone: [facility] Work Phone: 01-25-2014 varicella virus vaccine Isma Adair MD Work Phone: [facility] Work Phone: 08-13-2006 diphtheria, tetanus toxoids and acellular pertussis vaccine, unspecified formulation Lupe Adair MD Work Phone: [facility] Work Phone: 08-13-2006 measles, mumps and rubella virus vaccine Lupe Adair MD Work Phone: [facility] Work Phone: 08-13-2006 poliovirus vaccine, inactivated Lupe Adair MD Work Phone: [facility] Work Phone: 05-12-2002 diphtheria, tetanus toxoids and acellular pertussis vaccine, unspecified formulation Lupe Adair MD Work Phone: [facility] Work Phone: 05-12-2002 haemophilus influenz ae type b vaccine, conjugate unspecified formulation Lupe Adair MD Work Phone: [facility] Work Phone: 05-12-2002 varicella virus vaccine Isma Adair MD Work Phone: [facility] Work Phone: 11-04-2001 measles, mumps and rubella virus vaccine Lupe Adair MD Work Phone: [facility] Work Phone: 05-18-2001 diphtheria, tetanus toxoids and acellular pertussis vaccine, unspecified formulation Lupe Adair MD Work Phone: [facility] Work Phone: 05-18-2001 haemophilus influenz ae type b conjugate and Hepatitis B vaccine Lupe Adair MD Work Phone: [facility] Work Phone: 05-18-2001 pneumococcal conjuga te vaccine, 7 valent Lupe Adair MD Work Phone: [facility] Work Phone: 05-18-2001 poliovirus vaccine, inactivated Lupe Adair MD Work Phone: [facility] Work Phone: 03-07-2001 diphtheria, tetanus toxoids and acellular pertussis vaccine, unspecified formulation Lupe Adair MD Work Phone: [facility] Work Phone: 03-07-2001 haemophilus influenz ae type b conjugate and Hepatitis B vaccine Lupe Adair MD Work Phone: [facility] Work Phone: 03-07-2001 pneumococcal conjuga te vaccine, 7 valent Lupe Adair MD Work Phone: [facility] Work Phone: 03-07-2001 poliovirus vaccine, inactivated Lupe Adair MD Work Phone: [facility] Work Phone: 01-03-2001 diphtheria, tetanus toxoids and acellular pertussis vaccine, unspecified formulation Lupe Adair MD Work Phone: [facility] Work Phone: 01-03-2001 haemophilus influenz ae type b conjugate and Hepatitis B vaccine Lupe Adair MD Work Phone: [facility] Work Phone: 01-03-2001 pneumococcal conjuga te vaccine, 7 valent Lupe Adari MD Work Phone: [facility] Work Phone: 01-03-2001 poliovirus vaccine, inactivated Lupe Adair MD Work Phone: [facility] Work Phone: Payers Date Payer Category Payer Private Health Insurance [employer] [id number] 2024 Unknown [id number] 2024 Medicaid [employer] [place] [id number] 2024 Unknown [id number] 2023 Unknown [id number] 2023 Unknown [id number] 2022 Unknown 2000 Unknown [id number] 2.840.1.836714.3.579.2. 93 2000 Unknown [id number] 2.840.1.031318.3.579.2. 93 2000 Unknown [id number] 2.16840.1.500452.3.579.2. 593 2000 Unknown [id number] 2.16840.1.121899.3.579.2. 593 2000 Unknown [id number] 2.16840.1.787301.3.579.2. 593 2000 Unknown [id number] 2.16840.1.564885.3.579.2. 593 2000 Unknown [id number] 2.16840.1.883476.3.579.2. 593 2000 Unknown [id number] 2.16.840.1.673829.3.579.2. 196 2000 Unknown [id number] 2.16.840.1.703145.3.579.2. 196 2000 Unknown [id number] 2.16.840.1.142915.3.579.2. 128 2000 Unknown [id number] 2.16.840.1.279789.3.579.2. 1285 2000 Unknown [id number] 2.16.840.1.406423.3.579.2. 1285 2000 Unknown [id number] 2.16.840.1.366452.3.579.2. 1285 2000 Unknown [id number] 2.16.840.1.380717.3.579.2. 1258 2000 Unknown [id number] 2.16.840.1.276212.3.579.2. 1258 2000 Unknown [id number] 2.16.840.1.914815.3.579.2. 1258 2000 Unknown [id number] 2.16.840.1.778588.3.579.2. 1258 2000 Unknown [id number] 2.16840.1.314741.3.579.2. 1258 2000 Unknown [id number] 2.16.840.1.739304.3.579.2. 1258 2000 Unknown [id number] 2.16.840.1.432240.3.579.2. 1258 2000 Unknown [id number] 2.16.840.1.648342.3.579.2. 1258 2000 Unknown [id number] 2.16.840.1.293727.3.579.2. 1258 2000 Unknown [id number] 2.16.840.1.129998.3.579.2. 1259 2000 Unknown [id number] 2.16.840.1.212038.3.579.2. 1259 1959 Unknown [id number] 1.2.840.093996.1.13.239.2. 7.3.768347.315 1959 Unknown [id number] 1.2.840.796490.1.13.239.2. 7.3.174705.315 Social History Date Type Detail Facility Start: 02-05-2022 End: 03-07-2024 Tobacco smoking status NCIS Never smoked tobacco [facility] Phone: Start: 02-05-2022 End: 03-07-2024 Tobacco use and exposure Smokeless tobacco non-user [facility] Phone: Start: 02-15-2022 End: 04-05-2024 Alcohol intake Lifetime non-drinker (finding) [facility] Phone: Start: 2000 Sex Assigned At Not on file [facility] Phone: Tobacco smoking status NCIS Tobacco smoking consumption unknown [facility] Start: [...] of: REBECCA Sanders documented in this encounter [facility] History of Present illness Narrative 03-07-2024 Rach [...] nursing note reviewed. Exam conducted with a manager child present. Vitals: Estimated body mass index is [...] Juancarlos Hodge DO documented in this encounter [facility] Clinical Note 05-23-2021 Note Date & [...] by: CARMITA BRAY Date: 2021-05-23 12:[address] [facility] Evaluation note Note Date & Type Note Facility Evaluation note Diagnosis Cellulitis of left ring finger- Primary documented in this encounter [facility] Phone: Evaluation note Note Date & Type [...] weeks gestation of documented in this encounter [facility] Hospital Discharge instructions Attachments Note Date & Type Note Facility Hospital Discharge instructions The following attachments cannot be sent through Care Everywhere.Cellulitis (Tunisian)documented in this encounter [facility] Phone: Summary Purpose Family History No Family [...] section and content) DATE CREATED AUTHOR 05/30/2020 [employer] DATE CREATED AUTHOR AUTHOR'S ORGANIZ ATION 02/15/2022 [facility] DATE CREATED AUTHOR AUTHOR'S ORGANIZ ATION 05/04/2022 [facility] DATE CREATED AUTHOR AUTHOR'S ORGANIZ ATION 08/27/2022 [facility] DATE CREATED AUTHOR AUTHOR'S ORGANIZ ATION 01/03/2024 [facility] DATE CREATED AUTHOR AUTHOR'S ORGANIZ ATION 04/21/2024 [facility] EPIC Reason for Visit (unrecogniz ed [...] Care Teams (unrecognized sec tion and content) Furnace Firer Relationship Specialty Start Date End Date Lupe Adair MD [address] [place] [address] PCP - General Family Medicine 02/05/22 Furnace Firer Relationship Specialty Start Date End Date Lupe Adair MD [address] [place] [address] PCP - General Family Medicine 06/16/23 Furnace Firer Relationship Specialty Start Date End Date Lupe Adair MD [address] [place] [address] PCP - General Family Medicine 06/16/23 Furnace Firer Relationship Specialty Start Date End Date Lupe Adair MD [address] [place] [address] PCP - General Family Medicine 06/16/23 Furnace Firer Relationship Specialty Start Date End Date Lupe Adair MD [address] [place] [address] PCP - General Family Medicine 06/16/23 Furnace Firer Relationship Specialty Start Date End Date Lupe Adair MD [address] [place] [address] PCP - General Family Medicine 06/16/23 FOR [...] BE BASED ON THE PRIMARY CLINICAL RECORDS. [facility] [employer], [facility]. provides no warranty or guarantee of the accuracy or completeness of information in this document.
[2024-04-25 23:48] VITALS: BP 173/115; PULSE 72
[2024-04-25 23:58] VITALS: BP 166/115; PULSE 69
[2024-04-26] VITALS (115 sets, daily range): BP systolic 102–201; BP diastolic 56–130; PULSE 69–97; TEMP 36.1–36.7; O2SAT 91–98
[2024-04-26 00:03] LABS: Bilirubin Urine NEGATIVE (NEGATIVE); Blood Urine NEGATIVE (NEGATIVE); Clarity Urine CLEAR (CLEAR); Color Urine YELLOW (YELLOW); Glucose Urine UA NEGATIVE (NEGATIVE); Ketones Urine NEGATIVE (NEGATIVE); Leukocyte Esterase Urine NEGATIVE (NEGATIVE); Nitrite Urine NEGATIVE (NEGATIVE); Protein Urine >=300 mg/dL (NEG/TRACE); Urobilinogen Urine 0.2 EU/dL (0.2-1.0)
[2024-04-26 00:04] LABS: Urine Microscopic Indicated YES
[2024-04-26 00:12] LABS: Amorphous Sediment Urine FEW; Bacteria Urine LARGE #/HPF (NONE SEEN); Cast Seen? NONE SEEN #/LPF (NONE SEEN); Crystals Seen? Seen #/HPF (None Seen); Mucus Urine LARGE (NONE SEEN); Squamous Epithelial Cell Urine MANY #/LPF (NONE/RARE); Urine Culture Indicated YES
[2024-04-26] MEDS: LABETALOL HCL 20 MG/4 ML SYRINGE IVP (00:28)
[2024-04-26] MEDS: LABETALOL HCL 20 MG/4 ML SYRINGE 40 MG IVP (00:45)
[2024-04-26 00:52] LABS: Hemoglobin 14.5 g/dL (12.0-16.0); Mean Corpuscular HGB Conc 34.5 g/dL (29.9-35.2); Mean Corpuscular Hemoglobin 33.2 pg (26.7-34.0); Mean Corpuscular Volume 96.1 fL (81.0-99.0); Mean Platelet Volume 12.9 fL (9.5-13.5); Platelet Count 126 10^3/uL (150-450); Red Blood Count 4.37 10^6/uL (4.20-5.40); White Blood Count 8.6 10^3/uL (4.0-11.0)
[2024-04-26 01:09] LABS: Alanine Aminotransferase 30 U/L (14-59); Aspartate Amino Transferase 36 U/L (15-37); Estimated GFR (African America >60 (>=60 mL/min/1.73m^2); Estimated GFR (Non-African Ame >60 (>=60 mL/min/1.73m^2); Uric Acid 6.4 mg/dL (2.6-6.0)
[2024-04-26 01:10] LABS: Amphetamine Screen Urine NEGATIVE (NEGATIVE); Barbiturates Screen Urine NEGATIVE (NEGATIVE); Benzodiazepines Screen Urine NEGATIVE (NEGATIVE); Buprenorphine Screen Urine NEGATIVE (NEGATIVE); Cannabinoid Screen Urine NEGATIVE (NEGATIVE); Cocaine Screen Urine NEGATIVE (NEGATIVE); Methadone Screen Urine NEGATIVE (NEGATIVE); Methamphetamines Screen Urine NEGATIVE (NEGATIVE); Opiate Screen Urine NEGATIVE (NEGATIVE); Oxycodone Screen Urine NEGATIVE (NEGATIVE); Phencyclidine Screen Urine NEGATIVE (NEGATIVE); Tricyclic Antidepressant Urine NEGATIVE (NEGATIVE)
[2024-04-26 01:11] LABS: Partial Thromboplastin Time 29.1 sec (22.3-36.2); Prothrombin Time 9.1 sec (9.0-11.6)
[2024-04-26 01:13] LABS: Fibrinogen 486 mg/dL (200-400); INR <0.93
[2024-04-26] MEDS: 0.9 % SODIUM CHLORIDE 1,000 ML 75 ML IV ×2 (01:21→17:26)
[2024-04-26] MEDS: MAGNESIUM-BOLUS FROM THE BAG- 40 GM/1,000 ML IV.SOLN IV (01:22)
[2024-04-26] MEDS: MAGNESIUM SULFATE IN WATER 40 GM/1,000 ML IV.SOLN IV ×2 (01:42→20:11)
[2024-04-26] MEDS: BETAMETHASONE ACE/BETAMETHASONE SOD PHOS 30 MG/5 ML 12 MG IM (01:51)
[2024-04-26] MEDS: LABETALOL HCL 200 MG TABLET PO (02:00)
[2024-04-26] MEDS: AMPICILLIN SODIUM 2,000 MG in 0.9 % SODIUM CHLORIDE 100 ML 200 MG IV (02:00)
[2024-04-26] MEDS: OXYTOCIN/0.9 % SODIUM CHLORIDE 10 UNITS/500 ML PLAST..BAG 6 UNIT IV (02:12)
[2024-04-26] MEDS: AMPICILLIN SODIUM 1,000 MG in 0.9 % SODIUM CHLORIDE 50 ML 100 MG IV ×3 (06:17→14:30)
[2024-04-26] MEDS: ACETAMINOPHEN 500 MG TABLET 1000 MG PO (07:29)
[2024-04-26] MEDS: LABETALOL HCL 200 MG TABLET 300 MG PO ×3 (08:02→23:05)
[2024-04-26] MEDS: ONDANSETRON PF 4 MG/2 ML VIAL IV (08:37)
[2024-04-26] MEDS: ROPIVACAINE HCL/PF 400 MG/200 ML PREMIX 6 MG EPIDURAL (09:05)
[2024-04-26] MEDS: OXYTOCIN/0.9 % SODIUM CHLORIDE 10 UNITS/500 ML PLAST..BAG 60 UNIT IV (14:30)
[2024-04-26] MEDS: CITRIC ACID/SODIUM CITRATE 30 ML SOLUTION ORACIT SHOHL'S SOLN PO (16:16)
[2024-04-26] MEDS: CEFAZOLIN SODIUM/DEXTROSE,ISO 2 GM/50 ML PIGGYBACK IV ×2 (16:16→23:05)
[2024-04-26] MEDS: METOCLOPRAMIDE HCL 10 MG/2 ML VIAL IVP (16:16)
[2024-04-26] MEDS: FAMOTIDINE/PF 20 MG/2 ML VIAL IV (16:16)
--- NOTE | 2024-04-26 16:30 | P.OBHP_ITS ---
OB - H&P: HPI History of Present Illness Chief complaint: headache abd pain : 1 Para: 0 Gestational age based on last menstrual period: 36 1/7wks Indications for induction: induced hypertension Narrative: 23 yo at 36wks presents with complaints of headache and abdominall pain, on admission pt was found to have a headache for two days and elevated bp 170/100, it was decided to admit pt for induction dt severe preeclampsia, pt has a ho of hsv currently on acyclovir with no active or prodromal symptoms, , pt was given iv abx, celestone, iv magnesium and iv and oral antihypertensives, /-2, arom fhts reassuring History of Present Dating criteria: LMP confirmed by 1st trimester US care: good care Ultrasounds: normal 1st trimester US complications: preeclampsia Medical complications OB: none Labs Blood type: A (+) positive Rubella: immune RPR/VDLR: nonreactive GBS status: unknown HBsAG: negative Review of Systems ROS Status of ROS: 10 or more systems reviewed and unremarkable except as noted in history and below PFSH PFSH Social History Smoking status: Never smoker Little interest or pleasure in doing things: not at all Feeling down, depressed, or hopeless: not at all Meds Home Medications and Allergies Home Medications ?Medication ?Instructions ?Recorded ?Confirmed ?Type ferrous sulfate 325 mg (65 mg 325 mg PO QDAY 02/15/23 04/26/24 History iron) tablet sulfamethoxazole 800 1 tab PO BID 7 days #14 tabs 02/15/23 07/09/23 Rx mg-trimethoprim 160 mg tablet (Bactrim DS) venlafaxine 75 mg tablet 75 mg PO QDAY 02/15/23 07/09/23 History fluconazole 100 mg tablet 100 mg PO Q24H 07/09/23 07/09/23 History metronidazole 500 mg tablet 500 mg PO Q8H 07/09/23 07/09/23 History valacyclovir 500 mg tablet 500 mg PO Q12H 07/09/23 04/26/24 History Allergies Allergy/AdvReac Type Severity Reaction Status Date / Time No Known Drug Allergies Allergy Verified 04/26/24 00:54 Exam Constitutional Vital Signs, click to edit/add: Last Vital Signs Temp 97.9 F 04/26/24 15:09 Pulse 78 04/26/24 16:17 Resp 16 04/26/24 03:09 BP 118/74 04/26/24 16:17 Pulse Ox 100 04/25/24 23:16 O2 Del Method Room Air 04/26/24 03:09 Documenting provider has reviewed patient's vital signs: yes Respiratory Common normals: clear to auscultation bilaterally Cardio Common normals: regular rate and regular rhythm GI Common normals: Normal to inspection, nondistended, normoactive bowel sounds present Extremity Common normals: no clubbing, cyanosis or edema and no calf tenderness Results Labs Labs: Short CBC 04/26/24 Range/Units 00:25 WBC 8.6 (4.0-11.0) 10^3/uL Hgb 14.5 (12.0-16.0) g/dL Hct 42.0 (36.0-48.0) % Plt Count 126 L (150-450) 10^3/uL BMP 04/26/24 00:25 BUN 18.0 Creatinine 1.11 H Liver Function 04/26/24 Range/Units 00:25 AST 36 (15-37) U/L ALT 30 (14-59) U/L Urine 04/25/24 Range/Units 23:45 Urine Color Yellow (YELLOW) Urine Clarity Clear (CLEAR) Urine pH 7.0 (5.0-9.0) Ur Specific [place] 1.020 (1.005-1.025) Urine Protein >=300 A (NEG/TRACE) mg/dL Urine Glucose (UA) Negative (NEGATIVE) mg/dL OB - A/P Assessment and Plan (1) Intrauterine : Assessment and Plan: will perform c/s dt non reassuring heartones and failure to induce, consent obtained, [facility] reviewed procedure reviewed (2) Severe preeclampsia: Assessment and Plan: iv abx, celestone and magnesium given, iv antihypertensives, (3) HSV (herpes simplex virus) infection: Urinary Catheter Management Urinary Catheter Management Urethral: Cath placed during this visit: yes Urethral indwelling: No Insertion date: 04/26/24 Insertion time: 00:45
[2024-04-26] MEDS: OXYTOCIN/0.9 % SODIUM CHLORIDE 20 UNITS/1,000 ML PLAST..BAG 75 UNIT IV (17:24)
--- NOTE | 2024-04-26 17:28 | P.ON_ITS ---
Brief Operative Note Date of procedure: 04/26/24 Pre-op diagnosis general: iup at 36wks, non reassuring heartones, severe preec lampsia, failure to induce, ho hsv Post-op diagnosis: same as pre-op Procedure: NAME OF PROCEDURE: [ section ] PROCEDURE: Patient was taken back to the Operating Room where she was given a spinal anesthesia with Duramorph without difficulty. She was prepped and draped in the normal sterile fashion. A Pfannenstiel skin incision was then made 2 cm above the symphysis pubis and carried down to underlying rectus fascia using a Bovie. The fascia was incised in the midline and extended laterally using Snider scissors. Two Cari clamps were placed on the superior aspect of the fascia and dissected off the underlying rectus muscles. The same was performed on the inferior aspect as well. The muscles were then in the midline. Peritoneum was identified and entered bluntly. The peritoneum was then extended superiorly and inferiorly with good visualization of the bladder. The bladder blade was inserted. A low transverse incision was made on the patient's uterus and extended laterally digitally. The was then delivered atraumatically after the bladder blade was removed in the cephalic position. The cord was clamped and cut. Cord blood was obtained. The was handed off to awaiting team. The patient's placenta was spontaneously delivered. The uterus was then exteriorized. The uterus was cleared of all clots and debris. The bladder blade was reinserted. The patient's uterine incision was closed using #0 Vicryl in a running lock fashion. Excellent hemostasis was assured. The uterus was then returned to the patient's abdomen. The patient's abdomen was copiously irrigated using warm saline. Peritoneal gutters were cleared of all clots and debris. Again excellent hemostasis was assured. The patient's peritoneum was closed using 3-0 Vicryl in a running fashion. The patient's fascia was closed using #0 Vicryl in a running fashion. The patient's skin was closed using 4-0 Vicryl subcuticularly. The patient tolerated the procedure well. Sponge, lap, and needle counts were correct x2. The patient was taken to the Recovery Room in stable condition. Anesthesia: GETA and epidural Surgeon: Lino Hodge Cylinder Dyer: Stefanie Love Estimated blood loss (mL): 575 Pathology: none sent Condition: stable Disposition: PACU Urinary Catheter Management Urinary Catheter Management Urethral: Cath placed during this visit: yes Urethral indwelling: No Insertion date: 04/26/24 Insertion time: 00:45
--- NOTE | 2024-04-26 17:33 | P.OBPRC_ITS ---
Procedure Pre-op/Post-op diagnoses: Pre-Op/Post-Op Diagnoses Operation Date: 04/26/24 16:30 <No data on this case meets the specified criteria> Procedure: Procedures Operation Date: 04/26/24 16:30 Actual Procedure Side Surgeon p Not Applicable Lino Hodge DO Tapper Balance Wheel Screw Hole: Stefanie Love Disposition: PACU Anesthesia type: Epidural
--- NOTE | 2024-04-26 18:55 | PC.NURSE ---
1750: Magnesium sulfate IV infusion resumed as ordered in right forearm site and magnesium infusing at 2 gms/hr. Verified with Jamari Domínguez RN
[2024-04-26] MEDS: KETOROLAC TROMETHAMINE 30 MG/ML VIAL IVP (23:38)
[2024-04-27] VITALS (16 sets, daily range): BP systolic 123–145; BP diastolic 72–105; PULSE 72–73; TEMP 36.5–37.2; O2SAT 94–100
[2024-04-27] MEDS: LABETALOL HCL 200 MG TABLET 300 MG PO ×3 (06:26→21:00)
[2024-04-27] MEDS: KETOROLAC TROMETHAMINE 30 MG/ML VIAL IVP ×3 (06:27→17:53)
[2024-04-27 06:34] LABS: Basophils Percent Auto 0.1 % (0.2-2.0); Hematocrit 37.9 % (36.0-48.0); Hemoglobin 12.8 g/dL (12.0-16.0); Immature Granulocytes Abs Auto 0.18 10^3/uL (0.00-0.03); Immature Granulocytes Pct Auto 0.8 % (0.0-0.5); Lymphocytes Absolute Auto 1.9 10^3/uL (1.2-3.8); Lymphocytes Percent Auto 8.5 % (20.5-60.0); Mean Corpuscular HGB Conc 33.8 g/dL (29.9-35.2); Mean Corpuscular Hemoglobin 33.2 pg (26.7-34.0); Mean Corpuscular Volume 98.4 fL (81.0-99.0); Mean Platelet Volume 12.1 fL (9.5-13.5); Monocytes Percent Auto 4.6 % (1.7-12.0); Platelet Count 151 10^3/uL (150-450); Red Blood Count 3.85 10^6/uL (4.20-5.40); Red Cell Distribution Width 12.4 % (11.0-15.0); White Blood Count 22.1 10^3/uL (4.0-11.0)
--- NOTE | 2024-04-27 08:31 | PM.OBPN ---
OB - PN: Subj Subjective Patient comments: no complaints [place] status: doing well Exam Constitutional Vital Signs, click to edit/add: Last Vital Signs Temp 98.2 F 04/27/24 06:40 Pulse 72 04/27/24 08:06 Resp 16 04/27/24 06:40 BP 145/90 H 04/27/24 08:06 Pulse Ox 97 04/27/24 06:40 O2 Del Method Room Air 04/27/24 08:00 Common normals: no apparent distress General appearance: cooperative Orientation/consciousness: Yes awake, Yes oriented to person, Yes oriented to place and Yes oriented to time HENMT Common normals: normocephalic Eye Common normals: EOMs intact bilaterally Neck & C-Spine Common normals: full ROM Lymph Lymphatic: no lymphadenopathy noted Chest Common normals: inspection of chest normal Respiratory Common normals: normal respiratory effort Effort & inspection: able to speak in complete sentences Auscultation: clear to auscultation bilaterally Cardio Common normals: regular rate and regular rhythm Rate: regular rate Rhythm: regular rhythm GI Common normals: Normal to inspection, nondistended, normoactive bowel sounds present Inspection: normal to inspection Common normals: no CVA tenderness Back & Pelvis Common normals: no CVA tenderness Extremity Common normals: normal to inspection Neuro Common normals: oriented x3 Sensorium/orientation: awake, alert, oriented to person, oriented to place and oriented to time Psych Common normals: mental status grossly normal, thought process normal, cooperative, affect normal, speech normal, activity/motor behavior normal, denies hallucinations, denies homicidal ideation and denies suicidal ideation Attitude: calm Activity/motor behavior: appropriate eye contact Speech: normal speech Results Labs Labs: Short CBC 04/27/24 Range/Units 06:26 WBC 22.1 H (4.0-11.0) 10^3/uL Hgb 12.8 (12.0-16.0) g/dL Hct 37.9 (36.0-48.0) % Plt Count 151 (150-450) 10^3/uL Urinary Catheter Management Urinary Catheter Management Urethral: Cath placed during this visit: yes Urethral indwelling: Yes Reason for continuing: prolonged immobilization Insertion date: 04/26/24 Insertion time: 00:45 OB - PN: A/P Assessment and Plan (1) Intrauterine : (2) Severe preeclampsia: (3) HSV (herpes simplex virus) infection: Plan - day: 1 Plan: routine postop care Time Spent with Patient Time: Total time spent is greater than 50% in coordination of care (as documented) at patient's floor/unit and/or counseling patient: Total time spent with greater than 50% in coordination of care (as documented) at patient's floor/unit and/or counseling patient: less than 15 minutes
[2024-04-27] MEDS: DOCUSATE SODIUM 100 MG CAPSULE PO ×2 (12:00→21:00)
[2024-04-28] VITALS (7 sets, daily range): BP systolic 127–143; BP diastolic 78–95; TEMP 36.5–36.8; O2SAT 97
[2024-04-28] MEDS: KETOROLAC TROMETHAMINE 30 MG/ML VIAL IVP ×3 (00:01→13:03)
[2024-04-28] MEDS: LABETALOL HCL 200 MG TABLET 300 MG PO ×3 (06:29→21:47)
--- NOTE | 2024-04-28 08:18 | P.OBPN_ITS ---
OB - PN: Subj Subjective Patient comments: no complaints and pain well controlled [place] status: doing well Exam Constitutional Vital Signs, click to edit/add: Last Vital Signs Temp 97.7 F 04/28/24 00:05 Pulse 72 04/27/24 08:06 Resp 18 04/28/24 08:00 BP 143/95 H 04/28/24 00:05 Pulse Ox 97 04/27/24 12:30 O2 Del Method Room Air 04/28/24 08:00 Documenting provider has reviewed patient's vital signs: yes Common normals: no apparent distress Respiratory Common normals: normal respiratory effort and clear to auscultation bilaterally Cardio Common normals: regular rate and regular rhythm GI Common normals: Normal to inspection, nondistended, normoactive bowel sounds present Extremity Common normals: normal to inspection, no clubbing, cyanosis or edema and no calf tenderness Urinary Catheter Management Urinary Catheter Management Urethral: Cath placed during this visit: yes, but has since been removed by the nurse Urethral indwelling: Yes Insertion date: 04/26/24 Insertion time: 00:45 Removal date: 04/28/24 Removal time: 06:40 OB - PN: A/P Assessment and Plan (1) Intrauterine : (2) Severe preeclampsia: (3) HSV (herpes simplex virus) infection: Plan - day: 2 Plan: routine postop care Time Spent with Patient Time: Total time spent is greater than 50% in coordination of care (as documented) at patient's floor/unit and/or counseling patient: Total time spent with greater than 50% in coordination of care (as documented) at patient's floor/unit and/or counseling patient: less than 15 minutes
[2024-04-28] MEDS: DOCUSATE SODIUM 100 MG CAPSULE PO ×2 (11:05→21:47)
[2024-04-28] MEDS: OXYCODONE HCL/ACETAMINOPHEN 5MG/325MG 1 TAB PO (18:59)
[2024-04-28] MEDS: IBUPROFEN 400 MG TABLET 800 MG PO (21:47)
[2024-04-29] VITALS (9 sets, daily range): BP systolic 125–151; BP diastolic 71–96; PULSE 73–91; TEMP 36.8–36.9; O2SAT 97
[2024-04-29] MEDS: LABETALOL HCL 200 MG TABLET 300 MG PO (06:10)
[2024-04-29] MEDS: IBUPROFEN 400 MG TABLET 800 MG PO ×2 (07:12→15:44)
[2024-04-29] MEDS: DOCUSATE SODIUM 100 MG CAPSULE PO ×2 (08:07→20:44)
[2024-04-29] MEDS: OXYCODONE HCL/ACETAMINOPHEN 5MG/325MG 2 TAB PO (08:08)
[2024-04-29] MEDS: NIFEdipine 30 MG TAB.ER.24 PO (08:29)
--- NOTE | 2024-04-29 11:12 | RESP.RT ---
done per nursing
--- NOTE | 2024-04-29 11:52 | PM.OBPN ---
OB - PN: Subj Subjective Patient comments: no complaints, pain well controlled, tolerating diet and flatus present [place] infant status: doing well and well [place] feeding status: breast and bottle feeding (bottle is breast milk) Exam Constitutional Vital Signs, click to edit/add: Last Vital Signs Temp 98.3 F 04/29/24 00:41 Pulse 73 04/29/24 10:17 Resp 17 04/29/24 08:16 BP 125/71 04/29/24 10:17 Pulse Ox 97 04/29/24 00:47 O2 Del Method Room Air 04/29/24 08:16 Documenting provider has reviewed patient's vital signs: yes Common normals: no apparent distress, average body habitus, oriented x3, no limitations, healthy appearing and alert General appearance: cooperative, comfortable and well kempt Orientation/consciousness: Yes awake, Yes oriented to person, Yes oriented to place and Yes oriented to time HENMT Common normals: normocephalic and head/scalp atraumatic Eye Common normals: PERRL Pupil: accommodation reflex normal Neck & C-Spine Common normals: full ROM and supple Respiratory Common normals: normal respiratory effort Auscultation: clear to auscultation bilaterally Cardio Common normals: regular rate and regular rhythm GI Common normals: Normal to inspection, nondistended, normoactive bowel sounds present, soft to palpation and non-tender Common normals: no CVA tenderness Back & Pelvis Common normals: no thoracic nor lumbar tenderness Extremity Common normals: normal to inspection, full ROM, no calf tenderness and no pedal edema Neuro Common normals: oriented x3, CN's II-XII intact bilaterally, moves all extremities, no focal motor deficits and no sensory deficits noted Motor exam: strength 5/5 throughout Psych Common normals: mental status grossly normal, thought process normal, cooperative, affect normal, speech normal and activity/motor behavior normal Urinary Catheter Management Urinary Catheter Management Urethral: Cath placed during this visit: yes, but has since been removed by the nurse Urethral indwelling: Yes Insertion date: 04/26/24 Insertion time: 00:45 Removal date: 04/28/24 Removal time: 06:40 OB - PN: A/P Assessment and Plan (1) Severe preeclampsia: Assessment and Plan: delivered, magnesium off, transitioning blood pressure medication from labetalol to nifedipine Qualifiers: Trimester: third trimester Qualified Code(s): O14.13 - Severe pre-eclampsia, third trimester Plan not ready for discharge as changing blood pressure medication and want to see response to, also baby girl is small and manager internal observing bilirubin, not ready for discharge either Plan - day: 3 Plan: routine postop care Time Spent with Patient Time: Total time spent is greater than 50% in coordination of care (as documented) at patient's floor/unit and/or counseling patient: Total time spent with greater than 50% in coordination of care (as documented) at patient's floor/unit and/or counseling patient: less than 15 minutes
--- NOTE | 2024-04-29 21:16 | PC.NURSE ---
Patient called out with a bloody nose. Had patient tip head back with wash cloth and placed ice pack across nose. Patient states she gets nose bleeds sometimes and has been feeling like her nose is stuffy. Bleeding stopped after ice applied. Will continue to monitor.
[2024-04-30] VITALS (43 sets, daily range): BP systolic 130–184; BP diastolic 78–112; PULSE 69–100; TEMP 36.4–37.4; O2SAT 97–99
[2024-04-30] MEDS: IBUPROFEN 400 MG TABLET 800 MG PO ×3 (00:21→20:09)
[2024-04-30] MEDS: LABETALOL HCL 100 MG TABLET PO (00:56)
[2024-04-30] MEDS: LABETALOL HCL 200 MG TABLET PO (04:15)
[2024-04-30] MEDS: NIFEdipine 30 MG TAB.ER.24 60 MG PO (08:43)
[2024-04-30] MEDS: DOCUSATE SODIUM 100 MG CAPSULE PO ×2 (08:45→20:11)
[2024-04-30] MEDS: 0.9 % SODIUM CHLORIDE 1,000 ML 75 ML IV ×2 (09:20→22:47)
[2024-04-30 09:25] LABS: Basophils Absolute Auto 0.1 10^3/uL (0.0-0.1); Basophils Percent Auto 0.4 % (0.2-2.0); Eosinophils Absolute Auto 0.2 10^3/uL (0.0-0.7); Eosinophils Percent Auto 1.4 % (0.9-7.0); Hemoglobin 11.2 g/dL (12.0-16.0); Immature Granulocytes Abs Auto 0.23 10^3/uL (0.00-0.03); Immature Granulocytes Pct Auto 1.6 % (0.0-0.5); Lymphocytes Absolute Auto 2.5 10^3/uL (1.2-3.8); Lymphocytes Percent Auto 16.8 % (20.5-60.0); Mean Corpuscular HGB Conc 32.9 g/dL (29.9-35.2); Mean Corpuscular Hemoglobin 33.6 pg (26.7-34.0); Mean Corpuscular Volume 102.1 fL (81.0-99.0); Mean Platelet Volume 10.7 fL (9.5-13.5); Monocytes Absolute Auto 0.8 10^3/uL (0.3-0.8); Monocytes Percent Auto 5.2 % (1.7-12.0); Neutrophils Percent Auto 74.6 % (43.0-75.0); Platelet Count 196 10^3/uL (150-450); Red Blood Count 3.33 10^6/uL (4.20-5.40); Red Cell Distribution Width 12.3 % (11.0-15.0); White Blood Count 14.7 10^3/uL (4.0-11.0)
[2024-04-30] MEDS: MAGNESIUM-BOLUS FROM THE BAG- 40 GM/1,000 ML IV.SOLN IV (09:30)
[2024-04-30 09:38] LABS: Alanine Aminotransferase 42 U/L (14-59); Aspartate Amino Transferase 55 U/L (15-37); Estimated GFR (African America >60 (>=60 mL/min/1.73m^2); Estimated GFR (Non-African Ame >60 (>=60 mL/min/1.73m^2); Uric Acid 4.9 mg/dL (2.6-6.0)
[2024-04-30] MEDS: MAGNESIUM SULFATE IN WATER 40 GM/1,000 ML IV.SOLN IV (09:51)
[2024-04-30 10:23] LABS: Partial Thromboplastin Time 25.5 sec (22.3-36.2); Prothrombin Time 9.3 sec (9.0-11.6)
--- NOTE | 2024-04-30 10:31 | P.OBPN_ITS ---
OB - PN: Subj Subjective Patient comments: no complaints and pain well controlled [place] status: doing well [place] feeding status: exclusively Narrative: THIS 22 YEAR OLD IS POST DAY 4 S/P CS FOR NONREASSURING FHR TRACING AND PREECLAMPSIA WITH SEVERE FEATURE. THE MAGNESIUM WAS STOPPED YESTERDAY MORNING. YESTERDAY STARTED ON PROCARDIA 30 MG PO ER QD. THROUGHOUT NIGHT HAD TO GIVE PO LABETALOL 100 MG THEN 200 MG TO CONTROL HIGH BLOOD PRESSURES. THIS MORNING THE BLOOD PRESSURES WERE 180/90 ON AM ASSESSMENT. THERE WAS NO HEADACHE OR BLURRING VISION OR RUQ PAIN OR HYPERREFLEXIA. A CMP, CBC, URIC ACID, LDH AND COAGS WERE DRAWN. THE AST WAS SLIGHTLY ELEVATED OTHERWISE RESULTS UNREMARKABLE. MAGNESIUM WAS RESTARTED WITH A 4 GRAM BOLUS AND MAINTENANCE DOSE OF 2 GRAMS AN HOUR TO KEEP MAGNESIUM LEVEL BETWEEN 2 AND 8 FOR NEUROPROTECTION AND HELP STABILIZE BLOOD PRESSURE. Exam Constitutional Vital Signs, click to edit/add: Last Vital Signs Temp 98.4 F 04/30/24 08:45 Pulse 80 04/30/24 10:06 Resp 16 04/30/24 08:49 BP 157/101 H 04/30/24 10:06 Pulse Ox 99 04/30/24 09:50 O2 Del Method Room Air 04/30/24 08:49 Documenting provider has reviewed patient's vital signs: yes Common normals: no apparent distress, average body habitus, oriented x3, no limitations, healthy appearing and alert General appearance: cooperative and comfortable Orientation/consciousness: Yes oriented to person, Yes oriented to place and Yes oriented to time HENMT Common normals: normocephalic and head/scalp atraumatic Face and sinus: normal facial exam Nose: epistaxis (HAD SMALL NOSE BLEED THIS AM PT ATTRIBUTES TO DRY AIR, HAS HX OF) Eye Common normals: PERRL Pupil: accommodation reflex normal Neck & C-Spine Common normals: full ROM and supple Chest Common normals: inspection of chest normal Respiratory Common normals: normal respiratory effort and clear to auscultation bilaterally Cardio Common normals: regular rate and regular rhythm GI Common normals: Normal to inspection, nondistended, normoactive bowel sounds present, soft to palpation and non-tender Common normals: no CVA tenderness Back & Pelvis Common normals: no thoracic nor lumbar tenderness Extremity Common normals: normal to inspection, full ROM and no calf tenderness Neuro Common normals: CN's II-XII intact bilaterally, moves all extremities, no focal motor deficits and no sensory deficits noted Motor exam: strength 5/5 throughout Psych Common normals: mental status grossly normal, thought process normal, cooperative, affect normal and speech normal Appearance: grossly normal and well kempt Attitude: calm and engaged Speech: normal speech Mood and affect: euthymic mood Thought process: normal thought process Results Labs Labs: Short CBC 04/30/24 Range/Units 08:20 WBC 14.7 H (4.0-11.0) 10^3/uL Hgb 11.2 L (12.0-16.0) g/dL Hct 34.0 L (36.0-48.0) % Plt Count 196 (150-450) 10^3/uL BMP 04/30/24 09:20 BUN 10.0 Creatinine 0.55 Liver Function 04/30/24 Range/Units 09:20 AST 55 H (15-37) U/L ALT 42 (14-59) U/L Urinary Catheter Management Urinary Catheter Management Urethral: Cath placed during this visit: yes Urethral indwelling: Yes Reason for continuing: measure accurate output (ON MAGNESIUM IV WHICH IS EXCRETED THROUGH THE URINE AND NEED TO KEEP BLOOD LEVELS WITHIN THERAPEUTIC LEVELS OF 4 - 8 MG/DL) Insertion date: 04/30/24 Insertion time: 10:30 OB - PN: A/P Assessment and Plan (1) Hypertension: Assessment and Plan: INTERMITTENT HIGH BLOOD PRESSURES WHILE ON NIFEDIPINE 30 MG XR PO QD REQUIRING SUPPLEMENTATION WITH PO LABETALOL 200 MG PO FOR BLOOD PRESSURES HIGH 180/90 WITHOUT SYMPTOMS. CMP, CBC, URIC ACID, COAGS DRAWN. LAB RESULTS UNREMARKABLE. SLIGHT ELEVATION IN AST TO 55 BUT PLATELETS NORMAL AND KIDNEY FUNCTION NORMAL. COAGS NORMAL. Qualifiers: Hypertension type: other secondary hypertension Qualified Code(s): I15.8 - Other secondary hypertension Plan MAGNESIUM RESTARTED WITH 4 GRAM BOLUS AND MAINTENANCE DOSE OF 2 GRAMS PER HOUR. CORRALES PLACED. DID RECEIVE NIFEDIPINE ORDERED EARLY THIS AM PRIOR TO RESTARTING MAGNESIUM. MAY NEED TO ADD LABETALOL WOULD LIKE BLOOD PRESSURES LESS THAN OR EQUAL TO 140/90. NURSING FOLLOWING NURSING PROTOCOL FOR MONITORING PATIENT AND BLOOD PRESSURES WHILE ON MAGNESIUM Plan - day: 4 Plan: routine postop care Comment: REASON FOR RESTARTING MAGNESIUM EXPLAINED TO PATIENT AND HER MOM WHO STATED UNDERSTANDING AND AGREEMENT. ALL QUESTIONS WERE ANSWERED. Time Spent with Patient Time: Total time spent is greater than 50% in coordination of care (as documented) at patient's floor/unit and/or counseling patient: Total time spent with greater than 50% in coordination of care (as documented) at patient's floor/unit and/or counseling patient: 25 - 35 minutes
[2024-04-30 10:36] LABS: INR <0.93
[2024-04-30 10:52] LABS: Fibrinogen 425 mg/dL (200-400)
--- NOTE | 2024-04-30 11:03 | RESP.RT ---
Done per nursing
[2024-04-30] MEDS: OXYCODONE HCL/ACETAMINOPHEN 5MG/325MG 1 TAB PO ×2 (17:28→23:48)
[2024-04-30] MEDS: LABETALOL HCL 20 MG/4 ML SYRINGE IVP (17:49)
[2024-05-01] VITALS (12 sets, daily range): BP systolic 130–147; BP diastolic 80–105; PULSE 76–95; TEMP 36.7–37.2; O2SAT 98
[2024-05-01] MEDS: MAGNESIUM SULFATE IN WATER 40 GM/1,000 ML IV.SOLN IV (03:38)
[2024-05-01] MEDS: LABETALOL HCL 20 MG/4 ML SYRINGE IVP (03:44)
[2024-05-01] MEDS: IBUPROFEN 400 MG TABLET 800 MG PO (04:30)
[2024-05-01] MEDS: OXYCODONE HCL/ACETAMINOPHEN 5MG/325MG 1 TAB PO (06:27)
[2024-05-01] MEDS: OXYCODONE HCL/ACETAMINOPHEN 5MG/325MG 2 TAB PO (08:22)
[2024-05-01] MEDS: DOCUSATE SODIUM 100 MG CAPSULE PO (08:22)
[2024-05-01] MEDS: NIFEdipine 30 MG TAB.ER.24 PO (08:45)
[2024-05-01] MEDS: LABETALOL HCL 200 MG TABLET PO ×2 (08:46→13:55)
--- NOTE | 2024-05-01 12:54 | P.OBPN_ITS ---
OB - PN: Subj Subjective Patient comments: no complaints and pain well controlled [place] status: doing well Exam Constitutional Vital Signs, click to edit/add: Last Vital Signs Temp 98.3 F 05/01/24 07:10 Pulse 81 05/01/24 11:43 Resp 16 05/01/24 07:55 BP 130/80 05/01/24 11:43 Pulse Ox 98 05/01/24 07:10 O2 Del Method Room Air 05/01/24 07:55 Documenting provider has reviewed patient's vital signs: yes Common normals: no apparent distress Respiratory Common normals: clear to auscultation bilaterally Cardio Common normals: regular rate and regular rhythm GI Common normals: Normal to inspection, nondistended, normoactive bowel sounds present Extremity Common normals: no clubbing, cyanosis or edema and no calf tenderness Results Labs Labs: Short CBC 04/30/24 Range/Units 09:20 WBC 14.7 H (4.0-11.0) 10^3/uL Hgb 11.2 L (12.0-16.0) g/dL Hct 34.0 L (36.0-48.0) % Plt Count 196 (150-450) 10^3/uL Urinary Catheter Management Urinary Catheter Management Urethral: Cath placed during this visit: yes, but has since been removed by the nurse Urethral indwelling: Yes Insertion date: 04/30/24 Insertion time: 10:30 Removal date: 05/01/24 Removal time: 08:25 OB - PN: A/P Assessment and Plan (1) Hypertension: Assessment and Plan: started labetalol and decreased to 30 procardia, will cont observe patient, if continues to stay stable will dc home and have pt return of wednesday for a bp check Qualifiers: Hypertension type: other secondary hypertension Qualified Code(s): I15.8 - Other secondary hypertension Plan - day: 5 Plan: routine postop care, discharge home and other (fu 1wk) Time Spent with Patient Time: Total time spent is greater than 50% in coordination of care (as documented) at patient's floor/unit and/or counseling patient: Total time spent with greater than 50% in coordination of care (as documented) at patient's floor/unit and/or counseling patient: less than 15 minutes
--- NOTE | 2024-05-01 20:50 | DS_ITS ---
DISCHARGE DATE:? ?05/01/2024 ? PRIMARY DIAGNOSES: 1.? Intrauterine at 36 weeks. 2.? Non-reassuring heart tones. 3.? Severe preeclampsia. 4.? Failure to induce. 5.? 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 ? PROCEDURE:? section. ? HOSPITAL COURSE:? As expected.? Please see chart for full details.? ? LABORATORY DATA:? Please see chart. ? COMPLICATIONS:? None. ? DISCHARGE CONDITION:? Stable. ? CONSULTATION:? Anesthesia. ? DISCHARGE INSTRUCTIONS: 1.? Diet:? Regular. 2.? Medications: a.? Percocet 5/325 one to two p.o. every 4-6 hours p.r.n. pain. b.? Motrin 800 one p.o. every 8 hours p.r.n. pain. 3.? Followup in one week. Restrictions:? Pelvic rest for 6 weeks.? No heavy lifting.? May drive when pain free and no longer on narcotics. MTDD
== END 2024-05-01 20:50 | disposition home or self-care (01) | DRG 787 ==
LOC: ER 23:18 → FBC 23:34
PROVIDERS: Admitting Provider Obstetrics & Gynecology; Emergency Provider Internal Medicine; PCP Family Medicine; Visit Provider Obstetrics & Gynecology
PROC: 10D00Z1 Extraction of Products of Conception, Low, Open Approach (ICD-10-PCS; CPT 59514; principal; 2024-04-26 16:30)
DX: O14.14 Severe pre-eclampsia complicating childbirth (principal); O98.32 Other infections with a predominantly sexual mode of transmission complicating childbirth; Z3A.36 36 weeks gestation of pregnancy; Z37.0 Single live birth; A60.00 Herpesviral infection of urogenital system, unspecified; O76 Abnormality in fetal heart rate and rhythm complicating labor and delivery; O61.0 Failed medical induction of labor; I15.9 Secondary hypertension, unspecified
CPT/HCPCS: 36415; 51702; 59025; 59050; 80307; 81001; 82565; 84450; 84460; 84520; 84550; 85025; 85027; 85384; 85610; 85730; 86850; 86900; 86901; 87086; 87150; 88307; 94667; 94668; 96372; J0290; J0690; J0702; J1100; J1885; J1920; J2405; J2590; J2765; J2795; J3010; J3475

== ENCOUNTER 2024-05-03 08:13 | Outpatient (OUT) | payer OTHER, SELFPAY ==
--- OUTSIDE RECORDS SUMMARY | 2024-05-03 08:33 | XMS_ITS | CCD ---
Author Organization [facility] Team Providers Care Plastic Installer Name Role Phone Lupe Adair MD Primary Care Provider [phone] LUPE ADAIR Primary Care Unavailable LUPE ADAIR Primary Care Unavailable CATIA, DR ANDRADE Admitting Unavailable SULEMANY, DR ANDRADE Attending Unavailable HOY, DR ANDRADE Primary Care Unavailable HOY, DR ANDRADE Consulting Unavailable ZIEBER, DR CARMITA Carney Consulting Unavailable CATIA, DR ANDRADE Primary Care Unavailable JUAN JOSE, DR GENTRY Keith Admitting Unavailabl e JUAN JOSE, DR GENTRY Keith Attending Unavailabl e REINESSENCE, DR GENTRY Keith Consulting Unavailabl e SULEMANY, DR ANDRADE Admitting Unavailable HOY, DR ANDRADE Attending Unavailable CATIA, DR ANDRADE Primary Care Unavailable CATIA, DR ANDRADE Consulting Unavailable CATIA, DR ANDRADE Admitting Unavailable HOY, DR ANDRADE Attending Unavailable SULEMANY, DR ANDRADE [...] Unavailable Lupe Adair MD Primary Care Provider [phone] JUANCARLOS HODGE Attending Unavailable CHRISTINA ROTHMAN Attending Unavailable JUANCARLOS HODGE Attending Unavailable JUANCARLOS HODGE Attending Unavailable CHRISTINA ROTHMAN Attending Unavailable JUANCARLOS HODGE Attending Unavailable JUANCARLOS HODGE Attending Unavailable CHRISTINA ROTHMAN Attending Unavailable CHRISTINA ROTHMAN Attending Unavailable JUANCARLOS HODGE Attending Unavailable Juancarlos Hodge Admitting Unavailable Juancarlos Hodge Attending Unavailable Allergies Allergy Classification Reported Allergen(s) Allergy Type Date of Onset Reaction(s) Facility (1 source) No Known Medication Allergies; Translations: [No Known Medication Allergies] Propensity to adverse reactions to drug (disorder) [facility] Repository Medications Current Medications Medication Drug Class(es) Dates Sig (Normalized) Sig (Original) mometasone furoate 1 mg/ml topical cream (1 source) Corticosteroid Start: 02-15-2022 mometasone (ELOCON) 0.1 % cream Apply topically 2 times daily as needed (rash finger) Apply topically daily. 15 g 0 02/15/2022 Active Vit-Fe Fumarate-FA (WesTab Plus) 27-1 MG tablet (15 sources) Start: 11-19-2023 take 1 tablet by mouth once daily Vit-Fe Fumarate-FA (WesTab Plus) 27-1 MG tablet Indications: First trimester take 1 tablet by mouth once daily 30 tablet 11/19/2023 Active valACYclovir 1000 mg oral tablet (20 sources) Herpesvirus Nucleoside Analog DNA Polymerase Inhibitor, Herpes Simplex Virus Nucleoside Analog DNA Polymerase Inhibitor, Herpes Zoster Virus Nucleoside Analog DNA Polymerase Inhibitor Start: 08-19-2023 valACYclovir (Valtrex) 1 g tablet 08/19/2023 Active Start: 06-24-2023 valACYclovir ( Valtrex) 500 MG tablet 06/24/2023 Active Completed/Discontinued Medications Medication Drug Class(es) Dates Sig (Normalized) Sig (Original) cephalexin 500 mg oral capsule (2 sources) Cephalosporin Antibacterial Start: 04-05-2024 End: 04-19-2024 take 1 capsule by mouth in the morning, then take 1 capsule by mouth in the evening, then take 1 capsule by mouth at bedtime cephalexin (Keflex) 500 MG capsule Indications: Hematuria, unspecified type Take 1 capsule (500 mg) by mouth in the morning and 1 capsule (500 mg) in the evening and 1 capsule (500 mg) before bedtime. Do all this for 7 days. 21 capsule 04/05/2024 04/19/2024 Discontinued Problems Active Problems Problem Classification Problem Date [...] CYCLE] Onset: 05-04-2022 Chronic Other complications of (15 sources) size does not accord with dates; Translations: [Uterine size-date discrepancy, unspecified trimester] Onset: 02-21-2024 02-21-2024 Episodic Other and delivery including normal (8 sources) Third trimester ; Translations: [Encounter for [...] [32 weeks gestation of ] 04-05-2024 Episodic Residual codes; unclassified (2 sources) Gestation period, 35 weeks; Translations: [35 weeks gestation of ] 04-19-2024 Episodic Skin and subcutaneous tissue infections (1 [...] Test Name Value Interpretation Reference Range Facility ALL CBC WITH AUTO DIFFon BASOPHILS ABSOLUTE AUTO 0.1 [facility] Basophils/100 WBC (Bld) 0.4 % 0.2 - 2.0 % [facility] Eosinophils/100 WBC (Bld) 1.4 % 0.9 - 7.0 % [facility] Erythrocyte distribution width (RBC) [Ratio] 12.3 % 11.0 - 15.0 % [facility] Hematocrit (Bld) [Volume fraction] 34 % Low 36.0 - 48.0 % [facility] Hemoglobin (Bld) [Mass/Vol] 11.2 g/dL Low 12.0 - 16.0 g/dL [facility] IMMATURE GRANULOCYTES ABS AUTO 0.23 High [facility] Immature granulocytes/100 WBC (Bld) 1.6 % High 0.0 - 0.5 % [facility] Interpretation and review of laboratory results Abnormal [facility] LYMPHOCYTES ABSOLUTE AUTO 2.5 [facility] Lymphocytes/100 WBC (Bld) 16.8 % Low 20.5 - 60.0 % [facility] MCH (RBC) [Entitic mass] 33.6 pg 26.7 - 34.0 pg [facility] MCHC (RBC) [Mass/Vol] 32.9 g/dL 29.9 - 35.2 g/dL [facility] MCV (RBC) [Entitic vol] 102.1 fL High 81.0 - 99.0 fL [facility] MONOCYTES ABSOLUTE AUTO 0.8 [facility] Monocytes/100 WBC (Bld) 5.2 % 1.7 - 12.0 % [facility] NEUTROPHILS ABSOLUTE AUTO 11 High [facility] Neutrophils/100 WBC (Bld) 74.6 % 43.0 - 75.0 % [facility] Platelet mean volume (Bld) [Entitic vol] 10.7 fL 9.5 - 13.5 [facility]L [facility] PLT 196 [facility] RBC 3.33 Low [facility] WBC 14.7 High [facility] ALL CBC WITH AUTO DIFFon BASOPHILS ABSOLUTE AUTO 0 [facility] Basophils/100 WBC (Bld) 0.1 % Low 0.2 - 2.0 % [facility] Eosinophils/100 WBC (Bld) 0 % Low 0.9 - 7.0 % [facility] Erythrocyte distribution width (RBC) [Ratio] 12.4 % 11.0 - 15.0 % [facility] Hematocrit (Bld) [Volume fraction] 37.9 % 36.0 - 48.0 % [facility] Hemoglobin (Bld) [Mass/Vol] 12.8 g/dL 12.0 - 16.0 g/dL [facility] IMMATURE GRANULOCYTES ABS AUTO 0.18 High [facility] Immature granulocytes/100 WBC (Bld) 0.8 % High 0.0 - 0.5 % [facility] Interpretation and review of laboratory results Abnormal [facility] LYMPHOCYTES ABSOLUTE AUTO 1.9 [facility] Lymphocytes/100 WBC (Bld) 8.5 % Low 20.5 - 60.0 % [facility] MCH (RBC) [Entitic mass] 33.2 pg 26.7 - 34.0 pg [facility] MCHC (RBC) [Mass/Vol] 33.8 g/dL 29.9 - 35.2 g/dL [facility] MCV (RBC) [Entitic vol] 98.4 fL 81.0 - 99.0 fL [facility] MONOCYTES ABSOLUTE AUTO 1 High [facility] Monocytes/100 WBC (Bld) 4.6 % 1.7 - 12.0 % [facility] NEUTROPHILS ABSOLUTE AUTO 19 High [facility] Neutrophils/100 WBC (Bld) 86 % High 43.0 - 75.0 % [facility] Platelet mean volume (Bld) [Entitic vol] 12.1 fL 9.5 - 13.5 fL [facility] # 0 [facility] PLT 151 [facility] RBC 3.85 Low [facility] WBC 22.1 High [facility] CBC WITH PLATELET NO DI FFERENTIALon 04-26-2024 Erythrocyte distribution width (RBC) [Ratio] 12 % 11.0 - 15.0 % [facility] Hematocrit (Bld) [Volume fraction] 42 % 36.0 - 48.0 % [facility] Hemoglobin (Bld) [Mass/Vol] 14.5 g/dL 12.0 - 16.0 g/dL [facility] Interpretation and review of laboratory results Abnormal [facility] MCH (RBC) [Entitic mass] 33.2 pg 26.7 - 34.0 pg [facility] MCHC (RBC) [Mass/Vol] 34.5 g/dL 29.9 - 35.2 g/dL [facility] MCV (RBC) [Entitic vol] 96.1 fL 81.0 - 99.0 fL [facility] Platelet mean volume (Bld) [Entitic vol] 12.9 fL 9.5 - 13.5 fL [facility] PLT 126 Low [facility] RBC 4.37 [facility] WBC 8.6 [facility] (CLEAN/CATCH) CLAIM INSPECTOR/CRISPIN RO IF IND.on 04-26-2024 BILIRUBIN URINE Negative NEGATIVE [facility] BLOOD URINE Negative NEGATIVE [facility] Clarity (U) CLEAR CLEAR [facility] Color (U) YELLOW YELLOW [facility] GLUCOSE URINE UA Negative NEGATIVE mg/dL [facility] Interpretation and review of laboratory results Abnormal [facility] Ketones Ql (U) Negative NEGATIVE mg/dL [facility] Leukocyte esterase Test strip Ql (U) Negative NEGATIVE [facility] NITRITE URINE Negative NEGATIVE [facility] pH (U) 7.0 [pH] 5.0 - 9.0 [facility] PROTEIN URINE >=300 Abnormal NEG/TRACE mg/dL [facility] SPECIFIC GRAVITY URINE 1.020 1.005 - 1.025 [facility] URINE MICROSCOPIC INDICATED YES [facility] UROBILINOGEN URINE 0.2 EU/dL 0.2 - 1.0 EU/dL [facility]dipstick) panel (U)on 04-19-2024 Bilirubin, UA Negative Negative - 4(70) +++ mg/dL [facility] Blood, UA Positive Negative - 50 Sung/mcL [facility] Comment on above: trace-intact Clarity, UA Clear [facility] Color, UA Yellow [facility] Glucose, UA Negative Negative - 1999(110) ++++ mg/dL [facility] Interpretation and review of laboratory results Abnormal [facility] Ketones, UA Negative Negative - 160(16) ++++ mg/dL [facility] Leukocytes, UA Negative Negative - 500+++ Jhon/mcL [facility] Nitrite, UA Negative Negative - Positive [facility] pH, UA 7 5 - 9 [facility] Protein, UA Positive Negative - 1999(20) ++++ mg/dL [facility] Comment on above: 300 Spec Grav, UA 1.025 1 - 1.03 [facility] Urobilinogen, UA 0.2 0.2 - 12 mg/dL [facility] Urinalysis macro (dipstick) panel (U)on 04-05-2024 Bilirubin, UA Negative Negative - 4(70) +++ mg/dL [facility] Blood, UA Positive Negative - 50 Sung/mcL [facility] Comment on above: trace Clarity, UA Clear [facility] Color, UA Yellow [facility] Glucose, UA Negative Negative - 1999(110) ++++ mg/dL [facility] Interpretation and review of laboratory results Abnormal [facility] Ketones, UA Negative Negative - 160(16) ++++ mg/dL [facility] Leukocytes, UA Negative Negative - 500+++ Jhon/mcL [facility] Nitrite, UA Negative Negative - Positive [facility] pH, UA 6 5 - 9 [facility] Protein, UA Many Negative - 1999(20) ++++ mg/dL [facility] Spec Grav, UA 1.03 1 - 1.03 [facility] Urobilinogen, UA 0.2 0.2 - 12 mg/dL [facility] Urinalysis macro (dipstick) panel (U)on 03-21-2024 Bilirubin, UA Negative Negative - 4(70) +++ mg/dL [facility] Blood, UA Negative Negative - 50 Sung/mcL [facility] Clarity, UA Clear [facility] Color, UA Yellow [facility] Glucose, UA Negative Negative - 1999(110) ++++ mg/dL [facility] Interpretation and review of laboratory results Abnormal [facility] Ketones, UA Negative Negative - 160(16) ++++ mg/dL [facility] Leukocytes, UA Trace Negative - 500+++ Jhon/mcL [facility] Nitrite, UA Negative Negative - Positive [facility] pH, UA 6 5 - 9 [facility] Protein, UA Negative Negative - 1999(20) ++++ mg/dL [facility] Spec Grav, UA 1.025 1 - 1.03 [facility] Urobilinogen, UA 1.0 0.2 - 12 mg/dL [facility] Urinalysis macro (dipstick) panel (U)on 03-07-2024 Bilirubin, UA Negative Negative - 4(70) +++ mg/dL [facility] Blood, UA Negative Negative - 50 Sung/mcL [facility] Clarity, UA Clear [facility] Color, UA Yellow [facility] Glucose, UA Negative Negative - 1999(110) ++++ mg/dL [facility] Interpretation and review of laboratory results Abnormal [facility] Ketones, UA Negative Negative - 160(16) ++++ mg/dL [facility] Leukocytes, UA Positive Negative - 500+++ Jhon/mcL [facility] Comment on above: small Nitrite, UA Negative Negative - Positive [facility] pH, UA 7.0 5 - 9 [facility] Protein, UA Negative Negative - 1999(20) ++++ mg/dL [facility] Spec Grav, UA 1.015 1 - 1.03 [facility] Urobilinogen, UA 1.0 0.2 - 12 mg/dL [facility] .UA Microscp 08-04-2022 UA Bacteria Present Abnormal Absent [facility] Comment on above: Performed By: #### L IVER #### [place] [address] UA Mucus Present Abnormal Absent [facility] Comment on above: Performed By: #### L IVER #### [place] [address] UA RBC Qual 1-4 Normal 0 - 5 [facility] Comment on above: Performed By: #### L IVER #### [place] [address] UA Squepi Cells Qual 15-29 Normal 0 - 29 [facility] Comment on above: Performed By: #### L IVER #### [address] [address] UA WBC Qual 5-9 Abnormal 0 - 5 [facility] Comment on above: Performed By: #### L IVER #### [address] [address] .eGFRon 08-04-2022 GFR/1.73 sq M.predicted MDRD (S/P/Bld) [Vol rate/Area] mL/min/{1.73_m2} Normal >=60 [facility] Comment on above: Order Comment: Order added by Discern rule Result Comment: [facility] Laboratories have implemented the [...] years Performed By: #### L IVER #### [address] [address] Basic Metabolic Profileon Anion gap [Moles/Vol] 10 mmol/L Normal 7-17 [facility] Comment on above: Performed By: #### C [id number] #### [address] [address] Calcium [Mass/Vol] 8.5 mg/dL Low 8.6-10.3 [facility] Comment on above: Performed By: #### C [id number] #### [address] [address] Chloride 105 IU/L Normal 98-107 [facility] Comment on above: Performed By: #### C [id number] #### [address] [address] CO2 [Moles/Vol] 26 mmol/L Normal 21-31 [facility] Comment on above: Performed By: #### C [id number] #### [address] [address] Creatinine [Mass/Vol] 0.6 mg/dL Normal 0.6-1.2 [facility] Comment on above: Performed By: #### C [id number] #### [address] [address] Glucose [Mass/Vol] 90 mg/dL Normal 70-99 [facility] Comment on above: Performed By: #### C [id number] #### [address] [address] Potassium [Moles/Vol] 3.5 mmol/L Normal 3.4-4.8 [facility] Comment on above: Performed By: #### C [id number] #### [address] [address] Sodium [Moles/Vol] 138 mmol/L Normal 136-145 [facility] Comment on above: Performed By: #### C [id number] #### [address] [address] Urea nitrogen [Mass/Vol] 14 mg/dL Normal 7-25 [facility] Comment on above: Performed By: #### C [id number] #### [address] [address] Urea nitrogen/Creatinine [Mass ratio] 23.3 mg/mg High 10.0-20.0 [facility] Comment on above: Performed By: #### C [id number] #### [place] [address] CBC w/ Diffon 08-04-2022 Erythrocyte distribution width (RBC) [Ratio] 12.5 % Normal 11.6-14.8 [facility] Comment on above: Performed By: #### C BC #### [place] [address] Hematocrit (Bld) [Volume fraction] 40.3 % Normal 36.0-46.0 [facility] Comment on above: Performed By: #### C BC #### [place] [address] Hemoglobin (Bld) [Mass/Vol] 13.6 g/dL Normal 12.0-16.0 [facility] Comment on above: Performed By: #### C BC #### [place] [address] MCH (RBC) [Entitic mass] 29.9 pg Normal 27.0-35.0 [facility] Comment on above: Performed By: #### C BC #### [place] [address] MCHC 33.8 % Normal 31.0-37.0 [facility] Comment on above: Performed By: #### C BC #### [place] [address] MCV (RBC) [Entitic vol] 88.4 fL Normal 80.0-100.0 [facility] Comment on above: Performed By: #### C BC #### [place] [address] Platelet 230 x10*3/mcL Normal 150-350 [facility] Comment on above: Performed By: #### C BC #### [place] [address] Platelet mean volume (Bld) [Entitic vol] 7.7 fL Normal 7.5-11.5 [facility] Comment on above: Performed By: #### C BC #### [place] [address] RBC 4.56 x10*6/mcL Normal 3.80-5.20 [facility] Comment on above: Performed By: #### C BC #### [address] [address] WBC 6.7 x10*3/mcL Normal 4.5-11.0 [facility] Comment on above: Performed By: #### C BC #### [address] [address] COV19 Rapidon 08-04-2022 LAB ONLY Result Called? No Normal [facility] Comment on above: Performed By: #### C [id number] #### [address] [address] Reason for Rapid Test COVID Exposure Normal [facility] Comment on above: Performed By: #### C [id number] #### [address] [address] SARS-CoV-2 (COVID-19) RNA ADELSO+probe Ql (Unsp spec) Negative Normal Negative [facility] Comment on above: Result Comment: [...] using the ID NOW COVID-19 test by [employer], which has received Emergency Use Authorization (EUA) [...] following links: Fact Sheet for HealthCare Providers: https://www.fda.gov/media/942999/download Fact Sheet for Patients: https://www.fda.gov/media/813544/download Performed By: #### C D:[id number] #### [place] [address] Diff Autoon 08-04-2022 Baso Absolute 0.0 x10*3/mcL Normal 0.0-0.2 [facility] Comment on above: Performed By: #### . Automated Diff #### [place] [address] Basophils/100 WBC (Bld) 0.2 % Normal 0.0-1.5 [facility] Comment on above: Performed By: #### . Automated Diff #### [place] [address] Eos Absolute 0.1 x10*3/mcL Normal 0.0-0.4 [facility] Comment on above: Performed By: #### . Automated Diff #### [place] [address] Eosinophils/100 WBC (Bld) 1.2 % Normal 0.0-5.4 [facility] Comment on above: Performed By: #### . Automated Diff #### [place] [address] Lymph Absolute 1.6 x10*3/mcL Normal 1.0-4.8 [facility] Comment on above: Performed By: #### . Automated Diff #### [place] [address] Lymphocytes/100 WBC (Bld) 23.7 % Low 27.2-40.8 [facility] Comment on above: Performed By: #### . Automated Diff #### [place] [address] Crisp Absolute 0.6 x10*3/mcL Normal 0.1-1.1 [facility] Comment on above: Performed By: #### . Automated Diff #### [place] [address] Monocytes/100 WBC (Bld) 9.3 % Normal 3.7-11.9 [facility] Comment on above: Performed By: #### . Automated Diff #### [address] [address] Neutro Absolute 4.4 x10*3/mcL Normal 1.8-7.7 [facility] Comment on above: Performed By: #### . Automated Diff #### [address] [address] Neutro Auto 65.6 % Normal 47.2-70.8 [facility] Comment on above: Performed By: #### . Automated Diff #### [address] [address] ED Clinical Summaryon 2022 ED Clinical Summary (Inserted Image. Debra ble to display) [address] [address] ED Clinical Summary Person Information Name: Jeannine Antunez [facility] Age: 21 Years : 2000 Sex: Female PCP: Marital Status: Single Phone: Race: White Ethnicity: Not or Language: Latvian Visit Reason: Abdominal pain; Vomiting; Nausea; Abdominal pain Acuity: 3 Enc Type: Emergency Med Service: Emergency Medicine Arrival: 08/04/2022 18:42:47 Discharge: 08/04/2022 20:40:00 LOS: 000 01:58 Checkin: 08/04/2022 18:42:47 Checkout: 08/04/2022 20:40:00 Dispo Type: Home or Self Care Address: [address] [place] [address] Provider Notes: History of Present Illness 21-year-old [...] range between ( 27.2 and 40.8 ) Crisp Auto: 9.3 % -- Normal range between [...] range between ( 36.0 and 46.0 ) Crisp Absolute: 0.6 x10 MCH: 29.9 pg -- [...] UA Color: (more content not included)... Normal [facility] ED Note-Physicianon 08-04-19 ED Note-Physician [...] 08/04/22 19:26 (more content not included)... Normal [facility] Flu A&B Ag Rapidon 3 Influenza A Ag Negative Normal Negative [facility] Comment on above: Performed By: #### C [id number] #### [place] [address] Influenza B Ag Negative Normal Negative [facility] Comment on above: Result Comment: [employer] Influenza A+B Card 2 detects both viable [...] public health departments. Performed By: #### C [id number] #### [address] [address] Hep Func Panelon 08-04-2022 Albumin [Mass/Vol] 4.4 g/dL Normal 3.7-5.3 [facility] Comment on above: Performed By: #### L IVER #### [address] [address] Alk Phos 53 IU/L Normal 34-104 [facility] Comment on above: Performed By: #### L IVER #### [place] [id number] ALT [Catalytic activity/Vol] 15 U/L Normal 7-52 [facility] Comment on above: Performed By: #### L IVER #### [facility] [address] [place] [address] AST [Catalytic activity/Vol] 16 U/L Normal 13-39 [facility] Comment on above: Performed By: #### L IVER #### [place] [address] Bili Direct 0.15 mg/dL Normal 0.03-0.18 [facility] [facility] Comment on above: Performed By: #### L IVER #### [place] [address] Bili Indirect 0.4 mg/dL Normal 0.0-1.0 [facility] Comment on above: Performed By: #### L IVER #### [place] [address] Bili Total 0.6 mg/dL Normal 0.3-1.0 [facility] Comment on above: Performed By: #### L IVER #### [place] [address] Protein [Mass/Vol] 7.5 g/dL Normal 6.0-8.3 [facility] Comment on above: Performed By: #### L IVER #### [place] [address] Lipaseon 08-04-2022 Lipase Lvl 18 IU/L Normal 11-82 [facility] Comment on above: Performed By: #### L IP #### [address] [id number] UA w Culture if Ind Tri Color (U) Yellow Normal [facility] Comment on above: Performed By: #### U CIM #### [address] [address] Glucose (U) [Mass/Vol] Negative Normal Negative [facility] Comment on above: Performed By: #### U CIM #### [place] [address] Ketones Ql (U) Negative Normal Negative [facility] Comment on above: Performed By: #### U CIM #### [place] [address] UA Blood Negative Normal Negative [facility] Comment on above: Performed By: #### U CIM #### [place] [address] UA Clarity Hazy Normal [facility] Comment on above: Performed By: #### U CIM #### [place] [address] UA Leukocyte Esterase Trace Abnormal Negative [facility] Comment on above: Performed By: #### U CIM #### [place] [address] UA Nitrite Negative Normal Negative [facility] Comment on above: Performed By: #### U CIM #### [place] [address] UA pH 7.0 Normal 4.5 - 7.8 [facility] Comment on above: Performed By: #### U CIM #### [place] [address] UA Protein Negative Normal Negative [facility] Comment on above: Performed By: #### U CIM #### [place] [address] UA Source Clean Catch Normal [facility] Comment on above: Performed By: #### U CIM #### [place] [address] UA Spec Grav 1.025 Normal 1.003-1.035 [facility] Comment on above: Performed By: #### U CIM #### [place] [address] UA Urobilinogen 2.0 mg/dL Abnormal 0.2 - 1.0 [facility] Comment on above: Result Comment: conf irmed with chemstrip 10 08/04/2022 19:44:02 EST Performed By: #### U CIM #### [place] [address] Urobilinogen (U) [Mass/Vol] Negative Normal Negative [facility] Comment on above: Performed By: #### U CIM #### [place] [address] XR Abdomen 2 Views w/ Chest 1 [...] Electronically Signed in Other Vendor System) Normal [facility] INSULINon 05-01-2022 Insulin 14.9 uIU/mL Normal 2.6-24.9 [facility] Comment on above: Performed By: #### I NSULIN #### [facility] [address] [place] [address] Dr. Yesenia Hung CBC AUTO DIFFon 04-29-2022 BASO # 0.0 103/ul Normal 0.0-0.1 [facility] Comment on above: Performed By: #### R PRQ #### [facility] [address] [place] [address] Dr. Yesenia Hung Basophils/100 WBC (Bld) 0.6 % Normal 0.2-2.0 [facility] Comment on above: Performed By: #### R PRQ #### [facility] [address] [place] [address] Dr. Yesenia Hung EO # 0.1 103/ul Normal 0.0-0.7 [facility] Comment on above: Performed By: #### R PRQ #### [facility] [address] [place] [address] Dr. Yesenia Hung Eosinophils/100 WBC (Bld) 0.7 % Critically low 0.9-7.0 [facility] Comment on above: Performed By: #### R PRQ #### [facility] [address] [place] [address] Dr. Yesenia Hung Erythrocyte distribution width (RBC) [Ratio] 12.6 % Normal 11.0-15.0 [facility] Comment on above: Performed By: #### R PRQ #### [facility] [address] [place] [address] Dr. Yesenia Hung Hematocrit (Bld) [Volume fraction] 38.9 % Normal 36.0-48.0 [facility] Comment on above: Performed By: #### R PRQ #### [facility] [address] [place] [address] Dr. Yesenia Hung Hemoglobin (Bld) [Mass/Vol] 13.2 g/dL Normal 12.0-16.0 [facility] Comment on above: Performed By: #### R PRQ #### [facility] [address] [place] [address] Dr. Yesenia Hung IG # 0.02 10e3/ul Normal 0.00-0.03 [facility] Comment on above: Performed By: #### R PRQ #### [facility] [address] [place] [address] Dr. Yesenia Hung IG % 0.3 % Normal 0.0-0.5 [facility] Comment on above: Performed By: #### R PRQ #### [facility] [address] [place] [address] Dr. Yesenia Hung LYMPH # 2.1 103/ul Normal 1.2-3.8 [facility] Comment on above: Performed By: #### R PRQ #### [facility] [address] [place] [address] Dr. Yesenia Hung Lymphocytes/100 WBC (Bld) 29.4 % Normal 20.5-60.0 [facility] Comment on above: Performed By: #### R PRQ #### [facility] [address] [place] [address] Dr. Yesenia Hung MANUAL DIFF REQ NO Normal [facility] Comment on above: Performed By: #### R PRQ #### [facility] [address] [place] [address] Dr. Yesenia Hung MCH (RBC) [Entitic mass] 29.8 pg Normal 26.7-34.0 [facility] Comment on above: Performed By: #### R PRQ #### [facility] [address] [place] [address] Dr. Yesenia Hung MCHC (RBC) [Mass/Vol] 33.9 g/dL Normal 29.9-35.2 [facility] Comment on above: Performed By: #### R PRQ #### [facility] [address] [place] [address] Dr. Yesenia Hung MCV (RBC) [Entitic vol] 87.8 fL Normal 81.0-99.0 [facility] Comment on above: Performed By: #### R PRQ #### [facility] [address] [place] [address] Dr. Yesenia Hung MONO # 0.5 103/ul Normal 0.3-0.8 [facility] Comment on above: Performed By: #### R PRQ #### [facility] [address] [place] [address] Dr. Yesenia Hung Monocytes/100 WBC (Bld) 6.6 % Normal 1.7-12.0 [facility] Comment on above: Performed By: #### R PRQ #### [facility] [address] [place] [address] Dr. Yesenia Hung NEUT # 4.5 103/ul Normal 1.4-6.5 [facility] Comment on above: Performed By: #### R PRQ #### [facility] [address] [place] [address] Dr. Yesenia Hung Neutrophils/100 WBC (Bld) 62.4 % Normal 43.0-75.0 [facility] Comment on above: Performed By: #### R PRQ #### [facility] [address] [address] [address] Yesenia Hung Platelet mean volume (Bld) [Entitic vol] 9.5 fL Normal 9.5-13.5 [facility] Comment on above: Performed By: #### R PRQ #### [facility] [address] [address] [address] Yesenia Hung PLT 294 103/ul Normal 150-450 [facility] Comment on above: Performed By: #### R PRQ #### [facility] [address] [place] [address] Dr. Yesenia Hung RBC 4.43 106/ul Normal 4.20-5.40 [facility] Comment on above: Performed By: #### R PRQ #### [facility] [address] [place] [address] Dr. Yesenia Hung WBC 7.1 103/ul Normal 4.0-11.0 [facility] Comment on above: Performed By: #### R PRQ #### [facility] [address] [place] [address] Dr. Yesenia Hung FREE THYROXINE INDEX T7on FTI 2.51 Normal 1.30-4.50 [facility] Comment on above: Performed By: #### C MP, TSH, T7, PREGQNT #### [facility] [address] [place] [address] Dr. Yesenia Hung T3U 33.0 % Normal 30.0-39.0 [facility] Comment on above: Performed By: #### C MP, TSH, T7, PREGQNT #### [facility] [address] [place] [address] Dr. Yesenia Hung T4 [Mass/Vol] 7.60 ug/dL Normal 4.80-13.90 [facility] Comment on above: Performed By: #### C MP, TSH, T7, PREGQNT #### [facility] [address] [place] [address] Dr. Yesenia Hung GLYCOHEMOGLOBIN A1Con 2021 ADA RECOMMENDATION SEE BELOW Normal [facility] Comment on above: Result Comment: ADA RECOMMENDED LIMIT 4.0 - 6.0 ADA THERAPEUTIC TARGET < 7.0 ACTION SUGGESTED > 7.0 Performed By: #### A 1C #### [facility] [address] [place] [address] Dr. Yesenia Hung Glucose [Mass/Vol] 103 mg/dL Normal [facility] Comment on above: Performed By: #### A 1C #### [facility] [address] [place] [address] Dr. Yesenia Hung HbA1c (Bld) [Mass fraction] 5.2 % Normal 4.5-6.2 [facility] Comment on above: Performed By: #### A 1C #### [facility] [address] [place] [address] Dr. Yesenia Hung IRONon 04-29-2022 Iron [Mass/Vol] 40.0 ug/dL Critically low 50.0-170.0 [facility] Comment on above: Performed By: #### A 1C #### [facility] [address] [place] [address] Dr. Yesenia Hung PREG QUANT HCGon 04-29-2022 HCG QUANT <1 Normal [facility] Comment on above: Performed By: #### R PRQ #### [facility] [address] [place] [address] Dr. Yesenia Hung HCG RANGE SEE BELOW Normal [facility] Comment on above: Result Comment: 5-50 0.2-1 WEEK 50-500 1-2 WEEKS 100-5,000 2-3 WEEKS 500-10,000 3-4 WEEKS 1,000-50,000 4-5 WEEKS 10,000-100,000 5-6 WEEKS 15,000-200,000 6-8 WEEKS 10,000-100,000 2-3 MONTHS Performed By: #### R PRQ #### [facility] [address] [place] [address] Dr. Yesenia Hung PROF 14(COMP METB)on 022 Albumin [Mass/Vol] 4.2 g/dL Normal 3.4-5.0 [facility] Comment on above: Performed By: #### R PRQ #### [facility] [address] [place] [address] Dr. Yesenia Hung Albumin/Globulin [Mass ratio] 1.0 {ratio} Normal [facility] Comment on above: Performed By: #### R PRQ #### [facility] [address] [place] [address] Dr. Yesenia Hung ALP [Catalytic activity/Vol] 67 U/L Normal 46-116 [facility] Comment on above: Performed By: #### R PRQ #### [facility] [address] [place] [address] Dr. Yesenia Hung ALT [Catalytic activity/Vol] 11 U/L Critically low 14-59 [facility] Comment on above: Performed By: #### R PRQ #### [facility] [address] [place] [address] Dr. Yesenia Hung Anion gap [Moles/Vol] 12.1 mmol/L Normal [facility] Comment on above: Performed By: #### R PRQ #### [facility] [address] [place] [address] Dr. Yesenia Hung AST [Catalytic activity/Vol] 10 U/L Critically low 15-37 [facility] Comment on above: Performed By: #### R PRQ #### [facility] [address] [place] [address] Dr. Yesenia Hung Bilirubin [Mass/Vol] 0.2 mg/dL Normal 0.2-1.0 [facility] Comment on above: Performed By: #### R PRQ #### [facility] [address] [place] [address] Dr. Yesenia Hung Calcium [Mass/Vol] 9.4 mg/dL Normal 8.5-10.1 [facility] Comment on above: Performed By: #### R PRQ #### [facility] [address] [place] [address] Dr. Yesenia Hung Chloride [Moles/Vol] 103 mmol/L Normal 98-107 [facility] Comment on above: Performed By: #### R PRQ #### [facility] [address] [place] [address] Dr. Yesenia Hung CO2 [Moles/Vol] 28.2 mmol/L Normal 21.0-32.0 [facility] Comment on above: Performed By: #### R PRQ #### [facility] [address] [place] [address] Dr. Yesenia Hung Creatinine [Mass/Vol] 0.58 mg/dL Normal 0.55-1.02 [facility] Comment on above: Performed By: #### R PRQ #### [facility] [address] [address] [address] Yesenia Hung EGFR-AF COSTA RICAN >60 Normal >=60 [facility] Comment on above: Performed By: #### R PRQ #### [facility] [address] [place] [address] Dr. Yesenia Hung EGFR-NON AF COSTA RICAN >60 Normal >=60 [facility] Comment on above: Performed By: #### R PRQ #### [facility] [address] [place] [address] Dr. Yesenia Hung Globulin (S) [Mass/Vol] 4.0 g/dL Normal [facility] Comment on above: Performed By: #### R PRQ #### [facility] [address] [place] [address] Dr. Yesenia Hung Glucose [Mass/Vol] 89 mg/dL Normal 74-106 [facility] Comment on above: Performed By: #### R PRQ #### [facility] [address] [place] [address] Dr. Yesenia Hung Potassium [Moles/Vol] 4.3 mmol/L Normal 3.5-5.1 [facility] Comment on above: Performed By: #### R PRQ #### [facility] [address] [place] [address] Dr. Yesenia Hung Protein [Mass/Vol] 8.2 g/dL Normal 6.4-8.2 [facility] Comment on above: Performed By: #### R PRQ #### [facility] [address] [place] [address] Dr. Yesenia Hung Sodium [Moles/Vol] 139 mmol/L Normal 136-145 [facility] Comment on above: Performed By: #### R PRQ #### [facility] [address] [address] [address] Yesenia Hung Urea nitrogen [Mass/Vol] 11.0 mg/dL Normal 7.0-18.0 [facility] Comment on above: Performed By: #### R PRQ #### [facility] [address] [address] [address] Yesenia Hung Urea nitrogen/Creatinine [Mass ratio] 19.0 mg/mg Normal [facility] Comment on above: Performed By: #### R PRQ #### [facility] [address] [address] [address] Yesenia Hung TSHon 04-29-2022 TSH 1.621 uIU/mL Normal 0.358-3.740 [facility] Comment on above: Performed By: #### R PRQ #### [facility] [address] [address] [address] Yesenia Hung ED Clinical Summaryon 2021 ED Clinical Summary (Inserted Image. Debra ble to display) [address] [address] ED Clinical Summary Person Information Name: Jeannine Antunez/[facility] Age: 21 Years : 2000 Sex: Female PCP: Marital Status: Single Phone: Race: White Ethnicity: Not or Language: Latvian Visit Reason: Skin rash; Rash Acuity: 4 Enc Type: Emergency Med Service: Emergency Medicine Arrival: 03/29/2022 23:48:59 Discharge: 03/30/2022 00:18:00 LOS: 000 00:30 Checkin: 03/29/2022 23:48:59 Checkout: 03/30/2022 00:18:00 Dispo Type: Home or Self Care Address: [address] [place] [address] Provider Notes: History of Present Illness Patient presents for evaluation of rash. ?She believes that she is having a reaction to?red dye as she presented to?another emergency department?in [facility] earlier today.? Patient?was prescribed prednisone 60 [...] 2-3 days. Patient Education Information: Contact Dermatitis [facility] Poison Help line: . [facility] Hotline: [place] Tobacco Quit Line: [facility] ([place], [place]) [address]: [phone] [facility] ([place], [place]) [address]: [phone] [facility] [address] [facility] [place], [place]: [phone] Normal [facility] ED Note-Physicianon 03-30-20 ED Note-Physician Chief Complaint Presents to ED with c/o scattered small reddened areas to upper and lower extremities. History of Present Illness Patient presents for evaluation of rash. She believes that she is having a reaction to red dye as she presented to another emergency department in [facility] earlier today. Patient was prescribed prednisone [...] differential diagnoses including viral rash such as roij-qmey-nlx-mouth disease and contact dermatitis. Patient has had [...] Rach Posadas MD 03/30/22 00:21 EDT Normal [facility] PAP ACOG PANEL 3: 21 to 29on 06-09-2021 . . Normal [facility] Comment on above: Result Comment: Perf ormed at: WB Performed By: #### [id number] #### [facility] [address] [place] [address] Dr. Yesenia Hung Age Gdln ACOG Testing Comment Normal [facility] Comment on above: Result Comment: <21 or >65 or no age provided Performed By: #### [id number] #### [facility] [address] [place] [address] Dr. Yesenia Hung Chlamydia, Nuc. Acid Amp Positive Abnormal Negative [facility] Comment on above: Result Comment: . Performed at: =G Performed By: #### [id number] #### [facility] [address] [place] [address] Dr. Yesenia Hung DIAGNOSIS: Comment Abnormal [facility] Comment on above: Result Comment: EPIT HELIAL CELL ABNORMALITY. ATYPICAL SQUAMOUS CELLS OF UNDETERMINED SIGNIFICANCE (ASC-US). Performed at: WB Performed By: #### [id number] #### [facility] [address] [place] [address] Dr. Yesenia Hung Electronically signed by: Comment Normal [facility] Comment on above: Result Comment: Mi Ocampo MD, Pathologist Performed at: WB Performed By: #### [id number] #### [facility] [address] [place] [address] Dr. Yesenia Hung Gonococcus, Nuc. Acid Amp Negative Normal Negative [facility] Comment on above: Result Comment: Perf ormed at: =G Performed By: #### [id number] #### [facility] [address] [place] [address] Dr. Yesenia Hung Methodology: Comment Normal [facility] Comment on above: Result Comment: This liquid based ThinPrep(R) pap test was screened with the use of an image guided system. Performed at: WB Performed By: #### [id number] #### [facility] [address] [place] [address] Dr. Yesenia Hung Note: Comment Normal [facility] Comment on above: Result Comment: The Pap smear is a screening test designed to aid in the detection of premalignant and malignant conditions of the uterine cervix. It is not a diagnostic procedure and should not be used as the sole means of detecting cervical cancer. Both false-positive and false-negative reports do occur. . Performed at: WB Performed By: #### [id number] #### [facility] [address] [place] [address] Dr. Yesenia Hung Pathologist Provided ICD10 Comment Normal [facility] Comment on above: Result Comment: [id number] Performed at: WB Performed By: #### [id number] #### [facility] [address] [place] [address] Dr. Yesenia Hung Performed by: Comment Normal [facility] Comment on above: Result Comment: Amelia Thompson [employer] Teacher (ASCP) Performed at: WB Performed By: #### [id number] #### [facility] [address] [place] [address] Dr. Yesenia Hung Specimen adequacy: Comment Normal [facility] Comment on above: Result Comment: Sati sfactory for evaluation. Endocervical and/or squamous metaplastic cells (endocervical component) are present. Performed at: WB Performed By: #### [id number] #### [facility] [address] [place] [address] Dr. Yesenia Hung HEPATITIS PANEL, [facility] HBsAg Screen Negative Normal Negative [facility] Comment on above: Performed By: #### A 1C #### [facility] [address] [place] [address] Dr. Yesenia Hung Hep A Ab, IgM Negative Normal Negative [facility] Comment on above: Performed By: #### A 1C #### [facility] [address] [place] [address] Dr. Yesenia Hung Hep B Core Ab, IgM Negative Normal Negative [facility] Comment on above: Performed By: #### A 1C #### [facility] [address] [place] [address] Dr. Yesenia Hung Hep C Virus Ab <0.1 Normal 0.0-0.9 [facility] Comment on above: Result Comment: Nega tive: < 0.8 Indeterminate: 0.8 - 0.9 Positive: > 0.9 . The CDC recommends that a positive HCV antibody result be followed up with a HCV Nucleic Acid Amplification test (633683). Effective August 18, 2021 Hepatitis Panel (4) will be made non-orderable. [facility] offers order code [id number] Acute Hepatitis. Performed By: #### A 1C #### [facility] [address] [place] [address] Dr. Yesenia Hung HERPES SIMPLEX 1/2 IGGon HSV 1 IgG, Type Spec <0.91 Normal 0.00-0.90 [facility] Comment on above: Result Comment: Nega tive <0.91 Equivocal 0.91 - 1.09 Positive >1.09 Note: Negative indicates no antibodies detected to HSV-1. Equivocal may suggest early infection. If clinically appropriate, retest at later date. Positive indicates antibodies detected to HSV-1. Performed By: #### H SV IGG #### [facility] [address] [place] [address] Dr. Yesenia Hung HSV 2 IgG Type Spec <0.91 Normal 0.00-0.90 [facility] Comment on above: Result Comment: Nega tive <0.91 Equivocal 0.91 - 1.09 Positive >1.09 Note: Negative indicates no antibodies detected to HSV-2. Equivocal may suggest early infection. If clinically appropriate, retest at later date. Positive indicates antibodies detected to HSV-2. Performed By: #### H SV IGG #### [facility] [address] [place] [address] Dr. Yesenia Hung HERPES SIMPLEX 1/2 IGMon HSV, IgM I/II Combination <0.91 Normal 0.00-0.90 [facility] Comment on above: Result Comment: Nega tive <0.91 Equivocal 0.91 - 1.09 Positive >1.09 Performed By: #### A 1C #### [facility] [address] [place] [address] Dr. Yesenia Hung HIV 1 AND 2 WITH REFLEXon HIV Screen 4th Generation wRfx Non-Reactive Normal Non Reactive [facility] Comment on above: Performed By: #### A 1C #### [facility] [address] [place] [address] Dr. Yesenia Hung RPR QUANTon 06-05-2021 Rapid Plasma Reagin, Quant Non-Reactive Normal NonRea<1:1 [facility] Comment on above: Performed By: #### R PRQ #### [facility] [address] [place] [address] Dr. Yesenia Hung HERPES SIMPLEX 1/2 IGGon HSV 1 IgG, Type Spec <0.91 Normal 0.00-0.90 [facility] Comment on above: Result Comment: Nega tive <0.91 Equivocal 0.91 - 1.09 Positive >1.09 Note: Negative indicates no antibodies detected to HSV-1. Equivocal may suggest early infection. If clinically appropriate, retest at later date. Positive indicates antibodies detected to HSV-1. Performed By: #### A 1C #### [facility] [address] [place] [address] Dr. Yesenia Hung HSV 2 IgG Type Spec <0.91 Normal 0.00-0.90 [facility] Comment on above: Result Comment: Nega tive <0.91 Equivocal 0.91 - 1.09 Positive >1.09 Note: Negative indicates no antibodies detected to HSV-2. Equivocal may suggest early infection. If clinically appropriate, retest at later date. Positive indicates antibodies detected to HSV-2. Performed By: #### A 1C #### [facility] [address] [place] [address] Dr. Yesenia Hung HEPATITIS PANEL, ACUTEon HBsAg Screen Negative Normal Negative [facility] Comment on above: Performed By: #### H EPACUT #### [facility] [address] [place] [address] Dr. Yesenia Hung Hep A Ab, IgM Negative Normal Negative [facility] Comment on above: Performed By: #### H EPACUT #### [facility] [address] [place] [address] Dr. Yesenia Hung Hep B Core Ab, IgM Negative Normal Negative [facility] Comment on above: Performed By: #### H EPACUT #### [facility] [address] [place] [address] Dr. Yesenia Hung Hep C Virus Ab <0.1 Normal 0.0-0.9 [facility] Comment on above: Result Comment: Nega tive: < 0.8 Indeterminate: 0.8 - 0.9 Positive: > 0.9 . The CDC recommends that a positive HCV antibody result be followed up with a HCV Nucleic Acid Amplification test (880610). Effective August 18, 2021 Hepatitis Panel (4) will be made non-orderable. [facility] offers order code [id number] Acute Hepatitis. Performed By: #### H EPACUT #### [facility] [address] [place] [address] Dr. Yesenia Hung HIV 1 AND 2 WITH REFLEXon HIV Screen 4th Generation wRfx Non-Reactive Normal Non Reactive [facility] Comment on above: Performed By: #### H IV12 #### [facility] [address] [place] [address] Dr. Yesenia Hung RPR QUANTon 05-25-2021 Rapid Plasma Reagin, Quant Non-Reactive Normal NonRea<1:1 [facility] Comment on above: Performed By: #### R PRQ #### [facility] [address] [place] [address] Dr. Yesenia Hung CBC AUTO DIFFon 05-24-2021 BASO # 0.0 103/ul Normal 0.0-0.1 [facility] Comment on above: Performed By: #### R PRQ #### [facility] [address] [place] [address] Dr. Yesenia Hung Basophils/100 WBC (Bld) 0.3 % Normal 0.2-2.0 [facility] Comment on above: Performed By: #### R PRQ #### [facility] [address] [place] [address] Dr. Yesenia Hung EO # 0.1 103/ul Normal 0.0-0.7 [facility] Comment on above: Performed By: #### R PRQ #### [facility] [address] [place] [address] Dr. Yesenia Hung Eosinophils/100 WBC (Bld) 1.0 % Normal 0.9-7.0 [facility] Comment on above: Performed By: #### R PRQ #### [facility] [address] [place] [address] Dr. Yesenia Hung Erythrocyte distribution width (RBC) [Ratio] 12.3 % Normal 11.0-15.0 [facility] Comment on above: Performed By: #### R PRQ #### [facility] [address] [place] [address] Dr. Yesenia Hung Hematocrit (Bld) [Volume fraction] 38.3 % Normal 36.0-48.0 [facility] Comment on above: Performed By: #### R PRQ #### [facility] [address] [place] [address] Dr. Yesenia Hung Hemoglobin (Bld) [Mass/Vol] 12.4 g/dL Normal 12.0-16.0 [facility] Comment on above: Performed By: #### R PRQ #### [facility] [address] [place] [address] Dr. Yesenia Hung IG # 0.02 10e3/ul Normal 0.00-0.03 [facility] Comment on above: Performed By: #### R PRQ #### [facility] [address] [place] [address] Dr. Yesenia Hung IG % 0.3 % Normal 0.0-0.5 [facility] Comment on above: Performed By: #### R PRQ #### [facility] [address] [place] [address] Dr. Yesenia Hung LYMPH # 1.6 103/ul Normal 1.2-3.8 [facility] Comment on above: Performed By: #### R PRQ #### [facility] [address] [place] [address] Dr. Yesenia Hung Lymphocytes/100 WBC (Bld) 22.8 % Normal 20.5-60.0 [facility] Comment on above: Performed By: #### R PRQ #### [facility] [address] [address] [address] Yesenia Hung MANUAL DIFF REQ NO Normal [facility] Comment on above: Performed By: #### R PRQ #### [facility] [address] [place] [address] Dr. Yesenia Hung MCH (RBC) [Entitic mass] 28.5 pg Normal 26.7-34.0 [facility] Comment on above: Performed By: #### R PRQ #### [facility] [address] [place] [address] Dr. Yesenia Hung MCHC (RBC) [Mass/Vol] 32.4 g/dL Normal 29.9-35.2 [facility] Comment on above: Performed By: #### R PRQ #### [facility] [address] [place] [address] Dr. Yesenia Hung MCV (RBC) [Entitic vol] 88.0 fL Normal 81.0-99.0 [facility] Comment on above: Performed By: #### R PRQ #### [facility] [address] [place] [address] Dr. Yesenia Hung MONO # 0.5 103/ul Normal 0.3-0.8 [facility] Comment on above: Performed By: #### R PRQ #### [facility] [address] [place] [address] Dr. Yesenia Hung Monocytes/100 WBC (Bld) 7.1 % Normal 1.7-12.0 [facility] Comment on above: Performed By: #### R PRQ #### [facility] [address] [place] [address] Dr. Yesenia Hung NEUT # 4.9 103/ul Normal 1.4-6.5 [facility] Comment on above: Performed By: #### R PRQ #### [facility] [address] [place] [address] Dr. Yesenia Hung Neutrophils/100 WBC (Bld) 68.5 % Normal 43.0-75.0 [facility] Comment on above: Performed By: #### R PRQ #### [facility] [address] [address] [address] Yesenia Hung Platelet mean volume (Bld) [Entitic vol] 9.6 fL Normal 9.5-13.5 [facility] Comment on above: Performed By: #### R PRQ #### [facility] [address] [address] [address] Yesenia Hung PLT 224 103/ul Normal 150-450 [facility] Comment on above: Performed By: #### R PRQ #### [facility] [address] [address] [address] Yesenia Hung RBC 4.35 106/ul Normal 4.20-5.40 [facility] Comment on above: Performed By: #### R PRQ #### [facility] [address] [place] [address] Dr. Yesenia Hung WBC 7.1 103/ul Normal 4.0-11.0 [facility] Comment on above: Performed By: #### R PRQ #### [facility] [address] [place] [address] Dr. Yesenia Hung FREE THYROXINE INDEX T7on FTI 2.24 Normal [facility] Comment on above: Performed By: #### R PRQ #### [facility] [address] [place] [address] Dr. Yesenia Hung T3U 32.0 % Normal 23.5-40.5 [facility] Comment on above: Performed By: #### R PRQ #### [facility] [address] [address] [address] Yesenia Hung T4 [Mass/Vol] 7.00 ug/dL Normal 5.53-11.00 [facility] Comment on above: Performed By: #### R PRQ #### [facility] [address] [place] [address] Dr. Yesenia Hung GLYCOHEMOGLOBIN A1Con 2020 ADA RECOMMENDATION ADA THERAPEUTIC TARG ET 6.0 - 7.0 ACTION SUGGESTED > 7.0 Normal [facility] Comment on above: Performed By: #### A 1C #### [facility] [address] [address] [address] Yesenia Hung Glucose [Mass/Vol] 94 mg/dL Normal [facility] Comment on above: Performed By: #### A 1C #### [facility] [address] [address] [address] Yesenia Hung HbA1c (Bld) [Mass fraction] 4.9 % Normal <=6.0 [facility] Comment on above: Performed By: #### A 1C #### [facility] [address] [address] [address] Yesenia Hung IRONon 05-24-2021 Iron [Mass/Vol] 53.0 ug/dL Normal 37.0-170.0 [facility] Comment on above: Performed By: #### A 1C #### [facility] [address] [place] [address] Dr. Yesenia Hung LIPID PROFILEon 05-24-2021 CHOL-HDL RATIO NORM SEE BELOW Normal [facility] Comment on above: Result Comment: 3.3 - 4.4 LOW RISK 4.4 - 7.1 AVERAGE RISK 7.1 - 11.0 MODERATE RISK >11.0 HIGH RISK Performed By: #### R PRQ #### [facility] [address] [address] [address] Yesenia Hung Cholesterol [Mass/Vol] 139 mg/dL Normal <=200 [facility] Comment on above: Performed By: #### R PRQ #### [facility] [address] [address] [address] Yesenia Hung Cholesterol in HDL [Mass/Vol] 46 mg/dL Normal [facility] Comment on above: Performed By: #### R PRQ #### [facility] [address] [address] [address] Yesenia Hung Cholesterol in LDL [Mass/Vol] 78.2 mg/dL Normal [facility] Comment on above: Performed By: #### R PRQ #### [facility] [address] [place] [address] Dr. Yesenia Hung Cholesterol.total/C holesterol in HDL [Mass ratio] 3.0 {ratio} Normal [facility] Comment on above: Performed By: #### R PRQ #### [facility] [address] [address] [address] Yesenia Hung HDL NORMAL > or = 60 mg/dl - LO W CARDIOVASCULAR RISK <40 mg/dl - HIGH CARDIOVASCULAR RISK Normal [facility] Comment on above: Performed By: #### R PRQ #### [facility] [address] [address] [address] Yesenia Hung LDL CALC NORMAL SEE BELOW Normal [facility] Comment on above: Result Comment: <100 mg/dl OPTIMAL 100 - 129 mg/dl NEAR OR ABOVE OPTIMAL 130 - 159 mg/dl BORDERLINE HIGH 160 - 189 mg/dl HIGH >190 mg/dl VERY HIGH Performed By: #### R PRQ #### [facility] [address] [place] [address] Dr. Yesenia Hung Triglyceride [Mass/Vol] 74 mg/dL Normal <=150 [facility] Comment on above: Performed By: #### R PRQ #### [facility] [address] [address] [address] Yesenia Hung VLDL CALC 14.8 mg/dL Normal [facility] Comment on above: Performed By: #### R PRQ #### [facility] [address] [address] [address] Yesenia Hung PROF 14(COMP METB)on 05-24-2 021 Albumin [Mass/Vol] 3.9 g/dL Normal 3.5-5.0 [facility] Comment on above: Performed By: #### R PRQ #### [facility] [address] [place] [address] Dr. Yesenia Hung Albumin/Globulin [Mass ratio] 1.0 {ratio} Normal [facility] Comment on above: Performed By: #### R PRQ #### [facility] [address] [address] [address] Yesenia Hung ALP [Catalytic activity/Vol] 71 U/L Normal 38-126 [facility] Comment on above: Performed By: #### R PRQ #### [facility] [address] [address] [address] Yesenia Hung ALT [Catalytic activity/Vol] 15 U/L Normal 9-52 [facility] Comment on above: Performed By: #### R PRQ #### [facility] [address] [place] [address] Dr. Yesenia Hung Anion gap [Moles/Vol] 11.3 mmol/L Normal [facility] Comment on above: Performed By: #### R PRQ #### [facility] [address] [address] [address] Yesenia Hung AST [Catalytic activity/Vol] 13 U/L Critically low 14-36 [facility] Comment on above: Performed By: #### R PRQ #### [facility] [address] [place] [address] Dr. Yesenia Hung Bilirubin [Mass/Vol] 0.6 mg/dL Normal 0.2-1.3 [facility] Comment on above: Performed By: #### R PRQ #### [facility] [address] [place] [address] Dr. Yesenia Hung Calcium [Mass/Vol] 9.2 mg/dL Normal 8.4-10.2 [facility] Comment on above: Performed By: #### R PRQ #### [facility] [address] [place] [address] Dr. Yesenia Hung Chloride [Moles/Vol] 103 mmol/L Normal 98-107 [facility] Comment on above: Performed By: #### R PRQ #### [facility] [address] [place] [address] Dr. Yesenia Hung CO2 [Moles/Vol] 28.8 mmol/L Normal 22.0-30.0 [facility] Comment on above: Performed By: #### R PRQ #### [facility] [address] [place] [address] Dr. Yesenia Hung Creatinine [Mass/Vol] 0.64 mg/dL Normal 0.52-1.04 [facility] Comment on above: Performed By: #### R PRQ #### [facility] [address] [place] [address] Dr. Yesenia Hung EGFR-AF COSTA RICAN >60 Normal >=60 [facility] Comment on above: Performed By: #### R PRQ #### [facility] [address] [place] [address] Dr. Yesenia Hung EGFR-NON AF [place] R[place] >60 Normal >=60 [facility] Comment on above: Performed By: #### R PRQ #### [facility] [address] [address] [address] Yesenia Hung Globulin (S) [Mass/Vol] 4.1 g/dL Normal [facility] Comment on above: Performed By: #### R PRQ #### [facility] [address] [place] [address] Dr. Yesenia Hung Glucose [Mass/Vol] 86 mg/dL Normal 74-106 [facility] Comment on above: Performed By: #### R PRQ #### [facility] [address] [place] [address] Dr. Yesenia Hung Potassium [Moles/Vol] 4.1 mmol/L Normal 3.4-5.0 [facility] Comment on above: Performed By: #### R PRQ #### [facility] [address] [place] [address] Dr. Yesenia Hung Protein [Mass/Vol] 8.0 g/dL Normal 6.1-8.2 [facility] Comment on above: Performed By: #### R PRQ #### [facility] [address] [address] [address] Yesenia Hung Sodium [Moles/Vol] 139 mmol/L Normal 137-145 [facility] Comment on above: Performed By: #### R PRQ #### [facility] [address] [address] [address] Yesenia Hung Urea nitrogen [Mass/Vol] 10.0 mg/dL Normal 7.0-17.0 [facility] Comment on above: Performed By: #### R PRQ #### [facility] [address] [place] [address] Dr. Yesenia Hung Urea nitrogen/Creatinine [Mass ratio] 15.6 mg/mg Normal [facility] Comment on above: Performed By: #### R PRQ #### [facility] [address] [address] [address] Yesenia Hung TSHon 05-24-2021 TSH 2.270 uIU/mL Normal 0.470-4.680 [facility] Comment on above: Performed By: #### R PRQ #### [facility] [address] [address] [address] Yesenia Hung TSH RANGE SEE BELOW Normal [facility] Comment on above: Result Comment: <0.3 4 UIU/ml HYPERTHYROID 0.34-5.60 UIU/ml EUTHYROID >5.60 UIU/ml HYPOTHYROID Performed By: #### R PRQ #### [facility] [address] [place] [address] Dr. Yesenia Hung RECRUITMENT OFFICER - Office Visiton 05-08 RECRUITMENT OFFICER - Office Visit Diagnoses/Problems Assessed Encounter for [...] MG Subcutaneous Implant Vitals Vital Signs Recorded: [id number] 01:18PM Krvpwbjlkuj98.5 F Nxvylbyc736 Spjatruyg96 Height5 ft 3 in 2-20 Stature Bfbselzjiy35 % Lfbqpl96.6 kg 2-20 Weight Omrpurwkxo85 % BMI Pmdewwbczd42.32 BMI Cbjgfxnrzw96 % BSA Calculated1.56 Physical Exam PHYSICAL EXAMINATION: [...] May 29 2020 1:40PM EST (Author) Normal [employer] RECRUITMENT OFFICER - Procedure Visiton 1 07-22-2019 RECRUITMENT OFFICER - Procedure Visit Chief Complaint PATIENT IS HERE FOR NEXPLANON INSERTION. Patient supply. FORMERLY NAMED [facility]:[id number], Lot# [id number], Exp:04/16/2022. LMP: 05-14-2020. NO CONCERNS AT THIS [...] 05/21/2020 2:11:36 PM Vitals Vital Signs Recorded: 91Mju2313 01:40PM Yewndcxwbpk90.7 F, Temporal Tubbbanz980, LUE, Sitting Xbibpnyng99, LUE, Sitting Height5 ft 3 in 2-20 Stature Eeiiphgiep43 % Jlclcj05.2 kg 2-20 Weight Afsqqhagvk53 % BMI Jdrjpbvneb40.56 BMI Bvbpomucfa18 % BSA Calculated1.57 [id number] Results/Data IO HCG, Urine [id number] 01:36PMOctavioKameron hodgson [facility] [id number] exp 06-06-21 Test NameResultFlagReference IO Urine hCGNegative [...] test IO HCG, Urine Test; Status:Complete; Done: [id number] 01:36PM Performed:In Office; Due:19Aug2020;Ordered; For:Negative test; Ordered By:Kameron Mcfadden; Provider Impressions 1. Norplant insertion Follow-up in 1 week for inspection of the insertion site Signatures Electronically signed by : Kameron Mcfadden MD; May 21 2020 2:15PM EST (Author) Normal [employer] RECRUITMENT OFFICER - Office Visiton RECRUITMENT OFFICER - Office Visit Chief Complaint An interactive [...] Time Vital Sign Value Performing Clinician Facility 04-19-2024 13:32-0500 Body mass index (BMI) [Ratio] 25.37 kg/m2 Koudai Work Phone: [facility] 04-19-2024 13:32-0500 Body weight 67.04 kg Koudai Work Phone: [facility] 04-19-2024 13:32-0500 Diastolic blood pressure 88 mm[Hg] Koudai Work Phone: [facility] 04-19-2024 13:32-0500 Systolic blood pressure 140 mm[Hg] Koudai Work Phone: [facility] 04-05-2024 14:04-0400 Body mass index (BMI) [Ratio] 24.34 kg/m2 Christina Rothman PA Work Phone: [facility] 04-05-2024 14:04-0400 Body weight 64.32 kg Christina Phoenix PA Work Phone: [facility] 04-05-2024 14:04-0400 Diastolic blood pressure 76 mm[Hg] Christina Stephan PA Work Phone: [facility] 04-05-2024 14:04-0400 Systolic blood pressure 116 mm[Hg] Christina Phoenix PA Work Phone: [facility] 03-21-2024 15:00-0400 Body mass index (BMI) [Ratio] 23.39 kg/m2 Christina Phoenix PA Work Phone: [facility] 03-21-2024 15:00-0400 Body weight 61.8 kg Christina Stephan PA Work Phone: [facility] 03-21-2024 15:00-0400 Diastolic blood pressure 78 mm[Hg] Christina Phoenix PA Work Phone: [facility] 03-21-2024 15:00-0400 Systolic blood pressure 116 mm[Hg] Christina Stephan PA Work Phone: [facility] 03-07-2024 14:47-0400 Body mass index (BMI) [Ratio] 22.74 kg/m2 Juancarlos Naveen DO Work Phone: [facility] 03-07-2024 14:47-0400 Body weight 60.1 kg Juancarlos Naveen DO Work Phone: [facility] 03-07-2024 14:47-0400 Diastolic blood pressure 70 mm[Hg] Juancarlos Naveen DO Work Phone: [facility] [facility]-2024 14:47-0400 Systolic blood pressure 106 mm[Hg] Juancarlos Naveen DO Work Phone: [facility] 02-15-2022 17:15-0400 Body temperature 97 [degF] Lupe Adair MD Work Phone: [facility] 02-15-2022 17:15-0400 Diastolic blood pressure 52 mm[Hg] Lupe Adair MD Work Phone: [facility] 02-15-2022 17:15-0400 Heart rate 75 /min Lupe Adair MD Work Phone: [facility] 02-15-2022 17:15-0400 Respiratory rate 20 /min Lupe Adair MD Work Phone: [facility] 02-15-2022 17:15-0400 SaO2% (BldA) [Mass fraction] 100 % Lupe Adair MD Work Phone: [facility] 02-15-2022 17:15-0400 Systolic blood pressure 116 mm[Hg] Lupe Adair MD Work Phone: [facility] Encounters Encounter Date Encounter Type Care Provider Facility Start: 04-30-2024 End: 04-30-2024 Clinisync Result Encounter Juancarlos Naveen DO Work Phone: [facility] Unsolicited Start: 04-30-2024 End: 04-30-2024 Clinisync Result Encounter Juancarlos Naveen DO Work Phone: [facility] Unsolicited Start: 04-27-2024 End: 04-27-2024 Clinisync Result Encounter Juancarlos Naveen DO Work Phone: [facility] Unsolicited Start: 04-27-2024 End: 04-27-2024 Clinisync Result Encounter Juancarlos Naveen DO Work Phone: [facility] Unsolicited Start: 04-26-2024 End: 04-26-2024 ambulatory Juancarlos Naveen Facility:[facility] Start: 04-26-2024 End: 04-26-2024 Clinisync Result Encounter Juancarlos Naveen DO Work Phone: [facility] Unsolicited Start: 04-26-2024 End: 04-26-2024 Clinisync Result Encounter Juancarlos Naveen DO Work Phone: [facility] Unsolicited Start: 04-25-2024 End: 04-26-2024 Clinisync Result Encounter Juancarlos Naveen DO Work Phone: [facility] Unsolicited Start: 04-25-2024 End: 04-26-2024 Clinisync Result Encounter Juancarlos Naveen DO Work Phone: [facility] Unsolicited Start: 04-19-2024 End: 04-19-2024 flow sheet Juancarlos Naveen DO Work Phone: [facility] Comment on above: 35 weeks gestation o f ; Third trimester Start: 04-19-2024 End: 04-19-2024 ambulatory JUANCARLOS NAVEEN Not Available Start: 04-05-2024 End: 04-05-2024 Bamboo flowsheet Christina FERNANDEZ Work Phone: [facility] Start: 04-05-2024 End: 04-05-2024 Bamboo flowsheet Christina FERNANDEZ Work Phone: [facility] Start: 04-05-2024 End: 04-05-2024 ambulatory CHRISTINA ROTHMAN Not Available Start: 04-05-2024 End: 04-05-2024 flow sheet Christina FERNANDEZ Work Phone: [facility] Comment on above: Third trimester preg chito; 32 weeks gestation of Start: 03-21-2024 End: 03-21-2024 flow sheet Christina FERNANDEZ Work Phone: [facility] Comment on above: Third trimester preg chito; 30 weeks gestation of Start: 03-21-2024 End: 03-21-2024 ambulatory CHRISTINA ROTHMAN Not Available Start: 03-21-2024 End: 03-21-2024 Bamboo flowsheet Christina FERNANDEZ Work Phone: [facility] Start: 03-21-2024 End: 03-21-2024 Bamboo flowsheet Christina FERNANDEZ Work Phone: [facility] Start: 03-07-2024 End: 03-07-2024 Office outpatient visit 15 minutes Juancarlos Naveen DO Work Phone: [facility] Comment on above: Third trimester preg chito; 28 weeks gestation of Start: 03-07-2024 End: 03-07-2024 ambulatory JUANCARLOS NAVEEN Not Available Start: 03-07-2024 End: 03-07-2024 Bamboo flowsheet Juancarlos Naveen DO Work Phone: [facility] Start: 03-07-2024 End: 03-07-2024 Bamboo flowsheet Juancarlos Naveen DO Work Phone: [facility] Start: 02-21-2024 End: 02-21-2024 ambulatory JUANCARLOS NAVEEN Not Available Start: 01-19-2024 End: 01-19-2024 ambulatory CHRISTINA STEPHAN Not Available Start: 01-03-2024 End: 01-03-2024 Emergency department patient visit LUPE Rudy [facility] Start: 01-03-2024 End: 01-03-2024 ambulatory REBECCA [facility] Start: 01-03-2024 End: 01-03-2024 Emergency department patient visit LUPE Grant [facility] Start: 12-21-2023 End: 12-21-2023 ambulatory JUANCARLOS NAVEEN Not Available Start: 11-23-2023 End: 11-23-2023 ambulatory JUANCARLOS NAVEEN Not Available Start: 10-21-2023 End: 10-21-2023 ambulatory JUANCARLOS NAVEEN Not Available Start: 09-29-2023 End: 09-29-2023 ambulatory CHRISTINA STEPHAN Not Available Start: 06-16-2023 End: 06-16-2023 ambulatory JUANCARLOS NAVEEN Not Available Start: 08-04-2022 End: 08-04-2022 Emergency department patient visit Zina Miranda DO Facility:[facility] Start: 04-29-2022 End: 04-30-[address] LUPE ADAIR Facility: Start: 03-30-2022 End: 03-30-2022 Emergency department patient visit Rach Posadas MD Facility:[facility] Start: 03-29-2022 End: 03-29-[address] LUPE ADAIR Facility:[facility] Start: 02-15-2022 End: 02-15-2022 Emergency department patient visit LUPE Rudy [facility] Start: 02-15-2022 End: 02-15-2022 Subsequent hospital visit by physician Lupe Adair MD Work Phone: [facility] Comment on above: Cellulitis of left r ing finger (Primary Dx) Start: 02-05-2022 End: 02-05-2022 ambulatory LUPE Grant CATIA [facility] Start: 06-04-2021 End: 06-05-[address] LUPE ADAIR Facility:[facility] Start: 05-29-2021 Encounter for genera l adult medical examination without abnormal findings DR LUPE ADAIR [facility] Start: 05-24-2021 End: 05-25-[address] LUPE ADAIR Facility:[facility] Start: 05-24-2021 End: 05-25-2021 Encounter for general adult medical examination without abnormal findings DR LUPE ADAIR Facility:[facility] Start: 05-23-2021 End: 05-24-[address] LUPE ADAIR Facility:[facility] Procedures Date Procedure Procedure Detail Performing Clinician Start: 04-30-2024 ALL CBC WITH AUTO DIFF Juancarlos Naveen DO Work Phone: Start: 04-27-2024 ALL CBC WITH AUTO DIFF Juancarlos Naveen DO Work Phone: Start: 04-26-2024 [facility] CBC WITH PLATEL ET NO DIFFERENTIAL Juancarlos Naveen DO Work Phone: Start: 04-25-2024 TBH UA (CLEAN/CATCH) CLAIM INSPECTOR/MICRO IF IND. Juancarlos Naveen DO Work Phone: Start: 04-19-2024 Urnls dip stick/tabl et rgnt non-auto w/o micrscp Juancarlos Naveen DO Work Phone: Start: 04-05-2024 Urnls dip stick/tabl et rgnt non-auto w/o micrscp Christina FERNANDEZ Work Phone: Start: 03-21-2024 Urnls dip stick/tabl et rgnt non-auto w/o micrscp Christina FERNANDEZ Work Phone: Start: 03-07-2024 Urnls dip stick/tabl et rgnt non-auto w/o micrscp Juancarlos Hodge DO Work Phone: Plan of Treatment Date Care Activity Detail Author Start: 04-26-2024 End: 04-26-2024 Patient encounter procedure 04/26/2024 1:50 PM EST Routine [facility] [address] [place] [address] Christina Rothman PA [address] [place], [place] [id number] [facility] Start: 04-19-2024 End: 04-19-2024 Patient encounter procedure 04/19/2024 1:30 PM EST Routine [facility] [address] [place] [id number] Juancarlos Hodge, [address], [place] [id number] [facility] Start: 04-05-2024 End: 04-05-2024 Patient encounter procedure 04/05/2024 1:50 PM EDT Routine [facility] [address] [place] [id number] Christina Rothman PA [address] [place] [address] [facility] Start: 03-21-2024 End: 03-21-2024 Patient encounter procedure [facility] Comment on above: Arrived Start: 03-07-2024 End: 03-07-2024 Patient encounter procedure 03/07/2024 2:40 PM EDT Routine [facility] [address] [place] [address] Juancarlos Hodge [address] [place] [address] Arrived [facility] Comment on above: Arrived Start: 01-26-2024 DTaP/Tdap/Td vaccine (7 - Td or Tdap) DTaP/Tdap/Td vaccine (7 - Td or Tdap) [facility] Start: 02-05-2023 Depression Screen Depression Screen [facility] Start: 02-05-2022 Influenza vaccination Flu vaccine (# 1) [facility] Start: 2021 Screening for malign ant neoplasm of cervix Pap smear [facility] Start: 06-18-2021 COVID-19 Vaccine (3 - Booster for Pfizer series) COVID-19 Vaccine (3 - Booster for Pfizer series) [facility] Start: 2018 Hepatitis C screening Hepatitis C sc reen [facility] Start: 2016 Screening for Chlamy elijah trachomatis Chlamydia screen [facility] Start: 11-04-2015 HIV screening HIV screen [facility] Start: 11-04-2011 HPV vaccine (1 - 2-d ose series) HPV vaccine (1 - 2-dose series) [facility] Immunizations Immunization Date Immunization Notes Care Provider Rey miller 01-16-2021 COVID-19, PFIZER PUR PLE top, DILUTE for use, (age 12 y+), 30mcg/0.3mL Lupe Adair MD Work Phone: [facility] Work Phone: 12-26-2020 COVID-19, PFIZER PUR PLE top, DILUTE for use, (age 12 y+), 30mcg/0.3mL Lupe Adair MD Work Phone: [facility] Work Phone: 01-25-2014 meningococcal polysaccharide (groups A, C, Y and W-135) diphtheria toxoid conjugate vaccine (MCV4P) Lupe Adair MD Work Phone: [facility] Work Phone: 01-25-2014 tetanus toxoid, redu arnav diphtheria toxoid, and acellular pertussis vaccine, adsorbed Lupe Adair MD Work Phone: [facility] Work Phone: 01-25-2014 varicella virus vaccine Isma Adair MD Work Phone: [facility] Work Phone: 08-13-2006 diphtheria, tetanus toxoids and acellular pertussis vaccine, unspecified formulation Lupe Adair MD Work Phone: [facility] Work Phone: 08-13-2006 measles, mumps and rubella virus vaccine Lupe Adair MD Work Phone: [facility] Work Phone: 08-13-2006 poliovirus vaccine, inactivated Lupe Adair MD Work Phone: [facility] Work Phone: 05-12-2002 diphtheria, tetanus toxoids and acellular pertussis vaccine, unspecified formulation Lupe Adair MD Work Phone: [facility] Work Phone: 05-12-2002 haemophilus influenz ae type b vaccine, conjugate unspecified formulation Lupe Adair MD Work Phone: [facility] Work Phone: 05-12-2002 varicella virus vaccine Isma Adair MD Work Phone: [facility] Work Phone: 11-04-2001 measles, mumps and rubella virus vaccine Lupe Adair MD Work Phone: [facility] Work Phone: 05-18-2001 diphtheria, tetanus toxoids and acellular pertussis vaccine, unspecified formulation Lupe Adair MD Work Phone: [facility] Work Phone: 05-18-2001 haemophilus influenz ae type b conjugate and Hepatitis B vaccine Lupe Adair MD Work Phone: [facility] Work Phone: 05-18-2001 pneumococcal conjuga te vaccine, 7 valent Lupe Adair MD Work Phone: [facility] Work Phone: 05-18-2001 poliovirus vaccine, inactivated Lupe Adair MD Work Phone: [facility] Work Phone: 03-07-2001 diphtheria, tetanus toxoids and acellular pertussis vaccine, unspecified formulation Lupe Adair MD Work Phone: [facility] Work Phone: 03-07-2001 haemophilus influenz ae type b conjugate and Hepatitis B vaccine Lupe Adair MD Work Phone: [facility] Work Phone: 03-07-2001 pneumococcal conjuga te vaccine, 7 valent Lupe Adair MD Work Phone: [facility] Work Phone: 03-07-2001 poliovirus vaccine, inactivated Lupe Adair MD Work Phone: [facility] Work Phone: 01-03-2001 diphtheria, tetanus toxoids and acellular pertussis vaccine, unspecified formulation Lupe Adair MD Work Phone: [facility] Work Phone: 01-03-2001 haemophilus influenz ae type b conjugate and Hepatitis B vaccine Lupe Adair MD Work Phone: [facility] Work Phone: 01-03-2001 pneumococcal conjuga te vaccine, 7 valent Lupe Adair MD Work Phone: [facility] Work Phone: 01-03-2001 poliovirus vaccine, inactivated Lupe Adair MD Work Phone: [facility] Work Phone: Payers Date Payer Category Payer Self-pay 2024 Private Health Insurance [employer] [id number] 2024 Unknown [id number] 2024 Medicaid [id number] 2024 Unknown [id number] 2023 Unknown [id number] 2023 Unknown [id number] 2022 Unknown 2000 Unknown [id number] 2..840.1.158556.3.579.2. 93 2000 Unknown [id number] .840.1.226496.3.579.2. 93 2000 Unknown [id number] 2.16840.1.684713.3.579.2. 593 2000 Unknown [id number] 2.16840.1.352507.3.579.2. 593 2000 Unknown [id number] 2.16840.1.095784.3.579.2. 593 2000 Unknown [id number] 2.16.840.1.897839.3.579.2. 593 2000 Unknown [id number] 2.16840.1.085588.3.579.2. 593 2000 Unknown [id number] 2.16840.1.961288.3.579.2. 196 2000 Unknown [id number] 2.16.840.1.319745.3.579.2. 196 2000 Unknown [id number] 2.16840.1.282149.3.579.2. 1285 2000 Unknown [id number] 2.16840.1.623662.3.579.2. 1285 2000 Unknown [id number] 2.16840.1.628272.3.579.2. 1285 2000 Unknown [id number] 2.16840.1.996300.3.579.2. 1285 2000 Unknown [id number] 2.16840.1.370879.3.579.2. 1258 2000 Unknown [id number] 2.16840.1.921240.3.579.2. 1258 2000 Unknown [id number] 2.16840.1.836467.3.579.2. 1258 2000 Unknown [id number] 2.16840.1.750895.3.579.2. 1258 2000 Unknown [id number] 2.16840.1.024780.3.579.2. 1258 2000 Unknown [id number] 2.16840.1.838157.3.579.2. 1258 2000 Unknown [id number] 2.16840.1.122459.3.579.2. 1258 2000 Unknown [id number] 2.16840.1.925714.3.579.2. 1258 2000 Unknown [id number] 2.16840.1.117978.3.579.2. 1258 2000 Unknown [id number] 2.16840.1.102872.3.579.2. 1259 2000 Unknown [id number] 2.16.840.1.978975.3.579.2. 1259 1959 Unknown [id number] 1.2.840.461510.1.13.239.2. 7.3.232357.315 1959 Unknown [id number] [id number]. 7.3.665980.315 Social History Date Type Detail Facility Start: 02-05-2022 End: 03-07-2024 Tobacco smoking status NHIS Never smoked tobacco [facility] Phone: Start: 02-05-2022 End: 03-07-2024 Tobacco use and exposure Smokeless tobacco non-user [facility] Phone: Start: 02-15-2022 End: 04-19-2024 Alcohol intake Lifetime non-drinker (finding) [facility] Phone: Start: 2000 Sex Assigned At Not on file B ON [facility] Phone: Tobacco smoking status MDIS Tobacco smoking consumption unknown [facility] Start: 09-01-2023 [facility] Start: 03-07-2024 Gender identity Not on file [facility] Start: 03-07-2024 History of Social function [facility] Clinical Notes 05-23-2021 to 04-19-2024 Rach Byers LPN - 04/19/2024 1:30 PM REBECCA Loo - 04/05/2024 1:50 PM REBECCA Blankenship - 03/21/2024 2:30 PM EDTRach Byers LPN - 03/07/2024 2:40 PM EDT Note Date & Type Note Facility 04-19-2024 History of Present illness Narrative Reason for Appointment: Patient ID: [...] nursing note reviewed. Exam conducted with a reference archivist present. Vitals: Estimated body mass index is 25.37 kg/m as calculated from the following: Height as of 12/21/23: 5' 4 . Weight as of this encounter: 147 lb 12.8 oz. BP: 140/88 Patient's last menstrual period was 08/18/2023. ASSESSMENT & PLAN ICD-10-CM 1. 35 weeks gestation of Z3A.35 POCT urinalysis dipstick manually resulted 2. Third trimester Z34.93 POCT urinalysis dipstick manually resulted Return OB: Patient presents today for a routine obstetrics appointment. Patient is currently 35w0d . Patient states she is doing well but has complaints of being tired due to current . Patient has verbalizes frequent movement. labor precautions was discussed/given and patient was instructed to perform kick counts three times a day. Orders Placed This Encounter Procedures POCT urinalysis dipstick manually resulted Follow Up: Patient is to return to office in 1 week for routine OB appointment. Documented by Rach Byers LPN on behalf of: Juancarlos Hodge DO documented in this encounter [facility] 04-05-2024 History of Present illness Narrative Reason for Appointment: Patient ID: [...] of: REBECCA Sanders documented in this encounter [facility] 03-21-2024 History of Present illness Narrative Reason for Appointment: Patient ID: [...] of: REBECCA Sanders documented in this encounter [facility] 03-07-2024 History of Present illness Narrative Reason for Appointment: Patient ID: [...] nursing note reviewed. Exam conducted with a reference archivist present. Vitals: Estimated body mass index is [...] Juancarlos Hodge DO documented in this encounter [facility] 05-23-2021 Note PROCEDURE: XR HAND L T [...] 12:44 [facility] Evaluation note Diagnosis Cellulitis of left ring finger- Primary documented in this encounter [facility] Phone: evaluation note* Diagnosis Third trimester state, incidental 28 weeks gestation of documented in this encounter [facility]* Diagnosis Third trimester state, incidental 30 weeks gestation of documented in this encounter [facility]* Diagnosis Third trimester state, incidental 32 weeks gestation of documented in this encounter [facility]* Diagnosis 35 weeks gestation of Third trimester state, incidental [facility] Attachments The following attachments cannot be sent through Care Everywhere. * Cellulitis (Latvian) [facility]: Summary Purpose Family History No Family [...] CREATED AUTHOR AUTHOR'S ORGANIZ ATION 02/15/2022 [facility] DATE CREATED AUTHOR AUTHOR'S ORGANIZ ATION 05/04/2022 [facility] DATE CREATED AUTHOR AUTHOR'S ORGANIZ ATION 08/27/2022 [facility] DATE CREATED AUTHOR AUTHOR'S ORGANIZ ATION 01/03/2024 [facility] DATE CREATED AUTHOR AUTHOR'S ORGANIZ ATION 04/21/2024 [facility] EPIC DATE CREATED AUTHOR AUTHOR'S ORGANIZ ATION 04/30/2024 [facility] Reason for Visit (unrecogniz ed section and [...] Care Teams (unrecognized sec tion and content) Plastic Installer Relationship Specialty Start Date End Date Lupe Adair MD [address] [place] [address] PCP - General Family Medicine 02/05/22 Plastic Installer Relationship Specialty Start Date End Date Lupe Adair MD [address] [place] [address] PCP - General Family Medicine 06/16/23 Plastic Installer Relationship Specialty Start Date End Date Lupe Adair MD [address] [place] [address] PCP - General Family Medicine 06/16/23 Plastic Installer Relationship Specialty Start Date End Date Lupe Adair MD [address] [place] [address] PCP - [facility] 06/16/23 Plastic Installer Relationship Specialty Start Date End Date Lupe Adair MD [address] [place] [address] PCP - [facility] 06/16/23 Plastic Installer Relationship Specialty Start Date End Date Lupe Adari MD [address] [place] [address] PCP - General Family [facility] 06/16/23 FOR RECORDS PERTAINING TO PATIENTS WHO [...] BE BASED ON THE PRIMARY CLINICAL RECORDS. [employer] [facility]. provides no warranty or guarantee of the accuracy or completeness of information in this document.
[2024-05-03 14:10] VITALS: BP 115/80; PULSE 95; TEMP 36.7; O2SAT 98
--- NOTE | 2024-05-03 14:16 | PC.NURSE ---
Jeannine and 7 day old Quyen arrive for follow up/ BP check after has PCP visit with Dr Adair. Mom declines to have assessed a Dr wilburn did all of that, she nursed for 30 minutes and is now asleep Mom assessed and VVS, assessment WNL. Continues to take prescribed medication of Labetolol and Procardia as prescribed. Takes Motrin and Percocet as needed with less Percocet each day. Incision clean and dry, no edema, odor or drainage noted.Milk in, baby coming to breast frequently every 2-3 hours, latching at both breasts most of feeds and occasionally only 1 breast. Does 15-30 minutes of nursing. Pumps the breast that baby does feed from is needed. Pt denies needs or concerns for self, I am feeling so much better . Encouraged to call Dr Hodge's office to schedule appointment for incision check and BP check for early next week. Verbalized understanding. Given contact info for LC over holiday weekend, encouraged to text or call as needed. Leaves ambulatory with , support with hr.
== END 2024-05-03 12:15 | disposition home or self-care (01) ==
LOC: FBCO 08:16
PROVIDERS: PCP Family Medicine; Visit Provider Obstetrics & Gynecology
DX: Z39.2 Encounter for routine postpartum follow-up (principal)